=== PATIENT | female | born 1965 | race Caucasian/White ===

== ENCOUNTER 2017-02-13 20:54 | Inpatient (IN) | payer OTHER ==
[~2017-02-13] VITALS: Ht 160 cm; Wt 112.4 kg
[~2017-02-13 20:54] MED LIST: AMBI5TAB PO; ASPI325T PO; CARV12.52 PO; FURO1TAB60 PO; HYDR-3516 PO; ISOS60TA PO; LANTUS2P SQ; LIPI40TA PO; LISI-515 PO; NITR0.4S SL; NOVOLOGP2 SQ; PAXI20TA PO; PLAV75TA29 PO; PROT40TA PO; RANO500 PO; VENTAER INH
[2017-02-13 21:02] VITALS: BP 133/65; PULSE 77; RESP 20; TEMP 98.4; O2SAT 99
[2017-02-13] MEDS ORDERED: PARO40TA2 PO (21:12)
[2017-02-13 21:22] VITALS: O2SAT 96
--- NOTE | 2017-02-13 21:24 | PD ---
HPI Chief Complaint: Chest Pain Time Seen by Provider: 21:14 Travel History International Travel<30 days: No Contact w/Intl Traveler<30days: No Traveled to known affect area: No History of Present Illness HPI 51-year-old female with history of CAD, CABG, multiple stents cardiac catheterization in 2013 that showed small caliber vessel with occlusive disease treated medically, diabetes, and CHF presents to the emergency department by EMS transport for evaluation of severe cramping abdominal pain nausea diaphoresis and then development of retrosternal chest pain with radiation to the right upper extremity. Patient denies any shortness of breath. No report of hematemesis or coffee-ground emesis. No diarrhea. Patient states that she did take aspirin 325 mg times one dose and 3 sublingual nitroglycerin. Patient reports her pain has changed from a 9/10 intensity to a 7/10 in intensity. Patient states that she typically does not respond to nitroglycerin administered sublingually unless she takes it very early. Patient did not receive any medications en route by EMS. Patient states that her severe abdominal cramping has resolved. Patient does not complain of any upper extremity pain or referred pain but does continue complaint of chest discomfort. Patient's had no recent febrile illness or respiratory illness. Patient denies any lower extremity pain or swelling. Patient is unable to identify exacerbating or alleviating factors. Patient denies any syncope or near syncope. Patient is followed by finish mixer Dr. Adnerson. [facility] Past Medical History Narrative Medical CAD, CABG, multiple stents cardiac catheterization in 2013 that showed small caliber vessel with occlusive disease treated medically, diabetes, CHF; appendectomy cholecystectomy CABG; no tobacco use; nursing notes reviewed Hx Anticoagulant Therapy: Yes Arthritis: No Asthma: No Autoimmune Disease: No Blood Disorders: No Anxiety: Yes Depression: Yes Heart Rhythm Problems: Yes Cancer: No Cardiac Catheterization: Yes ( MULTI STENTS 2012) Cardiovascular Problems: Yes High Cholesterol: Yes Chemotherapy: No Chest Pain: Yes Congestive Heart Failure: Yes COPD: Yes Cerebrovascular Accident: No Coronary Artery Disease: Yes Diabetes: Yes (on insulin) Patient Takes Glucophage: No Diminished Hearing: No Endocrine: Yes Gastrointestinal Disorders: Yes GERD: Yes (ACID REFLUX) Genitourinary: Yes Headaches: Yes Hiatal Hernia: No Hypertension: Yes Immune Disorder: No Implanted Vascular Access Dvce: No Kidney Stones: Yes Musculoskeletal: Yes Neurologic: Yes (NEUROPATHY LOWER EXTREMITIES/HANDS) Psychiatric: Yes Reproductive: Yes Respiratory: Yes Immunizations Current: Yes Migraines: Yes Myocardial Infarction: Yes Radiation Therapy: No Renal Failure: No Seizures: No Sickle Cell Disease: No Sleep Apnea: No Thyroid Disease: Yes Ulcer: No Tetanus Vaccination: < 5 Years Influenza Vaccination: Yes PNEUMOCCOCAL Vaccine (Year): 2 ?: Not LMP: 08/2015 Menopausal: Yes : 0 Para: 0 Miscarriage: 0 : 0 Tubal Ligation: Yes Past Surgical History Abdominal Surgery: Yes (HERNIA REPAIRED, APPY, LIDIA) AICD: No Appendectomy: Yes Arteriovenous Shunt: No Body Medical Devices: STERNAL WIRES Cardiac Surgery: Yes (CABG, STENT PLACEMENT) Cholecystectomy: Yes (10 YEARS AGO) Coronary Artery Bypass Graft: Yes ( X 2 2007) Ear Surgery: No Endocrine Surgery: No Eye Surgery: No Genitourinary Surgery: No Gynecologic Surgery: No Insulin Pump: No Joint Replacement: No Neurologic Surgery: No Oral Surgery: No Pacemaker: No Thoracic Surgery: Yes (STERNAL DEBRIDEMENT) Tonsillectomy: Yes Other Surgery: Yes (LEFT LUMPECTOMY ) Family History Family Myocardial Infarction: Yes Social History Alcohol Use: No Tobacco Use: No (QUIT 16 YEARS AGO) Substance Use: No Allergies-Medications (Allergen,Severity, Reaction): Coded Allergies: diatrizoate meglumine (Unverified Allergy, Severe, Nausea/Vomiting, ) ORAL CONTRAST ONLY gadobenic acid (Unverified Allergy, Severe, Nausea/Vomiting, 01/25/17) ORAL CONTRAST ONLY gadodiamide (Unverified Allergy, Severe, Nausea/Vomiting, 01/25/17) ORAL CONTRAST ONLY gadoteridol (Unverified Allergy, Severe, Nausea/Vomiting, 01/25/17) ORAL CONTRAST ONLY iodixanol (Unverified Allergy, Severe, Nausea/Vomiting, 01/25/17) ORAL CONTRAST ONLY iohexol (Unverified Allergy, Severe, Nausea/Vomiting, 01/25/17) ORAL CONTRAST ONLY penicillin G (Unverified Allergy, Severe, 01/25/17) sulfamethoxazole (Unverified Allergy, Severe, 01/25/17) trimethoprim (Unverified Allergy, Severe, 01/25/17) Reported Meds & Prescriptions Reported Meds & Active Scripts Active Ranexa ER 12 HR (Ranolazine) 500 Mg Tab 1,000 Mg PO Q12HR Isosorbide Mononitrate ER (Isosorbide Mononitrate) 60 Mg Tab 120 Mg PO BID Lipitor (Atorvastatin Calcium) 40 Mg Tab 40 Mg PO HS 30 Days Carvedilol 12.5 Mg Tab 12.5 Mg PO BID Lasix (Furosemide) 40 Mg Tab 40 Mg PO DAILY Lantus Inj (Insulin Glargine) 1,000 Unit/10 Ml Vial 30 Units SQ HS 30 Days Hydrocodone-Acetaminophen 5-325 mg Tab 1-2 Tab PO Q4H PRN Reported Paroxetine (Paroxetine HCl) 40 Mg Tab 40 Mg PO DAILY Lisinopril 20 Mg Tab 20 Mg PO BID Nitrostat SL (Nitroglycerin) 0.4 Mg Subl 0.4 Mg SL DIRECTED PRN ONE TABLET UNDER THE TONGUE NEEDED FOR CHEST PAIN, MAY REPEAT EVERY FIVE MINUTES FOR A TOTAL OF 3 DOSES OR CALL 911 IF NO RELIEF Aspirin 325 Mg Tab 325 Mg PO DAILY Novolog Inj (Insulin Aspart) 1,000 Unit/10 Ml Vial 5-25 Units SQ TIDACHS Max dose at bedtime:( )units; sugars less than 70,(0) units; sugars 150-199,(5) units; sugars 200-249,(10) units; sugars 250-299,(15) units; sugars 300-349,(20)units; sugars greater than 349,(25)units Plavix (Clopidogrel Bisulfate) 75 Mg Tab 75 Mg PO DAILY Protonix (Pantoprazole Sodium) 40 Mg Tab 40 Mg PO DAILY Ventolin Hfa 18 GM Inh (Albuterol Sulfate) 90 Mcg/Act Aer 2 Puff INH Q6H PRN Review of Systems Except as stated in HPI: all other systems reviewed are Neg General / Constitutional: No: Fever HENT: No: Congestion Cardiovascular: Positive: Chest Pain or Discomfort, Diaphoresis, No: Syncope Respiratory: No: Shortness of Breath Gastrointestinal: Positive: Nausea, Vomiting, Abdominal Pain Musculoskeletal: No: Limited ROM, Edema, Pain Neurologic: Positive: Weakness, No: Dizziness, Syncope, Focal Abnormalities, Coordination Problem Psychiatric: No: Anxiety Endocrine: No: Heat Intolerance Hematologic/Lymphatic: No: Easy Bruising Physical Exam Narrative GENERAL: Well-developed well-nourished female in no acute distress no respiratory distress SKIN: Warm and dry. HEAD: Normocephalic. EYES: No scleral icterus. No injection or drainage. NECK: Supple, trachea midline. No JVD or lymphadenopathy. CARDIOVASCULAR: Regular rate and rhythm without murmurs, gallops, or rubs. RESPIRATORY: Breath sounds equal bilaterally. No accessory muscle use. GASTROINTESTINAL: Abdomen soft, non-tender, nondistended. MUSCULOSKELETAL: No cyanosis, or edema. BACK: Nontender without obvious deformity. No CVA tenderness. Data Data Last Documented VS Vital Signs Date Time Temp Pulse Resp B/P (MAP) Pulse Ox O2 Delivery O2 Flow Rate FiO2 02/14/17 01:08 82 20 104/51 (68) 95 Room Air 02/13/17 21:02 98.4 Orders Orders Electrocardiogram (02/13/17 21:19) Basic Metabolic Panel (Bmp) (02/13/17 21:19) Ckmb (Isoenzyme) Profile (02/13/17 21:19) Complete Blood Count With Diff (02/13/17 21:19) Magnesium (Mg) (02/13/17 21:19) Prothrombin Time / Inr (Pt) (02/13/17 21:19) Act Partial Throm Time (Ptt) (02/13/17 21:19) Troponin I (02/13/17 21:19) Chest, Single Ap (02/13/17 21:19) Ecg Monitoring (02/13/17 21:19) Bilateral Bp Monitoring (02/13/17 21:19) Iv Access Insert/Monitor (02/13/17 21:19) Oximetry (02/13/17 21:19) Oxygen Administration (02/13/17 21:19) Nitroglycerin 2% Oint (Nitroglycerin 2% (02/13/17 21:30) Sodium Chloride 0.9% Flush (Ns Flush) (02/13/17 21:30) Ondansetron Inj (Zofran Inj) (02/13/17 21:30) Morphine Inj (Morphine Inj) (02/13/17 21:30) Hydromorphone Pf Inj (Dilaudid Pf Inj) (02/13/17 22:30) Ondansetron Inj (Zofran Inj) (02/13/17 22:30) Electrocardiogram (02/13/17 ) Nitroglycerin-D5w 50 Mg/250 Ml (Nitrogly (02/13/17 23:30) Hydromorphone Pf Inj (Dilaudid Pf Inj) (02/13/17 23:30) Ct Abd/Pel W/O Iv Contrast (02/14/17 ) Hepatic Functional Panel (02/13/17 21:35) Lipase (02/13/17 21:35) Urinalysis - C+S If Indicated (02/14/17 01:59) Sodium Chlorid 0.9% 500 Ml Inj (Ns 500 M (02/14/17 02:15) Admit Order (Ed Use Only) (02/14/17 ) ^ Circulation TEODORO.Q1H (02/14/17 04:01) Auto Refinisher / Telemetry TEODORO.Q8H (02/14/17 04:01) Diet Npo (02/15/17 Breakfast) Activity Oob With Assistance (02/14/17 04:01) ^ Saline Lock (02/14/17 04:01) Resp Oxygen Gerry C Titrat 1-4 L (02/14/17 ) Notify Dr: Other (02/14/17 04:01) Ondansetron Inj (Zofran Inj) (02/14/17 04:15) Sodium Chloride 0.9% Flush (Ns Flush) (02/14/17 09:00) Sodium Chloride 0.9% Flush (Ns Flush) (02/14/17 04:15) ^ For Further Orders (02/14/17 04:01) Labs Laboratory Tests Test 02/13/17 21:35 02/13/17 21:38 Blood Urea Nitrogen 49 MG/DL Creatinine 1.90 MG/DL Random Glucose 218 MG/DL Total Protein 9.5 GM/DL Albumin 3.9 GM/DL Calcium Level 9.8 MG/DL Magnesium Level 2.3 MG/DL Alkaline Phosphatase 147 U/L Aspartate Amino Transf (AST/SGOT) 22 U/L Alanine Aminotransferase (ALT/SGPT) 25 U/L Total Bilirubin 0.3 MG/DL Direct Bilirubin 0.1 MG/DL Sodium Level 134 MEQ/L Potassium Level 4.9 MEQ/L Chloride Level 100 MEQ/L Carbon Dioxide Level 26.8 MEQ/L Anion Gap 7 MEQ/L Estimat Glomerular Filtration Rate 28 ML/MIN Indirect Bilirubin 0.2 MG/DL Total Creatine Kinase 55 U/L Troponin I LESS THAN 0.02 NG/ML Lipase 475 U/L White Blood Count 18.9 TH/MM3 Red Blood Count 4.68 MIL/MM3 Hemoglobin 14.6 GM/DL Hematocrit 43.2 % Mean Corpuscular Volume 92.2 FL Mean Corpuscular Hemoglobin 31.1 PG Mean Corpuscular Hemoglobin Concent 33.8 % Red Cell Distribution Width 13.0 % Platelet Count 352 TH/MM3 Mean Platelet Volume 7.9 FL Neutrophils (%) (Auto) 67.9 % Lymphocytes (%) (Auto) 22.8 % Monocytes (%) (Auto) 6.1 % Eosinophils (%) (Auto) 2.4 % Basophils (%) (Auto) 0.8 % Neutrophils # (Auto) 12.9 TH/MM3 Lymphocytes # (Auto) 4.3 TH/MM3 Monocytes # (Auto) 1.2 TH/MM3 Eosinophils # (Auto) 0.4 TH/MM3 Basophils # (Auto) 0.1 TH/MM3 CBC Comment DIFF FINAL Differential Comment Prothrombin Time 10.5 SEC Prothromb Time International Ratio 1.0 RATIO Activated Partial Thromboplast Time 23.2 SEC Exceptions Acute Myocardial Infarction ASA Not Given on Arrival: Already taken by patient (aspirin 325 mg at home) MDM Medical Decision Making Medical Screen Exam Complete: Yes Emergency Medical Condition: Yes Medical Record Reviewed: Yes Interpretation(s) lipase: 475 Last Impressions Abdomen/Pelvis CT 02/14/17 0000 Signed Impressions: Service Date/Time: Tuesday, February 14, 2017 01:30 - CONCLUSION: 1. No obstruction or acute inflammatory changes are demonstrated. No clear etiology demonstrated for the reported right upper quadrant pain. 2. Unchanged bilateral adrenal adenomas. 3. 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 Also an unchanged 2 mm nonobstructing stone of the left lower pole. 4. 5. Left side: 6. Diverticulosis without evidence of diverticulitis. 7. Previous cholecystectomy. 8. Multilevel lumbar spine degenerative changes. Quang Curran MD Chest X-Ray 02/13/172118 Signed Impressions: Service Date/Time: Monday, February 13, 2017 21:32 - CONCLUSION: No acute disease. Cornelio Jernigan MD CBC & BMP Diagram 02/13/17 21:35 Total Protein 9.5 H, Albumin 3.9, Calcium Level 9.8, Magnesium Level 2.3, Alkaline Phosphatase 147 H, Aspartate Amino Transf (AST/SGOT) 22, Alanine Aminotransferase (ALT/SGPT) 25, Total Bilirubin 0.3, Direct Bilirubin 0.1 02/13/17 21:38 Vital Signs Date Time Temp Pulse Resp B/P (MAP) Pulse Ox O2 Delivery O2 Flow Rate FiO2 02/14/17 01:08 82 20 104/51 (68) 95 Room Air 02/13/17 23:58 95 Room Air 02/13/17 23:57 77 106/57 (73) 95 Room Air 02/13/17 23:54 74 20 106/57 (73) 95 Room Air 103/54 (70) 02/13/17 22:41 83 166/79 (108) 95 Room Air 02/13/17 22:41 Room Air 02/13/17 21:22 96 Room Air 02/13/17 21:02 98.4 77 20 133/65 (87) 99 Differential Diagnosis Chest pain, ACS, myocardial infarction, aortic dissection, esophageal spasm, pancreatitis, choledocholithiasis Narrative Course Patient resting comfortably after application of Nitropaste and morphine sulfate @10:30 PM patient complains of severe sudden onset of right breast pain and right upper quadrant abdominal pain; denies any retrosternal or left sided chest pain referred neck jaw back shoulder arm pain; no nausea vomiting; no dyspnea; abdomen is tender to palpation in the right upper quadrant location of complaint of pain as his right breast and chest wall reproduces pain of complaint; patient administered Dilaudid 0.5 mg IV along with Zofran [address] abdomen and pelvis along with lipase and hepatic panel ordered @ [address] resulted and found to have no acute intra-abdominal or pelvic findings no inflammatory findings Patient resting urinalysis remains pending patient admitted for elevation of lipase probable mild pancreatitis with history of CAD and chest pain first set of cardiac enzymes are normal; patient's case discussed with on-call for health physician requests patient be admitted for pancreatitis nothing by mouth IV maintenance fluids and telemetry with assistance up out of bed. Physician Communication Physician Communication iscussed with DR Ortiz--admit to Dr Valdivia Diagnosis Primary Impression: Pancreatitis Qualified Codes: K85.90 - Acute pancreatitis without necrosis or infection, unspecified Additional Impressions: Abdominal pain Qualified Codes: R10.13 - Epigastric pain Chest pain Qualified Codes: R07.2 - Precordial pain Admitting Information Admitting Physician Requests: Admit Virginia Terrazas MD Feb 13, 2017 21:24
[2017-02-13] MEDS ORDERED: NITROGLYCERIN 2% OINT 1 GM PACKET TOP ONE (21:30)
[2017-02-13] MEDS ORDERED: ONDANSETRON HCL 4 MG/2 ML VIAL IV PUSH ONE ×2 (21:30→22:30)
[2017-02-13] MEDS ORDERED: MORPHINE SULFATE 4 MG/ML INJ IV PUSH ONE (21:30)
[2017-02-13] MEDS ORDERED: SODIUM CHLORIDE 0.9% FLUSH 10 ML FLUSH IVF PRN (21:30)
--- NOTE | 2017-02-13 21:42 | RADRPT ---
EXAM DATE/TIME: 02/13/2017 21:32 [facility] COMPARISON: CHEST SINGLE AP, April 23, 2016, 11:37. INDICATIONS : Chest pain MEDICAL HISTORY : Hypertension. Myocardial infarction. Congestive heart failure. COPD, Asthma SURGICAL HISTORY : CABG. ENCOUNTER: Initial ACUITY: 1 day PAIN SCORE: 4/10 LOCATION: Bilateral chest FINDINGS: A single view of the chest demonstrates the lungs to be symmetrically aerated without evidence of mas s, infiltrate or effusion. The cardiomediastinal contours are unremarkable. Osseous structures are intact. CONCLUSION: No acute disease. Cornelio Jernigan MD on February 13, 2017 at 21:40 Board Certified Radiologist. This report was verified electronically.
[2017-02-13 21:47] LABS: AUTOMATED NEUTROPHIL # 12.9 TH/MM3 (1.8-7.7); BASOPHIL # 0.1 TH/MM3 (0-0.2); BASOPHIL % 0.8 % (0.0-2.0); EOSINOPHIL # 0.4 TH/MM3 (0-0.4); EOSINOPHIL % 2.4 % (0.0-4.0); HEMATOCRIT 43.2 % (35.0-46.0); HEMO FLAGS DIFF FINAL; LYMPH % 22.8 % (9.0-44.0); LYMPHOCYTE # 4.3 TH/MM3 (1.0-4.8); MEAN CELL VOLUME 92.2 FL (80.0-100.0); MEAN CORPUSCULAR HEMOGLOBIN 31.1 PG (27.0-34.0); MEAN CORPUSCULAR HGB CONC 33.8 % (32.0-36.0); MONO % 6.1 % (0.0-8.0); NEUT % 67.9 % (16.0-70.0); PLATELET COUNT 352 TH/MM3 (150-450); RED BLOOD COUNT 4.68 MIL/MM3 (4.00-5.30); WHITE BLOOD COUNT 18.9 TH/MM3 (4.0-11.0)
[2017-02-13 21:57] LABS: APTT (PATIENT) 23.2 SEC (24.3-30.1); PROTHROMBIN TIME - PATIENT 10.5 SEC (9.8-11.6)
[2017-02-13 22:09] LABS: ANION GAP 7 MEQ/L (5-15); BICARBONATE 26.8 MEQ/L (21.0-32.0); BLOOD UREA NITROGEN 49 MG/DL (7-18); CHLORIDE 100 MEQ/L (98-107); GLOMERULAR FILTRATION RATE 28 ML/MIN (>89); MAGNESIUM 2.3 MG/DL (1.5-2.5); POTASSIUM 4.9 MEQ/L (3.5-5.1); SODIUM (NA) 134 MEQ/L (136-145)
[2017-02-13 22:12] LABS: CREATINE KINASE 55 U/L (26-192)
[2017-02-13] MEDS ORDERED: HYDROmorphone HCL PF 1 MG/ML VIAL IV PUSH ONE ×2 (22:30→23:30)
[2017-02-13 22:41] VITALS: BP 166/79; PULSE 83; O2SAT 95
[2017-02-13] MEDS ORDERED: NITROGLYCERIN-D5W 50 MG/250 ML 250 ML IV ONE (23:30)
[2017-02-13 23:54] VITALS: BP_SYST 103; BP_SYST 106; BP_DIAS 54; BP_DIAS 57; PULSE 74; RESP 20; O2SAT 95
[2017-02-13 23:57] VITALS: BP 106/57; PULSE 77; O2SAT 95
[2017-02-14] VITALS (8 sets, daily range): BP systolic 101–130; BP diastolic 49–65; PULSE 68–82; RESP 16–20; TEMP 96.3–96.7; O2SAT 92–100
--- NOTE | 2017-02-14 01:56 | RADRPT ---
EXAM DATE/TIME: 02/14/2017 01:30 [facility] COMPARISON: CT ABDOMEN & PELVIS W/O CONTRAST, April 26, 2015, 23:12. INDICATIONS : Right upper quadrant pain. ORAL CONTRAST: No oral contrast ingested. RADIATION DOSE: 22.22 CTDIvol (mGy) MEDICAL HISTORY : Cardiovascular disease. Chronic obstructive pulmonary disease. Congestive heart failure.Hypertension. Renal calculi. Diabetes. SURGICAL HISTORY : CABG Cholecystectomy.Tubal ligation.Appendectomy. ENCOUNTER: Initial ACUITY: 1 day PAIN SCALE: 7/10 LOCATION: Right upper quadrant TECHNIQUE: Volumetric scanning of the abdomen and pelvis was performed. Using automated exposure control and ad justment of the mA and/or kV according to patient size, radiation dose was kept as low as reasonably achievable to obtain optimal diagnostic quality images. DICOM format image data is available electro nically for review and comparison. FINDINGS: No acute abnormality seen of the liver, spleen, pancreas, adrenal glands or kidneys. Mild nodularity/ fullness of both adrenal glands is stable. There are subcentimeter rim calcified pseudoaneurysms of b ilateral renal arteries that are stable. 2 mm nonobstructing stone at the left lower pole unchanged. Previous cholecystectomy. There is moderate diverticulosis of the sigmoid and descending portions of the colon. No acute inflam matory changes are seen. Uterus and bilateral ovaries have a normal CT appearance. No free fluid. No lymphadenopathy. Visualized lung bases are clear. No acute bony abnormality demonst rated. Degenerative disc disease with vacuum phenomena seen at each level, L2/L3-L5/S1. CONCLUSION: 1. No obstruction or acute inflammatory changes are demonstrated. No clear etiology demonstrated for the reported right upper quadrant pain. 2. Unchanged bilateral adrenal adenomas. 3. 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 Also an unchanged 2 mm non obstructing stone of the left lower pole. 4. 5. Left side: 6. Diverticulosis without evidence of diverticulitis. 7. Previous cholecystectomy. 8. Multilevel lumbar spine degenerative changes. Quang Curran MD on February 14, 2017 at 1:48 Board Certified Radiologist. This report was verified electronically.
[2017-02-14] MEDS ORDERED: SODIUM CHLORID 0.9% 500 ML INJ 500 ML IV ONE ×2 (02:15→06:00)
[2017-02-14 02:47] LABS: ALT (GPT) 25 U/L (10-53); AST (GOT) 22 U/L (15-37)
[2017-02-14 02:48] LABS: ALKALINE PHOSPHATASE 147 U/L (45-117); INDIRECT BILIRUBIN 0.2 MG/DL (0.0-0.8); TOTAL BILIRUBIN ADULT 0.3 MG/DL (0.2-1.0)
[2017-02-14] MEDS ORDERED: SODIUM CHLORIDE 0.9% FLUSH 10 ML FLUSH IVF PRN (04:15)
[2017-02-14] MEDS: ONDANSETRON HCL 4 MG/2 ML VIAL IV PRN (04:25)
--- NOTE | 2017-02-14 07:21 | HHI.HP ---
HPI Service [facility] Primary Care Physician Reji Basilio M.D. Admission Diagnosis pancreatitis Travel History International Travel<30 Days: No Contact w/Intl Traveler <30 Da: No Traveled to Known Affected Are: No History of Present Illness Mrs. Dwyer is a 50 y/o WF with history of CAD with previous CABG, DM, HTN, HLD , COPD, CHF who presents the emergency department for severe cramping abdominal pain nausea diaphoresis and then development of retrosternal chest pain with radiation to the right upper extremity. Patient denies any shortness of breath. No report of hematemesis or coffee-ground emesis. No diarrhea. Patient states that she did take aspirin 325 mg times one dose and 3 sublingual nitroglycerin. Patient reports her pain has changed from a 9/10 intensity to a 7/10 in intensity. Patient states that she typically does not respond to nitroglycerin administered sublingually unless she takes it very early. Patient did not receive any medications en route by EMS. Patient states that her severe abdominal cramping has resolved. Patient does not complain of any upper extremity pain or referred pain but does continue complaint of chest discomfort. Patient's had no recent febrile illness or respiratory illness. Patient denies any lower extremity pain or swelling. Patient is unable to identify exacerbating or alleviating factors. Patient denies any syncope or near syncope. Patient is followed by nutrition intern Dr. Anderson. @10:30 PM patient complains of severe sudden onset of right breast pain and right upper quadrant abdominal pain; denies any retrosternal or left sided chest pain referred neck jaw back shoulder arm pain; no nausea vomiting; no dyspnea; abdomen is tender to palpation in the right upper quadrant location of complaint of pain as his right breast and chest wall reproduces pain of complaint; patient administered Dilaudid 0.5 mg IV along with Zofran [address] abdomen and pelvis along with lipase and hepatic panel ordered @ [address] resulted and found to have no acute intra-abdominal or pelvic findings no inflammatory findings Past Family Social History Past Medical History Coronary artery disease status post CABG and cardiac stents Anxiety Depression Hyperlipidemia Congestive heart failure COPD Diabetes on insulin Diabetic neuropathy GERD Chronic headaches Hypertension History of kidney stones Past Surgical History Hernia repair Appendectomy Sternal debridement CABG in 2007 [facility] with Dr. Arsalan Anderson 05/30/14 - Severe 3 vessel [place] coronary artery disease - one of the two coronary artery bypass grafts are patent. There is late stent thrombosis of the PHILLIPS distal stent - Normal left ventricular filling pressures - Plan at time of heart catheterization: Given the small caliber sized vessel , cardiology elected to medically manage the remainder of patient's small vessel coronary disease Reported Medications Ranexa ER 12 HR (Ranolazine) 500 Mg Tab 1,000 Mg PO Q12HR Isosorbide Mononitrate ER (Isosorbide Mononitrate) 60 Mg Tab 120 Mg PO BID Lipitor (Atorvastatin Calcium) 40 Mg Tab 40 Mg PO HS 30 Days Carvedilol 12.5 Mg Tab 12.5 Mg PO BID Lasix (Furosemide) 40 Mg Tab 40 Mg PO DAILY Lantus Inj (Insulin Glargine) 1,000 Unit/10 Ml Vial 30 Units SQ HS 30 Days Hydrocodone-Acetaminophen 5-325 mg Tab 1-2 Tab PO Q4H PRN Paroxetine (Paroxetine HCl) 40 Mg Tab 40 Mg PO DAILY Lisinopril 20 Mg Tab 20 Mg PO BID Nitrostat SL (Nitroglycerin) 0.4 Mg Subl 0.4 Mg SL DIRECTED PRN ONE TABLET UNDER THE TONGUE NEEDED FOR CHEST PAIN, MAY REPEAT EVERY FIVE MINUTES FOR A TOTAL OF 3 DOSES OR CALL 911 IF NO RELIEF Aspirin 325 Mg Tab 325 Mg PO DAILY Novolog Inj (Insulin Aspart) 1,000 Unit/10 Ml Vial 5-25 Units SQ TIDACHS Max dose at bedtime:( )units; sugars less than 70,(0) units; sugars 150-199,(5) units; sugars 200-249,(10) units; sugars 250-299,(15) units; sugars 300-349,(20)units; sugars greater than 349,(25)units Plavix (Clopidogrel Bisulfate) 75 Mg Tab 75 Mg PO DAILY Protonix (Pantoprazole Sodium) 40 Mg Tab 40 Mg PO DAILY Ventolin Hfa 18 GM Inh (Albuterol Sulfate) 90 Mcg/Act Aer 2 Puff INH Q6H PRN Allergies: Coded Allergies: diatrizoate meglumine (Unverified Allergy, Severe, Nausea/Vomiting, ) ORAL CONTRAST ONLY gadobenic acid (Unverified Allergy, Severe, Nausea/Vomiting, 01/25/17) ORAL CONTRAST ONLY gadodiamide (Unverified Allergy, Severe, Nausea/Vomiting, 01/25/17) ORAL CONTRAST ONLY gadoteridol (Unverified Allergy, Severe, Nausea/Vomiting, 01/25/17) ORAL CONTRAST ONLY iodixanol (Unverified Allergy, Severe, Nausea/Vomiting, 01/25/17) ORAL CONTRAST ONLY iohexol (Unverified Allergy, Severe, Nausea/Vomiting, 01/25/17) ORAL CONTRAST ONLY penicillin G (Unverified Allergy, Severe, 01/25/17) sulfamethoxazole (Unverified Allergy, Severe, 01/25/17) trimethoprim (Unverified Allergy, Severe, 01/25/17) Active Ordered Medications Current Medications Medications (Trade) Dose Ordered Sig/Marcial Route Start Time Stop Time Status Last Admin (Zofran Inj) 4 mg Q6H PRN IV 02/14/17 04:15 02/14/17 04:25 (NS Flush) 2 ml BID IV FLUSH 02/14/17 09:00 (NS Flush) 2 ml UNSCH PRN IVF 02/14/17 04:15 Family History Maternal: Heart disease Paternal: at age 50 from an IN Sister also with heart disease Social History Lives with: in [place] Hx of tobacco use, 1ppd 20+ quit 16 yrs ago Occasional alcohol once per month Denies any illicit drug use Physical Exam Vital Signs Vital Signs Date Time Temp Pulse Resp B/P (MAP) Pulse Ox O2 Delivery O2 Flow Rate FiO2 02/14/17 06:20 96.7 70 19 130/65 (86) 100 02/14/17 04:28 74 20 117/56 (76) 95 Room Air 02/14/17 01:08 82 20 104/51 (68) 95 Room Air 02/13/17 23:58 95 Room Air 02/13/17 23:57 77 106/57 (73) 95 Room Air 02/13/17 23:54 74 20 106/57 (73) 95 Room Air 103/54 (70) 02/13/17 22:41 83 166/79 (108) 95 Room Air 02/13/17 22:41 Room Air 02/13/17 21:22 96 Room Air 02/13/17 21:02 98.4 77 20 133/65 (87) 99 Physical Exam GENERAL: This is a well-nourished, well-developed patient, in no apparent distress. HEENT: Atraumatic. Normocephalic. No temporal or scalp tenderness. No scleral icterus. Airway patent. NECK: Trachea midline, supple, nontender. CARDIO: Regular. RESP: Crackles at the right lung base. ABD: EXT: Extremities without clubbing, cyanosis, or edema. NEURO: Awake and alert. Motor and sensory grossly within normal limits. Normal speech. Laboratory Laboratory Tests Test 02/13/17 21:35 02/13/17 21:38 Blood Urea Nitrogen 49 Creatinine 1.90 Random Glucose 218 Total Protein 9.5 Albumin 3.9 Calcium Level 9.8 Magnesium Level 2.3 Alkaline Phosphatase 147 Aspartate Amino Transf (AST/SGOT) 22 Alanine Aminotransferase (ALT/SGPT) 25 Total Bilirubin 0.3 Direct Bilirubin 0.1 Sodium Level 134 Potassium Level 4.9 Chloride Level 100 Carbon Dioxide Level 26.8 Anion Gap 7 Estimat Glomerular Filtration Rate 28 Indirect Bilirubin 0.2 Total Creatine Kinase 55 Troponin I LESS THAN 0.02 Lipase 475 White Blood Count 18.9 Red Blood Count 4.68 Hemoglobin 14.6 Hematocrit 43.2 Mean Corpuscular Volume 92.2 Mean Corpuscular Hemoglobin 31.1 Mean Corpuscular Hemoglobin Concent 33.8 Red Cell Distribution Width 13.0 Platelet Count 352 Mean Platelet Volume 7.9 Neutrophils (%) (Auto) 67.9 Lymphocytes (%) (Auto) 22.8 Monocytes (%) (Auto) 6.1 Eosinophils (%) (Auto) 2.4 Basophils (%) (Auto) 0.8 Neutrophils # (Auto) 12.9 Lymphocytes # (Auto) 4.3 Monocytes # (Auto) 1.2 Eosinophils # (Auto) 0.4 Basophils # (Auto) 0.1 CBC Comment DIFF FINAL Differential Comment Prothrombin Time 10.5 Prothromb Time International Ratio 1.0 Activated Partial Thromboplast Time 23.2 Date/Time Source Procedure Growth Status 02/14/17 04:37 Urine Clean Catch Urine Culture Pending Received Result Diagram: [id number] Imaging Last Impressions Abdomen/Pelvis CT 02/14/17 0000 Signed Impressions: Service Date/Time: Tuesday, February 14, 2017 01:30 - CONCLUSION: 1. No obstruction or acute inflammatory changes are demonstrated. No clear etiology demonstrated for the reported right upper quadrant pain. 2. Unchanged bilateral adrenal adenomas. 3. 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 Also an unchanged 2 mm nonobstructing stone of the left lower pole. 4. 5. Left side: 6. Diverticulosis without evidence of diverticulitis. 7. Previous cholecystectomy. 8. Multilevel lumbar spine degenerative changes. Quang Curran MD Chest X-Ray 02/13/178 Signed Impressions: Service Date/Time: Monday, February 13, 2017 21:32 - CONCLUSION: No acute disease. Cornelio Jernigan MD Caprini VTE Risk Assessment Caprini Risk Assessment Model Point Value = 1 Point Value = 2 Point Value = 3 Point Value = 5 Age 41-60 Minor surgery BMI > 25 kg/m2 Swollen legs Varicose veins or History of unexplained or recurrent spontaneous Oral contraceptives or hormone replacement Sepsis (< 1 month) Serious lung disease, including pneumonia (< 1 month) Abnormal pulmonary function Acute myocardial infarction Congestive heart failure (< 1 month) History of inflammatory bowel disease Medical patient at bed rest Age 61-74 Arthroscopic surgery Major open surgery (> 45 min) Laparoscopic surgery (> 45 min) Malignancy Confined to bed (> 72 hours) Immobilizing plaster cast Central venous access Age >= 75 History of VTE Family history of VTE Factor V Leiden Prothrombin [id number] Lupus anticoagulant Anticardiolipin antibodies Elevated serum homocysteine Heparin-induced thrombocytopenia Other congenital or acquired thrombophilia Stroke (< 1 month) Elective arthroplasty Hip, pelvis, or leg fracture Acute spinal cord injury (< 1 month) Prophylaxis Regimen Total Risk Factor Score Risk Level Prophylaxis Regimen 0-1 Low Early ambulation 2 Moderate Order ONE of the following: *Sequential Compression Device (SCD) *Heparin 5000 units SQ BID 3-4 Higher Order ONE of the following medications: *Heparin 5000 units SQ TID *Enoxaparin/Lovenox 40 mg SQ daily (WT < 150 kg, CrCl > 30 mL/min) *Enoxaparin/Lovenox 30 mg SQ daily (WT < 150 kg, CrCl > 10-29 mL/min) *Enoxaparin/Lovenox 30 mg SQ BID (WT < 150 kg, CrCl > 30 mL/min) AND/OR *Sequential Compression Device (SCD) 5 or more Highest Order ONE of the following medications: *Heparin 5000 units SQ TID (Preferred with Epidurals) *Enoxaparin/Lovenox 40 mg SQ daily (WT < 150 kg, CrCl > 30 mL/min) *Enoxaparin/Lovenox 30 mg SQ daily (WT < 150 kg, CrCl > 10-29 mL/min) *Enoxaparin/Lovenox 30 mg SQ BID (WT < 150 kg, CrCl > 30 mL/min) AND *Sequential Compression Device (SCD) Physician Certification Order for Inpatient Services The services are ordered in accordance with Medicare regulations or non- Medicare payer requirements, as applicable. In the case of services not specified as inpatient-only, they are appropriately provided as inpatient services in accordance with the 2-midnight benchmark. days is the estimated time the patient will need to remain in the hospital, assuming treatment plan goals are met and no additional complications. Cindy Benjamin Feb 14, 2017 07:21
--- NOTE | 2017-02-14 07:24 | HHI.HP ---
HPI Service [facility] Hospitalists Primary Care Physician Reji Basilio M.D. Admission Diagnosis pancreatitis Chief Complaint: Severe Cramping abdominal pain and right-sided chest pain Travel History International Travel<30 Days: No Contact w/Intl Traveler <30 Da: No Traveled to Known Affected Are: No History of Present Illness Mrs. Dwyer is a 50 y/o WF with history of CAD with previous CABG, DM, HTN, HLD , COPD, CHF echocardiogram 04/2016 revealed EF of 30-35% who presented the hospital with complaints of severe cramping abdominal pain which started approximately 8 PM last night while sitting and watching television. Patient describes the abdominal pain as first starting across the lower abdomen and radiating to the mid epigastric area. Patient rates the pain 9 out of 10 associated with bowel movement soft bowel movements 2. Patient denies bright red blood or black tarry stools. Patient also reports nausea and vomiting as well as chills. Patient denies recent sick contacts or changes in diet. Patient reports approximately the same time she began to have stabbing mid retrosternal chest pain which later radiated to the right side of her chest, under her right breast, back neck and right upper arm. This right sided chest pain located under right breast and upper abdomen is reproducible with palpation. Patient reports the symptoms lasted for, "hours." Symptoms minimally relieved by nitroglycerin paste. Patient has had history of CAD with CABG in [address] Oviedo. Patient had cardiac catheterization in 2013 which revealed - Severe 3 vessel [place] coronary artery disease - one of the two coronary artery bypass grafts are patent. 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 Initial EKG reviewed and reveals sinus rhythm heart rate [address] changes Initial troponin 0.[address] abdomen reviewed and reveals no acute intra-abdominal findings Review of Systems Constitutional: COMPLAINS OF: Diaphoretic episodes, Chills, DENIES: Fatigue, Fever Respiratory: DENIES: Cough, Hemoptysis, Sputum production, Shortness of breath Cardiovascular: COMPLAINS OF: Chest pain, DENIES: Palpitations, Dyspnea on Exertion, Lower Extremity Edema Gastrointestinal: COMPLAINS OF: Abdominal pain, Nausea, Vomiting, DENIES: Black stools, Bloody stools, BRB per rectum Neurologic: DENIES: Headache, Localized weakness, Speech Problems Psychiatric: DENIES: Anxiety, Confusion, Depression Past Family Social History Past Medical History Coronary artery disease status post CABG and cardiac stents Anxiety Depression Hyperlipidemia Congestive heart failure COPD Diabetes on insulin Diabetic neuropathy GERD Chronic headaches Hypertension History of kidney stones Past Surgical History Hernia repair Appendectomy Sternal debridement CABG in [address] [facility] with [address] Arsalan Oviedo 05/30/14 - Severe 3 vessel [place] coronary artery disease - one of the two coronary artery bypass grafts are patent. There is late stent thrombosis of the PHILLIPS distal stent - Normal left ventricular filling pressures - Plan at time of heart catheterization: Given the small caliber sized vessel , cardiology elected to medically manage the remainder of patient's small vessel coronary disease Reported Medications Ranexa ER 12 HR (Ranolazine) 500 Mg Tab 1,000 Mg PO Q12HR Isosorbide Mononitrate ER (Isosorbide Mononitrate) 60 Mg Tab 120 Mg PO BID Lipitor (Atorvastatin Calcium) 40 Mg Tab 40 Mg PO HS 30 Days Carvedilol 12.5 Mg Tab 12.5 Mg PO BID Lasix (Furosemide) 40 Mg Tab 40 Mg PO DAILY Lantus Inj (Insulin Glargine) 1,000 Unit/10 Ml Vial 30 Units SQ HS 30 Days Hydrocodone-Acetaminophen 5-325 mg Tab 1-2 Tab PO Q4H PRN Paroxetine (Paroxetine HCl) 40 Mg Tab 40 Mg PO DAILY Lisinopril 20 Mg Tab 20 Mg PO BID Nitrostat SL (Nitroglycerin) 0.4 Mg Subl 0.4 Mg SL DIRECTED PRN ONE TABLET UNDER THE TONGUE NEEDED FOR CHEST PAIN, MAY REPEAT EVERY FIVE MINUTES FOR A TOTAL OF 3 DOSES OR CALL 911 IF NO RELIEF Aspirin 325 Mg Tab 325 Mg PO DAILY Novolog Inj (Insulin Aspart) 1,000 Unit/10 Ml Vial 5-25 Units SQ TIDACHS Max dose at bedtime:( )units; sugars less than 70,(0) units; sugars 150-199,(5) units; sugars 200-249,(10) units; sugars 250-299,(15) units; sugars 300-349,(20)units; sugars greater than 349,(25)units Plavix (Clopidogrel Bisulfate) 75 Mg Tab 75 Mg PO DAILY Protonix (Pantoprazole Sodium) 40 Mg Tab 40 Mg PO DAILY Ventolin Hfa 18 GM Inh (Albuterol Sulfate) 90 Mcg/Act Aer 2 Puff INH Q6H PRN Allergies: Coded Allergies: diatrizoate meglumine (Unverified Allergy, Severe, Nausea/Vomiting, ) ORAL CONTRAST ONLY gadobenic acid (Unverified Allergy, Severe, Nausea/Vomiting, 01/25/17) ORAL CONTRAST ONLY gadodiamide (Unverified Allergy, Severe, Nausea/Vomiting, 01/25/17) ORAL CONTRAST ONLY gadoteridol (Unverified Allergy, Severe, Nausea/Vomiting, 01/25/17) ORAL CONTRAST ONLY iodixanol (Unverified Allergy, Severe, Nausea/Vomiting, 01/25/17) ORAL CONTRAST ONLY iohexol (Unverified Allergy, Severe, Nausea/Vomiting, 01/25/17) ORAL CONTRAST ONLY penicillin G (Unverified Allergy, Severe, 01/25/17) sulfamethoxazole (Unverified Allergy, Severe, 01/25/17) trimethoprim (Unverified Allergy, Severe, 01/25/17) Active Ordered Medications Current Medications Medications (Trade) Dose Ordered Sig/Marcial Route Start Time Stop Time Status Last Admin (Zofran Inj) 4 mg Q6H PRN IV 02/14/17 04:15 02/14/17 04:25 (NS Flush) 2 ml BID IV FLUSH 02/14/17 09:00 (NS Flush) 2 ml UNSCH PRN IVF 02/14/17 04:15 (Nitroglycerin 2% Oint) 0.5 inch Q6HR TOPICAL 02/14/17 08:00 (D50w (Vial) Inj) 50 ml UNSCH PRN IV 02/14/17 07:30 (Glucagon Inj) 1 mg UNSCH PRN OTHER 02/14/17 07:30 (NovoLOG SUPPLEMENTAL SCALE) 1 ACHS SLIDING SCALE SQ 02/14/17 11:00 Family History Maternal: Heart disease Paternal: at age 50 from an AL Sister also with heart disease Social History Lives with: in [place] Hx of tobacco use, 1ppd 20+ quit 16 yrs ago Occasional alcohol once per month Denies any illicit drug use Physical Exam Vital Signs Vital Signs Date Time Temp Pulse Resp B/P (MAP) Pulse Ox O2 Delivery O2 Flow Rate FiO2 02/14/17 06:20 96.7 70 19 130/65 (86) 100 02/14/17 04:28 74 20 117/56 (76) 95 Room Air 02/14/17 01:08 82 20 104/51 (68) 95 Room Air 02/13/17 23:58 95 Room Air 02/13/17 23:57 77 106/57 (73) 95 Room Air 02/13/17 23:54 74 20 106/57 (73) 95 Room Air 103/54 (70) 02/13/17 22:41 83 166/79 (108) 95 Room Air 02/13/17 22:41 Room Air 02/13/17 21:22 96 Room Air 02/13/17 21:02 98.4 77 20 133/65 (87) 99 Physical Exam GENERAL: This is an obese, well-developed patient, in no apparent distress. HEENT: Atraumatic. Normocephalic. No temporal or scalp tenderness. No scleral icterus. Airway patent. NECK: Trachea midline, supple, nontender. CARDIO: Regular. RESP: difficult to auscultate due to body habitus, clear through out ABD: Soft, nondistended, hypoactive bowel sounds 4 quadrants, tender right upper quadrant EXT: Extremities without clubbing, cyanosis, or edema. NEURO: Awake and alert. Motor and sensory grossly within normal limits. Normal speech. Laboratory Laboratory Tests Test 02/13/17 21:35 02/13/17 21:38 Blood Urea Nitrogen 49 Creatinine 1.90 Random Glucose 218 Total Protein 9.5 Albumin 3.9 Calcium Level 9.8 Magnesium Level 2.3 Alkaline Phosphatase 147 Aspartate Amino Transf (AST/SGOT) 22 Alanine Aminotransferase (ALT/SGPT) 25 Total Bilirubin 0.3 Direct Bilirubin 0.1 Sodium Level 134 Potassium Level 4.9 Chloride Level 100 Carbon Dioxide Level 26.8 Anion Gap 7 Estimat Glomerular Filtration Rate 28 Indirect Bilirubin 0.2 Total Creatine Kinase 55 Troponin I LESS THAN 0.02 Lipase 475 White Blood Count 18.9 Red Blood Count 4.68 Hemoglobin 14.6 Hematocrit 43.2 Mean Corpuscular Volume 92.2 Mean Corpuscular Hemoglobin 31.1 Mean Corpuscular Hemoglobin Concent 33.8 Red Cell Distribution Width 13.0 Platelet Count 352 Mean Platelet Volume 7.9 Neutrophils (%) (Auto) 67.9 Lymphocytes (%) (Auto) 22.8 Monocytes (%) (Auto) 6.1 Eosinophils (%) (Auto) 2.4 Basophils (%) (Auto) 0.8 Neutrophils # (Auto) 12.9 Lymphocytes # (Auto) 4.3 Monocytes # (Auto) 1.2 Eosinophils # (Auto) 0.4 Basophils # (Auto) 0.1 CBC Comment DIFF FINAL Differential Comment Prothrombin Time 10.5 Prothromb Time International Ratio 1.0 Activated Partial Thromboplast Time 23.2 Date/Time Source Procedure Growth Status 02/14/17 04:37 Urine Clean Catch Urine Culture Pending Received Result Diagram: 02/[id number] Imaging Last Impressions Abdomen/Pelvis CT 02/14/17 0000 Signed Impressions: Service Date/Time: Tuesday, February 14, 2017 01:30 - CONCLUSION: 1. No obstruction or acute inflammatory changes are demonstrated. No clear etiology demonstrated for the reported right upper quadrant pain. 2. Unchanged bilateral adrenal adenomas. 3. 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 Also an unchanged 2 mm nonobstructing stone of the left lower pole. 4. 5. Left side: 6. Diverticulosis without evidence of diverticulitis. 7. Previous cholecystectomy. 8. Multilevel lumbar spine degenerative changes. Quang Curran MD Chest X-Ray 02/13/[id number] Signed Impressions: Service Date/Time: Monday, February 13, 2017 21:32 - CONCLUSION: No acute disease. MD Vitor Kilpatrick VTE Risk Assessment Caprini VTE Risk Assessment: Mod/High Risk (score >= 2) Caprini Risk Assessment Model Point Value = 1 Point Value = 2 Point Value = 3 Point Value = 5 Age 41-60 Minor surgery BMI > 25 kg/m2 Swollen legs Varicose veins or History of unexplained or recurrent spontaneous Oral contraceptives or hormone replacement Sepsis (< 1 month) Serious lung disease, including pneumonia (< 1 month) Abnormal pulmonary function Acute myocardial infarction Congestive heart failure (< 1 month) History of inflammatory bowel disease Medical patient at bed rest Age 61-74 Arthroscopic surgery Major open surgery (> 45 min) Laparoscopic surgery (> 45 min) Malignancy Confined to bed (> 72 hours) Immobilizing plaster cast Central venous access Age >= 75 History of VTE Family history of VTE Factor V Leiden Prothrombin [id number] Lupus anticoagulant Anticardiolipin antibodies Elevated serum homocysteine Heparin-induced thrombocytopenia Other congenital or acquired thrombophilia Stroke (< 1 month) Elective arthroplasty Hip, pelvis, or leg fracture Acute spinal cord injury (< 1 month) Prophylaxis Regimen Total Risk Factor Score Risk Level Prophylaxis Regimen 0-1 Low Early ambulation 2 Moderate Order ONE of the following: *Sequential Compression Device (SCD) *Heparin 5000 units SQ BID 3-4 Higher Order ONE of the following medications: *Heparin 5000 units SQ TID *Enoxaparin/Lovenox 40 mg SQ daily (WT < 150 kg, CrCl > 30 mL/min) *Enoxaparin/Lovenox 30 mg SQ daily (WT < 150 kg, CrCl > 10-29 mL/min) *Enoxaparin/Lovenox 30 mg SQ BID (WT < 150 kg, CrCl > 30 mL/min) AND/OR *Sequential Compression Device (SCD) 5 or more Highest Order ONE of the following medications: *Heparin 5000 units SQ TID (Preferred with Epidurals) *Enoxaparin/Lovenox 40 mg SQ daily (WT < 150 kg, CrCl > 30 mL/min) *Enoxaparin/Lovenox 30 mg SQ daily (WT < 150 kg, CrCl > 10-29 mL/min) *Enoxaparin/Lovenox 30 mg SQ BID (WT < 150 kg, CrCl > 30 mL/min) AND *Sequential Compression Device (SCD) Assessment and Plan Problem List: (1) Abdominal pain ICD Codes: R10.9 - Abdominal pain Status: Acute (2) Chest pain ICD Codes: R07.9 - Chest pain Status: Acute (3) Acute renal insufficiency ICD Codes: N28.9 - Acute renal insufficiency Status: Acute (4) Diabetes ICD Codes: E11.9 - Type 2 diabetes mellitus without complications Status: Chronic (5) COPD (chronic obstructive pulmonary disease) ICD Codes: J44.9 - Chronic obstructive pulmonary disease, unspecified Status: Chronic (6) Dyslipidemia ICD Codes: E78.5 - Dyslipidemia Status: Chronic (7) HTN (hypertension) ICD Codes: I10 - Essential (primary) hypertension Status: Chronic (8) CAD (coronary artery disease) ICD Codes: I25.10 - Atherosclerosis of coronary artery Status: Chronic (9) CHF (congestive heart failure) ICD Codes: I50.9 - Heart failure, unspecified Status: Chronic Assessment and Plan I agree with the above.Abdominal pain, possible mild pancreatitis - CT the abdomen reviewed and reveals no obstruction or acute inflammatory change. No clear etiology demonstrated for the reported right upper quadrant pain. Unchanged bilateral adrenal adenomas. Unchanged rim and calcified subcentimeter aneurysms of both renal arteries, also unchanged 2 mm nonobstructing stone of the left lower pole. Diverticulosis without evidence of diverticulitis. Previous cholecystectomy. Multilevel lumbar spine degenerative changes - Lipase mildly elevated for 475 - Nothing by mouth - Gentle IV hydration - Morphine IV as needed for pain Chest pain with history of CAD rule out acute coronary syndrome - Initial troponin less than 0.02 - Initial EKG sinus rhythm [address] changes identified - Continue serial troponin and serial EKG - Nitropaste - Lipid panel - Aspirin daily - Patient had cardiac catheterization in 2013 which revealed - Severe 3 vessel [place] coronary artery disease - one of the two coronary artery bypass grafts are patent. 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 oviedo - Cautious IV hydration monitor closely for signs of fluid overload DARSHANA- BUN 49 creatinine 1.90 estimated GFR 28 - likely related to dehydration - hold Lasix - gentle IV hydration with NS at 50ml/h - recheck BMP in AM Diabetes mellitus- insulin-dependent - Hold long-acting insulin as patient is currently nothing by mouth - Accu-Cheks before meals at bedtime with low-dose sliding scale insulin coverage Hypertension blood pressure currently stable - Continue monitor trend - Hold and hypertensive medications if possible as patient is nothing by mouth COPD - patient does not appear to be in acute exacerbation continue home medications DVT prophylaxis with Lovenox subcutaneous Patient examined. Assessment and plan formulated with Graciela Benjamin PA-C. epigastric pain/ruq with radiation to right chest. mild lipase elevation. some reproducibility to pain on palpation over lower chest/epigastric area could be a mild pancreatitis. Not obviously ACS. Feels better but pain not resolved. Labs reveal darshana and dehydration. will hold diuretic. gentle ivf. recheck cbc/bmp in AM look for recent stress test result...pt reports "nml:" at [facility] about 3months ago. Problem Qualifiers (1) Abdominal pain: Qualified Codes: R10.11 - Right upper quadrant pain (2) CHF (congestive heart failure): Cindy Benjamin Feb 14, 2017 07:24 Héctor Kendrick MD Feb 14, 2017 10:25
[2017-02-14] MEDS ORDERED: GLUCAGON 1 MG/ML VIAL OTHER PRN (07:30)
[2017-02-14] MEDS ORDERED: DEXTROSE 50% IN WATER 50 ML VIAL(D50) IV PRN (07:30)
[2017-02-14] MEDS ORDERED: SODIUM CHLOR 0.9% 1000 ML INJ 1,000 ML IV SCH (09:00)
[2017-02-14] MEDS: SODIUM CHLORIDE 0.9% FLUSH 10 ML FLUSH IV FLUSH SCH ×2 (09:11→21:25)
[2017-02-14] MEDS: NITROGLYCERIN 2% OINT 1 GM PACKET TOPICAL SCH ×3 (09:11→17:07)
[2017-02-14] MEDS: MORPHINE SULFATE 4 MG/ML INJ IV PUSH PRN ×3 (09:12→21:32)
[2017-02-14] MEDS ORDERED: ENOXAPARIN SODIUM 40 MG/0.4 ML SYRINGE SQ SCH (10:00)
[2017-02-14] MEDS ORDERED: ALBUTEROL SULFATE 90 MCG/ACT HFA 8 GM INHALER INH PRN (10:00)
[2017-02-14] MEDS: PANTOPRAZOLE SOD 40 MG DELAYED RELEASE TAB PO SCH (10:25)
[2017-02-14] MEDS: ISOSORBIDE MONONITRATE 60 MG TAB PO SCH ×2 (10:25→21:25)
[2017-02-14] MEDS: CARVEDILOL 12.5 MG TAB PO SCH ×2 (10:25→21:25)
[2017-02-14] MEDS: CLOPIDOGREL 75 MG TAB PO SCH (10:25)
[2017-02-14] MEDS: ASPIRIN 325 MG TAB PO SCH (10:25)
[2017-02-14] MEDS: PARoxetine HCL 20 MG TAB PO SCH (10:25)
[2017-02-14] MEDS: RANOLAZINE 500 MG EXTENDED RELEASE TAB PO SCH ×2 (10:26→21:25)
[2017-02-14 11:42] LABS: BICARBONATE 26.1 MEQ/L (21.0-32.0); POTASSIUM 5.4 MEQ/L (3.5-5.1)
[2017-02-14] MEDS: INSULIN ASPART SUPPLEMENTAL SCALE SQ SCH ×3 (12:32→21:29)
[2017-02-14] MEDS: SODIUM CHLOR 0.9% 1000 ML INJ 1,000 ML IV SCH (12:50)
[2017-02-14 17:03] LABS: BACTERIA, URINE RARE /hpf; BLOOD, URINE MOD (NEG); COMMENT (UR) CULTURE INDICATED; CULTURE IF INDICATED CULTURE INDICATED; GLUCOSE,URINE 150 mg/dL (NEG); KETONE, URINE NEG (NEG); MUCUS URINE FEW /lpf (OCC); NITRITE,URINE NEG (NEG); SQUAMOUS EPITHELIAL CELL URINE 2 /hpf (0-5)
[2017-02-14 17:09] LABS: HYALINE CAST, URINE 23 /lpf (RARE); URINE COLOR LIGHT-RED (YELLW/STRAW)
--- NOTE | 2017-02-14 20:05 | EKG ---
Date Performed: 02/13/2017 Time Performed: 23:23:19 PTAGE: 51 years EKG: Sinus rhythm MARKED LEFT AXIS DEVIATION POSSIBLE ANTERIOR MYOCARDIAL INFARCTION MODERATE T-WAVE ABNORMALITY, CONS IDER LATERAL ISCHEMIA ABNORMAL ECG PREVIOUS TRACING : 02/13/2017 21.06 DOCTOR: Krystina Rodrigues Interpretating Date/Time 02/14/2017 20:03:29
--- NOTE | 2017-02-14 20:07 | EKG ---
Date Performed: 02/13/2017 Time Performed: 21:06:15 PTAGE: 51 years EKG: Sinus rhythm MARKED LEFT AXIS DEVIATION POSSIBLE ANTERIOR MYOCARDIAL INFARCTION MODERATE T-WAVE ABNORMALITY, CONS IDER LATERAL ISCHEMIA ABNORMAL ECG PREVIOUS TRACING : 05/08/2016 11.12 DOCTOR: Krystina Rodrigues Interpretating Date/Time 02/14/2017 20:04:46
[2017-02-14] MEDS: ATORVASTATIN 40 MG TAB PO SCH (21:25)
[2017-02-15] VITALS (7 sets, daily range): BP systolic 100–155; BP diastolic 54–80; PULSE 66–76; RESP 16–21; TEMP 96.6–97.9; O2SAT 93–100
[2017-02-15] MEDS: NITROGLYCERIN 2% OINT 1 GM PACKET TOPICAL SCH ×2 (00:01→06:18)
[2017-02-15] MEDS: MORPHINE SULFATE 4 MG/ML INJ IV PUSH PRN ×4 (02:09→18:51)
[2017-02-15] MEDS: SODIUM CHLOR 0.9% 1000 ML INJ 1,000 ML IV SCH ×2 (03:38→13:59)
[2017-02-15] MEDS: INSULIN ASPART SUPPLEMENTAL SCALE SQ SCH ×4 (06:24→21:40)
[2017-02-15] MEDS: PANTOPRAZOLE SOD 40 MG DELAYED RELEASE TAB PO SCH (08:20)
[2017-02-15] MEDS: ASPIRIN 325 MG TAB PO SCH (08:20)
[2017-02-15] MEDS: PARoxetine HCL 20 MG TAB PO SCH (08:20)
[2017-02-15] MEDS: RANOLAZINE 500 MG EXTENDED RELEASE TAB PO SCH ×2 (08:20→21:35)
[2017-02-15] MEDS: SODIUM CHLORIDE 0.9% FLUSH 10 ML FLUSH IV FLUSH SCH ×2 (08:21→21:36)
[2017-02-15] MEDS: ISOSORBIDE MONONITRATE 60 MG TAB PO SCH ×2 (08:21→21:35)
[2017-02-15] MEDS: CLOPIDOGREL 75 MG TAB PO SCH (08:21)
[2017-02-15] MEDS: CARVEDILOL 12.5 MG TAB PO SCH ×2 (08:22→21:35)
[2017-02-15 09:46] LABS: AUTOMATED NEUTROPHIL # 7.5 TH/MM3 (1.8-7.7); BASOPHIL # 0.1 TH/MM3 (0-0.2); BASOPHIL % 0.7 % (0.0-2.0); EOSINOPHIL # 0.5 TH/MM3 (0-0.4); EOSINOPHIL % 4.3 % (0.0-4.0); HEMATOCRIT 35.6 % (35.0-46.0); HEMO FLAGS DIFF FINAL; LYMPH % 27.7 % (9.0-44.0); LYMPHOCYTE # 3.4 TH/MM3 (1.0-4.8); MEAN CORPUSCULAR HEMOGLOBIN 31.5 PG (27.0-34.0); MEAN CORPUSCULAR HGB CONC 33.9 % (32.0-36.0); NEUT % 60.3 % (16.0-70.0); PLATELET COUNT 251 TH/MM3 (150-450); RED BLOOD COUNT 3.83 MIL/MM3 (4.00-5.30); RED CELL DISTRIBUTION WIDTH 13.2 % (11.6-17.2); WHITE BLOOD COUNT 12.4 TH/MM3 (4.0-11.0)
[2017-02-15 10:12] LABS: BICARBONATE 21.6 MEQ/L (21.0-32.0); INDIRECT BILIRUBIN 0.4 MG/DL (0.0-0.8); POTASSIUM 4.8 MEQ/L (3.5-5.1); TOTAL BILIRUBIN ADULT 0.5 MG/DL (0.2-1.0)
--- NOTE | 2017-02-15 11:10 | HHI.PR ---
Subjective Remarks Patient reports feeling better today, no longer having abd pain, nausea or vomiting does continue to have stabbing/cramping pain under right breast with radiation to right side and back request diet to be increased Patient reports urine had odor yesterday and was, "real dark." associated Right flank pain with urination. Patient denies burning with urination or increased frequency. Objective Vitals Vital Signs Date Time Temp Pulse Resp B/P (MAP) Pulse Ox O2 Delivery O2 Flow Rate FiO2 02/15/17 08:40 98 21 02/15/17 08:00 96.6 73 20 100/60 (73) 97 02/15/17 04:30 96.8 72 16 102/54 (70) 96 02/15/17 02:14 16 02/15/17 01:00 Room Air 02/15/17 00:25 97.4 76 16 107/57 (74) 93 02/14/17 21:50 21 02/14/17 20:00 69 02/14/17 19:55 96.4 78 16 101/49 (66) 97 02/14/17 16:00 96.3 68 17 111/59 (76) 92 02/14/17 12:00 96.7 71 18 120/56 (77) 93 Result Diagram: 02/15/17 0853 02/15/17 0853 Other Results Laboratory Tests Test 02/13/17 21:35 02/13/17 21:38 02/14/17 10:30 02/14/17 14:05 Blood Urea Nitrogen 49 MG/DL 58 MG/DL Creatinine 1.90 MG/DL 2.52 MG/DL Random Glucose 218 MG/DL 315 MG/DL Total Protein 9.5 GM/DL Albumin 3.9 GM/DL Calcium Level 9.8 MG/DL 8.7 MG/DL Magnesium Level 2.3 MG/DL Alkaline Phosphatase 147 U/L Aspartate Amino Transf (AST/SGOT) 22 U/L Alanine Aminotransferase (ALT/SGPT) 25 U/L Total Bilirubin 0.3 MG/DL Direct Bilirubin 0.1 MG/DL Sodium Level 134 MEQ/L 135 MEQ/L Potassium Level 4.9 MEQ/L 5.4 MEQ/L Chloride Level 100 MEQ/L 102 MEQ/L Carbon Dioxide Level 26.8 MEQ/L 26.1 MEQ/L Anion Gap 7 MEQ/L 7 MEQ/L Estimat Glomerular Filtration Rate 28 ML/MIN 20 ML/MIN Indirect Bilirubin 0.2 MG/DL Total Creatine Kinase 55 U/L Troponin I LESS THAN 0.02 NG/ML 0.02 NG/ML 0.06 NG/ML Lipase 475 U/L 410 U/L White Blood Count 18.9 TH/MM3 Red Blood Count 4.68 MIL/MM3 Hemoglobin 14.6 GM/DL Hematocrit 43.2 % Mean Corpuscular Volume 92.2 FL Mean Corpuscular Hemoglobin 31.1 PG Mean Corpuscular Hemoglobin Concent 33.8 % Red Cell Distribution Width 13.0 % Platelet Count 352 TH/MM3 Mean Platelet Volume 7.9 FL Neutrophils (%) (Auto) 67.9 % Lymphocytes (%) (Auto) 22.8 % Monocytes (%) (Auto) 6.1 % Eosinophils (%) (Auto) 2.4 % Basophils (%) (Auto) 0.8 % Neutrophils # (Auto) 12.9 TH/MM3 Lymphocytes # (Auto) 4.3 TH/MM3 Monocytes # (Auto) 1.2 TH/MM3 Eosinophils # (Auto) 0.4 TH/MM3 Basophils # (Auto) 0.1 TH/MM3 CBC Comment DIFF FINAL Differential Comment Prothrombin Time 10.5 SEC Prothromb Time International Ratio 1.0 RATIO Activated Partial Thromboplast Time 23.2 SEC Test 02/14/17 15:32 02/15/17 08:53 Urine Color LIGHT-RED Urine Turbidity HAZY Urine pH 5.0 Urine Specific [place] 1.022 Urine Protein TRACE mg/dL Urine Glucose (UA) 150 mg/dL Urine Ketones NEG mg/dL Urine Occult Blood MOD Urine Nitrite NEG Urine Bilirubin NEG Urine Urobilinogen 2.0 MG/DL Urine Leukocyte Esterase TRACE Urine RBC /hpf Urine WBC 8 /hpf Urine WBC Clumps RARE Urine Squamous Epithelial Cells 2 /hpf Urine Bacteria RARE /hpf Urine Hyaline Casts 23 /lpf Urine Mucus FEW /lpf Microscopic Urinalysis Comment CULTURE INDICATED Urine Eosinophils NONE SEEN /HPF Urine Random Sodium 38 MEQ/L White Blood Count 12.4 TH/MM3 Red Blood Count 3.83 MIL/MM3 Hemoglobin 12.1 GM/DL Hematocrit 35.6 % Mean Corpuscular Volume 93.0 FL Mean Corpuscular Hemoglobin 31.5 PG Mean Corpuscular Hemoglobin Concent 33.9 % Red Cell Distribution Width 13.2 % Platelet Count 251 TH/MM3 Mean Platelet Volume 7.2 FL Neutrophils (%) (Auto) 60.3 % Lymphocytes (%) (Auto) 27.7 % Monocytes (%) (Auto) 7.0 % Eosinophils (%) (Auto) 4.3 % Basophils (%) (Auto) 0.7 % Neutrophils # (Auto) 7.5 TH/MM3 Lymphocytes # (Auto) 3.4 TH/MM3 Monocytes # (Auto) 0.9 TH/MM3 Eosinophils # (Auto) 0.5 TH/MM3 Basophils # (Auto) 0.1 TH/MM3 CBC Comment DIFF FINAL Differential Comment Blood Urea Nitrogen 55 MG/DL Creatinine 2.16 MG/DL Random Glucose 211 MG/DL Total Protein 7.5 GM/DL Albumin 3.1 GM/DL Calcium Level 8.5 MG/DL Alkaline Phosphatase 198 U/L Aspartate Amino Transf (AST/SGOT) 361 U/L Alanine Aminotransferase (ALT/SGPT) 557 U/L Total Bilirubin 0.5 MG/DL Direct Bilirubin 0.1 MG/DL Sodium Level 133 MEQ/L Potassium Level 4.8 MEQ/L Chloride Level 102 MEQ/L Carbon Dioxide Level 21.6 MEQ/L Anion Gap 9 MEQ/L Estimat Glomerular Filtration Rate 24 ML/MIN Indirect Bilirubin 0.4 MG/DL Imaging Last Impressions Abdomen/Pelvis CT 02/14/17 0000 Signed Impressions: Service Date/Time: Tuesday, February 14, 2017 01:30 - CONCLUSION: 1. No obstruction or acute inflammatory changes are demonstrated. No clear etiology demonstrated for the reported right upper quadrant pain. 2. Unchanged bilateral adrenal adenomas. 3. 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 Also an unchanged 2 mm nonobstructing stone of the left lower pole. 4. 5. Left side: 6. Diverticulosis without evidence of diverticulitis. 7. Previous cholecystectomy. 8. Multilevel lumbar spine degenerative changes. Quang Curran MD Chest X-Ray 02/13/172118 Signed Impressions: Service Date/Time: Monday, February 13, 2017 21:32 - CONCLUSION: No acute disease. Cornelio Jernigan MD Objective Remarks GENERAL: This is an obese, well-developed patient, in no apparent distress. HEENT: Atraumatic. Normocephalic. No temporal or scalp tenderness. No scleral icterus. Airway patent. NECK: Trachea midline, supple, nontender. CARDIO: Regular. RESP: difficult to auscultate due to body habitus, clear through out ABD: Soft, tender RUQ, nondistended, normoactive bowel sounds 4 quadrants NEURO: Awake and alert. Motor and sensory grossly within normal limits. Normal speech. A/P Problem List: (1) Abdominal pain ICD Codes: R10.9 - Abdominal pain Status: Acute (2) Chest pain ICD Codes: R07.9 - Chest pain Status: Acute (3) Acute renal insufficiency ICD Codes: N28.9 - Acute renal insufficiency Status: Acute (4) Diabetes ICD Codes: E11.9 - Type 2 diabetes mellitus without complications Status: Chronic (5) COPD (chronic obstructive pulmonary disease) ICD Codes: J44.9 - Chronic obstructive pulmonary disease, unspecified Status: Chronic (6) Dyslipidemia ICD Codes: E78.5 - Dyslipidemia Status: Chronic (7) HTN (hypertension) ICD Codes: I10 - Essential (primary) hypertension Status: Chronic (8) CAD (coronary artery disease) ICD Codes: I25.10 - Atherosclerosis of coronary artery Status: Chronic (9) CHF (congestive heart failure) ICD Codes: I50.9 - Heart failure, unspecified Status: Chronic Assessment and Plan Abdominal pain possible mild pancreatitis Elevated AST/ALT - CT the abdomen reviewed and reveals no obstruction or acute inflammatory change. No clear etiology demonstrated for the reported right upper quadrant pain. Unchanged bilateral adrenal adenomas. Unchanged rim and calcified subcentimeter aneurysms of both renal arteries, also unchanged 2 mm nonobstructing stone of the left lower pole. Diverticulosis without evidence of diverticulitis. Previous cholecystectomy. Multilevel lumbar spine degenerative changes - Lipase mildly elevated for 475 --> 410 - Nothing by mouth - Gentle IV hydration - Morphine IV as needed for pain - elevated AST/ALT with history of cholecystectomy - MRCP ordered Hematuria - UA reviewed and reveals: Moderate occult blood, trace leukocyeserase, innumerable RBCs present - repeat UA today with culture Chest pain with history of CAD rule out acute coronary syndrome - Initial troponin less than 0.02 -> 0.02 -> 0.06- likely related to renal function - serial EKG no acute ST changes identified - Nitropaste DC'd - Lipid panel - continue home medications Plavix, aspirin, Ranexa, Imdur, Coreg, - Patient had cardiac catheterization in 2013 which revealed - Severe 3 vessel [place] coronary artery disease - one of the two coronary artery bypass grafts are patent. 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 oviedo - Cautious IV hydration monitor closely for signs of fluid overload DARSHANA- BUN 49 creatinine 1.90 estimated GFR 28 creatinine 1.90 --> 2.52 --> 2.16 - likely related to dehydration - hold Lasix - continue IV hydration with NS - recheck BMP in AM Diabetes mellitus- insulin-dependent - takes Lantus 30 units SQ HS at home - start Levemir 15 Units SQ QHS - Accu-Cheks before meals at bedtime with low-dose sliding scale insulin coverage Hypertension blood pressure currently stable - Continue monitor trend - Hold and hypertensive medications if possible as patient is nothing by mouth COPD - patient does not appear to be in acute exacerbation continue home medications DVT prophylaxis with Lovenox subcutaneous Patient examined. Assessment and plan formulated with Nuha Mojica PA-C. I agree with the above. r/o choledocholithiasis. mrcp. recheck lft recheck urinalysis. cont ivf. recheck bmp in AM. Problem Qualifiers (1) Abdominal pain: Qualified Codes: R10.11 - Right upper quadrant pain (2) CHF (congestive heart failure): Cindy Benjamin Feb 15, 2017 11:10 Héctor Kendrick MD Feb 15, 2017 11:57
[2017-02-15] MEDS: ENOXAPARIN SODIUM 30 MG/0.3 ML SYRINGE SQ SCH (13:59)
[2017-02-15 14:37] LABS: BLOOD, URINE NEG (NEG); COMMENT (UR) CULT NOT INDICATED; CULTURE IF INDICATED CULT NOT INDICATED; GLUCOSE,URINE 300 mg/dL (NEG); HYALINE CAST, URINE 3 /lpf (RARE); KETONE, URINE NEG (NEG); NITRITE,URINE NEG (NEG); SQUAMOUS EPITHELIAL CELL URINE 2 /hpf (0-5); URINE COLOR YELLOW (YELLW/STRAW)
[2017-02-15] MEDS: ATORVASTATIN 40 MG TAB PO SCH (21:35)
[2017-02-15] MEDS: INSULIN DETEMIR 100 UNITS/ML VIAL SQ SCH (21:41)
[2017-02-16] VITALS (8 sets, daily range): BP systolic 103–162; BP diastolic 44–87; PULSE 68–89; RESP 16–18; TEMP 96.6–97.6; O2SAT 93–98
[2017-02-16] MEDS: SODIUM CHLOR 0.9% 1000 ML INJ 1,000 ML IV SCH ×2 (00:45→13:37)
[2017-02-16] MEDS: INSULIN ASPART SUPPLEMENTAL SCALE SQ SCH ×4 (06:14→21:30)
[2017-02-16 07:48] LABS: AUTOMATED NEUTROPHIL # 5.8 TH/MM3 (1.8-7.7); BASOPHIL # 0.1 TH/MM3 (0-0.2); BASOPHIL % 0.7 % (0.0-2.0); EOSINOPHIL # 0.5 TH/MM3 (0-0.4); EOSINOPHIL % 5.1 % (0.0-4.0); HEMATOCRIT 31.1 % (35.0-46.0); HEMO FLAGS DIFF FINAL; LYMPH % 30.5 % (9.0-44.0); LYMPHOCYTE # 3.1 TH/MM3 (1.0-4.8); MEAN CELL VOLUME 91.6 FL (80.0-100.0); MEAN CORPUSCULAR HEMOGLOBIN 31.1 PG (27.0-34.0); MEAN CORPUSCULAR HGB CONC 33.9 % (32.0-36.0); MONO % 7.3 % (0.0-8.0); NEUT % 56.4 % (16.0-70.0); PLATELET COUNT 235 TH/MM3 (150-450); RED CELL DISTRIBUTION WIDTH 13.1 % (11.6-17.2); WHITE BLOOD COUNT 10.3 TH/MM3 (4.0-11.0)
[2017-02-16 08:14] LABS: BICARBONATE 24.2 MEQ/L (21.0-32.0); INDIRECT BILIRUBIN 0.2 MG/DL (0.0-0.8); POTASSIUM 4.8 MEQ/L (3.5-5.1); TOTAL BILIRUBIN ADULT 0.3 MG/DL (0.2-1.0)
[2017-02-16] MEDS: ACETAMINOPHEN/HYDROcodone 325 MG/5 MG TAB PO PRN (08:27)
[2017-02-16] MEDS: CARVEDILOL 12.5 MG TAB PO SCH ×2 (09:00→21:21)
--- NOTE | 2017-02-16 10:02 | HHI.PR ---
Objective Vitals Vital Signs Date Time Temp Pulse Resp B/P (MAP) Pulse Ox O2 Delivery O2 Flow Rate FiO2 02/16/17 05:15 96.9 89 16 103/44 (63) 95 02/16/17 01:30 Room Air 02/16/17 00:25 96.6 72 16 151/73 (99) 98 02/15/17 20:45 96.9 66 16 155/80 (105) 97 02/15/17 19:24 18 02/15/17 16:00 97.9 71 21 149/74 (99) 100 02/15/17 12:00 97.7 76 20 134/72 (92) 99 Result Diagram: 02/16/17 0700 02/16/17 0701 Imaging Last Impressions Abdomen/Pelvis CT 02/14/17 0000 Signed Impressions: Service Date/Time: Tuesday, February 14, 2017 01:30 - CONCLUSION: 1. No obstruction or acute inflammatory changes are demonstrated. No clear etiology demonstrated for the reported right upper quadrant pain. 2. Unchanged bilateral adrenal adenomas. 3. 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 Also an unchanged 2 mm nonobstructing stone of the left lower pole. 4. 5. Left side: 6. Diverticulosis without evidence of diverticulitis. 7. Previous cholecystectomy. 8. Multilevel lumbar spine degenerative changes. Quang Curran MD Chest X-Ray 02/13/172118 Signed Impressions: Service Date/Time: Monday, February 13, 2017 21:32 - CONCLUSION: No acute disease. Cornelio Jernigan MD Objective Remarks GENERAL: This is an obese, well-developed patient, in no apparent distress. HEENT: Atraumatic. Normocephalic. No temporal or scalp tenderness. No scleral icterus. Airway patent. NECK: Trachea midline, supple, nontender. CARDIO: Regular. RESP: difficult to auscultate due to body habitus, clear through out ABD: Soft, tender RUQ, nondistended, normoactive bowel sounds 4 quadrants NEURO: Awake and alert. Motor and sensory grossly within normal limits. Normal speech. A/P Problem List: (1) Abdominal pain ICD Codes: R10.9 - Abdominal pain Status: Acute (2) Chest pain ICD Codes: R07.9 - Chest pain Status: Acute (3) Acute renal insufficiency ICD Codes: N28.9 - Acute renal insufficiency Status: Acute (4) Diabetes ICD Codes: E11.9 - Type 2 diabetes mellitus without complications Status: Chronic (5) COPD (chronic obstructive pulmonary disease) ICD Codes: J44.9 - Chronic obstructive pulmonary disease, unspecified Status: Chronic (6) Dyslipidemia ICD Codes: E78.5 - Dyslipidemia Status: Chronic (7) HTN (hypertension) ICD Codes: I10 - Essential (primary) hypertension Status: Chronic (8) CAD (coronary artery disease) ICD Codes: I25.10 - Atherosclerosis of coronary artery Status: Chronic (9) CHF (congestive heart failure) ICD Codes: I50.9 - Heart failure, unspecified Status: Chronic Assessment and Plan Abdominal pain possible mild pancreatitis Elevated AST/ALT - CT the abdomen reviewed and reveals no obstruction or acute inflammatory change. No clear etiology demonstrated for the reported right upper quadrant pain. Unchanged bilateral adrenal adenomas. Unchanged rim and calcified subcentimeter aneurysms of both renal arteries, also unchanged 2 mm nonobstructing stone of the left lower pole. Diverticulosis without evidence of diverticulitis. Previous cholecystectomy. Multilevel lumbar spine degenerative changes - Lipase mildly elevated for 475 --> 410 Possible passes sludge/gs. lft trending down mrcp pending ivf. advance diet if mrcp negative Hematuria - UA reviewed and reveals: Moderate occult blood, trace leukocyeserase, innumerable RBCs present - repeat UA today with culture -repeat u/a was essentially nml. Chest pain with history of CAD rule out acute coronary syndrome - Initial troponin less than 0.02 -> 0.02 -> 0.06- likely related to renal function - serial EKG no acute ST changes identified - Nitropaste DC'd - Lipid panel - continue home medications Plavix, aspirin, Ranexa, Imdur, Coreg, - Patient had cardiac catheterization in 2013 which revealed - Severe 3 vessel [place] coronary artery disease - one of the two coronary artery bypass grafts are patent. 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 minor - Cautious IV hydration monitor closely for signs of fluid overload DARSHANA- BUN 49 creatinine 1.90 estimated GFR 28 creatinine 1.90 --> 2.52 --> 2.16 - likely related to dehydration - hold Lasix - continue IV hydration with NS - recheck BMP in AM Diabetes mellitus- insulin-dependent - takes Lantus 30 units SQ HS at home - start Levemir 15 Units SQ QHS - Accu-Cheks before meals at bedtime with low-dose sliding scale insulin coverage Hypertension blood pressure currently stable - Continue monitor trend - Hold and hypertensive medications if possible as patient is nothing by mouth COPD - patient does not appear to be in acute exacerbation continue home medications DVT prophylaxis with Lovenox subcutaneous Problem Qualifiers (1) Abdominal pain: Qualified Codes: R10.11 - Right upper quadrant pain (2) CHF (congestive heart failure): Héctor Kendrick MD Feb 16, 2017 10:02
[2017-02-16] MEDS: PARoxetine HCL 20 MG TAB PO SCH (10:20)
[2017-02-16] MEDS: ISOSORBIDE MONONITRATE 60 MG TAB PO SCH ×2 (10:20→21:21)
[2017-02-16] MEDS: RANOLAZINE 500 MG EXTENDED RELEASE TAB PO SCH ×2 (10:20→21:21)
[2017-02-16] MEDS: CLOPIDOGREL 75 MG TAB PO SCH (10:21)
[2017-02-16] MEDS: PANTOPRAZOLE SOD 40 MG DELAYED RELEASE TAB PO SCH (10:21)
[2017-02-16] MEDS: ASPIRIN 325 MG TAB PO SCH (10:21)
[2017-02-16] MEDS: SODIUM CHLORIDE 0.9% FLUSH 10 ML FLUSH IV FLUSH SCH ×2 (10:22→21:00)
[2017-02-16] MEDS: MORPHINE SULFATE 4 MG/ML INJ IV PUSH PRN ×3 (10:30→21:20)
--- NOTE | 2017-02-16 10:46 | RADRPT ---
EXAM DATE/TIME: 02/16/2017 08:38 [facility] COMPARISON: CT ABDOMEN & PELVIS W/O CONTRAST, February 14, 2017, 1:30. INDICATIONS : Abdominal pain. MEDICAL HISTORY : Diabetes mellitus type 2. Hypertension. Chronic obstructive pulmonary disease. SURGICAL HISTORY : Tonsillectomy. Cholecystectomy. Appendectomy. ENCOUNTER: Initial ACUITY: 2 day PAIN SCORE: 4/10 LOCATION: abdomen TECHNIQUE: Multiplanar, multisequence magnetic resonance imaging of the abdomen was performed. High-resolution 3D dataset was utilized to reconstruct maximum-intensity projection (MIP) images. FINDINGS: INTRAHEPATIC BILE DUCTS: Within normal limits. No significant anatomical variant is present. EXTRAHEPATIC BILE DUCTS: The common bile duct measures 4 mm No stone or filling defect is identified. GALLBLADDER: Cholecystectomy LIVER: Normal size and signal intensity. No concerning liver lesion is identified on this non-contrast exam. PANCREAS: The main pancreatic duct is normal in size. There is no significant anatomical variant. Signal inte nsity is within normal limits. No mass is visualized on this non-contrast exam. OTHER: Bilateral adrenal adenomas demonstrate homogeneous suppression of signal on opposed phase imaging. N o evidence hydronephrosis in either kidney. The abdominal aorta is normal dimension. CONCLUSION: No dilation of the intra-articular hepatic biliary system. Davide Chung MD on February 16, 2017 at 10:20 Board Certified Radiologist. This report was verified electronically.
[2017-02-16] MEDS: ENOXAPARIN SODIUM 30 MG/0.3 ML SYRINGE SQ SCH (13:30)
[2017-02-16] MEDS: ATORVASTATIN 40 MG TAB PO SCH (21:21)
[2017-02-16] MEDS: INSULIN DETEMIR 100 UNITS/ML VIAL SQ SCH (21:28)
[2017-02-17 00:40] VITALS: BP 144/64; PULSE 76; RESP 16; TEMP 97.2; O2SAT 97
[2017-02-17] MEDS: MORPHINE SULFATE 4 MG/ML INJ IV PUSH PRN ×6 (01:19→21:13)
[2017-02-17 04:06] VITALS: BP 131/59; PULSE 76; RESP 18; TEMP 96.8; O2SAT 96
[2017-02-17] MEDS: SODIUM CHLOR 0.9% 1000 ML INJ 1,000 ML IV SCH ×2 (04:21→12:22)
[2017-02-17] MEDS: INSULIN ASPART SUPPLEMENTAL SCALE SQ SCH ×4 (06:20→21:23)
[2017-02-17 07:48] LABS: BICARBONATE 24.5 MEQ/L (21.0-32.0); POTASSIUM 4.7 MEQ/L (3.5-5.1)
[2017-02-17] MEDS: RANOLAZINE 500 MG EXTENDED RELEASE TAB PO SCH ×2 (07:54→21:13)
[2017-02-17] MEDS: PANTOPRAZOLE SOD 40 MG DELAYED RELEASE TAB PO SCH (07:54)
[2017-02-17] MEDS: ASPIRIN 325 MG TAB PO SCH (07:54)
[2017-02-17] MEDS: PARoxetine HCL 20 MG TAB PO SCH (07:55)
[2017-02-17] MEDS: ISOSORBIDE MONONITRATE 60 MG TAB PO SCH ×2 (07:55→21:00)
[2017-02-17] MEDS: CLOPIDOGREL 75 MG TAB PO SCH (07:55)
[2017-02-17] MEDS: CARVEDILOL 12.5 MG TAB PO SCH ×2 (07:56→21:01)
[2017-02-17 08:00] VITALS: BP 121/58; PULSE 66; RESP 18; TEMP 96; O2SAT 97
[2017-02-17] MEDS: SODIUM CHLORIDE 0.9% FLUSH 10 ML FLUSH IV FLUSH SCH ×2 (08:05→21:00)
[2017-02-17 08:11] LABS: INDIRECT BILIRUBIN 0.2 MG/DL (0.0-0.8); TOTAL BILIRUBIN ADULT 0.3 MG/DL (0.2-1.0)
--- NOTE | 2017-02-17 11:06 | HHI.PR ---
Subjective Remarks still with some ruq/flank pain. slow improvent. Objective Vitals heart reg lung cta abd ruq/flank tenderness ext no edema Vital Signs Date Time Temp Pulse Resp B/P (MAP) Pulse Ox O2 Delivery O2 Flow Rate FiO2 02/17/17 08:05 16 02/17/17 08:00 96.0 66 18 121/58 (79) 97 02/17/17 04:06 96.8 76 18 131/59 (83) 96 02/17/17 00:50 Room Air 02/17/17 00:40 97.2 76 16 144/64 (90) 97 02/16/17 20:10 97.3 71 18 162/87 (112) 98 02/16/17 20:00 79 02/16/17 16:00 97.6 69 18 155/68 (97) 97 02/16/17 12:00 97.1 68 18 105/53 (70) 93 02/16/17 11:27 70 Result Diagram: 02/16/17 0700 02/17/17 0639 Imaging Last Impressions Abdomen/Pelvis CT 02/14/17 0000 Signed Impressions: Service Date/Time: Tuesday, February 14, 2017 01:30 - CONCLUSION: 1. No obstruction or acute inflammatory changes are demonstrated. No clear etiology demonstrated for the reported right upper quadrant pain. 2. Unchanged bilateral adrenal adenomas. 3. 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 Also an unchanged 2 mm nonobstructing stone of the left lower pole. 4. 5. Left side: 6. Diverticulosis without evidence of diverticulitis. 7. Previous cholecystectomy. 8. Multilevel lumbar spine degenerative changes. Quang Curran MD Chest X-Ray 02/13/172118 Signed Impressions: Service Date/Time: Monday, February 13, 2017 21:32 - CONCLUSION: No acute disease. Cornelio Jernigan MD A/P Problem List: (1) Abdominal pain ICD Codes: R10.9 - Abdominal pain Status: Acute (2) Chest pain ICD Codes: R07.9 - Chest pain Status: Acute (3) Acute renal insufficiency ICD Codes: N28.9 - Acute renal insufficiency Status: Acute (4) Diabetes ICD Codes: E11.9 - Type 2 diabetes mellitus without complications Status: Chronic (5) COPD (chronic obstructive pulmonary disease) ICD Codes: J44.9 - Chronic obstructive pulmonary disease, unspecified Status: Chronic (6) Dyslipidemia ICD Codes: E78.5 - Dyslipidemia Status: Chronic (7) HTN (hypertension) ICD Codes: I10 - Essential (primary) hypertension Status: Chronic (8) CAD (coronary artery disease) ICD Codes: I25.10 - Atherosclerosis of coronary artery Status: Chronic (9) CHF (congestive heart failure) ICD Codes: I50.9 - Heart failure, unspecified Status: Chronic Assessment and Plan Abdominal pain possible mild pancreatitis elevated LFT possible passed stone/sludge - CT the abdomen reviewed and reveals no obstruction or acute inflammatory change. No clear etiology demonstrated for the reported right upper quadrant pain. Unchanged bilateral adrenal adenomas. Unchanged rim and calcified subcentimeter aneurysms of both renal arteries, also unchanged 2 mm nonobstructing stone of the left lower pole. Diverticulosis without evidence of diverticulitis. Previous cholecystectomy. Multilevel lumbar spine degenerative changes - Lipase mildly elevated for 475 --> 410 -mrcp..no biliary obstruction noted. cont ivf diet advanced lft in AM Hematuria - UA reviewed and reveals: Moderate occult blood, trace leukocyeserase, innumerable RBCs present - repeat UA today with culture -repeat u/a was essentially nml. Chest pain with history of CAD rule out acute coronary syndrome - Initial troponin less than 0.02 -> 0.02 -> 0.06- likely related to renal function - serial EKG no acute ST changes identified - Nitropaste DC'd - Lipid panel - continue home medications Plavix, aspirin, Ranexa, Imdur, Coreg, - Patient had cardiac catheterization in 2013 which revealed - Severe 3 vessel [place] coronary artery disease - one of the two coronary artery bypass grafts are patent. 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 oviedo - Cautious IV hydration monitor closely for signs of fluid overload DARSHANA- - likely related to dehydration - hold Lasix and geno - continue IV hydration with NS - recheck BMP in AM Diabetes mellitus- insulin-dependent - takes Lantus 30 units SQ HS at home - titrate up on the lantus toward her baseline. - Accu-Cheks before meals at bedtime with low-dose sliding scale insulin coverage Hypertension blood pressure currently stable - Continue monitor trend - Hold and hypertensive medications if possible as patient is nothing by mouth COPD - patient does not appear to be in acute exacerbation continue home medications DVT prophylaxis with Lovenox subcutaneous Problem Qualifiers (1) Abdominal pain: Qualified Codes: R10.11 - Right upper quadrant pain (2) CHF (congestive heart failure): Héctor Kendrick MD Feb 17, 2017 11:06
[2017-02-17 12:00] VITALS: BP 115/65; PULSE 65; RESP 18; TEMP 97.9; O2SAT 98
[2017-02-17] MEDS: ENOXAPARIN SODIUM 30 MG/0.3 ML SYRINGE SQ SCH (12:15)
[2017-02-17] MEDS ORDERED: LACTULOSE SYRUP 20 GM/30 ML CUP PO ONE (14:00)
[2017-02-17 15:31] VITALS: BP 100/51; PULSE 63; RESP 16; TEMP 96.6; O2SAT 98
[2017-02-17 20:45] VITALS: BP 178/93; PULSE 71; RESP 17; TEMP 96.8; O2SAT 98
[2017-02-17] MEDS: ONDANSETRON HCL 4 MG/2 ML VIAL IV PRN (21:00)
[2017-02-17] MEDS: ATORVASTATIN 40 MG TAB PO SCH (21:01)
[2017-02-17] MEDS: INSULIN DETEMIR 100 UNITS/ML VIAL SQ SCH (21:24)
[2017-02-18] VITALS: BP 145/64; PULSE 78; RESP 18; TEMP 98.3; O2SAT 96
[2017-02-18] MEDS: MORPHINE SULFATE 4 MG/ML INJ IV PUSH PRN ×4 (00:58→20:11)
[2017-02-18] MEDS: SODIUM CHLOR 0.9% 1000 ML INJ 1,000 ML IV SCH ×2 (00:59→11:19)
[2017-02-18 04:16] VITALS: BP 106/56; PULSE 71; RESP 18; TEMP 98; O2SAT 96
[2017-02-18] MEDS: INSULIN ASPART SUPPLEMENTAL SCALE SQ SCH ×4 (06:27→20:24)
[2017-02-18 07:24] VITALS: BP 119/56; PULSE 77; RESP 16; TEMP 98; O2SAT 95
[2017-02-18] MEDS: CLOPIDOGREL 75 MG TAB PO SCH (08:40)
[2017-02-18] MEDS: ISOSORBIDE MONONITRATE 60 MG TAB PO SCH ×2 (08:40→20:10)
[2017-02-18] MEDS: PARoxetine HCL 20 MG TAB PO SCH (08:40)
[2017-02-18] MEDS: RANOLAZINE 500 MG EXTENDED RELEASE TAB PO SCH ×2 (08:40→20:10)
[2017-02-18] MEDS: PANTOPRAZOLE SOD 40 MG DELAYED RELEASE TAB PO SCH (08:40)
[2017-02-18] MEDS: CARVEDILOL 12.5 MG TAB PO SCH ×2 (08:40→20:10)
[2017-02-18] MEDS: SODIUM CHLORIDE 0.9% FLUSH 10 ML FLUSH IV FLUSH SCH ×2 (08:41→20:11)
[2017-02-18] MEDS: ASPIRIN 325 MG TAB PO SCH (08:41)
--- NOTE | 2017-02-18 09:31 | HHI.PR ---
Subjective Remarks Pt reports that she had increased abdominal pain last night after eating a hamburger Some nausea this morning but no vomiting. Afebrile No BM in 5 days, +Flatus Objective Vitals Vital Signs Date Time Temp Pulse Resp B/P (MAP) Pulse Ox O2 Delivery O2 Flow Rate FiO2 02/18/17 08:47 16 02/18/17 04:16 98.0 71 18 106/56 (73) 96 02/18/17 00:00 98.3 78 18 145/64 (91) 96 02/17/17 20:45 96.8 71 17 178/93 (121) 98 02/17/17 15:31 96.6 63 16 100/51 (67) 98 02/17/17 12:00 97.9 65 18 115/65 (82) 98 Result Diagram: 02/16/17 0700 02/17/17 0639 Other Results Laboratory Tests Test 02/17/17 06:39 Blood Urea Nitrogen 23 MG/DL Creatinine 1.42 MG/DL Random Glucose 213 MG/DL Total Protein 6.8 GM/DL Albumin 2.9 GM/DL Calcium Level 8.4 MG/DL Alkaline Phosphatase 158 U/L Aspartate Amino Transf (AST/SGOT) 57 U/L Alanine Aminotransferase (ALT/SGPT) 228 U/L Total Bilirubin 0.3 MG/DL Direct Bilirubin 0.1 MG/DL Sodium Level 137 MEQ/L Potassium Level 4.7 MEQ/L Chloride Level 106 MEQ/L Carbon Dioxide Level 24.5 MEQ/L Anion Gap 7 MEQ/L Estimat Glomerular Filtration Rate 39 ML/MIN Indirect Bilirubin 0.2 MG/DL Imaging Last Impressions Abdomen/Pelvis CT 02/14/17 0000 Signed Impressions: Service Date/Time: Tuesday, February 14, 2017 01:30 - CONCLUSION: 1. No obstruction or acute inflammatory changes are demonstrated. No clear etiology demonstrated for the reported right upper quadrant pain. 2. Unchanged bilateral adrenal adenomas. 3. 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 Also an unchanged 2 mm nonobstructing stone of the left lower pole. 4. 5. Left side: 6. Diverticulosis without evidence of diverticulitis. 7. Previous cholecystectomy. 8. Multilevel lumbar spine degenerative changes. Quang Curran MD Chest X-Ray 02/13/172118 Signed Impressions: Service Date/Time: Monday, February 13, 2017 21:32 - CONCLUSION: No acute disease. Cornelio Jernigan MD Objective Remarks General: NAD, AAOx3 Chest: CTA Cardiac: Regular Abd: +BS, soft, obese, mild epigastric tenderness Ext: No edema A/P Problem List: (1) Abdominal pain ICD Codes: R10.9 - Abdominal pain Status: Acute (2) Chest pain ICD Codes: R07.9 - Chest pain Status: Acute (3) Acute renal insufficiency ICD Codes: N28.9 - Acute renal insufficiency Status: Acute (4) Diabetes ICD Codes: E11.9 - Type 2 diabetes mellitus without complications Status: Chronic (5) COPD (chronic obstructive pulmonary disease) ICD Codes: J44.9 - Chronic obstructive pulmonary disease, unspecified Status: Chronic (6) Dyslipidemia ICD Codes: E78.5 - Dyslipidemia Status: Chronic (7) HTN (hypertension) ICD Codes: I10 - Essential (primary) hypertension Status: Chronic (8) CAD (coronary artery disease) ICD Codes: I25.10 - Atherosclerosis of coronary artery Status: Chronic (9) CHF (congestive heart failure) ICD Codes: I50.9 - Heart failure, unspecified Status: Chronic Assessment and Plan Abdominal pain possible mild pancreatitis elevated LFT possible passed stone/sludge - CT the abdomen reviewed and reveals no obstruction or acute inflammatory change. No clear etiology demonstrated for the reported right upper quadrant pain. Unchanged bilateral adrenal adenomas. Unchanged rim and calcified subcentimeter aneurysms of both renal arteries, also unchanged 2 mm nonobstructing stone of the left lower pole. Diverticulosis without evidence of diverticulitis. Previous cholecystectomy. Multilevel lumbar spine degenerative changes - Lipase mildly elevated for 475 --> 410 - MRCP with no biliary obstruction noted. - LFTs are trending down - Pt still on IVF - Pt tolerating advanced diet but having increased abd pain today. - Await repeat labs for today - Pt has not moved her bowels in 5 days, will step up the constipation medications. Hematuria - UA reviewed and reveals: Moderate occult blood, trace leukocyeserase, innumerable RBCs present - repeat UA today with culture - repeat UA was essentially nml. Chest pain with history of CAD rule out acute coronary syndrome - Initial troponin less than 0.02 -> 0.02 -> 0.06- likely related to renal function - serial EKG no acute ST changes identified - Nitropaste DC'd - Lipid panel - continue home medications Plavix, aspirin, Ranexa, Imdur, Coreg, - Patient had cardiac catheterization in 2013 which revealed - Severe 3 vessel [place] coronary artery disease - one of the two coronary artery bypass grafts are patent. 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 oviedo - Cautious IV hydration monitor closely for signs of fluid overload DARSHANA - likely related to dehydration - hold Lasix and geno - continue IV hydration with NS - recheck BMP in AM Diabetes mellitus- insulin-dependent - takes Lantus 30 units SQ HS at home - Pt is on Levemir 25 units HS - Accu-Cheks before meals at bedtime with low-dose sliding scale insulin coverage Hypertension blood pressure currently stable - Continue monitor trend - Hold and hypertensive medications if possible as patient is nothing by mouth COPD - patient does not appear to be in acute exacerbation continue home medications DVT prophylaxis with Lovenox subcutaneous Patient examined. Assessment and plan formulated with Nuha Mojica PA-C. I agree with the above. liver and renal function slowly improving more lower abdomen pain today laxatives/simethicone. cont ivf Problem Qualifiers (1) Abdominal pain: Qualified Codes: R10.11 - Right upper quadrant pain (2) CHF (congestive heart failure): Nuha Mojica Feb 18, 2017 09:31 Héctor Kendrick MD Feb 18, 2017 12:08
[2017-02-18] MEDS ORDERED: MAGNESIUM CITRATE SOLN 300 ML BTL PO ONE (10:00)
[2017-02-18 10:52] LABS: BICARBONATE 21.8 MEQ/L (21.0-32.0); POTASSIUM 4.8 MEQ/L (3.5-5.1)
[2017-02-18 10:56] LABS: INDIRECT BILIRUBIN 0.3 MG/DL (0.0-0.8); TOTAL BILIRUBIN ADULT 0.4 MG/DL (0.2-1.0)
[2017-02-18] MEDS: SIMETHICONE 125 MG CHEWABLE TAB PO SCH ×3 (11:18→21:59)
[2017-02-18] MEDS: ENOXAPARIN SODIUM 30 MG/0.3 ML SYRINGE SQ SCH (11:19)
[2017-02-18 11:24] VITALS: BP 108/56; PULSE 69; RESP 16; TEMP 98.7; O2SAT 96
[2017-02-18 16:00] VITALS: BP 121/58; PULSE 69; RESP 16; TEMP 97.6; O2SAT 99
[2017-02-18 20:00] VITALS: BP 125/80; PULSE 76; RESP 16; TEMP 98; O2SAT 100
[2017-02-18] MEDS: ATORVASTATIN 40 MG TAB PO SCH (20:10)
[2017-02-18] MEDS: INSULIN DETEMIR 100 UNITS/ML VIAL SQ SCH (20:12)
[2017-02-19] VITALS (7 sets, daily range): BP systolic 102–165; BP diastolic 45–85; PULSE 62–81; RESP 16–18; TEMP 96.5–97.9; O2SAT 96–98
[2017-02-19] MEDS: MORPHINE SULFATE 4 MG/ML INJ IV PUSH PRN ×4 (00:53→15:47)
[2017-02-19] MEDS: SIMETHICONE 125 MG CHEWABLE TAB PO SCH ×3 (06:09→20:20)
[2017-02-19] MEDS: INSULIN ASPART SUPPLEMENTAL SCALE SQ SCH ×4 (07:57→20:20)
--- NOTE | 2017-02-19 08:51 | HHI.PR ---
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 She is planning to eat eggs and a bagel this morning. Objective Vitals Vital Signs Date Time Temp Pulse Resp B/P (MAP) Pulse Ox O2 Delivery O2 Flow Rate FiO2 02/19/17 04:00 97.7 70 16 102/55 (71) 98 02/19/17 00:00 97.9 72 16 126/68 (87) 97 02/18/17 20:00 98.0 76 16 125/80 (95) 100 02/18/17 16:00 97.6 69 16 121/58 (79) 99 02/18/17 11:24 98.7 69 16 108/56 (73) 96 02/18/17 10:50 16 Result Diagram: 02/16/17 0700 02/18/17 0935 Other Results Last Impressions Cholangiopancreatography MRI 02/16/17 0000 Signed Impressions: Service Date/Time: Thursday, February 16, 2017 08:38 - CONCLUSION: No dilation of the intra-articular hepatic biliary system. Davide Chung MD Abdomen/Pelvis CT 02/14/17 0000 Signed Impressions: Service Date/Time: Tuesday, February 14, 2017 01:30 - CONCLUSION: 1. No obstruction or acute inflammatory changes are demonstrated. No clear etiology demonstrated for the reported right upper quadrant pain. 2. Unchanged bilateral adrenal adenomas. 3. 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 Also an unchanged 2 mm nonobstructing stone of the left lower pole. 4. 5. Left side: 6. Diverticulosis without evidence of diverticulitis. 7. Previous cholecystectomy. 8. Multilevel lumbar spine degenerative changes. Quang Curran MD Chest X-Ray 02/13/172118 Signed Impressions: Service Date/Time: Monday, February 13, 2017 21:32 - CONCLUSION: No acute disease. Cornelio Jernigan MD Imaging Last Impressions Abdomen/Pelvis CT 02/14/17 0000 Signed Impressions: Service Date/Time: Tuesday, February 14, 2017 01:30 - CONCLUSION: 1. No obstruction or acute inflammatory changes are demonstrated. No clear etiology demonstrated for the reported right upper quadrant pain. 2. Unchanged bilateral adrenal adenomas. 3. 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 Also an unchanged 2 mm nonobstructing stone of the left lower pole. 4. 5. Left side: 6. Diverticulosis without evidence of diverticulitis. 7. Previous cholecystectomy. 8. Multilevel lumbar spine degenerative changes. Quang Curran MD Chest X-Ray 02/13/17 4609 Signed Impressions: Service Date/Time: Monday, February 13, 2017 21:32 - CONCLUSION: No acute disease. Cornelio Jernigan MD Objective Remarks General: NAD, AAOx3 Chest: CTA Cardiac: Regular Abd: +BS, soft, obese, mild epigastric and RUQ tenderness Ext: No edema A/P Problem List: (1) Abdominal pain ICD Codes: R10.9 - Abdominal pain Status: Acute (2) Chest pain ICD Codes: R07.9 - Chest pain Status: Acute (3) Acute renal insufficiency ICD Codes: N28.9 - Acute renal insufficiency Status: Acute (4) Diabetes ICD Codes: E11.9 - Type 2 diabetes mellitus without complications Status: Chronic (5) COPD (chronic obstructive pulmonary disease) ICD Codes: J44.9 - Chronic obstructive pulmonary disease, unspecified Status: Chronic (6) Dyslipidemia ICD Codes: E78.5 - Dyslipidemia Status: Chronic (7) HTN (hypertension) ICD Codes: I10 - Essential (primary) hypertension Status: Chronic (8) CAD (coronary artery disease) ICD Codes: I25.10 - Atherosclerosis of coronary artery Status: Chronic (9) CHF (congestive heart failure) ICD Codes: I50.9 - Heart failure, unspecified Status: Chronic Assessment and Plan Abdominal pain ?possible mild pancreatitis vs. possible passed stone/sludge Elevated LFTs - CT the abdomen reviewed and reveals no obstruction or acute inflammatory change. No clear etiology demonstrated for the reported right upper quadrant pain. Unchanged bilateral adrenal adenomas. Unchanged rim and calcified subcentimeter aneurysms of both renal arteries, also unchanged 2 mm nonobstructing stone of the left lower pole. Diverticulosis without evidence of diverticulitis. Previous cholecystectomy. Multilevel lumbar spine degenerative changes - Lipase mildly elevated for 475 --> 410 - MRCP with no biliary obstruction noted. - LFTs are trending down, but etiology for the elevation is unclear. - Check Hepatitis panel. - Pt tolerating advanced diet but had increased abd pain on 02/18 - Pain improved after moving her bowels twice. - Await repeat labs for today - Pt is a diabetic with continued abd pain. We will check gastric emptying study today to assess for possible gastroparesis. Hematuria - UA reviewed and reveals: Moderate occult blood, trace leukocyeserase, innumerable RBCs present - repeat UA today with culture - repeat UA was essentially nml. Chest pain with history of CAD rule out acute coronary syndrome - Initial troponin less than 0.02 -> 0.02 -> 0.06- likely related to renal function - serial EKG no acute ST changes identified - Nitropaste DC'd - Lipid panel - continue home medications Plavix, aspirin, Ranexa, Imdur, Coreg, - Patient had cardiac catheterization in 2013 which revealed - Severe 3 vessel [place] coronary artery disease - one of the two coronary artery bypass grafts are patent. 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 oviedo - IVF stopped on 02/18 DARSHANA - likely related to dehydration - hold Lasix and geno - continue IV hydration with NS - recheck BMP in AM Diabetes mellitus- insulin-dependent - takes Lantus 30 units SQ HS at home - Pt is on Levemir 25 units HS - Accu-Cheks before meals at bedtime with low-dose sliding scale insulin coverage Hypertension blood pressure currently stable - Continue monitor trend - Hold and hypertensive medications if possible as patient is nothing by mouth COPD - patient does not appear to be in acute exacerbation continue home medications DVT prophylaxis with Lovenox subcutaneous Patient examined. Assessment and plan formulated with Nuha Mojica PA-C. I agree with the above. liver and renal function improved. overall says abdomen pain is improved but required morphine laxatives are working. Problem Qualifiers (1) Abdominal pain: Qualified Codes: R10.11 - Right upper quadrant pain (2) CHF (congestive heart failure): Nuha Mojica Feb 19, 2017 08:51 Héctor Kendrick MD Feb 19, 2017 12:06
[2017-02-19] MEDS: RANOLAZINE 500 MG EXTENDED RELEASE TAB PO SCH ×2 (09:21→19:59)
[2017-02-19] MEDS: PARoxetine HCL 20 MG TAB PO SCH (09:22)
[2017-02-19] MEDS: ASPIRIN 325 MG TAB PO SCH (09:22)
[2017-02-19] MEDS: CLOPIDOGREL 75 MG TAB PO SCH (09:22)
[2017-02-19] MEDS: ISOSORBIDE MONONITRATE 60 MG TAB PO SCH ×2 (09:22→19:59)
[2017-02-19] MEDS: CARVEDILOL 12.5 MG TAB PO SCH ×2 (09:22→19:59)
[2017-02-19] MEDS: PANTOPRAZOLE SOD 40 MG DELAYED RELEASE TAB PO SCH (09:22)
[2017-02-19] MEDS: SODIUM CHLORIDE 0.9% FLUSH 10 ML FLUSH IV FLUSH SCH ×2 (09:23→20:08)
[2017-02-19 10:39] LABS: BICARBONATE 24.3 MEQ/L (21.0-32.0); MAGNESIUM 1.9 MG/DL (1.5-2.5); POTASSIUM 4.3 MEQ/L (3.5-5.1)
[2017-02-19 10:42] LABS: INDIRECT BILIRUBIN 0.2 MG/DL (0.0-0.8); TOTAL BILIRUBIN ADULT 0.3 MG/DL (0.2-1.0)
[2017-02-19] MEDS ORDERED: METOCLOPRAMIDE HCL 10 MG/2 ML VIAL ONE (13:51)
--- NOTE | 2017-02-19 15:39 | RADRPT ---
EXAM DATE/TIME: 02/19/2017 13:09 [facility] COMPARISON: No previous studies available for comparison. INDICATIONS : Abdominal pain, nausea and vomiting. DOSE: 1.1 mCi Tc99m Sulfur Colloid Labeled Whole egg PO MEDICATONS: 1.) 5 mg Reglan IV at 90 minutes IMAGIN hrs MEDICAL HISTORY : Gastroesophageal reflux disease. Myocardial infarction. Congestive heart failure. hypertension. COPD. SURGICAL HISTORY : Tubal ligation. Tonsillectomy. Cholecystectomy. Appendectomy. ENCOUNTER: Initial ACUITY: 1 day PAIN SCALE: 4/10 LOCATION: Right upper quadrant TECHNIQUE: Following the oral ingestion of radiotracer-labeled meal, dynamic sequential images in the ANGOLAN projec tion were acquired with simultaneous computer acquisition. The data set was decay-corrected. FINDINGS: There is minimal gastric emptying observed at 120 minutes. Gastric emptying is markedly delayed. No s ignificant change following Reglan administration. CONCLUSION: Markedly delayed gastric emptying. Kilo Gamble MD on February 19, 2017 at 15:30 Board Certified Radiologist. This report was verified electronically.
[2017-02-19] MEDS: ENOXAPARIN SODIUM 30 MG/0.3 ML SYRINGE SQ SCH (15:51)
[2017-02-19] MEDS: METOCLOPRAMIDE HCL 10 MG/2 ML VIAL IV PUSH SCH (19:05)
[2017-02-19] MEDS: ATORVASTATIN 40 MG TAB PO SCH (19:59)
[2017-02-19] MEDS: INSULIN DETEMIR 100 UNITS/ML VIAL SQ SCH (20:06)
[2017-02-19] MEDS: ACETAMINOPHEN/HYDROcodone 325 MG/5 MG TAB PO PRN (20:07)
[2017-02-20 00:10] VITALS: BP 122/66; PULSE 73; RESP 17; TEMP 97.4; O2SAT 98
[2017-02-20] MEDS: METOCLOPRAMIDE HCL 10 MG/2 ML VIAL IV PUSH SCH ×2 (01:34→09:37)
[2017-02-20 04:00] VITALS: BP 107/55; PULSE 64; RESP 17; TEMP 97; O2SAT 99
[2017-02-20] MEDS: SIMETHICONE 125 MG CHEWABLE TAB PO SCH (06:06)
[2017-02-20] MEDS: INSULIN ASPART SUPPLEMENTAL SCALE SQ SCH (06:12)
[2017-02-20 08:00] VITALS: BP 130/68; PULSE 65; RESP 17; TEMP 98.3; O2SAT 97
[2017-02-20] MEDS ORDERED: REGL5TAB PO (08:17)
--- NOTE | 2017-02-20 08:19 | HHI.DCPOC ---
Discharge Care Plan Diagnosis: (1) LFT elevation (2) DARSHANA (acute kidney injury) (3) Abdominal pain (4) CHF (congestive heart failure) (5) Diabetes (6) CAD (coronary artery disease) (7) Hypertension Goals to Promote Your Health * To prevent worsening of your condition and complications * To maintain your health at the optimal level Directions to Meet Your Goals Take your medications as prescribed Follow your dietary instruction Follow activity as directed Keep your appointments as scheduled Take your immunizations and boosters as scheduled If your symptoms worsen call your PCP, if no PCP go to Urgent Care Center or Emergency Room Smoking is Dangerous to Your Health. Avoid second hand smoke Call the 24-hour hour crisis hotline for domestic abuse at Héctor Kendrick MD Feb 20, 2017 08:19
--- NOTE | 2017-02-20 08:27 | HHI.DS ---
Discharge Summary Admission Date Feb 14, 2017 at 04:04 Discharge Date: Feb 20, 2017 Admitting Diagnosis pancreatitis (1) Abdominal pain Diagnosis: Principal ICD Codes: R10.9 - Abdominal pain Status: Acute (2) DARSHANA (acute kidney injury) Diagnosis: Principal ICD Codes: N17.9 - Acute kidney failure, unspecified (3) LFT elevation Diagnosis: Principal ICD Codes: R79.89 - Other specified abnormal findings of blood chemistry (4) Diabetes Diagnosis: Secondary ICD Codes: E11.9 - Type 2 diabetes mellitus without complications Status: Chronic (5) COPD (chronic obstructive pulmonary disease) Diagnosis: Secondary ICD Codes: J44.9 - Chronic obstructive pulmonary disease, unspecified Status: Chronic (6) Dyslipidemia Diagnosis: Secondary ICD Codes: E78.5 - Dyslipidemia Status: Chronic (7) HTN (hypertension) Diagnosis: Secondary ICD Codes: I10 - Essential (primary) hypertension Status: Chronic (8) CAD (coronary artery disease) Diagnosis: Secondary ICD Codes: I25.10 - Atherosclerosis of coronary artery Status: Chronic (9) CHF (congestive heart failure) ICD Codes: I50.9 - Heart failure, unspecified Status: Chronic Brief History Mrs. Dwyer is a 50 y/o WF with history of CAD with previous CABG, DM, HTN, HLD , COPD, CHF echocardiogram 04/2016 revealed EF of 30-35% who presented the hospital with complaints of severe cramping abdominal pain which started approximately 8 PM last night while sitting and watching television. Patient describes the abdominal pain as first starting across the lower abdomen and radiating to the mid epigastric area. Patient rates the pain 9 out of 10 associated with bowel movement soft bowel movements 2. Patient denies bright red blood or black tarry stools. Patient also reports nausea and vomiting as well as chills. Patient denies recent sick contacts or changes in diet. Patient reports approximately the same time she began to have stabbing mid retrosternal chest pain which later radiated to the right side of her chest, under her right breast, back neck and right upper arm. This right sided chest pain located under right breast and upper abdomen is reproducible with palpation. Patient reports the symptoms lasted for, "hours." Symptoms minimally relieved by nitroglycerin paste. Patient has had history of CAD with CABG in [address] Anderson. Patient had cardiac catheterization in 2013 which revealed - Severe 3 vessel [place] coronary artery disease - one of the two coronary artery bypass grafts are patent. 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 Initial EKG reviewed and reveals sinus rhythm heart rate [address] changes Initial troponin 0.[address] abdomen reviewed and reveals no acute intra-abdominal findings CBC/BMP: 02/16/17 0700 02/19/17 0921 Significant Findings Laboratory Tests Test 02/18/17 09:35 02/19/17 09:21 Creatinine 1.12 MG/DL (0.50-1.00) 1.28 MG/DL (0.50-1.00) Random Glucose 225 MG/DL (74-106) 163 MG/DL (74-106) Albumin 2.8 GM/DL (3.4-5.0) 2.8 GM/DL (3.4-5.0) Calcium Level 8.4 MG/DL (8.5-10.1) Alkaline Phosphatase 153 U/L (45-117) 145 U/L (45-117) Aspartate Amino Transf (AST/SGOT) 62 U/L (15-37) Alanine Aminotransferase (ALT/SGPT) 169 U/L (10-53) 141 U/L (10-53) Estimat Glomerular Filtration Rate 51 ML/MIN (>89) 44 ML/MIN (>89) Sodium Level 134 MEQ/L (136-145) Hospital Course Pt presented with epigastric and ruq abdomen pain. Concern for passed stone/ sludge given the rise in LFT. She had poor po intake and vomiting initially and noted to have DARSHANA. - CT the abdomen reviewed and reveals no obstruction or acute inflammatory change. No clear etiology demonstrated for the reported right upper quadrant pain. Unchanged bilateral adrenal adenomas. Unchanged rim and calcified subcentimeter aneurysms of both renal arteries, also unchanged 2 mm nonobstructing stone of the left lower pole. Diverticulosis without evidence of diverticulitis. Previous cholecystectomy. Multilevel lumbar spine degenerative changes - Lipase mildly elevated for 475 --> 410 - MRCP with no biliary obstruction noted. - LFTs are trending down and renal function normalizing with ivf at time of d/ c. -hepatitis panel pending at d/c - GES shows severe gastroparesis but clinically pt improved with reglan. She had used morphine so an outpt ges should be done off narcotic meds to confirm On day of d/c she was feeling well, no pain and tolerating food. She was offered another day of observation but kindly refused and was good with going home and f/u with pcp for repeat lft,bmp,ges. Pt Condition on Discharge: Stable Discharge Disposition: Discharge Home Discharge Instructions DIET: Follow Instructions for: Diabetic Diet Activities you can perform: Regular-No Restrictions Follow up Referrals: PCP Follow-up - [address] Basilio New Medications: Metoclopramide (Reglan) 5 Mg Tab 5 MG PO TIDAC for Pain, #90 TAB 0 Refills Continued Medications: Albuterol 18 GM Inh (Ventolin Hfa 18 GM Inh) 90 Mcg/Act Aer 2 PUFF INH Q6H PRN for SHORTNESS OF BREATH, #1 INHALER 0 Refills Aspirin (Aspirin) 325 Mg Tab 325 MG PO DAILY, TAB 0 Refills Atorvastatin (Lipitor) 40 Mg Tab 40 MG PO HS for Cholesterol Management for 30 Days, TAB Carvedilol (Carvedilol) 12.5 Mg Tab 12.5 MG PO BID, #60 TAB 0 Refills Clopidogrel (Plavix) 75 Mg Tab 75 MG PO DAILY for Blood Clot Prevention, #30 TAB 0 Refills Furosemide (Lasix) 40 Mg Tab 40 MG PO DAILY for edema, #30 TAB 0 Refills Hydrocodone-Acetaminophen (Hydrocodone-Acetaminophen) 5-325 mg Tab 1-2 TAB PO Q4H PRN for PAIN, #50 TAB Insulin Aspart Inj (Novolog Inj) 1,000 Unit/10 Ml Vial 5-25 UNITS SQ TIDACHS for Blood Sugar Management, #10 ML 0 Refills Max dose at bedtime:( )units; sugars less than 70,(0) units; sugars 150-199,(5) units; sugars 200-249,(10) units; sugars 250-299,(15) units; sugars 300-349,(20)units; sugars greater than 349,(25)units Insulin Glargine Inj (Lantus Inj) 1,000 Unit/10 Ml Vial 30 UNITS SQ HS for Blood Sugar Management for 30 Days, VIAL 0 Refills Isosorbide Mononitrate ER (Isosorbide Mononitrate ER) 60 Mg Tab 120 MG PO BID for Prevent Chest Pain, #60 TAB 0 Refills Lisinopril (Lisinopril) 20 Mg Tab 20 MG PO BID, #30 TAB 0 Refills Nitroglycerin SL (Nitrostat SL) 0.4 Mg Subl 0.4 MG SL DIRECTED PRN for CHEST PAIN, #100 TAB.SL 0 Refills ONE TABLET UNDER THE TONGUE NEEDED FOR CHEST PAIN, MAY REPEAT EVERY FIVE MINUTES FOR A TOTAL OF 3 DOSES OR CALL 911 IF NO RELIEF Pantoprazole (Protonix) 40 Mg Tab 40 MG PO DAILY for Reflux, #30 TAB 0 Refills Paroxetine (Paroxetine) 40 Mg Tab 40 MG PO DAILY, #30 TAB 0 Refills Ranolazine ER 12 HR (Ranexa ER 12 HR) 500 Mg Tab 1000 MG PO Q12HR for CAD, #60 TAB Héctor Kendrick MD Feb 20, 2017 08:27
[2017-02-20] MEDS: PARoxetine HCL 20 MG TAB PO SCH (09:36)
[2017-02-20] MEDS: CLOPIDOGREL 75 MG TAB PO SCH (09:36)
[2017-02-20] MEDS: ASPIRIN 325 MG TAB PO SCH (09:36)
[2017-02-20] MEDS: CARVEDILOL 12.5 MG TAB PO SCH (09:36)
[2017-02-20] MEDS: RANOLAZINE 500 MG EXTENDED RELEASE TAB PO SCH (09:36)
[2017-02-20] MEDS: ISOSORBIDE MONONITRATE 60 MG TAB PO SCH (09:36)
[2017-02-20] MEDS: PANTOPRAZOLE SOD 40 MG DELAYED RELEASE TAB PO SCH (09:37)
[2017-02-20] MEDS: ACETAMINOPHEN/HYDROcodone 325 MG/5 MG TAB PO PRN (09:38)
[2017-02-20] MEDS: SODIUM CHLORIDE 0.9% FLUSH 10 ML FLUSH IV FLUSH SCH (09:39)
== END 2017-02-20 11:10 | disposition home or self-care (01) | DRG 439 ==
LOC: NEPC 20:54 → NEDA 02-14 04:04 → N06B 02-14 06:15
PROVIDERS: ADMIT Hospitalist; ATTEND Hospitalist
DX: K85.90 Acute pancreatitis without necrosis or infection, unspecified (principal); N17.9 Acute kidney failure, unspecified; I11.0 Hypertensive heart disease with heart failure; I50.22 Chronic systolic (congestive) heart failure; I72.2 Aneurysm of renal artery; K31.84 Gastroparesis; E11.43 Type 2 diabetes mellitus with diabetic autonomic (poly)neuropathy; I25.10 Atherosclerotic heart disease of native coronary artery without angina pectoris; E86.0 Dehydration; J44.9 Chronic obstructive pulmonary disease, unspecified; D35.01 Benign neoplasm of right adrenal gland; D35.02 Benign neoplasm of left adrenal gland; E78.5 Hyperlipidemia, unspecified; K57.30 Diverticulosis of large intestine without perforation or abscess without bleeding; R07.9 Chest pain, unspecified; N20.0 Calculus of kidney; R79.89 Other specified abnormal findings of blood chemistry; K21.9 Gastro-esophageal reflux disease without esophagitis; R31.0 Gross hematuria; Z79.4 Long term (current) use of insulin; Z87.891 Personal history of nicotine dependence; Z95.1 Presence of aortocoronary bypass graft; Z95.5 Presence of coronary angioplasty implant and graft; Z88.0 Allergy status to penicillin; Z88.2 Allergy status to sulfonamides; Z88.8 Allergy status to other drugs, medicaments and biological substances; Z91.041 Radiographic dye allergy status
CPT/HCPCS: 71010; 74176; 74181; 76377; 76937; 78264; 80048; 80074; 80076; 81001; 82550; 82948; 83690; 83735; 84300; 84484; 85025; 85610; 85730; 87086; 87205; 93005; 96361; 96372; 96374; 96375; 96376; A9541; G0378; J1170; J1650; J1815; J2270; J2405; J2765; J7030; J7040

== ENCOUNTER 2017-03-03 18:41 | Emergency (ER) | payer OTHER ==
[~2017-03-03] VITALS: Ht 160 cm; Wt 105.0 kg
[~2017-03-03 18:41] MED LIST changes: -AMBI5TAB PO; +PARO40TA2 PO; -PAXI20TA PO; +REGL5TAB PO
[2017-03-03 18:46] VITALS: BP 180/85; PULSE 76; RESP 16; TEMP 98.2; O2SAT 96
[2017-03-03] MEDS ORDERED: MORPHINE SULFATE 4 MG/ML INJ IV PUSH ONE (19:00)
[2017-03-03] MEDS ORDERED: ONDANSETRON HCL 4 MG/2 ML VIAL IV PUSH ONE (19:00)
[2017-03-03 19:17] VITALS: BP 183/86; PULSE 74; RESP 18; O2SAT 97
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
[2017-03-03 20:10] VITALS: BP 191/88; PULSE 74; RESP 18; O2SAT 97
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
--- NOTE | 2017-03-03 20:18 | RADRPT ---
EXAM DATE/TIME: 03/03/2017 19:45 [facility] COMPARISON: CT ABDOMEN & PELVIS W/O CONTRAST, February 14, 2017, 1:30. INDICATIONS : Trauma, fell through rotted floor. ORAL CONTRAST: No oral contrast ingested. RADIATION DOSE: 23.72 CTDIvol (mGy) ; Combined studies - Thorax/Abdomen/Pelvis MEDICAL HISTORY : Myocardial infarction. Hypertension. Chronic obstructive pulmonary disease.Diabetes. Renal calculi. SURGICAL HISTORY : CABG Cholecystectomy.Tubal ligation.Appendectomy. ENCOUNTER: Initial ACUITY: 1 day PAIN SCALE: 4/10 LOCATION: Bilateral abdomen TECHNIQUE: Volumetric scanning of the abdomen and pelvis was performed. Using automated exposure control and ad justment of the mA and/or kV according to patient size, radiation dose was kept as low as reasonably achievable to obtain optimal diagnostic quality images. DICOM format image data is available electro nically for review and comparison. FINDINGS: LOWER LUNGS: The visualized lower lungs are clear. LIVER: Homogeneous density without lesion. There is no dilation of the biliary tree. Previous cholecystect nhi. SPLEEN: Normal size without lesion. PANCREAS: Within normal limits. KIDNEYS: Normal in size and shape. There is no mass, stone, or hydronephrosis. Subcentimeter rim calcified an eurysms of the bilateral renal arteries are stable. ADRENAL GLANDS: Prominent adrenal glands again seen VASCULAR: There is no aortic aneurysm. BOWEL/MESENTERY: The stomach, small bowel, and colon demonstrate no acute abnormality. There is no free intraperitone al air or fluid. ABDOMINAL WALL: Within normal limits. RETROPERITONEUM: There is no lymphadenopathy. BLADDER: No wall thickening or mass. REPRODUCTIVE: Within normal limits. INGUINAL: There is no lymphadenopathy or hernia. MUSCULOSKELETAL: Within normal limits for patient age. CONCLUSION: 1. No evidence of acute injury of the abdomen or pelvis. 2. 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 Quang Curran MD on March 03, 2017 at 20:15 Board Certified Radiologist. This report was verified electronically.
--- NOTE | 2017-03-03 20:21 | RADRPT ---
EXAM DATE/TIME: 03/03/2017 19:45 [facility] COMPARISON: No previous studies available for comparison. INDICATIONS : Trauma, fell through rotted floor. RADIATION DOSE: CTDIvol (mGy) ; Reconstructed from previous dataset, no dose MEDICAL HISTORY : Chronic obstructive pulmonary disease. Hypertension. Myocardial infarction.Diabetes. Renal calculi. SURGICAL HISTORY : CABG Cholecystectomy.Tubal ligation.Appendectomy. ENCOUNTER: Initial ACUITY: 1 day PAIN SCALE: 5/10 LOCATION: lumbar TECHNIQUE: Volumetric scanning of the lumbar spine was performed. Multiplanar reconstructions in the sagittal, coronal and oblique axial planes were performed. Using automated exposure control and adjustment of the mA and/or kV according to patient size, radiation dose was kept as low as reasonably achievable t o obtain optimal diagnostic quality images. DICOM format image data is available electronically for review and comparison. FINDINGS: No cortical break or trabecular disruption of the lumbar spine. Vertebral bodies have normal height. No subluxations. Mild to moderate disc space narrowing with vacuum phenomena and small, broad/diffuse disc protrusions seen at L2/L3-L4/L5. A small moderate, broad but mostly left paracentral/foraminal disc protrusion i s seen at L5/S1 and there is left greater than right foraminal stenosis at this level. There is right greater than left foraminal stenosis at L4/L5. CONCLUSION: 1. No fracture or subluxation of the lumbar spine. 2. Multilevel degenerative changes as above. Right-sided predominant foraminal stenosis at L4/L5 and left greater than right foraminal stenosis at L5/S1. Quang Curran MD on March 03, 2017 at 20:18 Board Certified Radiologist. This report was verified electronically.
--- NOTE | 2017-03-03 20:32 | RADRPT ---
EXAM DATE/TIME: 03/03/2017 19:56 [facility] COMPARISON: No previous studies available for comparison. INDICATIONS : Right hip pain, fell MEDICAL HISTORY : None. SURGICAL HISTORY : None. ENCOUNTER: Initial ACUITY: 1 day PAIN SCORE: 7/10 LOCATION: Right Hip FINDINGS: Examination of the right hip was performed with AP Pelvis. The primary and secondary trabecular rufino coco of the femoral neck is intact. The hip joint is of normal width without significant sclerosis or bony hypertrophy. The acetabulum is grossly intact. CONCLUSION: Intact right hip. Quang Curran MD on March 03, 2017 at 20:30 Board Certified Radiologist. This report was verified electronically.
--- NOTE | 2017-03-03 20:33 | RADRPT ---
EXAM DATE/TIME: 03/03/2017 19:58 [facility] COMPARISON: No previous studies available for comparison. INDICATIONS : Right knee pain, fell MEDICAL HISTORY : None. SURGICAL HISTORY : None. ENCOUNTER: Initial ACUITY: 1 day PAIN SCORE: 7/10 LOCATION: Right Knee FINDINGS: No fracture, subluxation or joint effusion seen of the right knee. There is moderate medial and gutierrez lofemoral compartment osteoarthritis. CONCLUSION: Moderate osteoarthritis. No fracture or subluxation of the right knee. Quang Curran MD on March 03, 2017 at 20:31 Board Certified Radiologist. This report was verified electronically.
[2017-03-03 20:55] LABS: AUTOMATED NEUTROPHIL # 9.4 TH/MM3 (1.8-7.7); BASOPHIL # 0.1 TH/MM3 (0-0.2); BASOPHIL % 0.6 % (0.0-2.0); EOSINOPHIL # 0.3 TH/MM3 (0-0.4); EOSINOPHIL % 1.9 % (0.0-4.0); HEMO FLAGS DIFF FINAL; LYMPH % 22.1 % (9.0-44.0); LYMPHOCYTE # 3.1 TH/MM3 (1.0-4.8); MEAN CELL VOLUME 91.8 FL (80.0-100.0); MEAN CORPUSCULAR HEMOGLOBIN 30.5 PG (27.0-34.0); MEAN CORPUSCULAR HGB CONC 33.2 % (32.0-36.0); MONO % 7.3 % (0.0-8.0); NEUT % 68.1 % (16.0-70.0); PLATELET COUNT 318 TH/MM3 (150-450); RED BLOOD COUNT 4.14 MIL/MM3 (4.00-5.30); RED CELL DISTRIBUTION WIDTH 13.5 % (11.6-17.2); WHITE BLOOD COUNT 13.9 TH/MM3 (4.0-11.0)
[2017-03-03 21:06] LABS: APTT (PATIENT) 23.8 SEC (24.3-30.1); INTERNATIONAL NORMALIZED RATIO 0.9 RATIO; PROTHROMBIN TIME - PATIENT 10.3 SEC (9.8-11.6)
--- NOTE | 2017-03-03 21:14 | RADRPT ---
EXAM DATE/TIME: 03/03/2017 19:56 [facility] COMPARISON: No previous studies available for comparison. INDICATIONS : Evaluate chest for trauma, fell MEDICAL HISTORY : Chronic obstructive pulmonary disease. Hypertension SURGICAL HISTORY : CABG. ENCOUNTER: Initial ACUITY: 1 day PAIN SCORE: 0/10 LOCATION: chest FINDINGS: No infiltrate, effusion or pneumothorax. Heart size upper limits of normal. Patient is previous CABG. CONCLUSION: No evidence of acute cardiopulmonary disease. Quang Curran MD on March 03, 2017 at 21:12 Board Certified Radiologist. This report was verified electronically.
[2017-03-03] MEDS ORDERED: HYDROmorphone HCL PF 1 MG/ML VIAL IV PUSH ONE (21:15)
[2017-03-03] MEDS ORDERED: KETOROLAC TROMETHAMINE 30 MG/ML (IVP) VIAL IV PUSH ONE (21:15)
[2017-03-03 21:29] VITALS: BP 171/78; PULSE 76; RESP 18; O2SAT 97
[2017-03-03 21:35] LABS: BICARBONATE 27.9 MEQ/L (21.0-32.0)
[2017-03-03 21:36] LABS: POTASSIUM 4.6 MEQ/L (3.5-5.1)
[2017-03-03] MEDS ORDERED: PERC5TAB12 PO (21:41)
--- NOTE | 2017-03-04 16:37 | EKG ---
Date Performed: 03/03/2017 Time Performed: 19:25:02 PTAGE: 51 years EKG: Sinus rhythm LEFT ANTERIOR FASCICULAR BLOCK POSSIBLE ANTERIOR MYOCARDIAL INFARCTION MODERATE T-WAVE ABNORMALITY, CONSIDER LATERAL ISCHEMIA ABNORMAL ECG Since PREVIOUS TRACING , no significant change noted PREVIOUS TRACIN02/13/2017 23.23 DOCTOR: Luciana Medina Interpretating Date/Time 03/04/2017 16:36:50
== END 2017-03-03 22:01 | disposition home or self-care (01) ==
LOC: NEPE 18:41
DX: S09.90XA Unspecified injury of head, initial encounter (principal); M25.561 Pain in right knee; I50.9 Heart failure, unspecified; J44.9 Chronic obstructive pulmonary disease, unspecified; E11.9 Type 2 diabetes mellitus without complications; T14.8 Other injury of unspecified body region; I10 Essential (primary) hypertension; R94.31 Abnormal electrocardiogram [ECG] [EKG]; W17.89XA Other fall from one level to another, initial encounter; Y93.01 Activity, walking, marching and hiking; Y92.028 Other place in mobile home as the place of occurrence of the external cause; Z79.01 Long term (current) use of anticoagulants
CPT/HCPCS: 70450; 71010; 71250; 72125; 72131; 73502; 73564; 74176; 80048; 83735; 85025; 85610; 85730; 93005; 96374; 96375; 99285; J1170; J1885; J2270; J2405

== ENCOUNTER 2017-03-21 05:35 | Inpatient (IN) | payer OTHER ==
[~2017-03-21] VITALS: Ht 160 cm; Wt 118.3 kg
[~2017-03-21 05:35] MED LIST changes: +PERC5TAB12 PO
[2017-03-21 05:37] VITALS: BP 135/65; PULSE 80; RESP 16; TEMP 98.5; O2SAT 96
[2017-03-21] MEDS ORDERED: BUPR150XL PO (06:18)
[2017-03-21] MEDS ORDERED: TRAD5TAB PO (06:18)
[2017-03-21] MEDS ORDERED: ALBI1INJ2 SQ (06:18)
[2017-03-21] MEDS ORDERED: SPIR25TA PO (06:18)
[2017-03-21] MEDS ORDERED: SODIUM CHLOR 0.9% 1000 ML INJ 1,000 ML IV ONE (06:30)
--- NOTE | 2017-03-21 06:44 | PD ---
HPI Chief Complaint: Abdominal Pain Time Seen by Provider: 06:02 Travel History International Travel<30 days: No Contact w/Intl Traveler<30days: No Traveled to known affect area: No History of Present Illness HPI The patient is a 51 year old female who presents to the [facility] emergency department with a history of back pain that began around lunch time on Tuesday. She then developed abdominal pain on Tuesday evening. The back pain is straight across the low back, and the abdominal pain began in the right lower quadrant and then radiated to the middle of the abdomen and down to the suprapubic area. The pain is constant in both areas. The patient reports having nausea associated with this. She denies having any vomiting. She denies having any diarrhea. Her last bowel movement was a few hours prior to arrival. She denies having any blood in her stool or black or tarry stools per The patient reports that the abdominal pain is similar to what she experienced in February. The patient reports that she was diagnosed with gastroparesis as the cause. She reports that the back pain is a new type of back pain although she does have a history of degenerative disc disease of her back. She denies any new trauma or injury to the area. She denies having any dysuria, hematuria , urinary urgency, or frequency. She reports that she does have a history of diabetes. Her last blood sugar was in the 200s prior to bed. On review of systems otherwise, the patient denies any recent known fevers, worsening cough or congestion, neck pain, chest pain, worsening shortness of breath (history of COPD), or neurologic symptoms. LMP a year ago [facility] Past Medical History Narrative Medical The patient's past medical history is significant for degenerative disc disease of the back, gastroparesis, anxiety and depression, diabetes- last bs was checked in the evening-246, hypertension, coronary artery disease status post coronary artery bypass grafting and cardiac stent placement, history of hyperlipidemia, congestive heart failure, obesity, diabetic neuropathy, acid reflux, chronic headaches, history of kidney stones. Hx Anticoagulant Therapy: Yes Arthritis: No Asthma: No Autoimmune Disease: No Blood Disorders: No Anxiety: Yes Depression: Yes Heart Rhythm Problems: Yes Cancer: No Cardiac Catheterization: Yes ( MULTI STENTS 2012) Cardiovascular Problems: Yes High Cholesterol: Yes Chemotherapy: No Chest Pain: Yes Congestive Heart Failure: Yes COPD: Yes Cerebrovascular Accident: No Coronary Artery Disease: Yes Diabetes: Yes Patient Takes Glucophage: Yes Diminished Hearing: No Endocrine: Yes Gastrointestinal Disorders: Yes GERD: Yes (ACID REFLUX) Genitourinary: Yes Headaches: Yes Hiatal Hernia: No Hypertension: Yes Immune Disorder: No Implanted Vascular Access Dvce: No Kidney Stones: Yes Musculoskeletal: Yes Neurologic: Yes (NEUROPATHY LOWER EXTREMITIES/HANDS) Psychiatric: Yes Reproductive: Yes Respiratory: Yes Immunizations Current: Yes Migraines: Yes Myocardial Infarction: Yes Radiation Therapy: No Renal Failure: No Seizures: No Sickle Cell Disease: No Sleep Apnea: No Thyroid Disease: Yes Ulcer: No Tetanus Vaccination: < 5 Years Influenza Vaccination: Yes PNEUMOCCOCAL Vaccine (Year): 2 ?: Not Menopausal: Yes : 0 Para: 0 Miscarriage: 0 : 0 Tubal Ligation: Yes Past Surgical History Narrative Surgical The patient's past surgical history is significant for CABG 2007- vs bypass, cholecystectomy, appendectomy, hernia repair, tonsillectomy, open heart for infection due to wires breaking-4 years ago. Abdominal Surgery: Yes (HERNIA REPAIRED, APPY, LIDIA) AICD: No Appendectomy: Yes Arteriovenous Shunt: No Body Medical Devices: STERNAL WIRES Cardiac Surgery: Yes (CABG, STENT PLACEMENT) Cholecystectomy: Yes (10 YEARS AGO) Coronary Artery Bypass Graft: Yes ( X 2 2007) Ear Surgery: No Endocrine Surgery: No Eye Surgery: No Genitourinary Surgery: No Gynecologic Surgery: No Insulin Pump: No Joint Replacement: No Neurologic Surgery: No Oral Surgery: No Pacemaker: No Thoracic Surgery: Yes (STERNAL DEBRIDEMENT) Tonsillectomy: Yes Other Surgery: Yes (LEFT LUMPECTOMY ) Family History Family Myocardial Infarction: Yes Social History Alcohol Use: No Tobacco Use: No Substance Use: No Allergies-Medications (Allergen,Severity, Reaction): Coded Allergies: diatrizoate meglumine (Unverified Allergy, Severe, Nausea/Vomiting, ) ORAL CONTRAST ONLY gadobenic acid (Unverified Allergy, Severe, Nausea/Vomiting, 03/21/17) ORAL CONTRAST ONLY gadodiamide (Unverified Allergy, Severe, Nausea/Vomiting, 03/21/17) ORAL CONTRAST ONLY gadoteridol (Unverified Allergy, Severe, Nausea/Vomiting, 03/21/17) ORAL CONTRAST ONLY iodixanol (Unverified Allergy, Severe, Nausea/Vomiting, 03/21/17) ORAL CONTRAST ONLY iohexol (Unverified Allergy, Severe, Nausea/Vomiting, 03/21/17) ORAL CONTRAST ONLY penicillin G (Unverified Allergy, Severe, 03/21/17) sulfamethoxazole (Unverified Allergy, Severe, 03/21/17) trimethoprim (Unverified Allergy, Severe, 03/21/17) Reported Meds & Prescriptions Reported Meds & Active Scripts Active Reglan (Metoclopramide HCl) 5 Mg Tab 5 Mg PO TIDAC Ranexa ER 12 HR (Ranolazine) 500 Mg Tab 1,000 Mg PO Q12HR Isosorbide Mononitrate ER (Isosorbide Mononitrate) 60 Mg Tab 120 Mg PO BID Lipitor (Atorvastatin Calcium) 40 Mg Tab 40 Mg PO HS 30 Days Carvedilol 12.5 Mg Tab 12.5 Mg PO BID Lasix (Furosemide) 40 Mg Tab 40 Mg PO DAILY Lantus Inj (Insulin Glargine) 1,000 Unit/10 Ml Vial 30 Units SQ HS 30 Days Reported Wellbutrin Xl 24 HR (Bupropion HCl) 150 Mg Tab 150 Mg PO DAILY Spironolactone 25 Mg Tab 25 Mg PO BIDPC Tradjenta (Linagliptin) 5 Mg Tab 5 Mg PO DAILY Tanzeum 4-Pack Inj (Albiglutide) 50 Mg Pfpen 50 Mg SQ Q7D Paroxetine (Paroxetine HCl) 40 Mg Tab 40 Mg PO DAILY Lisinopril 20 Mg Tab 20 Mg PO BID Nitrostat SL (Nitroglycerin) 0.4 Mg Subl 0.4 Mg SL DIRECTED PRN ONE TABLET UNDER THE TONGUE NEEDED FOR CHEST PAIN, MAY REPEAT EVERY FIVE MINUTES FOR A TOTAL OF 3 DOSES OR CALL 911 IF NO RELIEF Aspirin 325 Mg Tab 325 Mg PO DAILY Novolog Inj (Insulin Aspart) 1,000 Unit/10 Ml Vial 5-25 Units SQ TIDACHS Max dose at bedtime:( )units; sugars less than 70,(0) units; sugars 150-199,(5) units; sugars 200-249,(10) units; sugars 250-299,(15) units; sugars 300-349,(20)units; sugars greater than 349,(25)units Plavix (Clopidogrel Bisulfate) 75 Mg Tab 75 Mg PO DAILY Protonix (Pantoprazole Sodium) 40 Mg Tab 40 Mg PO DAILY Ventolin Hfa 18 GM Inh (Albuterol Sulfate) 90 Mcg/Act Aer 2 Puff INH Q6H PRN Review of Systems Except as stated in HPI: all other systems reviewed are Neg General / Constitutional: No: Fever Eyes: No: Visual changes HENT: Positive: Rhinitis, Congestion, No: Headaches Cardiovascular: No: Chest Pain or Discomfort Respiratory: Positive: Cough (chronic related to postnasal drip and allergies) , Shortness of Breath (chronic in nature and no worse than usual) Gastrointestinal: Positive: Nausea, Abdominal Pain, No: Vomiting, Diarrhea, Changes in Bowel Habits, Indigestion, Loss of Appetite Genitourinary: No: Dysuria Musculoskeletal: Positive: Myalgias, Pain Skin: No Rash Neurologic: No: Weakness, Focal Abnormalities, Change in Mentation, Slurred Speech, Sensory Disturbance Psychiatric: No: Depression Endocrine: No: Polydipsia Hematologic/Lymphatic: No: Easy Bruising Physical Exam Narrative General: The patient is a well-developed well-nourished female in no acute distress. Head and Neck exam: Head is normocephalic atraumatic. Eyes: EOMI, pupils are equal round and reactive to light. Nose: Midline septum with pink mucous membranes Mouth: Dentition unremarkable. Moist mucus membranes. Posterior oropharynx is not erythematous. No tonsillar hypertrophy. Uvula midline. Airway patent. Neck: No palpable lymphadenopathy. No nuchal rigidity. No thyromegaly. Cardiovascular: Regular rate and rhythm without murmurs, gallops, or rubs. Lungs: Clear to auscultation bilaterally. No wheezes, rhonchi, or rales. Abdomen: Soft, with tenderness on palpation along the center of the abdomen just above the umbilicus. No masses are palpable. No other point tenderness on palpation. Negative Ritter's sign. No tenderness on palpation of McBurney's point. Normal bowel sounds are audible. No palpable hernia. No guarding, rebound, or rigidity. Extremities: No clubbing, cyanosis, or edema. 2+ pulses in all 4 extremities. No calf tenderness on palpation. Back: No spinous process tenderness to palpation. The patient reports having bilateral CVA tenderness on palpation worse on the right compared to the left. Neurologic Exam: Grossly nonfocal. Skin Exam: No rash noted. Intact skin that is warm and dry. Data Data Last Documented VS Vital Signs Date Time Temp Pulse Resp B/P (MAP) Pulse Ox O2 Delivery O2 Flow Rate FiO2 03/21/17 05:37 98.5 80 16 135/65 (88) 96 Room Air Orders Orders Sodium Chlor 0.9% 1000 Ml Inj (Ns 1000 M (03/21/17 06:30) Complete Blood Count With Diff (03/21/17 06:44) Comprehensive Metabolic Panel (03/21/17 06:44) Troponin I (03/21/17 06:44) C-Reactive Protein (Crp) (03/21/17 06:44) Lipase (03/21/17 06:44) Urinalysis - C+S If Indicated (03/21/17 06:44) Chest, Single Ap (03/21/17 06:44) Abdomen, Flat & Upright (03/21/17 06:44) Iv Access Insert/Monitor (03/21/17 06:44) Ecg Monitoring (03/21/17 06:44) Oximetry (03/21/17 06:44) Ed Urine Pregnancytest Poc (03/21/17 06:44) Ondansetron Inj (Zofran Inj) (03/21/17 06:45) Sodium Chlor 0.9% 250 Ml Inj (Ns 250 Ml (03/21/17 06:45) Morphine Inj (Morphine Inj) (03/21/17 06:45) Labs Laboratory Tests Test 03/21/17 06:15 White Blood Count 18.4 TH/MM3 Red Blood Count 3.89 MIL/MM3 Hemoglobin 12.1 GM/DL Hematocrit 35.8 % Mean Corpuscular Volume 92.0 FL Mean Corpuscular Hemoglobin 31.1 PG Mean Corpuscular Hemoglobin Concent 33.8 % Red Cell Distribution Width 13.7 % Platelet Count 332 TH/MM3 Mean Platelet Volume 7.6 FL Neutrophils (%) (Auto) 69.5 % Lymphocytes (%) (Auto) 20.6 % Monocytes (%) (Auto) 7.5 % Eosinophils (%) (Auto) 2.0 % Basophils (%) (Auto) 0.4 % Neutrophils # (Auto) 12.8 TH/MM3 Lymphocytes # (Auto) 3.8 TH/MM3 Monocytes # (Auto) 1.4 TH/MM3 Eosinophils # (Auto) 0.4 TH/MM3 Basophils # (Auto) 0.1 TH/MM3 CBC Comment DIFF FINAL Differential Comment MDM Medical Decision Making Medical Screen Exam Complete: Yes Emergency Medical Condition: Yes Medical Record Reviewed: Yes Differential Diagnosis Exacerbation of gastroparesis, versus electrolyte derangements, versus pyelonephritis, versus kidney stone Narrative Course During the course of the patients emergency department visit, the patients history, examination, and differential diagnosis were reviewed with the patient. The patient had IV access obtained and blood work sent for analysis. The patient's electronic medical record was reviewed. The patient was recently admitted with similar abdominal pain and underwent a CT scan of the abdomen and pelvis that showed no evidence of obstruction or acute inflammatory changes. As the patient's symptoms are similar attempt will be made to avoid imaging with CT as the patient's abdominal examination is benign and she recently has undergone CT. An abdominal flat and upright will instead be ordered to evaluate for possible signs of obstruction. The patient was initially provided normal saline a 250 mL bolus 1. The patient was gently hydrated due to her history of CHF. The patient was given morphine 4 mg IV, Zofran 4 mg IV. The patients laboratory studies were reviewed and remarkable for [white count of 18.4, hemoglobin 12.1, platelets 332 with a normal differential, laboratory studies and imaging are pending at the conclusion of my shift. The patient's case will be checked out to the oncoming emergency physician to disposition the patient based on the conclusion of the workup. Diagnosis Primary Impression: Abdominal pain Qualified Codes: R10.13 - Epigastric pain Additional Impression: Low back pain Qualified Codes: M54.5 - Low back pain Marj Alas MD Mar 21, 2017 06:44
[2017-03-21] MEDS ORDERED: SODIUM CHLOR 0.9% 250 ML INJ 250 ML IV ONE (06:45)
[2017-03-21] MEDS ORDERED: MORPHINE SULFATE 4 MG/ML INJ IV PUSH ONE (06:45)
[2017-03-21] MEDS ORDERED: ONDANSETRON HCL 4 MG/2 ML VIAL IV ONE (06:45)
[2017-03-21 07:05] LABS: AUTOMATED NEUTROPHIL # 12.8 TH/MM3 (1.8-7.7); BASOPHIL # 0.1 TH/MM3 (0-0.2); BASOPHIL % 0.4 % (0.0-2.0); EOSINOPHIL # 0.4 TH/MM3 (0-0.4); HEMATOCRIT 35.8 % (35.0-46.0); HEMO FLAGS DIFF FINAL; LYMPH % 20.6 % (9.0-44.0); LYMPHOCYTE # 3.8 TH/MM3 (1.0-4.8); MEAN CORPUSCULAR HEMOGLOBIN 31.1 PG (27.0-34.0); MEAN CORPUSCULAR HGB CONC 33.8 % (32.0-36.0); MONO % 7.5 % (0.0-8.0); NEUT % 69.5 % (16.0-70.0); PLATELET COUNT 332 TH/MM3 (150-450); RED BLOOD COUNT 3.89 MIL/MM3 (4.00-5.30); RED CELL DISTRIBUTION WIDTH 13.7 % (11.6-17.2); WHITE BLOOD COUNT 18.4 TH/MM3 (4.0-11.0)
[2017-03-21 07:28] LABS: ALKALINE PHOSPHATASE 137 U/L (45-117); TOTAL BILIRUBIN ADULT 0.4 MG/DL (0.2-1.0)
[2017-03-21 07:33] LABS: ALT (GPT) 20 U/L (10-53); ANION GAP 9 MEQ/L (5-15); AST (GOT) 22 U/L (15-37); BICARBONATE 22.3 MEQ/L (21.0-32.0); BLOOD UREA NITROGEN 40 MG/DL (7-18); CHLORIDE 101 MEQ/L (98-107); GLOMERULAR FILTRATION RATE 21 ML/MIN (>89); SODIUM (NA) 132 MEQ/L (136-145)
--- NOTE | 2017-03-21 07:42 | PD ---
Physical Exam Date Seen by Provider: Mar 21, 2017 Data Data Last Documented VS Vital Signs Date Time Temp Pulse Resp B/P (MAP) Pulse Ox O2 Delivery O2 Flow Rate FiO2 03/21/17 05:37 98.5 80 16 135/65 (88) 96 Room Air Orders Orders Sodium Chlor 0.9% 1000 Ml Inj (Ns 1000 M (03/21/17 06:30) Complete Blood Count With Diff (03/21/17 06:44) Comprehensive Metabolic Panel (03/21/17 06:44) Troponin I (03/21/17 06:44) C-Reactive Protein (Crp) (03/21/17 06:44) Lipase (03/21/17 06:44) Urinalysis - C+S If Indicated (03/21/17 06:44) Chest, Single Ap (03/21/17 06:44) Abdomen, Flat & Upright (03/21/17 06:44) Iv Access Insert/Monitor (03/21/17 06:44) Ecg Monitoring (03/21/17 06:44) Oximetry (03/21/17 06:44) Ed Urine Pregnancytest Poc (03/21/17 06:44) Ondansetron Inj (Zofran Inj) (03/21/17 06:45) Sodium Chlor 0.9% 250 Ml Inj (Ns 250 Ml (03/21/17 06:45) Morphine Inj (Morphine Inj) (03/21/17 06:45) Ct Abd/Pel W/O Iv Contrast (03/21/17 07:48) Electrocardiogram (03/21/17 ) Morphine Inj (Morphine Inj) (03/21/17 09:00) Hydromorphone Pf Inj (Dilaudid Pf Inj) (03/21/17 10:15) Labs Laboratory Tests Test 03/21/17 06:15 03/21/17 08:45 White Blood Count 18.4 TH/MM3 Red Blood Count 3.89 MIL/MM3 Hemoglobin 12.1 GM/DL Hematocrit 35.8 % Mean Corpuscular Volume 92.0 FL Mean Corpuscular Hemoglobin 31.1 PG Mean Corpuscular Hemoglobin Concent 33.8 % Red Cell Distribution Width 13.7 % Platelet Count 332 TH/MM3 Mean Platelet Volume 7.6 FL Neutrophils (%) (Auto) 69.5 % Lymphocytes (%) (Auto) 20.6 % Monocytes (%) (Auto) 7.5 % Eosinophils (%) (Auto) 2.0 % Basophils (%) (Auto) 0.4 % Neutrophils # (Auto) 12.8 TH/MM3 Lymphocytes # (Auto) 3.8 TH/MM3 Monocytes # (Auto) 1.4 TH/MM3 Eosinophils # (Auto) 0.4 TH/MM3 Basophils # (Auto) 0.1 TH/MM3 CBC Comment DIFF FINAL Differential Comment Blood Urea Nitrogen 40 MG/DL Creatinine 2.42 MG/DL Random Glucose 89 MG/DL Total Protein 7.6 GM/DL Albumin 3.1 GM/DL Calcium Level 9.1 MG/DL Alkaline Phosphatase 137 U/L Aspartate Amino Transf (AST/SGOT) 22 U/L Alanine Aminotransferase (ALT/SGPT) 20 U/L Total Bilirubin 0.4 MG/DL Sodium Level 132 MEQ/L Potassium Level 5.0 MEQ/L Chloride Level 101 MEQ/L Carbon Dioxide Level 22.3 MEQ/L Anion Gap 9 MEQ/L Estimat Glomerular Filtration Rate 21 ML/MIN Troponin I LESS THAN 0.02 NG/ML C-Reactive Protein 6.47 MG/DL Lipase 435 U/L Urine Color YELLOW Urine Turbidity CLEAR Urine pH 5.0 Urine Specific [place] 1.007 Urine Protein NEG mg/dL Urine Glucose (UA) NEG mg/dL Urine Ketones NEG mg/dL Urine Occult Blood NEG Urine Nitrite NEG Urine Bilirubin NEG Urine Urobilinogen LESS THAN 2.0 MG/DL Urine Leukocyte Esterase NEG Urine RBC 1 /hpf Urine WBC 1 /hpf Urine Squamous Epithelial Cells 1 /hpf Urine Hyaline Casts 3 /lpf Microscopic Urinalysis Comment CULT NOT INDICATED MDM Medical Record Reviewed: Yes Supervised Visit with KARI: No Interpretation(s) EKG at 0936: Normal sinus rhythm at 71 bpm, QT/QTc 420/442, no acute ST-T wave changes Vital Signs Date Time Temp Pulse Resp B/P (MAP) Pulse Ox O2 Delivery O2 Flow Rate FiO2 03/21/17 05:37 98.5 80 16 135/65 (88) 96 Room Air Laboratory Tests Test 03/21/17 06:15 White Blood Count 18.4 TH/MM3 (4.0-11.0) Red Blood Count 3.89 MIL/MM3 (4.00-5.30) Hemoglobin 12.1 GM/DL (11.6-15.3) Hematocrit 35.8 % (35.0-46.0) Mean Corpuscular Volume 92.0 FL (80.0-100.0) Mean Corpuscular Hemoglobin 31.1 PG (27.0-34.0) Mean Corpuscular Hemoglobin Concent 33.8 % (32.0-36.0) Red Cell Distribution Width 13.7 % (11.6-17.2) Platelet Count 332 TH/MM3 (150-450) Mean Platelet Volume 7.6 FL (7.0-11.0) Neutrophils (%) (Auto) 69.5 % (16.0-70.0) Lymphocytes (%) (Auto) 20.6 % (9.0-44.0) Monocytes (%) (Auto) 7.5 % (0.0-8.0) Eosinophils (%) (Auto) 2.0 % (0.0-4.0) Basophils (%) (Auto) 0.4 % (0.0-2.0) Neutrophils # (Auto) 12.8 TH/MM3 (1.8-7.7) Lymphocytes # (Auto) 3.8 TH/MM3 (1.0-4.8) Monocytes # (Auto) 1.4 TH/MM3 (0-0.9) Eosinophils # (Auto) 0.4 TH/MM3 (0-0.4) Basophils # (Auto) 0.1 TH/MM3 (0-0.2) CBC Comment DIFF FINAL Differential Comment Blood Urea Nitrogen 40 MG/DL (7-18) Creatinine 2.42 MG/DL (0.50-1.00) Random Glucose 89 MG/DL (74-106) Total Protein 7.6 GM/DL (6.4-8.2) Albumin 3.1 GM/DL (3.4-5.0) Calcium Level 9.1 MG/DL (8.5-10.1) Alkaline Phosphatase 137 U/L (45-117) Aspartate Amino Transf (AST/SGOT) 22 U/L (15-37) Alanine Aminotransferase (ALT/SGPT) 20 U/L (10-53) Total Bilirubin 0.4 MG/DL (0.2-1.0) Sodium Level 132 MEQ/L (136-145) Potassium Level 5.0 MEQ/L (3.5-5.1) Chloride Level 101 MEQ/L (98-107) Carbon Dioxide Level 22.3 MEQ/L (21.0-32.0) Anion Gap 9 MEQ/L (5-15) Estimat Glomerular Filtration Rate 21 ML/MIN (>89) Troponin I LESS THAN 0.02 NG/ML C-Reactive Protein 6.47 MG/DL (0.00-0.30) Lipase 435 U/L (73-393) Narrative Course Patient was signed out to me by Dr. Alas at change of shift. Patient presents to the ER with complaints of abdominal pain and back pain. Reports history of gastroparesis and degenerative disc disease, reports that symptoms began around lunchtime on Tuesday with associated nausea and no vomiting. Reports history of gastroparesis in the past. Reports no relief of symptoms with morphine, request another dose of medication for pain at this time. She has not followed up with GI as outpatient. Patient currently pending CT of abdomen and pelvis. CBC & BMP Diagram 03/21/17 06:15 Total Protein 7.6, Albumin 3.1 L, Calcium Level 9.1, Alkaline Phosphatase 137 H , Aspartate Amino Transf (AST/SGOT) 22, Alanine Aminotransferase (ALT/SGPT) 20, Total Bilirubin 0.4 BUN/creatinine is elevated today at 40/2.42; prior BUN/CR; 21/1.39 (03/03/17) Last Impressions Abdomen/Pelvis CT 03/21/17 0784 Signed Impressions: Service Date/Time: Tuesday, March 21, 2017 08:21 - CONCLUSION: 1. 2 punctate nonobstructing left-sided renal calculi. 2. Diverticulosis without diverticulitis. 3. Cholecystectomy. Seamus Montez MD Chest X-Ray 03/21/1744 Signed Impressions: Service Date/Time: Tuesday, March 21, 2017 07:37 - CONCLUSION: No acute disease. Seamus Montez MD Abdomen X-Ray 03/21/1789 Signed Impressions: Service Date/Time: Tuesday, March 21, 2017 07:39 - CONCLUSION: 1. Benign appearing KUB. Milan Zhu MD All labs and all studies reviewed patient in detail, patient reports that she continues to have severe pain to her abdomen, requesting Dilaudid. She was already given morphine 4 mg as well as a repeat dose of morphine 6 mg with no relief of symptoms. Plan to admit to the hospital for intractable abdominal pain and for acute renal insufficiency. Diagnosis Primary Impression: Abdominal pain Qualified Codes: R10.13 - Epigastric pain Additional Impressions: Low back pain Qualified Codes: M54.5 - Low back pain Acute renal insufficiency Intractable abdominal pain Admitting Information Admitting Physician Requests: Admit Nuha Dawkins DO Mar 21, 2017 07:42
--- NOTE | 2017-03-21 08:19 | RADRPT ---
EXAM DATE/TIME: 03/21/2017 07:37 [facility] COMPARISON: CHEST SINGLE AP, March 03, 2017, 19:56. INDICATIONS : Shortness of breath. MEDICAL HISTORY : Renal calculi. Myocardial infarction. Hypertension. Chronic obstructive pulmonary disease.Diabe richa. SURGICAL HISTORY : Cholecystectomy. CABG. Appendectomy. ENCOUNTER: Initial ACUITY: 1 day PAIN SCORE: 7/10 LOCATION: Right upper quadrant FINDINGS: A single view of the chest demonstrates the lungs to be symmetrically aerated without evidence of mas s, infiltrate or effusion. Status post CABG. The cardiomediastinal contours are unremarkable. Osseou s structures are intact. CONCLUSION: No acute disease. Seamus Montez MD on March 21, 2017 at 8:17 Board Certified Radiologist. This report was verified electronically.
--- NOTE | 2017-03-21 08:20 | RADRPT ---
EXAM DATE/TIME: 03/21/2017 07:39 [facility] COMPARISON: CHEST SINGLE AP, March 21, 2017, 7:37. INDICATIONS : Abdominal pain. MEDICAL HISTORY : Renal calculi. Myocardial infarction. Hypertension. Chronic obstructive pulmonary disease.Diabe richa. SURGICAL HISTORY : CABG Cholecystectomy.Tubal ligation.Appendectomy ENCOUNTER: Initial ACUITY: 1 day PAIN SCORE: 7/10 LOCATION: Right upper quadrant FINDINGS: Supine and upright views of the abdomen were performed. The abdominal bowel gas pattern is normal. No air fluid levels are seen. No abnormal masses, calcifications, or organomegaly is seen. There are surgical clips in the region of the gallbladder fossa. The visualized lower lungs are clear. No ev idence of free intraperitoneal gas. The osseous structures are unremarkable. CONCLUSION: 1. Benign appearing KUB. Milan Zhu MD on March 21, 2017 at 8:17 Board Certified Radiologist. This report was verified electronically.
--- NOTE | 2017-03-21 08:52 | RADRPT ---
EXAM DATE/TIME: 03/21/2017 08:21 [facility] COMPARISON: CT ABDOMEN & PELVIS W/O CONTRAST, March 03, 2017, 19:45. INDICATIONS : Nausea and abdomen pain since last night ORAL CONTRAST: No oral contrast ingested. RADIATION DOSE: 22.69 CTDIvol (mGy) ; Patient body habitus MEDICAL HISTORY : Hypertension. Cardiovascular disease SURGICAL HISTORY : CABG Appendectomy.Cholecystectomy. ENCOUNTER: Initial ACUITY: 1 day PAIN SCALE: 5/10 LOCATION: diffuse abdomen TECHNIQUE: Volumetric scanning of the abdomen and pelvis was performed. Using automated exposure control and ad justment of the mA and/or kV according to patient size, radiation dose was kept as low as reasonably achievable to obtain optimal diagnostic quality images. DICOM format image data is available electro nically for review and comparison. FINDINGS: LOWER LUNGS: The visualized lower lungs are clear. LIVER: Homogeneous density without lesion. There is no dilation of the biliary tree. Cholecystectomy clips. SPLEEN: Normal size without lesion. PANCREAS: Within normal limits. KIDNEYS: Normal in size and shape. There is no mass, stone, or hydronephrosis on the right. 2 punctate 1-2 mm calculi lower pole left kidney. Calcifications of the renal arteries to be very small aneurysms but unchanged. ADRENAL GLANDS: Within normal limits. VASCULAR: There is no aortic aneurysm. BOWEL/MESENTERY: Diverticulosis without diverticulitis.. There is no free intraperitoneal air or fluid. ABDOMINAL WALL: Small fat containing umbilical hernia. RETROPERITONEUM: There is no lymphadenopathy. BLADDER: No wall thickening or mass. REPRODUCTIVE: Within normal limits. INGUINAL: There is no lymphadenopathy or hernia. MUSCULOSKELETAL: Within normal limits for patient age. CONCLUSION: 1. 2 punctate nonobstructing left-sided renal calculi. 2. Diverticulosis without diverticulitis. 3. Cholecystectomy. Seamus Montez MD on March 21, 2017 at 8:46 Board Certified Radiologist. This report was verified electronically.
[2017-03-21] MEDS ORDERED: MORPHINE SULFATE 8 MG/ML INJ IV PUSH ONE (09:00)
[2017-03-21 09:19] LABS: BLOOD, URINE NEG (NEG); COMMENT (UR) CULT NOT INDICATED; CULTURE IF INDICATED CULT NOT INDICATED; GLUCOSE,URINE NEG (NEG); HYALINE CAST, URINE 3 /lpf (RARE); KETONE, URINE NEG (NEG); NITRITE,URINE NEG (NEG); SQUAMOUS EPITHELIAL CELL URINE 1 /hpf (0-5); URINE COLOR YELLOW (YELLW/STRAW)
[2017-03-21] MEDS ORDERED: HYDROmorphone HCL PF 1 MG/ML VIAL IV PUSH ONE (10:15)
[2017-03-21] MEDS ORDERED: ACETAMINOPHEN 325 MG TAB PO PRN (10:30)
[2017-03-21] MEDS ORDERED: TEMAZEPAM 15 MG CAP PO PRN (10:30)
[2017-03-21] MEDS ORDERED: ONDANSETRON HCL 4 MG/2 ML VIAL IVP PRN (10:30)
[2017-03-21] MEDS ORDERED: SODIUM CHLORIDE 0.9% FLUSH 10 ML FLUSH IV FLUSH PRN (10:30)
[2017-03-21] MEDS ORDERED: RESP: ALBUTEROL 2.5 MG/IPRATROPIUM 0.5 MG NEB (PRN) NEB (10:30)
[2017-03-21] MEDS ORDERED: NALOXONE HCL 0.4 MG/ML AMP IV PUSH PRN (10:30)
[2017-03-21] MEDS ORDERED: MAGNESIUM HYDROXIDE SUSP 30 ML CUP PO PRN (10:30)
[2017-03-21] MEDS ORDERED: NITROGLYCERIN 0.4 MG SL 25 TABS/BTL SL PRN (10:30)
--- NOTE | 2017-03-21 11:15 | HHI.HP ---
HPI Service [facility] Primary Care Physician Reji Basilio M.D. Admission Diagnosis abdominal pain, acute renal insufficiency, back pain Chief Complaint: abdominal pain, back pain Travel History International Travel<30 Days: No Contact w/Intl Traveler <30 Da: No Traveled to Known Affected Are: No History of Present Illness Mrs. Dwyer is a 51 y/o WF with history of CAD with previous CABG, DM, HTN, HLD , COPD, CHF echocardiogram 04/2016 revealed EF of 30-35% who presented the ED at [facility] on 03/21/17 with complaints of back pain that began around lunch time on Tuesday, 03/20, and she then developed abdominal pain later that evening. The back pain is straight across the low back, and the abdominal pain began in the right lower quadrant and then radiated to the middle of the abdomen and down to the suprapubic area. The pain is constant in both areas and she did report having nausea and dry heaving associated with the pain. She denies any vomiting , diarrhea, melena or BRBPR. Her last bowel movement was a few hours prior to arrival to the ED. The patient reports that the abdominal pain is similar to what she experienced in February. She has had some intermittent abdominal pain since her last admission but had not been as bad as the episode that began last night. During her previous admission she did have some elevation in her LFTs and mild elevation in her Lipase. She was evaluated with an CT scan and an MRCP which were negative for obstruction. Her LFTs improved. Pt had a GES which noted significant delay in her gastric emptying but pt was on narcotics which can alter the results of this test. It was recommended that she have a repeat outpt GES. She reports that the back pain is a new type of back pain although she does have a history of degenerative disc disease of her back. She denies any new trauma or injury to the area. She denies any dysuria, hematuria, urinary urgency, or frequency. She reports that she does have a history of diabetes. Her last blood sugar was in the 200s prior to bed. Review of Systems Constitutional: DENIES: Fever, Chills Eyes: DENIES: Vision loss Ears, nose, mouth, throat: DENIES: Hearing loss Respiratory: DENIES: Shortness of breath Cardiovascular: DENIES: Chest pain, Palpitations, Lower Extremity Edema Gastrointestinal: COMPLAINS OF: Abdominal pain, Nausea, DENIES: Vomiting Musculoskeletal: COMPLAINS OF: Back pain Integumentary: DENIES: Rash Neurologic: DENIES: Headache Past Family Social History Past Medical History Coronary artery disease status post CABG and cardiac stents Anxiety Depression Hyperlipidemia Congestive heart failure COPD Diabetes mellitus, type 2, Hgb A1C 9.2% (07/2016) Diabetic neuropathy GERD Chronic headaches Hypertension History of kidney stones Past Surgical History Hernia repair Appendectomy Cholecystectomy Sternal debridement CABG in [facility] with Dr. Arsalan Anderson 05/30/14 - Severe 3 vessel [place] coronary artery disease - one of the two coronary artery bypass grafts are patent. There is late stent thrombosis of the PHILLIPS distal stent - Normal left ventricular filling pressures - Plan at time of heart catheterization: Given the small caliber sized vessel , cardiology elected to medically manage the remainder of patient's small vessel coronary disease Reported Medications -Lantus 30 Units SQ HS -Nitrostat SL (Nitroglycerin) 0.4 Mg Subl 0.4 Mg SL DIRECTED PRN -Aspirin 325 Mg PO DAILY -Novolog Inj (Insulin Aspart) 1,000 Unit/10 Ml Vial 5-25 Units SQ TIDACHS -Plavix 75 Mg PO DAILY -Reglan 5 Mg PO TIDAC -Ranexa ER 1,000 Mg PO Q12HR -Wellbutrin Xl 150 Mg PO DAILY -Spironolactone 25 Mg PO BIDPC -Tradjenta 5 Mg PO DAILY -Tanzeum 4-Pack 50 Mg SQ Q7D -Protonix 40 Mg PO DAILY -Ventolin Hfa 18 GM Inh (Albuterol Sulfate) 90 Mcg/Act Aer 2 Puff INH Q6H PRN --Paroxetine 40 Mg PO DAILY --Lisinopril 20 Mg PO BID --Isosorbide Mononitrate 120 Mg PO BID --Carvedilol 12.5 Mg PO BID --Lasix 40 Mg PO BID --Atorvastatin 4Mg PO HS Allergies: Coded Allergies: diatrizoate meglumine (Unverified Allergy, Severe, Nausea/Vomiting, ) ORAL CONTRAST ONLY gadobenic acid (Unverified Allergy, Severe, Nausea/Vomiting, 03/21/17) ORAL CONTRAST ONLY gadodiamide (Unverified Allergy, Severe, Nausea/Vomiting, 03/21/17) ORAL CONTRAST ONLY gadoteridol (Unverified Allergy, Severe, Nausea/Vomiting, 03/21/17) ORAL CONTRAST ONLY iodixanol (Unverified Allergy, Severe, Nausea/Vomiting, 03/21/17) ORAL CONTRAST ONLY iohexol (Unverified Allergy, Severe, Nausea/Vomiting, 03/21/17) ORAL CONTRAST ONLY penicillin G (Unverified Allergy, Severe, 03/21/17) sulfamethoxazole (Unverified Allergy, Severe, 03/21/17) trimethoprim (Unverified Allergy, Severe, 03/21/17) Family History Maternal: Heart disease Paternal: at age 50 from an [place] Sister also with heart disease Social History Lives with: in [place] Hx of tobacco use, 1ppd 20+ quit 17 yrs ago Occasional alcohol once per month Denies any illicit drug use Pt is not working currently and working to get disability Physical Exam Vital Signs Vital Signs Date Time Temp Pulse Resp B/P (MAP) Pulse Ox O2 Delivery O2 Flow Rate FiO2 03/21/17 05:37 98.5 80 16 135/65 (88) 96 Room Air Physical Exam GENERAL: This is a well-nourished, well-developed patient, in no apparent distress. HEENT: Atraumatic. Normocephalic. No temporal or scalp tenderness. No scleral icterus. Airway patent. NECK: Trachea midline, supple, nontender. CARDIO: Regular. RESP: CTA bilaterally. No wheezes, rales, or rhonchi. ABD: Decreased bowel sounds, soft, obese, non-tender, nondistended. EXT: Extremities without clubbing, cyanosis, or edema. NEURO: Awake and alert. Motor and sensory grossly within normal limits. Normal speech. Laboratory Laboratory Tests Test 03/21/17 06:15 03/21/17 08:45 White Blood Count 18.4 Red Blood Count 3.89 Hemoglobin 12.1 Hematocrit 35.8 Mean Corpuscular Volume 92.0 Mean Corpuscular Hemoglobin 31.1 Mean Corpuscular Hemoglobin Concent 33.8 Red Cell Distribution Width 13.7 Platelet Count 332 Mean Platelet Volume 7.6 Neutrophils (%) (Auto) 69.5 Lymphocytes (%) (Auto) 20.6 Monocytes (%) (Auto) 7.5 Eosinophils (%) (Auto) 2.0 Basophils (%) (Auto) 0.4 Neutrophils # (Auto) 12.8 Lymphocytes # (Auto) 3.8 Monocytes # (Auto) 1.4 Eosinophils # (Auto) 0.4 Basophils # (Auto) 0.1 CBC Comment DIFF FINAL Differential Comment Blood Urea Nitrogen 40 Creatinine 2.42 Random Glucose 89 Total Protein 7.6 Albumin 3.1 Calcium Level 9.1 Alkaline Phosphatase 137 Aspartate Amino Transf (AST/SGOT) 22 Alanine Aminotransferase (ALT/SGPT) 20 Total Bilirubin 0.4 Sodium Level 132 Potassium Level 5.0 Chloride Level 101 Carbon Dioxide Level 22.3 Anion Gap 9 Estimat Glomerular Filtration Rate 21 Troponin I LESS THAN 0.02 C-Reactive Protein 6.47 Lipase 435 Urine Color YELLOW Urine Turbidity CLEAR Urine pH 5.0 Urine Specific [place] 1.007 Urine Protein NEG Urine Glucose (UA) NEG Urine Ketones NEG Urine Occult Blood NEG Urine Nitrite NEG Urine Bilirubin NEG Urine Urobilinogen LESS THAN 2.0 Urine Leukocyte Esterase NEG Urine RBC 1 Urine WBC 1 Urine Squamous Epithelial Cells 1 Urine Hyaline Casts 3 Microscopic Urinalysis Comment CULT NOT INDICATED Result Diagram: 03/21/1761403/21/17614 Imaging Last Impressions Abdomen/Pelvis CT 03/21/17747 Signed Impressions: Service Date/Time: Tuesday, March 21, 2017 08:21 - CONCLUSION: 1. 2 punctate nonobstructing left-sided renal calculi. 2. Diverticulosis without diverticulitis. 3. Cholecystectomy. Seamus Montez MD Chest X-Ray 03/21/17643 Signed Impressions: Service Date/Time: Tuesday, March 21, 2017 07:37 - CONCLUSION: No acute disease. Seamus Montez MD Abdomen X-Ray 03/21/17643 Signed Impressions: Service Date/Time: Tuesday, March 21, 2017 07:39 - CONCLUSION: 1. Benign appearing KUB. Milan Zhu MD Septic Shock Reassessment Heart: Regular rate and rhythm Lungs: Clear Skin: Warm Caprini VTE Risk Assessment Caprini VTE Risk Assessment: Mod/High Risk (score >= 2) Caprini Risk Assessment Model Point Value = 1 Point Value = 2 Point Value = 3 Point Value = 5 Age 41-60 Minor surgery BMI > 25 kg/m2 Swollen legs Varicose veins or History of unexplained or recurrent spontaneous Oral contraceptives or hormone replacement Sepsis (< 1 month) Serious lung disease, including pneumonia (< 1 month) Abnormal pulmonary function Acute myocardial infarction Congestive heart failure (< 1 month) History of inflammatory bowel disease Medical patient at bed rest Age 61-74 Arthroscopic surgery Major open surgery (> 45 min) Laparoscopic surgery (> 45 min) Malignancy Confined to bed (> 72 hours) Immobilizing plaster cast Central venous access Age >= 75 History of VTE Family history of VTE Factor V Leiden Prothrombin [id number] Lupus anticoagulant Anticardiolipin antibodies Elevated serum homocysteine Heparin-induced thrombocytopenia Other congenital or acquired thrombophilia Stroke (< 1 month) Elective arthroplasty Hip, pelvis, or leg fracture Acute spinal cord injury (< 1 month) Prophylaxis Regimen Total Risk Factor Score Risk Level Prophylaxis Regimen 0-1 Low Early ambulation 2 Moderate Order ONE of the following: *Sequential Compression Device (SCD) *Heparin 5000 units SQ BID 3-4 Higher Order ONE of the following medications: *Heparin 5000 units SQ TID *Enoxaparin/Lovenox 40 mg SQ daily (WT < 150 kg, CrCl > 30 mL/min) *Enoxaparin/Lovenox 30 mg SQ daily (WT < 150 kg, CrCl > 10-29 mL/min) *Enoxaparin/Lovenox 30 mg SQ BID (WT < 150 kg, CrCl > 30 mL/min) AND/OR *Sequential Compression Device (SCD) 5 or more Highest Order ONE of the following medications: *Heparin 5000 units SQ TID (Preferred with Epidurals) *Enoxaparin/Lovenox 40 mg SQ daily (WT < 150 kg, CrCl > 30 mL/min) *Enoxaparin/Lovenox 30 mg SQ daily (WT < 150 kg, CrCl > 10-29 mL/min) *Enoxaparin/Lovenox 30 mg SQ BID (WT < 150 kg, CrCl > 30 mL/min) AND *Sequential Compression Device (SCD) Assessment and Plan Problem List: (1) Abdominal pain ICD Codes: R10.9 - Abdominal pain Status: Acute Plan: - Pt is a 51 y/o WF with history of CAD with previous CABG, DM, HTN, HLD, COPD, and CHF echocardiogram 04/2016 revealed EF of 30-35% who presented the ED at [facility] on 03/21/17 with complaints of back pain that began around lunch time on Tuesday, , and she then developed abdominal pain later that evening. - The patient reports that the abdominal pain is similar to what she experienced in February. She has had some intermittent abdominal pain since her last admission but had not been as bad as the episode that began last night. During her previous admission she did have some elevation in her LFTs and mild elevation in her Lipase. She was evaluated with an CT scan and an MRCP which were negative for obstruction. Her LFTs improved. Pt had a GES which noted significant delay in her gastric emptying but pt was on narcotics which can alter the results of this test and it was recommended that she have a repeat outpt GES off narcotics which she has not done. - CT Abd/pelvis in the ED noted 2 punctate nonobstructing left-sided renal calculi, diverticulosis without diverticulitis, and s/p cholecystectomy. - LFTs are improved compared to previous admission. - Lipase is still mildly elevated - Pt noted to have some acute renal insufficiency as well and states that she had not eaten much over the last day or so. - Give IVF - She has been compliant with her po Reglan as an outpt, we will start IV Reglan 5mg TIDAC for now - Minimize narcotics - Tylenol PRN for pain - Zofran PRN - Consult gastroenterology for recommendations regarding further evaluation of her abdominal pain. - Repeat labs in AM - Supportive care - DVT prophylaxis with SCDs (2) Back pain ICD Codes: M54.9 - Back pain Status: Chronic Plan: - Pt with some acute on chronic back pain - Try to minimize narcotics - Tylenol PRN - Heating pad (3) DARSHANA (acute kidney injury) ICD Codes: N17.9 - Acute kidney failure, unspecified Status: Acute Plan: - Pt received IVF in the ED - Continue with one more bag of IVF but monitor for signs of volume overload. - Recheck labs in AM (4) HTN (hypertension) ICD Codes: I10 - Essential (primary) hypertension Status: Chronic Plan: - Cont. home meds - Monitor (5) Diabetes ICD Codes: E11.9 - Type 2 diabetes mellitus without complications Status: Chronic Plan: - NovoLog SSI - Levemir 15 units BID - Accu checks (6) COPD (chronic obstructive pulmonary disease) ICD Codes: J44.9 - Chronic obstructive pulmonary disease, unspecified Status: Chronic Plan: - Duonebs PRN Assessment and Plan Patient examined. Assessment and plan formulated with Nuha Mojica PA-C. I agree with the above. Physician Certification 2 Midnight Certification Type: Admission for Inpatient Services Order for Inpatient Services The services are ordered in accordance with Medicare regulations or non- Medicare payer requirements, as applicable. In the case of services not specified as inpatient-only, they are appropriately provided as inpatient services in accordance with the 2-midnight benchmark. Estimated LOS (days): 3 3 days is the estimated time the patient will need to remain in the hospital, assuming treatment plan goals are met and no additional complications. Post-Hospital Plan: Not yet determined Problem Qualifiers (1) Abdominal pain: Qualified Codes: R10.13 - Epigastric pain (2) Diabetes: Nuha Mojica Mar 21, 2017 11:15 Juan Valdivia DO Mar 26, 2017 21:40
[2017-03-21] MEDS: INSULIN ASPART SUPPLEMENTAL SCALE SQ SCH ×3 (12:00→22:28)
[2017-03-21] MEDS ORDERED: METOCLOPRAMIDE HCL 10 MG TAB PO SCH (12:00)
[2017-03-21] MEDS ORDERED: TRADJENTA 5 MG PO SCH (12:00)
--- NOTE | 2017-03-21 12:49 | EKG ---
Date Performed: 03/21/2017 Time Performed: 09:36:03 PTAGE: 51 years EKG: Sinus rhythm MARKED LEFT AXIS DEVIATION POSSIBLE ANTERIOR MYOCARDIAL INFARCTION MODERATE T-WAVE ABNORMALITY, CONS IDER LATERAL ISCHEMIA ABNORMAL ECG Compared to prior tracing no significant change PREVIOUS TRACING : 03/03/2017 19.25 DOCTOR: Fitz Pride Interpretating Date/Time 03/21/2017 12:47:24
[2017-03-21 16:00] VITALS: BP 119/66; PULSE 81; RESP 16; TEMP 97.7; O2SAT 92
[2017-03-21] MEDS: SPIRONOLACTONE 25 MG TAB PO SCH (16:59)
[2017-03-21] MEDS: METOCLOPRAMIDE HCL 10 MG/2 ML VIAL IV PUSH SCH (17:06)
--- NOTE | 2017-03-21 17:33 | PD.CONS ---
HPI History of Present Illness This is a 51 year old female with hx COPD, CHF, CABG, CAD on plavix and ASA who presented with lower back pain, epigastric pain, and nausea. her back pain is chronic but she says it was worse yesterday. Pain is in the epigastrium as well and radiates downward. No vomiting, diarrhea, blood in stool, tarry stool , weight loss, fevers. She does have reflux which is well controlled on protonix and zantac. She had a GES previously that showed some delay, she was on narcotics at the time. She was seen in February for similar symptoms, CT and MRCP negative. Eating small amounts of food helps. She had EGD at [facility] 07/[address] Barragan and findings included clean based ulcer and suggestion of gastroparesis, was recommended to have follow up EGD in 2months but she did not. Never had colonoscopy. (Rain Izquierdo) PFSH Past Medical History "heart condition" CHF DM HTN depression back pain Past Surgical History appendectomy cholecystectomy CABG repair abd hernia (Rain Izquierdo) Coded Allergies: diatrizoate meglumine (Unverified Allergy, Severe, Nausea/Vomiting, ) ORAL CONTRAST ONLY gadobenic acid (Unverified Allergy, Severe, Nausea/Vomiting, 03/21/17) ORAL CONTRAST ONLY gadodiamide (Unverified Allergy, Severe, Nausea/Vomiting, 03/21/17) ORAL CONTRAST ONLY gadoteridol (Unverified Allergy, Severe, Nausea/Vomiting, 03/21/17) ORAL CONTRAST ONLY iodixanol (Unverified Allergy, Severe, Nausea/Vomiting, 03/21/17) ORAL CONTRAST ONLY iohexol (Unverified Allergy, Severe, Nausea/Vomiting, 03/21/17) ORAL CONTRAST ONLY penicillin G (Unverified Allergy, Severe, 03/21/17) sulfamethoxazole (Unverified Allergy, Severe, 03/21/17) trimethoprim (Unverified Allergy, Severe, 03/21/17) Family History breast cancer ovarian cancer Social History no ETOH quit smoking 18 y ago no illicit drug use (Rain Izquierdo) Review of Systems Constitutional: DENIES: Fever, Weight loss Ears, nose, mouth, throat: DENIES: Hearing loss Respiratory: DENIES: Wheezing, Hemoptysis Cardiovascular: DENIES: Chest pain Gastrointestinal: COMPLAINS OF: Abdominal pain, Nausea, DENIES: Black stools, Bloody stools, Constipation, Diarrhea, Vomiting Genitourinary: DENIES: Hematuria Musculoskeletal: DENIES: Joint Swelling Integumentary: DENIES: Jaundice Neurologic: DENIES: Headache Psychiatric: DENIES: Confusion (Rain Izquierdo) GI Exam Vitals I&O Vital Signs Date Time Temp Pulse Resp B/P (MAP) Pulse Ox O2 Delivery O2 Flow Rate FiO2 03/21/17 16:00 97.7 81 16 119/66 (83) 92 03/21/17 05:37 98.5 80 16 135/65 (88) 96 Room Air I/O 03/20/17 03/20/17 03/20/17 03/21/17 03/21/17 03/21/17 06:59 14:59 22:59 06:59 14:59 22:59 Intake Total 250 ml Balance 250 ml Intake IV Total 250 ml Imaging Last Impressions Abdomen/Pelvis CT 03/21/17 0748 Signed Impressions: Service Date/Time: Tuesday, March 21, 2017 08:21 - CONCLUSION: 1. 2 punctate nonobstructing left-sided renal calculi. 2. Diverticulosis without diverticulitis. 3. Cholecystectomy. Seamus Montez MD Chest X-Ray 03/21/17643 Signed Impressions: Service Date/Time: Tuesday, March 21, 2017 07:37 - CONCLUSION: No acute disease. Seamus Montez MD Abdomen X-Ray 03/21/17643 Signed Impressions: Service Date/Time: Tuesday, March 21, 2017 07:39 - CONCLUSION: 1. Benign appearing KUB. Milan Zhu MD Laboratory Test 03/21/17 06:15 03/21/17 08:45 White Blood Count 18.4 TH/MM3 Red Blood Count 3.89 MIL/MM3 Hemoglobin 12.1 GM/DL Hematocrit 35.8 % Mean Corpuscular Volume 92.0 FL Mean Corpuscular Hemoglobin 31.1 PG Mean Corpuscular Hemoglobin Concent 33.8 % Red Cell Distribution Width 13.7 % Platelet Count 332 TH/MM3 Mean Platelet Volume 7.6 FL Neutrophils (%) (Auto) 69.5 % Lymphocytes (%) (Auto) 20.6 % Monocytes (%) (Auto) 7.5 % Eosinophils (%) (Auto) 2.0 % Basophils (%) (Auto) 0.4 % Neutrophils # (Auto) 12.8 TH/MM3 Lymphocytes # (Auto) 3.8 TH/MM3 Monocytes # (Auto) 1.4 TH/MM3 Eosinophils # (Auto) 0.4 TH/MM3 Basophils # (Auto) 0.1 TH/MM3 CBC Comment DIFF FINAL Differential Comment Blood Urea Nitrogen 40 MG/DL Creatinine 2.42 MG/DL Random Glucose 89 MG/DL Total Protein 7.6 GM/DL Albumin 3.1 GM/DL Calcium Level 9.1 MG/DL Alkaline Phosphatase 137 U/L Aspartate Amino Transf (AST/SGOT) 22 U/L Alanine Aminotransferase (ALT/SGPT) 20 U/L Total Bilirubin 0.4 MG/DL Sodium Level 132 MEQ/L Potassium Level 5.0 MEQ/L Chloride Level 101 MEQ/L Carbon Dioxide Level 22.3 MEQ/L Anion Gap 9 MEQ/L Estimat Glomerular Filtration Rate 21 ML/MIN Troponin I LESS THAN 0.02 NG/ML C-Reactive Protein 6.47 MG/DL Lipase 435 U/L Urine Color YELLOW Urine Turbidity CLEAR Urine pH 5.0 Urine Specific [place] 1.007 Urine Protein NEG mg/dL Urine Glucose (UA) NEG mg/dL Urine Ketones NEG mg/dL Urine Occult Blood NEG Urine Nitrite NEG Urine Bilirubin NEG Urine Urobilinogen LESS THAN 2.0 MG/DL Urine Leukocyte Esterase NEG Urine RBC 1 /hpf Urine WBC 1 /hpf Urine Squamous Epithelial Cells 1 /hpf Urine Hyaline Casts 3 /lpf Microscopic Urinalysis Comment CULT NOT INDICATED Physical Examination HEENT: PERRL; normocephalic; atraumatic; no jaundice. CHEST: diminished CARDIAC: RRR ABDOMEN: Soft, obese, TTP epigastrium & RUQ; no hepatosplenomegaly; bowel sounds are present in all four quadrants. EXTREMITIES: No clubbing, cyanosis, or edema. SKIN: Normal; no rash; no jaundice. 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 (Rain Izquierdo) Assessment and Plan Plan ASSESSMENT - nausea, epigastric pain - gastroparesis vs PUD vs gastritis. hx gastroparesis amenable to reglan. EGD 6m ago with finding ulcers. CT showing nonobstructing left renal calculi, diverticulosis. KUB benign. PLAN - cont reglan - EGD tomorrow - hold plavix - obtain consent - NPO after midnight - low res diet when eating - supportive care - further recs to follow Pt seen by myself and Dr Rojas and this note is written on his behalf (Rain Izquierdo) Physician Comments Seen and examined with [facility], recent h/o ulcers. Recent MRCP, CT and GES reviewed. EGD planned for tomorrow. Monitor labs. Will follow, thank you (Narda Rojas MD) Rain Izquierdo Mar 21, 2017 17:33 Narda Rojas MD Mar 21, 2017 17:52
[2017-03-21 20:00] VITALS: BP 105/55; PULSE 77; RESP 18; TEMP 96.4; O2SAT 93
[2017-03-21] MEDS: CARVEDILOL 12.5 MG TAB PO SCH (20:46)
[2017-03-21] MEDS: SODIUM CHLORIDE 0.9% FLUSH 10 ML FLUSH IV FLUSH SCH (20:46)
[2017-03-21] MEDS: ATORVASTATIN 40 MG TAB PO SCH (20:47)
[2017-03-21] MEDS: ISOSORBIDE MONONITRATE 60 MG TAB PO SCH (20:47)
[2017-03-21] MEDS: LISINOPRIL 20 MG TAB PO SCH (20:47)
[2017-03-21] MEDS: RANOLAZINE 500 MG EXTENDED RELEASE TAB PO SCH (22:28)
[2017-03-21] MEDS: INSULIN DETEMIR 100 UNITS/ML VIAL SQ SCH (22:28)
[2017-03-22] VITALS: BP 94/55; PULSE 67; RESP 18; TEMP 96.7; O2SAT 96
[2017-03-22] MEDS: INSULIN ASPART SUPPLEMENTAL SCALE SQ SCH ×4 (07:54→20:57)
[2017-03-22] MEDS: PANTOPRAZOLE SOD 40 MG DELAYED RELEASE TAB PO SCH (07:56)
[2017-03-22] MEDS: CARVEDILOL 12.5 MG TAB PO SCH ×2 (07:56→20:55)
[2017-03-22] MEDS: PARoxetine HCL 20 MG TAB PO SCH (07:56)
[2017-03-22] MEDS: RANOLAZINE 500 MG EXTENDED RELEASE TAB PO SCH ×2 (07:56→20:56)
[2017-03-22] MEDS: SPIRONOLACTONE 25 MG TAB PO SCH ×2 (07:57→16:18)
[2017-03-22] MEDS: LISINOPRIL 20 MG TAB PO SCH ×2 (07:57→20:56)
[2017-03-22] MEDS: buPROPion HCL 150 MG SUSTAINED RELEASE TAB PO SCH (07:58)
[2017-03-22] MEDS: INSULIN DETEMIR 100 UNITS/ML VIAL SQ SCH ×2 (07:58→20:57)
[2017-03-22] MEDS: SODIUM CHLORIDE 0.9% FLUSH 10 ML FLUSH IV FLUSH SCH ×2 (07:59→20:56)
[2017-03-22] MEDS: ASPIRIN 325 MG TAB PO SCH (07:59)
[2017-03-22 08:00] VITALS: BP 97/67; PULSE 74; RESP 18; TEMP 96.8; O2SAT 95
[2017-03-22] MEDS: METOCLOPRAMIDE HCL 10 MG/2 ML VIAL IV PUSH SCH ×3 (08:00→15:22)
[2017-03-22 08:01] LABS: ANION GAP 9 MEQ/L (5-15); AST (GOT) 14 U/L (15-37); BICARBONATE 23.5 MEQ/L (21.0-32.0); BLOOD UREA NITROGEN 41 MG/DL (7-18); CHLORIDE 105 MEQ/L (98-107); GLOMERULAR FILTRATION RATE 27 ML/MIN (>89); SODIUM (NA) 137 MEQ/L (136-145)
[2017-03-22 08:06] LABS: ALKALINE PHOSPHATASE 125 U/L (45-117); ALT (GPT) 16 U/L (10-53); TOTAL BILIRUBIN ADULT 0.4 MG/DL (0.2-1.0)
[2017-03-22] MEDS ORDERED: CLOPIDOGREL 75 MG TAB PO SCH (09:00)
[2017-03-22] MEDS: ISOSORBIDE MONONITRATE 60 MG TAB PO SCH ×2 (09:00→20:56)
[2017-03-22] MEDS ORDERED: INFLUENZA VIRUS VACCINE (QUADRIVALENT) 0.5 ML SYR IM ONE (10:00)
[2017-03-22] MEDS ORDERED: PNEUMOCOCCAL POLYVALENT INJ 25 MCG/0.5 ML SYR IM ONE (10:00)
[2017-03-22] MEDS ORDERED: PROPOFOL 200 MG/20 ML AMP IV ONE (12:00)
[2017-03-22] MEDS ORDERED: LIDOCAINE HCL 1% PF 5 ML AMPULE OTHER ONE (12:00)
[2017-03-22] MEDS ORDERED: PHENYLEPH/NS 1000 MCG/10 ML SYR IV ONE (12:00)
[2017-03-22] MEDS ORDERED: ePHEDrine/NS 25 MG/5 ML SYR IV ONE (12:00)
--- NOTE | 2017-03-22 14:13 | GIPROC ---
[facility] [address] [facility]. [facility], [address] EGD PROCEDURE REPORT EXAM DATE: 03/22/2017 PATIENT NAME: Franklin Dwyer MR #: [id number] BIRTHDATE: 1965 ATTENDING: Narda Rojas MD ORDER #: [id number] MANAGER WOUND: June Gtz and Rodney Oreilly STATUS: inpatient INDICATIONS: The patient is a 51 yr old female here for an EGD due to epigastric abdominal pain PROCEDURE PERFORMED: EGD, diagnostic MEDICATIONS: None and Per Anesthesia. TOPICAL ANESTHETIC: CONSENT: The patient understands the risks and benefits of the procedure and understands that these risks include, but are not limited to: sedation, allergic reaction, infection, perforation and/or bleeding. Alternative means of evaluation and treatment include, among others: physical exam, x-rays, and/or surgical intervention. The patient elects to proceed with this endoscopic procedure. medical equipment was checked for proper function. Hand hygiene and appropriate measures for infection prevention was taken. After the risks, benefits and alternatives of the procedure were thoroughly explained, Informed consent was verified, confirmed and timeout was successfully executed by the treatment team. The patient was anesthetized with topical anesthesia and the [employer] [id number] endoscope was introduced through the mouth and advanced to the stomach antrum. Retroflexed views revealed no abnormalities The gastroscope was then slowly withdrawn and removed. ESOPHAGUS: The mucosa of the esophagus appeared normal. STOMACH: There was a large amount of residual food seen in the gastric antrum and gastric body. Due to the residual food, complete mucosal examination could not be performed. Based on this, I suspect the patient has some level of gastroparesis. ADVERSE EVENTS: There were no complications. IMPRESSIONS: 1. The esophagus appeared normal 2. Food residue in the gastric antrum and gastric body 3. Retroflexed views revealed no abnormalities RECOMMENDATIONS: 1. Anti-reflux regimen 2. Continue PPI 3. Reglan 10 mg tid ac PATIENT CONDITION: stable DISPOSITION: Inpatient REPEAT EXAM: Return 2 days EGD Narda Rojas MD eSigned: Narda Rojas MD 03/22/2017 2:12 PM cc:
[2017-03-22] MEDS ORDERED: DO NOT ADM ANY ANTICOAGULANT DRUGS PRN (14:28)
--- NOTE | 2017-03-22 15:12 | HHI.PR ---
Subjective Remarks No new complaints. Objective Vitals Vital Signs Date Time Temp Pulse Resp B/P (MAP) Pulse Ox O2 Delivery O2 Flow Rate FiO2 03/22/17 14:25 97.8 68 14 109/57 (74) 93 Nasal Cannula 3 03/22/17 08:00 96.8 74 18 97/67 (77) 95 03/22/17 00:00 96.7 67 18 94/55 (68) 96 03/21/17 20:00 96.4 77 18 105/55 (72) 93 03/21/17 16:00 97.7 81 16 119/66 (83) 92 03/22/17 03/22/17 03/23/17 15:00 23:00 07:00 Intake Total 50 ml Balance 50 ml Other 50 ml Result Diagram: 03/21/1761403/22/17704 Imaging Last Impressions Abdomen/Pelvis CT 03/21/1748 Signed Impressions: Service Date/Time: Tuesday, March 21, 2017 08:21 - CONCLUSION: 1. 2 punctate nonobstructing left-sided renal calculi. 2. Diverticulosis without diverticulitis. 3. Cholecystectomy. Seamus Montez MD Chest X-Ray 03/21/17643 Signed Impressions: Service Date/Time: Tuesday, March 21, 2017 07:37 - CONCLUSION: No acute disease. Seamus Montez MD Abdomen X-Ray 03/21/17643 Signed Impressions: Service Date/Time: Tuesday, March 21, 2017 07:39 - CONCLUSION: 1. Benign appearing KUB. Milan Zhu MD Objective Remarks GENERAL: This is a well-nourished, well-developed patient, in no apparent distress. CARDIOVASCULAR: Regular rate and rhythm without murmurs, gallops, or rubs. RESPIRATORY: Clear to auscultation. Breath sounds equal bilaterally. No wheezes , rales, or rhonchi. GASTROINTESTINAL: Abdomen soft, non-tender, nondistended. Normal active bowel sounds MUSCULOSKELETAL: Extremities without clubbing, cyanosis, or edema. NEURO: Alert & Oriented x4 to person, place, time, situation. Moves all ext x4 A/P Problem List: (1) Abdominal pain ICD Codes: R10.9 - Abdominal pain Status: Acute Plan: - Pt is a 51 y/o WF with history of CAD with previous CABG, DM, HTN, HLD, COPD, and CHF echocardiogram 04/2016 revealed EF of 30-35% who presented the ED at [facility] on 03/21/17 with complaints of back pain that began around lunch time on Tuesday, , and she then developed abdominal pain later that evening. - The patient reports that the abdominal pain is similar to what she experienced in February. She has had some intermittent abdominal pain since her last admission but had not been as bad as the episode that began last night. During her previous admission she did have some elevation in her LFTs and mild elevation in her Lipase. She was evaluated with an CT scan and an MRCP which were negative for obstruction. Her LFTs improved. Pt had a GES which noted significant delay in her gastric emptying but pt was on narcotics which can alter the results of this test and it was recommended that she have a repeat outpt GES off narcotics which she has not done. - CT Abd/pelvis in the ED noted 2 punctate nonobstructing left-sided renal calculi, diverticulosis without diverticulitis, and s/p cholecystectomy. - LFTs are improved compared to previous admission. - Lipase is still mildly elevated - AFR, improving - Cr 2.42 (03/21), 1.93 (03/22) - continue IVFs - continue IV Reglan - continue PPI - Minimize narcotics - Tylenol PRN for pain - Zofran PRN - Supportive care - DVT prophylaxis with SCDs (2) Back pain ICD Codes: M54.9 - Back pain Status: Chronic Plan: - Pt with some acute on chronic back pain - Try to minimize narcotics - Tylenol PRN - Heating pad (3) DARSHANA (acute kidney injury) ICD Codes: N17.9 - Acute kidney failure, unspecified Status: Acute Plan: - Pt received IVF in the ED - Continue with one more bag of IVF but monitor for signs of volume overload. - Recheck labs in AM (4) HTN (hypertension) ICD Codes: I10 - Essential (primary) hypertension Status: Chronic Plan: - Cont. home meds - Monitor (5) Diabetes ICD Codes: E11.9 - Type 2 diabetes mellitus without complications Status: Chronic Plan: - NovoLog SSI - Levemir 15 units BID - Accu checks (6) COPD (chronic obstructive pulmonary disease) ICD Codes: J44.9 - Chronic obstructive pulmonary disease, unspecified Status: Chronic Plan: - Luis Eduardo PRN Problem Qualifiers (1) Abdominal pain: Qualified Codes: R10.13 - Epigastric pain (2) Diabetes: Juan Valdivia DO Mar 22, 2017 15:12
[2017-03-22] MEDS ORDERED: SODIUM CHLOR 0.9% 250 ML INJ 250 ML IV ONE (15:15)
[2017-03-22 16:00] VITALS: BP 194/91; PULSE 89; RESP 18; TEMP 97.2; O2SAT 97
[2017-03-22 20:00] VITALS: BP_SYST 167; BP_DIAS 71; BP_DIAS 74; PULSE 75; RESP 20; TEMP 97.6; O2SAT 94
[2017-03-22] MEDS: ATORVASTATIN 40 MG TAB PO SCH (20:55)
[2017-03-23] VITALS: BP 132/59; PULSE 78; RESP 18; TEMP 98.3; O2SAT 82
[2017-03-23 08:00] VITALS: BP 135/67; PULSE 77; RESP 20; TEMP 97.1; O2SAT 97
[2017-03-23] MEDS: LISINOPRIL 20 MG TAB PO SCH (09:07)
[2017-03-23] MEDS: SPIRONOLACTONE 25 MG TAB PO SCH (09:07)
[2017-03-23] MEDS: buPROPion HCL 150 MG SUSTAINED RELEASE TAB PO SCH (09:07)
[2017-03-23] MEDS: ASPIRIN 325 MG TAB PO SCH (09:07)
[2017-03-23] MEDS: ISOSORBIDE MONONITRATE 60 MG TAB PO SCH (09:07)
[2017-03-23] MEDS: PARoxetine HCL 20 MG TAB PO SCH (09:07)
[2017-03-23] MEDS: PANTOPRAZOLE SOD 40 MG DELAYED RELEASE TAB PO SCH (09:07)
[2017-03-23] MEDS: METOCLOPRAMIDE HCL 10 MG/2 ML VIAL IV PUSH SCH ×2 (09:08→12:06)
[2017-03-23] MEDS: CARVEDILOL 12.5 MG TAB PO SCH (09:08)
[2017-03-23] MEDS: INSULIN ASPART SUPPLEMENTAL SCALE SQ SCH ×2 (09:08→12:19)
[2017-03-23] MEDS: RANOLAZINE 500 MG EXTENDED RELEASE TAB PO SCH (09:08)
[2017-03-23] MEDS: INSULIN DETEMIR 100 UNITS/ML VIAL SQ SCH (09:09)
[2017-03-23] MEDS: SODIUM CHLORIDE 0.9% FLUSH 10 ML FLUSH IV FLUSH SCH (09:10)
[2017-03-23] MEDS ORDERED: FURO1TAB60 PO (09:31)
[2017-03-23 09:42] VITALS: O2SAT 97
[2017-03-23 12:00] VITALS: BP 136/88; PULSE 69; RESP 19; TEMP 97.2; O2SAT 95
[2017-03-23 12:18] LABS: AUTOMATED NEUTROPHIL # 6.4 TH/MM3 (1.8-7.7); BASOPHIL # 0.1 TH/MM3 (0-0.2); BASOPHIL % 0.6 % (0.0-2.0); EOSINOPHIL # 0.3 TH/MM3 (0-0.4); EOSINOPHIL % 3.3 % (0.0-4.0); HEMATOCRIT 32.8 % (35.0-46.0); HEMO FLAGS DIFF FINAL; LYMPH % 17.3 % (9.0-44.0); LYMPHOCYTE # 1.6 TH/MM3 (1.0-4.8); MEAN CELL VOLUME 92.7 FL (80.0-100.0); MEAN CORPUSCULAR HEMOGLOBIN 30.9 PG (27.0-34.0); MEAN CORPUSCULAR HGB CONC 33.3 % (32.0-36.0); NEUT % 70.8 % (16.0-70.0); PLATELET COUNT 302 TH/MM3 (150-450); RED BLOOD COUNT 3.54 MIL/MM3 (4.00-5.30); RED CELL DISTRIBUTION WIDTH 13.6 % (11.6-17.2)
[2017-03-23 12:42] LABS: BICARBONATE 23.4 MEQ/L (21.0-32.0); MAGNESIUM 2.3 MG/DL (1.5-2.5); POTASSIUM 4.9 MEQ/L (3.5-5.1)
--- NOTE | 2017-03-23 14:47 | HHI.GIFU ---
Subjective Remarks Up in chair. Tolerating diet. No n/v. No abdominal pain. Asking when she will be discharged. (Mell Gonzalez) Objective Vitals I&O Vital Signs Date Time Temp Pulse Resp B/P (MAP) Pulse Ox O2 Delivery O2 Flow Rate FiO2 03/23/17 12:00 97.2 69 19 136/88 (104) 95 03/23/17 09:42 97 03/23/17 08:00 97.1 77 20 135/67 (89) 97 03/23/17 01:18 21 03/23/17 00:00 98.3 78 18 132/59 (83) 82 03/22/17 20:00 97.6 75 20 167/74 (105) 94 03/22/17 20:00 97.6 75 20 167/71 (103) 94 03/22/17 16:00 97.2 89 18 194/91 (125) 97 03/22/17 15:00 97.6 67 16 127/60 (82) 95 Room Air 03/22/17 14:45 68 16 120/61 (80) 99 Nasal Cannula 3 I/O 03/22/17 03/22/17 03/22/17 03/23/17 03/23/17 03/23/17 07:00 15:00 23:00 07:00 15:00 23:00 Intake Total 242 ml 50 ml 120 ml Output Total 0 ml Balance 242 ml 50 ml 0 ml 120 ml Intake Oral 242 ml 120 ml Other 50 ml Output Stool Total 0 ml # Voids 2 0 3 2 # Bowel Movements 0 0 Laboratory Laboratory Tests Test 03/23/17 11:00 White Blood Count 9.0 Red Blood Count 3.54 Hemoglobin 10.9 Hematocrit 32.8 Mean Corpuscular Volume 92.7 Mean Corpuscular Hemoglobin 30.9 Mean Corpuscular Hemoglobin Concent 33.3 Red Cell Distribution Width 13.6 Platelet Count 302 Mean Platelet Volume 7.1 Neutrophils (%) (Auto) 70.8 Lymphocytes (%) (Auto) 17.3 Monocytes (%) (Auto) 8.0 Eosinophils (%) (Auto) 3.3 Basophils (%) (Auto) 0.6 Neutrophils # (Auto) 6.4 Lymphocytes # (Auto) 1.6 Monocytes # (Auto) 0.7 Eosinophils # (Auto) 0.3 Basophils # (Auto) 0.1 CBC Comment DIFF FINAL Differential Comment Blood Urea Nitrogen 34 Creatinine 1.46 Random Glucose 191 Calcium Level 8.8 Magnesium Level 2.3 Sodium Level 137 Potassium Level 4.9 Chloride Level 108 Carbon Dioxide Level 23.4 Anion Gap 6 Estimat Glomerular Filtration Rate 38 Imaging Last Impressions Abdomen/Pelvis CT 03/21/17 0748 Signed Impressions: Service Date/Time: Tuesday, March 21, 2017 08:21 - CONCLUSION: 1. 2 punctate nonobstructing left-sided renal calculi. 2. Diverticulosis without diverticulitis. 3. Cholecystectomy. Seamus Montez MD Chest X-Ray 03/21/1744 Signed Impressions: Service Date/Time: Tuesday, March 21, 2017 07:37 - CONCLUSION: No acute disease. Seamus Montez MD Abdomen X-Ray 03/21/17643 Signed Impressions: Service Date/Time: Tuesday, March 21, 2017 07:39 - CONCLUSION: 1. Benign appearing KUB. Milan Zhu MD Physical Exam HEENT: Normocephalic; atraumatic; no jaundice. CHEST: CTA CARDIAC: RRR. ABDOMEN: Soft, obese, nondistended, nontender; no hepatosplenomegaly; bowel sounds are present in all four quadrants. EXTREMITIES: No clubbing, cyanosis, or edema. SKIN: Normal; no rash; no jaundice. SIZING SPRAYER: No focal deficits; alert and oriented times three. (Mell GonzalezP) Assessment and Plan Plan ASSESSMENT - Nausea, epigastric pain. Pt with hx of gastroparesis. S/P recent MRCP ( negative for obstruction), GES (significant delay in her gastric emptying but pt was on narcotics). S/P EGD (03/22/17)---> 1. The esophagus appeared normal 2. Food residue in the gastric antrum and gastric body 3. Retroflexed views revealed no abnormalities. Reglan. PPI. - Anemia. ./32.8. - GERD. PPI. - DM, CAD, Anxiety/Depression, Hyperlipidemia, CHF, COPD, HTN per attending. PLAN - CLARENCE - Cont. PPI - Cont. Reglan - Okay to resume plavix - Repeat EGD as outpatient- clinically doing well and wanting to go home today. - FU LEXIE 2 weeks - Pt seen and examined by Dr. Rojas and myself and this note is written on his behalf (Mell Gonzalez) Physician Comments Seen and examined with leobardo CHOW. EGD yesterday incomplete due to retained food in the stomach. Repeat egd as outpt. DC home with gi fu. Thank you (Narda Rojas MD) Mell Gonzalez Mar 23, 2017 14:47 Narda Rojas MD Mar 23, 2017 16:25
--- NOTE | 2017-03-23 15:14 | HHI.PR ---
Subjective Remarks No new complaints. Objective Vitals Vital Signs Date Time Temp Pulse Resp B/P (MAP) Pulse Ox O2 Delivery O2 Flow Rate FiO2 03/23/17 12:00 97.2 69 19 136/88 (104) 95 03/23/17 09:42 97 03/23/17 08:00 97.1 77 20 135/67 (89) 97 03/23/17 01:18 21 03/23/17 00:00 98.3 78 18 132/59 (83) 82 03/22/17 20:00 97.6 75 20 167/74 (105) 94 03/22/17 20:00 97.6 75 20 167/71 (103) 94 03/22/17 16:00 97.2 89 18 194/91 (125) 97 03/23/17 03/23/17 03/24/17 15:00 23:00 07:00 Intake Total 120 ml Balance 120 ml Intake Oral 120 ml Result Diagram: 03/23/17 1100 03/23/17 1100 Imaging Last Impressions Abdomen/Pelvis CT 03/21/17 0748 Signed Impressions: Service Date/Time: Tuesday, March 21, 2017 08:21 - CONCLUSION: 1. 2 punctate nonobstructing left-sided renal calculi. 2. Diverticulosis without diverticulitis. 3. Cholecystectomy. Seamus Montez MD Chest X-Ray 03/21/17643 Signed Impressions: Service Date/Time: Tuesday, March 21, 2017 07:37 - CONCLUSION: No acute disease. Seamus Montez MD Abdomen X-Ray 03/21/17643 Signed Impressions: Service Date/Time: Tuesday, March 21, 2017 07:39 - CONCLUSION: 1. Benign appearing KUB. Milan Zhu MD Objective Remarks GENERAL: This is a well-nourished, well-developed patient, in no apparent distress. CARDIOVASCULAR: Regular rate and rhythm without murmurs, gallops, or rubs. RESPIRATORY: Clear to auscultation. Breath sounds equal bilaterally. No wheezes , rales, or rhonchi. GASTROINTESTINAL: Abdomen soft, non-tender, nondistended. Normal active bowel sounds MUSCULOSKELETAL: Extremities without clubbing, cyanosis, or edema. NEURO: Alert & Oriented x4 to person, place, time, situation. Moves all ext x4 A/P Problem List: (1) Abdominal pain ICD Codes: R10.9 - Abdominal pain Status: Acute Plan: - Pt is a 51 y/o WF with history of CAD with previous CABG, DM, HTN, HLD, COPD, and CHF echocardiogram 04/2016 revealed EF of 30-35% who presented the ED at [facility] on 03/21/17 with complaints of back pain that began around lunch time on Tuesday, , and she then developed abdominal pain later that evening. - The patient reports that the abdominal pain is similar to what she experienced in February. She has had some intermittent abdominal pain since her last admission but had not been as bad as the episode that began last night. During her previous admission she did have some elevation in her LFTs and mild elevation in her Lipase. She was evaluated with an CT scan and an MRCP which were negative for obstruction. Her LFTs improved. Pt had a GES which noted significant delay in her gastric emptying but pt was on narcotics which can alter the results of this test and it was recommended that she have a repeat outpt GES off narcotics which she has not done. - CT Abd/pelvis in the ED noted 2 punctate nonobstructing left-sided renal calculi, diverticulosis without diverticulitis, and s/p cholecystectomy. - LFTs are improved compared to previous admission. - Lipase is still mildly elevated - AFR, improved - Cr 2.42 (03/21), 1.93 (03/22), 1.46 (03/23) EGD (03/22/17) - retained gastric content - continue PO Reglan - continue PPI - discharge to home - f/u with GI, Dr. Rojas, in 2 weeks - Pt given prescription for f/u labs outpt on 03/28/17. BMP, mag send results to pt's PCP, Dr. Reji Basilio. (2) Back pain ICD Codes: M54.9 - Back pain Status: Chronic Plan: - Pt with some acute on chronic back pain - Try to minimize narcotics - Tylenol PRN - Heating pad (3) DARSHANA (acute kidney injury) ICD Codes: N17.9 - Acute kidney failure, unspecified Status: Acute Plan: - Pt received IVF in the ED - Continue with one more bag of IVF but monitor for signs of volume overload. - Recheck labs in AM (4) HTN (hypertension) ICD Codes: I10 - Essential (primary) hypertension Status: Chronic Plan: - Cont. home meds - Monitor (5) Diabetes ICD Codes: E11.9 - Type 2 diabetes mellitus without complications Status: Chronic Plan: - NovoLog SSI - Levemir 15 units BID - Accu checks (6) COPD (chronic obstructive pulmonary disease) ICD Codes: J44.9 - Chronic obstructive pulmonary disease, unspecified Status: Chronic Plan: - Duonebs PRN Problem Qualifiers (1) Abdominal pain: Qualified Codes: R10.13 - Epigastric pain (2) Diabetes: Juan Valdivia DO Mar 23, 2017 15:14
[2017-03-23] MEDS ORDERED: COLA100C PO (15:31)
== END 2017-03-23 16:25 | disposition home or self-care (01) | DRG 392 ==
LOC: NEPC 05:35 → NEDA 10:57 → N07B 15:56
PROVIDERS: ADMIT Hospitalist; ATTEND Hospitalist
DX: R10.13 Epigastric pain (principal); N17.9 Acute kidney failure, unspecified; K31.84 Gastroparesis; I11.0 Hypertensive heart disease with heart failure; E11.43 Type 2 diabetes mellitus with diabetic autonomic (poly)neuropathy; I50.9 Heart failure, unspecified; I25.10 Atherosclerotic heart disease of native coronary artery without angina pectoris; E78.5 Hyperlipidemia, unspecified; D64.9 Anemia, unspecified; G89.29 Other chronic pain; M54.9 Dorsalgia, unspecified; J44.9 Chronic obstructive pulmonary disease, unspecified; K21.9 Gastro-esophageal reflux disease without esophagitis; K57.90 Diverticulosis of intestine, part unspecified, without perforation or abscess without bleeding; N20.0 Calculus of kidney; F41.8 Other specified anxiety disorders; Z79.02 Long term (current) use of antithrombotics/antiplatelets; Z79.4 Long term (current) use of insulin; Z87.891 Personal history of nicotine dependence; Z95.1 Presence of aortocoronary bypass graft; Z95.5 Presence of coronary angioplasty implant and graft
CPT/HCPCS: 71010; 74020; 74176; 80048; 80053; 81001; 82948; 83690; 83735; 84484; 84703; 85025; 86140; 90686; 93005; 96361; 96372; 96374; 96375; 96376; G0378; J1170; J1815; J2270; J2370; J2405; J2765; J7050; Q2038

== ENCOUNTER 2017-03-30 03:42 | Inpatient (IN) | payer OTHER ==
[2017-03-30] VITALS (10 sets, daily range): BP systolic 120–224; BP diastolic 67–113; PULSE 74–104; RESP 13–24; TEMP 97.6–98.5; O2SAT 89–100
[~2017-03-30] VITALS: Ht 160 cm; Wt 116.6 kg
[~2017-03-30 03:42] MED LIST changes: +ALBI1INJ2 SQ; +BUPR150XL PO; +COLA100C PO; -HYDR-3516 PO; -PERC5TAB12 PO; +SPIR25TA PO; +TRAD5TAB PO
[2017-03-30] MEDS ORDERED: SODIUM CHLORID 0.9% 500 ML INJ 500 ML IV ONE (04:00)
[2017-03-30] MEDS ORDERED: NITROGLYCERIN 0.4 MG SL 25 TABS/BTL SL ONE (04:00)
[2017-03-30] MEDS ORDERED: ASPIRIN 81 MG CHEW TAB PO ONE (04:00)
[2017-03-30] MEDS ORDERED: NITROGLYCERIN 2% OINT 1 GM PACKET TOP ONE (04:00)
[2017-03-30] MEDS ORDERED: SODIUM CHLORIDE 0.9% FLUSH 10 ML FLUSH IVF PRN (04:00)
[2017-03-30 04:11] LABS: AUTOMATED NEUTROPHIL # 9.9 TH/MM3 (1.8-7.7); BASOPHIL # 0.2 TH/MM3 (0-0.2); EOSINOPHIL # 0.6 TH/MM3 (0-0.4); EOSINOPHIL % 3.8 % (0.0-4.0); HEMATOCRIT 36.8 % (35.0-46.0); HEMO FLAGS DIFF FINAL; LYMPH % 27.4 % (9.0-44.0); LYMPHOCYTE # 4.5 TH/MM3 (1.0-4.8); MEAN CELL VOLUME 92.1 FL (80.0-100.0); MEAN CORPUSCULAR HGB CONC 33.6 % (32.0-36.0); MONO % 7.5 % (0.0-8.0); NEUT % 60.3 % (16.0-70.0); PLATELET COUNT 330 TH/MM3 (150-450); RED CELL DISTRIBUTION WIDTH 13.9 % (11.6-17.2); WHITE BLOOD COUNT 16.4 TH/MM3 (4.0-11.0)
--- NOTE | 2017-03-30 04:23 | RADRPT ---
EXAM DATE/TIME: 03/30/2017 04:10 [facility] COMPARISON: CHEST SINGLE AP, March 21, 2017, 7:37. INDICATIONS : Chest pain. MEDICAL HISTORY : Hypertension. Cardiovascular disease SURGICAL HISTORY : CABG Appendectomy.Cholecystectomy ENCOUNTER: Initial ACUITY: 1 day PAIN SCORE: 7/10 LOCATION: Bilateral chest FINDINGS: The cardiac silhouette is enlarged in transverse diameter. The lungs are free of acute parenchymal op acity. No effusions are identified. Osseous structures are intact. CONCLUSION: Cardiomegaly. No acute cardiopulmonary disease. Fitz Julio MD on March 30, 2017 at 4:20 Board Certified Radiologist. This report was verified electronically.
[2017-03-30 04:27] LABS: APTT (PATIENT) 25.4 SEC (24.3-30.1); INTERNATIONAL NORMALIZED RATIO 0.9 RATIO; PROTHROMBIN TIME - PATIENT 9.9 SEC (9.8-11.6)
[2017-03-30 04:30] LABS: ANION GAP 6 MEQ/L (5-15); AST (GOT) 12 U/L (15-37); BLOOD UREA NITROGEN 34 MG/DL (7-18); CHLORIDE 104 MEQ/L (98-107); GLOMERULAR FILTRATION RATE 29 ML/MIN (>89); MAGNESIUM 2.5 MG/DL (1.5-2.5); POTASSIUM 5.1 MEQ/L (3.5-5.1); SODIUM (NA) 135 MEQ/L (136-145)
[2017-03-30 04:31] LABS: ALT (GPT) 20 U/L (10-53)
[2017-03-30 04:35] LABS: ALKALINE PHOSPHATASE 127 U/L (45-117); TOTAL BILIRUBIN ADULT 0.2 MG/DL (0.2-1.0)
[2017-03-30 04:39] LABS: CREATINE KINASE 59 U/L (26-192)
--- NOTE | 2017-03-30 04:40 | PD ---
HPI Chief Complaint: Chest Pain Time Seen by Provider: 03:50 Travel History International Travel<30 days: No Contact w/Intl Traveler<30days: No Traveled to known affect area: No History of Present Illness HPI The patient is a 51 year old female who presents to the [facility] emergency department with a history of left lung pain that began yesterday. It is constant. It is worse with taking a deep breath or coughing. It is a heavy, sharp, pressure type of pain. The pain goes straight through to her back. It is not radiating into her arms or jaw. She reports that the pain is different from her cardiac pain previously. She reports that she does have a history of coronary artery disease with coronary artery bypass grafting, stent placement, and prior MO. She has a FH of PE in her mother. She reports having SOB. On review of systems, she denies any recent fevers, cough, congestion, neck pain, abdominal pain, vomiting, diarrhea, urinary symptoms, or neurologic symptoms. Her last BM was this AM. She denies any blood in her stool. [facility] Past Medical History Narrative Medical The patient's past medical history is significant for CAD- CABG 2007 and stents placed, CHF, Anxiety and depression, hyperlipidemia, congestive heart failure, COPD, diabetes mellitus, diabetic neuropathy, acid reflux, chronic headaches, hypertension, history of kidney stones. Her last stress test was three months ago. Hx Anticoagulant Therapy: Yes Arthritis: No Asthma: No Autoimmune Disease: No Blood Disorders: No Anxiety: No Depression: Yes Heart Rhythm Problems: Yes Cancer: No Cardiac Catheterization: Yes ( MULTI STENTS 2012) Cardiovascular Problems: Yes High Cholesterol: Yes Chemotherapy: No Chest Pain: Yes Congestive Heart Failure: Yes COPD: Yes Cerebrovascular Accident: No Coronary Artery Disease: Yes Diabetes: Yes Patient Takes Glucophage: No Diminished Hearing: No Endocrine: Yes Gastrointestinal Disorders: Yes GERD: Yes (ACID REFLUX) Genitourinary: Yes Headaches: Yes Hiatal Hernia: No Hypertension: Yes Immune Disorder: No Implanted Vascular Access Dvce: No Kidney Stones: Yes Musculoskeletal: Yes Neurologic: Yes (NEUROPATHY LOWER EXTREMITIES/HANDS) Psychiatric: Yes Reproductive: No Respiratory: Yes Immunizations Current: Yes Migraines: Yes Myocardial Infarction: Yes Radiation Therapy: No Renal Failure: No Seizures: No Sickle Cell Disease: No Sleep Apnea: No Thyroid Disease: Yes Ulcer: No Tetanus Vaccination: < 5 Years Influenza Vaccination: Yes PNEUMOCCOCAL Vaccine (Year): 2 ?: Not Menopausal: Yes : 0 Para: 0 Miscarriage: 0 : 0 Tubal Ligation: Yes Past Surgical History Narrative Surgical The patient's past surgical history is significant for CABG in 2007, last heart cath- 2 years ago, hernia repair, appendectomy, cholecystectomy, sternal debridement. Abdominal Surgery: Yes (HERNIA REPAIR) AICD: No Appendectomy: Yes Arteriovenous Shunt: No Body Medical Devices: STERNAL WIRES Cardiac Surgery: Yes (CABG) Cholecystectomy: Yes (10 YEARS AGO) Coronary Artery Bypass Graft: Yes (QUADRUPLE BYPASS) Ear Surgery: No Endocrine Surgery: Yes (Tonsillectomy 1976) Eye Surgery: No Genitourinary Surgery: Yes (Hernia Repair) Gynecologic Surgery: No Insulin Pump: No Joint Replacement: No Neurologic Surgery: No Oral Surgery: No Pacemaker: No Thoracic Surgery: No Tonsillectomy: Yes Other Surgery: Yes (LEFT LUMPECTOMY ) Family History Family Myocardial Infarction: Yes Social History Alcohol Use: No Tobacco Use: No Substance Use: No Allergies-Medications (Allergen,Severity, Reaction): Coded Allergies: diatrizoate meglumine (Unverified Allergy, Severe, Nausea/Vomiting, ) ORAL CONTRAST ONLY gadobenic acid (Unverified Allergy, Severe, Nausea/Vomiting, 03/30/17) ORAL CONTRAST ONLY gadodiamide (Unverified Allergy, Severe, Nausea/Vomiting, 03/30/17) ORAL CONTRAST ONLY gadoteridol (Unverified Allergy, Severe, Nausea/Vomiting, 03/30/17) ORAL CONTRAST ONLY iodixanol (Unverified Allergy, Severe, Nausea/Vomiting, 03/30/17) ORAL CONTRAST ONLY iohexol (Unverified Allergy, Severe, Nausea/Vomiting, 03/30/17) ORAL CONTRAST ONLY penicillin G (Unverified Allergy, Severe, 03/30/17) sulfamethoxazole (Unverified Allergy, Severe, 03/30/17) trimethoprim (Unverified Allergy, Severe, 03/30/17) Reported Meds & Prescriptions Reported Meds & Active Scripts Active Colace (Docusate Sodium) 100 Mg Capsule 100 Mg PO DAILY 30 Days Lasix (Furosemide) 40 Mg Tab 40 Mg PO BID Reglan (Metoclopramide HCl) 5 Mg Tab 5 Mg PO TIDAC Ranexa ER 12 HR (Ranolazine) 500 Mg Tab 1,000 Mg PO Q12HR Isosorbide Mononitrate ER (Isosorbide Mononitrate) 60 Mg Tab 120 Mg PO BID Lipitor (Atorvastatin Calcium) 40 Mg Tab 40 Mg PO HS 30 Days Carvedilol 12.5 Mg Tab 12.5 Mg PO BID Lantus Inj (Insulin Glargine) 1,000 Unit/10 Ml Vial 30 Units SQ HS 30 Days Reported Wellbutrin Xl 24 HR (Bupropion HCl) 150 Mg Tab 150 Mg PO DAILY Spironolactone 25 Mg Tab 25 Mg PO BIDPC Tradjenta (Linagliptin) 5 Mg Tab 5 Mg PO DAILY Tanzeum 4-Pack Inj (Albiglutide) 50 Mg Pfpen 50 Mg SQ Q7D Paroxetine (Paroxetine HCl) 40 Mg Tab 40 Mg PO DAILY Lisinopril 20 Mg Tab 20 Mg PO BID Nitrostat SL (Nitroglycerin) 0.4 Mg Subl 0.4 Mg SL DIRECTED PRN ONE TABLET UNDER THE TONGUE NEEDED FOR CHEST PAIN, MAY REPEAT EVERY FIVE MINUTES FOR A TOTAL OF 3 DOSES OR CALL 911 IF NO RELIEF Aspirin 325 Mg Tab 325 Mg PO DAILY Novolog Inj (Insulin Aspart) 1,000 Unit/10 Ml Vial 5-25 Units SQ TIDACHS Max dose at bedtime:( )units; sugars less than 70,(0) units; sugars 150-199,(5) units; sugars 200-249,(10) units; sugars 250-299,(15) units; sugars 300-349,(20)units; sugars greater than 349,(25)units Plavix (Clopidogrel Bisulfate) 75 Mg Tab 75 Mg PO DAILY Protonix (Pantoprazole Sodium) 40 Mg Tab 40 Mg PO DAILY Ventolin Hfa 18 GM Inh (Albuterol Sulfate) 90 Mcg/Act Aer 2 Puff INH Q6H PRN Review of Systems Except as stated in HPI: all other systems reviewed are Neg General / Constitutional: No: Fever Eyes: No: Visual changes HENT: No: Headaches Cardiovascular: Positive: Chest Pain or Discomfort Respiratory: Positive: Shortness of Breath Gastrointestinal: No: Abdominal Pain Genitourinary: No: Dysuria Musculoskeletal: No: Pain Skin: No Rash Neurologic: No: Weakness Psychiatric: No: Depression Endocrine: No: Polydipsia Hematologic/Lymphatic: No: Easy Bruising Physical Exam Narrative General: The patient is a well-developed well-nourished female in no acute distress Head and Neck exam: Head is normocephalic atraumatic. Eyes: EOMI, pupils are equal round and reactive to light. Nose: Midline septum with pink mucous membranes Mouth: Dentition unremarkable. Moist mucus membranes. Posterior oropharynx is not erythematous. No tonsillar hypertrophy. Uvula midline. Airway patent. Neck: No palpable lymphadenopathy. No nuchal rigidity. No thyromegaly. Cardiovascular: Regular rate and rhythm without murmurs, gallops, or rubs. No pulse deficit to the extremities and simultaneous auscultation and palpation of her radial artery. The patient has chest wall tenderness on palpation of the left sternal border. The patient has chest wall tenderness on palpation overlying the left side of her upper back near her scapula. There is no step-off or crepitus. No erythema or ecchymosis. No flail segment. Lungs: Clear to auscultation bilaterally. No wheezes, rhonchi, or rales. Abdomen: Soft, without tenderness to palpation in all 4 quadrants of the abdomen. No guarding, rebound, or rigidity. Normal bowel sounds are audible. No tenderness on palpation of McBurney's point. Extremities: No clubbing, cyanosis, or edema. 2+ pulses in all 4 extremities. No calf tenderness on palpation. Back: No spinous process tenderness to palpation. No costovertebral angle tenderness to palpation. Neurologic Exam: Grossly nonfocal. Skin Exam: No rash noted. Intact skin that is warm and dry. Data Data Last Documented VS Vital Signs Date Time Temp Pulse Resp B/P (MAP) Pulse Ox O2 Delivery O2 Flow Rate FiO2 03/30/17 03:59 99 Nasal Cannula 2.00 03/30/17 03:50 98.5 86 20 159/87 (111) Orders Orders Electrocardiogram (03/30/17 03:53) B-Type Natriuretic Peptide (03/30/17 03:53) Ckmb (Isoenzyme) Profile (03/30/17 03:53) Complete Blood Count With Diff (03/30/17 03:53) Comprehensive Metabolic Panel (03/30/17 03:53) Magnesium (Mg) (03/30/17 03:53) Prothrombin Time / Inr (Pt) (03/30/17 03:53) Act Partial Throm Time (Ptt) (03/30/17 03:53) Troponin I (03/30/17 03:53) Lipase (03/30/17 03:53) Chest, Single Ap (03/30/17 03:53) Ecg Monitoring (03/30/17 03:53) Bilateral Bp Monitoring (03/30/17 03:53) Iv Access Insert/Monitor (03/30/17 03:53) Oximetry (03/30/17 03:53) Oxygen Administration (03/30/17 03:53) Aspirin Chew (Aspirin Chew) (03/30/17 04:00) Nitroglycerin 2% Oint (Nitroglycerin 2% (03/30/17 04:00) Sodium Chloride 0.9% Flush (Ns Flush) (03/30/17 04:00) Nitroglycerin Sl (Nitrostat Sl) (03/30/17 04:00) Sodium Chlorid 0.9% 500 Ml Inj (Ns 500 M (03/30/17 04:00) Ventilation & Perfusion Scan (03/30/17 05:01) Morphine Inj (Morphine Inj) (03/30/17 05:15) Ondansetron Inj (Zofran Inj) (03/30/17 05:15) Admit Order (Ed Use Only) (03/30/17 05:20) Heparin Infusion TEODORO.Q1H (03/30/17 05:20) Heparin Inj (Heparin Inj) (03/30/17 05:30) Heparin-D5w 25,000 U/250 Ml (Heparin-D5w (03/30/17 05:30) Cbc No Diff, Includes Plts (04/02/17 06:00) Act Partial Throm Time (Ptt) (03/30/17 12:20) Occult Blood (Hemoccult) Stool (03/30/17 05:20) Labs Laboratory Tests Test 03/30/17 03:55 White Blood Count 16.4 TH/MM3 Red Blood Count 4.00 MIL/MM3 Hemoglobin 12.4 GM/DL Hematocrit 36.8 % Mean Corpuscular Volume 92.1 FL Mean Corpuscular Hemoglobin 31.0 PG Mean Corpuscular Hemoglobin Concent 33.6 % Red Cell Distribution Width 13.9 % Platelet Count 330 TH/MM3 Mean Platelet Volume 7.1 FL Neutrophils (%) (Auto) 60.3 % Lymphocytes (%) (Auto) 27.4 % Monocytes (%) (Auto) 7.5 % Eosinophils (%) (Auto) 3.8 % Basophils (%) (Auto) 1.0 % Neutrophils # (Auto) 9.9 TH/MM3 Lymphocytes # (Auto) 4.5 TH/MM3 Monocytes # (Auto) 1.2 TH/MM3 Eosinophils # (Auto) 0.6 TH/MM3 Basophils # (Auto) 0.2 TH/MM3 CBC Comment DIFF FINAL Differential Comment Prothrombin Time 9.9 SEC Prothromb Time International Ratio 0.9 RATIO Activated Partial Thromboplast Time 25.4 SEC Blood Urea Nitrogen 34 MG/DL Creatinine 1.82 MG/DL Random Glucose 325 MG/DL Total Protein 8.2 GM/DL Albumin 3.4 GM/DL Calcium Level 9.0 MG/DL Magnesium Level 2.5 MG/DL Alkaline Phosphatase 127 U/L Aspartate Amino Transf (AST/SGOT) 12 U/L Alanine Aminotransferase (ALT/SGPT) 20 U/L Total Bilirubin 0.2 MG/DL Sodium Level 135 MEQ/L Potassium Level 5.1 MEQ/L Chloride Level 104 MEQ/L Carbon Dioxide Level 25.0 MEQ/L Anion Gap 6 MEQ/L Estimat Glomerular Filtration Rate 29 ML/MIN Total Creatine Kinase 59 U/L Troponin I 0.18 NG/ML B-Type Natriuretic Peptide 80 PG/ML Lipase 430 U/L MDM Medical Decision Making Medical Screen Exam Complete: Yes Emergency Medical Condition: Yes Medical Record Reviewed: Yes Interpretation(s) Last Impressions Chest X-Ray 03/30/17 0353 Signed Impressions: Service Date/Time: Thursday, March 30, 2017 04:10 - CONCLUSION: Cardiomegaly. No acute cardiopulmonary disease. Fitz Julio MD Differential Diagnosis Acute coronary syndrome, versus pulmonary embolism, versus pneumonia, versus pleurisy, versus costochondritis. Narrative Course During the course of the patients emergency department visit, the patients history, examination, and differential diagnosis were reviewed with the patient. The patient had [-] IV access obtained and blood work sent for analysis. The patient was placed on a security monitor with oximetry and frequent blood pressure monitoring. An ECG was done on arrival. The patient's ECG reveals a sinus rhythm heart rate of 87, left anterior fascicular block, no acute ST segment elevation, however the patient has T-wave inversion in lead 1, aVL. QRS duration is 112 ms, QTC 420 ms. The patient was initially provided normal saline a 500 mL bolus 1, sublingual nitroglycerin 1, nitroglycerin 1 inch the chest wall, aspirin 162 mg by mouth 1. The patient en route to this facility by ambulance services was given 162 mg of aspirin by mouth and the patient was given 1 sublingual nitroglycerin prior to arrival. The patient was additionally given morphine for pain, Zofran for nausea The patients laboratory studies were reviewed and remarkable for a white count of 16.4, hemoglobin 12.4, platelets 330 with a normal differential, CMP is remarkable for a BUN of 34, creatinine 1.82 which is similar to prior renal insufficiency levels, glucose 325, AST 12, alkaline phosphatase 127, troponin I is elevated at 0.18 which is increased compared to previously on evaluation earlier in the month, CPK 59, BNP 80, lipase 430, PT PTT within normal limits. Radiology studies were reviewed and remarkable for a chest x-ray that shows cardiomegaly, no acute cardiopulmonary disease. The patient had a VQ scan ordered to further evaluate for possible underlying pulmonary embolism. The patient will also be admitted to the hospital for serial cardiac enzymes. The patient was started on heparin as a bolus and then followed by a drip. The patient is resting comfortably and feels better, is alert and in no distress. The patients results and examination findings were discussed with the patient. The repeat examination is unremarkable and benign. The history, exam, diagnostic testing, and current condition do not suggest any significant pathology to warrant further testing, continued ED treatment, admission, or surgical evaluation at this point. The vital signs have been stable. The patient does not have uncontrollable pain, intractable vomiting, or other significant symptoms. The patient's condition is stable and appropriate for discharge. The patient will pursue further outpatient evaluation with a primary care physician or other designated or consulting physician as indicated in the discharge instructions. The patient expressed understanding and was agreeable with this plan. Physician Communication Physician Communication The patient's case was discussed with who did agree to admit the patient for further evaluation and treatment at this time. Diagnosis Primary Impression: Chest pain, rule out acute myocardial infarction Additional Impression: Elevated troponin Admitting Information Admitting Physician Requests: Admit Marj Alas MD Mar 30, 2017 04:40
[2017-03-30] MEDS ORDERED: MORPHINE SULFATE 8 MG/ML INJ IV PUSH ONE (05:15)
[2017-03-30] MEDS ORDERED: ONDANSETRON HCL 4 MG/2 ML VIAL IV PUSH ONE (05:15)
[2017-03-30] MEDS ORDERED: HEPARIN SODIUM - IV 10,000 UNITS/10 ML VIAL IV ONE (05:30)
[2017-03-30] MEDS ORDERED: HEPARIN-D5W 25,000 U/250 ML 250 ML IV ONE (05:30)
[2017-03-30] MEDS ORDERED: ALBUTEROL SULFATE 90 MCG/ACT HFA 8 GM INHALER INH PRN (07:45)
[2017-03-30] MEDS ORDERED: HYDROmorphone HCL PF 2 MG/ML VIAL IV PUSH ONE (08:15)
[2017-03-30] MEDS ORDERED: CYCLOBENZAPRINE HCL 10 MG TAB PO PRN (08:15)
[2017-03-30] MEDS ORDERED: RESP: ALBUTEROL 2.5 MG/IPRATROPIUM 0.5 MG NEB (PRN) NEB (08:15)
[2017-03-30] MEDS: CARVEDILOL 12.5 MG TAB PO SCH ×2 (08:50→20:31)
[2017-03-30] MEDS: LISINOPRIL 20 MG TAB PO SCH ×2 (08:51→20:31)
[2017-03-30] MEDS: METOCLOPRAMIDE HCL 10 MG TAB PO SCH ×3 (08:51→17:00)
[2017-03-30] MEDS: FUROSEMIDE 40 MG TAB PO SCH ×2 (08:51→20:31)
[2017-03-30] MEDS: CLOPIDOGREL 75 MG TAB PO SCH (08:52)
[2017-03-30] MEDS: INSULIN ASPART SUPPLEMENTAL SCALE SQ SCH ×4 (08:57→21:29)
[2017-03-30] MEDS ORDERED: CYCLOBENZAPRINE HCL 10 MG TAB PO ONE (09:00)
[2017-03-30] MEDS: ISOSORBIDE MONONITRATE 60 MG TAB PO SCH ×2 (09:00→20:30)
[2017-03-30] MEDS: DOCUSATE SODIUM 100 MG CAP PO SCH (09:00)
[2017-03-30] MEDS: RANOLAZINE 500 MG EXTENDED RELEASE TAB PO SCH ×2 (09:00→20:31)
[2017-03-30] MEDS: SPIRONOLACTONE 25 MG TAB PO SCH ×2 (09:00→18:00)
--- NOTE | 2017-03-30 09:04 | HHI.HP ---
HPI Service [facility] Hospitalists Primary Care Physician Reji Basilio M.D. Admission Diagnosis Chest pain, elevated troponin r/o PE Chief Complaint: Back pain and chest pain Travel History International Travel<30 Days: No Contact w/Intl Traveler <30 Da: No Traveled to Known Affected Are: No History of Present Illness Mrs. Dwyer is a 51 y/o WF with history of CAD with previous CABG, DM, HTN, HLD , COPD, gastroparesis, and CHF echocardiogram 04/2016 revealed EF of 30-35% who presented the ED at [facility] on 03/30/17 with complaints of back pain and chest pain that began around mid morning yesterday. She states that the pain began while she was sitting on the couch watching TV. There was no specific event that triggered the pain. Its described as a constant "gripping" pain on the left upper back that seemed to radiate through to her chest. The pain seems to wax and wane in severity but has been constant since onset. She states that the pain is worse with movement or with deep breathing. She has a difficult time sitting back or leaning back as it seems to worse the pain. She tried taking Ibuprofen at home yesterday and using a heating pad as well as ice without relief of the pain. She states that she feels SOB from the pain. Denies any diaphoresis, headache, dizziness. She had one episode of vomiting in the ED this morning. Pts labs in the ED noted WBC count 16.4, Cr 1.82, BUN 34, GFR 29, Troponin 0.18, Lipase 430. She had a CXR in the ED which noted cardiomegaly. Pt received Morphine in the ED without much relief. She is on a Heparin gtt as well. Pti s planned for a VQ scan this morning. Review of Systems Constitutional: DENIES: Fever, Chills, Dizziness Eyes: DENIES: Vision loss Ears, nose, mouth, throat: DENIES: Hearing loss Respiratory: DENIES: Cough, Wheezing Cardiovascular: COMPLAINS OF: Chest pain, DENIES: Palpitations, Lower Extremity Edema Gastrointestinal: COMPLAINS OF: Nausea, Vomiting, DENIES: Abdominal pain, Constipation, Diarrhea Musculoskeletal: COMPLAINS OF: Back pain Integumentary: DENIES: Abnormal pigmentation, Rash Neurologic: DENIES: Headache, Localized weakness, Seizures, Tremor Psychiatric: DENIES: Confusion, Depression Past Family Social History Past Medical History Coronary artery disease status post CABG and cardiac stents Anxiety Depression Hyperlipidemia Congestive heart failure COPD Diabetes mellitus, type 2, Hgb A1C 9.2% (07/2016) Diabetic neuropathy GERD Chronic headaches Hypertension History of kidney stones Gastroparesis Past Surgical History Hernia repair Appendectomy Cholecystectomy Sternal debridement CABG in 2007 [facility] with Dr. Arsalan Anderson 05/30/14 - Severe 3 vessel [place] coronary artery disease - one of the two coronary artery bypass grafts are patent. There is late stent thrombosis of the PHILLIPS distal stent - Normal left ventricular filling pressures - Plan at time of heart catheterization: Given the small caliber sized vessel , cardiology elected to medically manage the remainder of patient's small vessel coronary disease Reported Medications -Lantus 30 Units SQ HS -Nitrostat SL (Nitroglycerin) 0.4 Mg Subl 0.4 Mg SL DIRECTED PRN -Aspirin 325 Mg PO DAILY -Novolog Inj (Insulin Aspart) 1,000 Unit/10 Ml Vial 5-25 Units SQ TIDACHS -Plavix 75 Mg PO DAILY -Reglan 5 Mg PO TIDAC -Ranexa ER 1,000 Mg PO Q12HR -Wellbutrin Xl 150 Mg PO DAILY -Spironolactone 25 Mg PO BIDPC -Tradjenta 5 Mg PO DAILY -Tanzeum 4-Pack 50 Mg SQ Q7D -Protonix 40 Mg PO DAILY -Ventolin Hfa 18 GM Inh (Albuterol Sulfate) 90 Mcg/Act Aer 2 Puff INH Q6H PRN -Paroxetine 40 Mg PO DAILY -Lisinopril 20 Mg PO BID -Isosorbide Mononitrate 120 Mg PO BID -Carvedilol 12.5 Mg PO BID -Lasix 40 Mg PO BID -Atorvastatin 4Mg PO HS Allergies: Coded Allergies: diatrizoate meglumine (Unverified Allergy, Severe, Nausea/Vomiting, ) ORAL CONTRAST ONLY gadobenic acid (Unverified Allergy, Severe, Nausea/Vomiting, 03/30/17) ORAL CONTRAST ONLY gadodiamide (Unverified Allergy, Severe, Nausea/Vomiting, 03/30/17) ORAL CONTRAST ONLY gadoteridol (Unverified Allergy, Severe, Nausea/Vomiting, 03/30/17) ORAL CONTRAST ONLY iodixanol (Unverified Allergy, Severe, Nausea/Vomiting, 03/30/17) ORAL CONTRAST ONLY iohexol (Unverified Allergy, Severe, Nausea/Vomiting, 03/30/17) ORAL CONTRAST ONLY penicillin G (Unverified Allergy, Severe, 03/30/17) sulfamethoxazole (Unverified Allergy, Severe, 03/30/17) trimethoprim (Unverified Allergy, Severe, 03/30/17) Family History Maternal: Heart disease, Hx of CVA, Hx of PE/DVT Paternal: at age 50 from an [place] Sister also with heart disease Social History Lives with: in [place] Hx of tobacco use, 1ppd 20+ quit 17 yrs ago Occasional alcohol once per month Denies any illicit drug use Pt is not working currently and working to get disability Physical Exam Vital Signs Vital Signs Date Time Temp Pulse Resp B/P (MAP) Pulse Ox O2 Delivery O2 Flow Rate FiO2 03/30/17 07:22 75 13 208/94 (132) 97 Nasal Cannula 2.00 03/30/17 05:55 88 20 137/67 (90) 96 Room Air 03/30/17 03:59 99 Nasal Cannula 2.00 03/30/17 03:50 98.5 86 20 159/87 (111) 89 Physical Exam GENERAL: This is a well-nourished, well-developed patient, in no apparent distress. HEENT: Atraumatic. Normocephalic. No temporal or scalp tenderness. No scleral icterus. Airway patent. NECK: Trachea midline, supple, nontender. CARDIO: Regular. Reproducible pain with palpation of the left/mid chest RESP: CTA bilaterally. No wheezes, rales, or rhonchi. ABD: Decreased bowel sounds, soft, obese, non-tender, nondistended. EXT/BACK: Extremities without clubbing, cyanosis, or edema. Reproducible pain on the mid upper back, does not cross the midline. No appreciable rash noted. NEURO: Awake and alert. Motor and sensory grossly within normal limits. Normal speech. Laboratory Laboratory Tests Test 03/30/17 03:55 White Blood Count 16.4 Red Blood Count 4.00 Hemoglobin 12.4 Hematocrit 36.8 Mean Corpuscular Volume 92.1 Mean Corpuscular Hemoglobin 31.0 Mean Corpuscular Hemoglobin Concent 33.6 Red Cell Distribution Width 13.9 Platelet Count 330 Mean Platelet Volume 7.1 Neutrophils (%) (Auto) 60.3 Lymphocytes (%) (Auto) 27.4 Monocytes (%) (Auto) 7.5 Eosinophils (%) (Auto) 3.8 Basophils (%) (Auto) 1.0 Neutrophils # (Auto) 9.9 Lymphocytes # (Auto) 4.5 Monocytes # (Auto) 1.2 Eosinophils # (Auto) 0.6 Basophils # (Auto) 0.2 CBC Comment DIFF FINAL Differential Comment Prothrombin Time 9.9 Prothromb Time International Ratio 0.9 Activated Partial Thromboplast Time 25.4 Blood Urea Nitrogen 34 Creatinine 1.82 Random Glucose 325 Total Protein 8.2 Albumin 3.4 Calcium Level 9.0 Magnesium Level 2.5 Alkaline Phosphatase 127 Aspartate Amino Transf (AST/SGOT) 12 Alanine Aminotransferase (ALT/SGPT) 20 Total Bilirubin 0.2 Sodium Level 135 Potassium Level 5.1 Chloride Level 104 Carbon Dioxide Level 25.0 Anion Gap 6 Estimat Glomerular Filtration Rate 29 Total Creatine Kinase 59 Troponin I 0.18 B-Type Natriuretic Peptide 80 Lipase 430 Result Diagram: 03/30/1735403/30/17354 Imaging Last Impressions Chest X-Ray 03/30/17352 Signed Impressions: Service Date/Time: Thursday, March 30, 2017 04:10 - CONCLUSION: Cardiomegaly. No acute cardiopulmonary disease. Fitz Julio MD Septic Shock Reassessment Heart: Regular rate and rhythm Lungs: Clear Skin: Warm Caprini VTE Risk Assessment Caprini VTE Risk Assessment: Mod/High Risk (score >= 2) Caprini Risk Assessment Model Point Value = 1 Point Value = 2 Point Value = 3 Point Value = 5 Age 41-60 Minor surgery BMI > 25 kg/m2 Swollen legs Varicose veins or History of unexplained or recurrent spontaneous Oral contraceptives or hormone replacement Sepsis (< 1 month) Serious lung disease, including pneumonia (< 1 month) Abnormal pulmonary function Acute myocardial infarction Congestive heart failure (< 1 month) History of inflammatory bowel disease Medical patient at bed rest Age 61-74 Arthroscopic surgery Major open surgery (> 45 min) Laparoscopic surgery (> 45 min) Malignancy Confined to bed (> 72 hours) Immobilizing plaster cast Central venous access Age >= 75 History of VTE Family history of VTE Factor V Leiden Prothrombin [id number] Lupus anticoagulant Anticardiolipin antibodies Elevated serum homocysteine Heparin-induced thrombocytopenia Other congenital or acquired thrombophilia Stroke (< 1 month) Elective arthroplasty Hip, pelvis, or leg fracture Acute spinal cord injury (< 1 month) Prophylaxis Regimen Total Risk Factor Score Risk Level Prophylaxis Regimen 0-1 Low Early ambulation 2 Moderate Order ONE of the following: *Sequential Compression Device (SCD) *Heparin 5000 units SQ BID 3-4 Higher Order ONE of the following medications: *Heparin 5000 units SQ TID *Enoxaparin/Lovenox 40 mg SQ daily (WT < 150 kg, CrCl > 30 mL/min) *Enoxaparin/Lovenox 30 mg SQ daily (WT < 150 kg, CrCl > 10-29 mL/min) *Enoxaparin/Lovenox 30 mg SQ BID (WT < 150 kg, CrCl > 30 mL/min) AND/OR *Sequential Compression Device (SCD) 5 or more Highest Order ONE of the following medications: *Heparin 5000 units SQ TID (Preferred with Epidurals) *Enoxaparin/Lovenox 40 mg SQ daily (WT < 150 kg, CrCl > 30 mL/min) *Enoxaparin/Lovenox 30 mg SQ daily (WT < 150 kg, CrCl > 10-29 mL/min) *Enoxaparin/Lovenox 30 mg SQ BID (WT < 150 kg, CrCl > 30 mL/min) AND *Sequential Compression Device (SCD) Assessment and Plan Problem List: (1) Chest pain, rule out acute myocardial infarction ICD Codes: R07.9 - Chest pain, unspecified Status: Acute Plan: - Pt is a 51 y/o WF with history of CAD with previous CABG, DM, HTN, HLD, COPD, gastroparesis, and CHF echocardiogram 04/2016 revealed EF of 30-35% - Pt presented the ED on 03/30/17 with complaints of back pain and chest pain that began around mid morning the day prior to admission. The pain began while she was sitting on the couch watching TV. There was no specific event that triggered the pain. Its described as a constant "gripping" pain on the left upper back that seemed to radiate through to her chest. Pain seems to wax and wane in severity but has been constant since onset. It is worse with movement or with deep breathing. She feels SOB from the pain. She had one episode of vomiting in the ED. - Pts labs in the ED noted WBC count 16.4, Cr 1.82, BUN 34, GFR 29, Troponin 0.18, Lipase 430. - CXR in the ED which noted cardiomegaly. - Pt received Morphine in the ED without much relief. Pain is reproducible on examination ?MS pain/spasm - Due to pts cardiac hx and elevated troponin she is on a Heparin gtt and we will trend CE. - Pt has family hx of DVT/PE. She is planned for a VQ scan this morning. She is on RA currently - Consult Cardiology - Pain meds PRN - Antiemetics PRN - Flexeril PRN - Home meds continued, including Reglan and PPI - Duonebs PRN - Diet as tolerated - Supportive care - DVT prophylaxis (2) Elevated troponin ICD Codes: R77.8 - Elevated troponin level Status: Acute Plan: - See above (3) Back pain ICD Codes: M54.9 - Back pain Status: Chronic Plan: - See above - Etiology unclear - ?MS pain/spasm vs. ACS vs. PE vs. other - There is no rash to indicate possible shingles at this time (4) Gastroparesis ICD Codes: K31.84 - Gastroparesis Status: Chronic Plan: - Home meds continued (5) Diabetes ICD Codes: E11.9 - Type 2 diabetes mellitus without complications Status: Chronic Plan: - NovoLog SSI - Levemir 15 units Q12H - Accu checks (6) HTN (hypertension) ICD Codes: I10 - Essential (primary) hypertension Status: Chronic Plan: - Home meds continued - Monitor (7) COPD (chronic obstructive pulmonary disease) ICD Codes: J44.9 - Chronic obstructive pulmonary disease, unspecified Status: Chronic Plan: - Duonebs PRN (8) CHF (congestive heart failure) ICD Codes: I50.9 - Heart failure, unspecified Status: Chronic Plan: - Appears to currently be compensated - Home meds continued (9) CAD (coronary artery disease) ICD Codes: I25.10 - Atherosclerosis of coronary artery Status: Chronic Plan: - Home meds continued Assessment and Plan Patient examined. Assessment and plan formulated with Nuha Mojica PA-C. I agree with the above. left cp and left paraspinous pain..seems reproducible to palpation. vq scan no PE. first troponin elevated and will trend. started on heparin in ED. elevated bp. will resume home meds and prn. prn pain meds. Physician Certification 2 Midnight Certification Type: Admission for Inpatient Services Order for Inpatient Services The services are ordered in accordance with Medicare regulations or non- Medicare payer requirements, as applicable. In the case of services not specified as inpatient-only, they are appropriately provided as inpatient services in accordance with the 2-midnight benchmark. Estimated LOS (days): 3 3 days is the estimated time the patient will need to remain in the hospital, assuming treatment plan goals are met and no additional complications. Post-Hospital Plan: Not yet determined Problem Qualifiers (1) Diabetes: (2) CHF (congestive heart failure): Qualified Codes: I50.22 - Chronic systolic (congestive) heart failure Nuha Mojica Mar 30, 2017 09:04 Héctor Kendrick MD Mar 30, 2017 14:09
[2017-03-30] MEDS ORDERED: DEXTROSE 50% IN WATER 50 ML VIAL(D50) IV PUSH PRN (09:45)
[2017-03-30] MEDS ORDERED: GLUCAGON 1 MG/ML VIAL OTHER PRN (09:45)
[2017-03-30] MEDS ORDERED: PATIENT OWN MEDICATION: TRADJENTA 5MG TABLET PO SCH (10:00)
--- NOTE | 2017-03-30 10:49 | RADRPT ---
EXAM DATE/TIME: 03/30/2017 10:06 [facility] COMPARISON: CHEST SINGLE AP, March 30, 2017, 4:10. CHEST SINGLE AP, March 21, 2017, 7:37. LUNG VENTILATION & PERFUSION SCAN, May 04, 2016, 0:26. INDICATIONS : Short of breath and left lung pain. DOSE: 8.7 mCi Tc99m MAA IV 0.9 mCi Tc99m DTPA aerosol MEDICAL HISTORY : Myocardial infarction. Chronic obstructive pulmonary disease. Congestive heart failure. SURGICAL HISTORY : Coronary artery stent. CABG ENCOUNTER: Initial ACUITY: 1 day PAIN SCALE: 2/10 LOCATION: Left chest TECHNIQUE: Following five minutes of tidal breathing of DTPA aerosol, planar images of the lungs were performed in eight projections. The patient was then injected with MAA, and eight-view perfusion scan was perf ormed. FINDINGS: Linear area of diminished activity in the right midlung on multiple projections was faintly present p reviously and may represent the fissure. Otherwise, mild central trapping. No additional focal venti latory defects are seen. The perfusion lung scan demonstrates a homogenous pattern of uptake in both lungs. No segmental or s ubsegmental defects are seen. CONCLUSION: 1. Mild central trapping suggesting some degree of COPD 2. Linear area of diminished activity in the right midlung on multiple projections probably represent s a prominent fissure as this was faintly present previously and is unchanged. 3. Otherwise, low probability for pulmonary embolus. Herbie Kingsley MD on March 30, 2017 at 10:39 Board Certified Radiologist. This report was verified electronically.
[2017-03-30] MEDS: PARoxetine HCL 20 MG TAB PO SCH (12:40)
[2017-03-30] MEDS: buPROPion HCL 150 MG SUSTAINED RELEASE TAB PO SCH (12:40)
[2017-03-30] MEDS: PANTOPRAZOLE SOD 40 MG DELAYED RELEASE TAB PO SCH (12:40)
[2017-03-30] MEDS: INSULIN DETEMIR 100 UNITS/ML VIAL SQ SCH ×2 (12:42→21:30)
[2017-03-30] MEDS ORDERED: ENALAPRILAT 1.25 MG/ML VIAL IV PUSH PRN (13:15)
[2017-03-30] MEDS ORDERED: cloNIDine HCL 0.1 MG TAB PO PRN (13:15)
[2017-03-30] MEDS ORDERED: ACETAMINOPHEN/HYDROcodone 325 MG/10 MG TAB PO PRN (13:45)
--- NOTE | 2017-03-30 13:51 | EKG ---
Date Performed: 03/30/2017 Time Performed: 03:53:21 PTAGE: 51 years EKG: Sinus rhythm LEFT ANTERIOR FASCICULAR BLOCK POSSIBLE ANTERIOR MYOCARDIAL INFARCTION MODERATE T-WAVE ABNORMALITY, CONSIDER LATERAL ISCHEMIA ABNORMAL ECG PREVIOUS TRACING : 03/21/2017 09.36 DOCTOR: Arsalan Anderson Interpretating Date/Time 03/30/2017 13:44:32
[2017-03-30] MEDS ORDERED: methylPREDNISolone SOD SUCC 125 MG/2 ML VIAL IV PUSH ONE (15:00)
--- NOTE | 2017-03-30 15:44 | PD.CONS ---
[facility] Service cardiology Consult Requested By Reason for Consult chest pain and elevated troponin Primary Care Physician Reji Basilio M.D. History of Present Illness This is a 51 yo F with history of CABG, CAD, DM, HTN, COPD and cardiomyopathy ( last EF 40-45% in 07/2016) admitted for chest and back pain x 1 day. She describes left submammary and axillary pain radiated to left back that came on suddenly yesterday at rest. Symptoms worsen with deep breaths and torso movements. Troponins elevated. last lexiscan 07/2016 showed large anterlateral and apical infarct. VQ scan unremarkable for P.E. (Марина Denton) Review of Systems Consitutional: DENIES: Fatigue, Fever, Chills, Weight gain, Weight loss Respiratory: DENIES: Cough, Snoring, Shortness of breath, Wheezing, Sputum production Cardiovascular: DENIES: Palpitations, Syncope, Tachycardia Gastrointestinal: DENIES: Nausea, Change in bowel habits, Reflux, Bloody stools , Melena (Марина Denton) Past Family Social History Allergies: Coded Allergies: diatrizoate meglumine (Unverified Allergy, Severe, Nausea/Vomiting, ) ORAL CONTRAST ONLY gadobenic acid (Unverified Allergy, Severe, Nausea/Vomiting, 03/30/17) ORAL CONTRAST ONLY gadodiamide (Unverified Allergy, Severe, Nausea/Vomiting, 03/30/17) ORAL CONTRAST ONLY gadoteridol (Unverified Allergy, Severe, Nausea/Vomiting, 03/30/17) ORAL CONTRAST ONLY iodixanol (Unverified Allergy, Severe, Nausea/Vomiting, 03/30/17) ORAL CONTRAST ONLY iohexol (Unverified Allergy, Severe, Nausea/Vomiting, 03/30/17) ORAL CONTRAST ONLY penicillin G (Unverified Allergy, Severe, 03/30/17) sulfamethoxazole (Unverified Allergy, Severe, 03/30/17) trimethoprim (Unverified Allergy, Severe, 03/30/17) Past Medical History Coronary artery disease status post CABG and cardiac stents Anxiety Depression Hyperlipidemia Congestive heart failure COPD Diabetes mellitus, type 2, Hgb A1C 9.2% (07/2016) Diabetic neuropathy GERD Chronic headaches Hypertension History of kidney stones Gastroparesis Past Surgical History Hernia repair Appendectomy Cholecystectomy Sternal debridement CABG in 2007 LHC with 05/30/14 - Severe 3 vessel [place] coronary artery disease - one of the two coronary artery bypass grafts are patent. There is late stent thrombosis of the PHILLIPS distal stent - Normal left ventricular filling pressures - Plan at time of heart catheterization: Given the small caliber sized vessel , cardiology elected to medically manage the remainder of patient's small vessel coronary disease Reported Medications Reported Meds & Active Scripts Active Colace (Docusate Sodium) 100 Mg Capsule 100 Mg PO DAILY 30 Days Lasix (Furosemide) 40 Mg Tab 40 Mg PO BID Reglan (Metoclopramide HCl) 5 Mg Tab 5 Mg PO TIDAC Ranexa ER 12 HR (Ranolazine) 500 Mg Tab 1,000 Mg PO Q12HR Isosorbide Mononitrate ER (Isosorbide Mononitrate) 60 Mg Tab 120 Mg PO BID Lipitor (Atorvastatin Calcium) 40 Mg Tab 40 Mg PO HS 30 Days Carvedilol 12.5 Mg Tab 12.5 Mg PO BID Lantus Inj (Insulin Glargine) 1,000 Unit/10 Ml Vial 30 Units SQ HS 30 Days Reported Wellbutrin Xl 24 HR (Bupropion HCl) 150 Mg Tab 150 Mg PO DAILY Spironolactone 25 Mg Tab 25 Mg PO BIDPC Tradjenta (Linagliptin) 5 Mg Tab 5 Mg PO DAILY Tanzeum 4-Pack Inj (Albiglutide) 50 Mg Pfpen 50 Mg SQ Q7D Paroxetine (Paroxetine HCl) 40 Mg Tab 40 Mg PO DAILY Lisinopril 20 Mg Tab 20 Mg PO BID Nitrostat SL (Nitroglycerin) 0.4 Mg Subl 0.4 Mg SL DIRECTED PRN ONE TABLET UNDER THE TONGUE NEEDED FOR CHEST PAIN, MAY REPEAT EVERY FIVE MINUTES FOR A TOTAL OF 3 DOSES OR CALL 911 IF NO RELIEF Aspirin 325 Mg Tab 325 Mg PO DAILY Novolog Inj (Insulin Aspart) 1,000 Unit/10 Ml Vial 5-25 Units SQ TIDACHS Max dose at bedtime:( )units; sugars less than 70,(0) units; sugars 150-199,(5) units; sugars 200-249,(10) units; sugars 250-299,(15) units; sugars 300-349,(20)units; sugars greater than 349,(25)units Plavix (Clopidogrel Bisulfate) 75 Mg Tab 75 Mg PO DAILY Protonix (Pantoprazole Sodium) 40 Mg Tab 40 Mg PO DAILY Ventolin Hfa 18 GM Inh (Albuterol Sulfate) 90 Mcg/Act Aer 2 Puff INH Q6H PRN Active Ordered Medications Current Medications Medications (Trade) Dose Ordered Sig/Marcial Route Start Time Stop Time Status Last Admin (NS Flush) 2 ml UNSCH PRN IVF 03/30/17 04:00 03/30/17 04:16 Heparin Sodium/ Dextrose 250 ml @ 10 mls/hr TITRATE ONCE IV 03/30/17 05:30 03/31/17 06:29 03/30/17 06:48 (Dilaudid Pf Inj) 1 mg Q3H PRN IV PUSH 03/30/17 08:15 (Proair Hfa Inh) 2 puff Q6H PRN INH 03/30/17 07:45 (Aspirin) 325 mg DAILY PO 03/31/17 09:00 (Lipitor) 40 mg HS PO 03/30/17 21:00 (Wellbutrin Sr) 150 mg DAILY PO 03/30/17 09:00 03/30/17 12:40 (Coreg) 12.5 mg BID PO 03/30/17 09:00 03/30/17 08:50 (Plavix) 75 mg DAILY PO 03/30/17 09:00 03/30/17 08:52 (Colace) 100 mg DAILY PO 03/30/17 09:00 (Lasix) 40 mg BID PO 03/30/17 09:00 03/30/17 08:51 (Imdur) 120 mg BID PO 03/30/17 09:00 (Prinivil) 20 mg BID PO 03/30/17 09:00 03/30/17 08:51 (Protonix) 40 mg DAILY PO 03/30/17 09:00 03/30/17 12:40 (Paxil) 40 mg DAILY PO 03/30/17 09:00 03/30/17 12:40 (Ranexa) 1,000 mg Q12HR PO 03/30/17 09:00 (Aldactone) 25 mg BIDPC PO 03/30/17 09:00 Patient Own Medication PT OWN MED: TRADJE... DAILY PO 03/30/17 10:00 Future Hold (Reglan) 5 mg TIDAC PO 03/30/17 09:00 03/30/17 12:40 (NovoLOG SUPPLEMENTAL SCALE) 1 ACHS SLIDING SCALE SQ 03/30/17 08:00 03/30/17 12:42 (Levemir Inj) 15 units Q12HR SQ 03/30/17 09:00 03/30/17 12:42 (Duoneb Neb) 1 ampule Q4HR NEB PRN NEB 03/30/17 08:15 (Flexeril) 10 mg Q8H PRN PO 03/30/17 08:15 (D50w (Vial) Inj) 50 ml UNSCH PRN IV PUSH 03/30/17 09:45 (Glucagon Inj) 1 mg UNSCH PRN OTHER 03/30/17 09:45 (Catapres) 0.1 mg Q6H PRN PO 03/30/17 13:15 (Vasotec Inj) 1.25 mg Q6H PRN IV PUSH 03/30/17 13:15 (SoluMEDROL INJ) 40 mg Q6H IV PUSH 03/30/17 21:00 03/31/17 03:01 (Brant 10-325 Mg) 1 tab Q4H PRN PO 03/30/17 13:45 Family History Maternal: Heart disease, Hx of CVA, Hx of PE/DVT Paternal: at age 50 from an OR Sister also with heart disease Social History Lives with: in [place] Hx of tobacco use, 1ppd 20+ quit 17 yrs ago Occasional alcohol once per month Denies any illicit drug use Pt is not working currently and working to get disability (Марина Denton) Physical Exam Vital Signs Vital Signs Date Time Temp Pulse Resp B/P (MAP) Pulse Ox O2 Delivery O2 Flow Rate FiO2 03/30/17 10:15 03/30/17 09:00 100 20 224/105 (144) 96 Nasal Cannula 2.00 03/30/17 08:55 100 20 207/100 (135) 96 Nasal Cannula 2.00 03/30/17 08:40 102 24 218/113 (148) 100 Nasal Cannula 2.00 03/30/17 07:22 75 13 208/94 (132) 97 Nasal Cannula 2.00 03/30/17 05:55 88 20 137/67 (90) 96 Room Air 03/30/17 03:59 99 Nasal Cannula 2.00 03/30/17 03:50 98.5 86 20 159/87 (111) 89 Physical Exam HEAD: Atraumatic. Normocephalic. EYES: Pupils equal and round. No scleral icterus. No injection or drainage. ENT: No nasal bleeding or discharge. Mucous membranes pink and moist. NECK: Trachea midline. No JVD. CARDIOVASCULAR: Regular rate and rhythm. No murmurs RESPIRATORY: No accessory muscle use. Clear to auscultation. Breath sounds equal bilaterally. GASTROINTESTINAL: Abdomen soft, non-tender, nondistended. MUSCULOSKELETAL: Extremities without clubbing, cyanosis, or edema. No obvious deformities. NEUROLOGICAL: Awake and alert. No obvious cranial nerve deficits. Normal speech. PSYCHIATRIC: Appropriate mood and affect; insight and judgment normal. Laboratory Laboratory Tests Test 03/30/17 03:55 03/30/17 13:10 White Blood Count 16.4 Red Blood Count 4.00 Hemoglobin 12.4 Hematocrit 36.8 Mean Corpuscular Volume 92.1 Mean Corpuscular Hemoglobin 31.0 Mean Corpuscular Hemoglobin Concent 33.6 Red Cell Distribution Width 13.9 Platelet Count 330 Mean Platelet Volume 7.1 Neutrophils (%) (Auto) 60.3 Lymphocytes (%) (Auto) 27.4 Monocytes (%) (Auto) 7.5 Eosinophils (%) (Auto) 3.8 Basophils (%) (Auto) 1.0 Neutrophils # (Auto) 9.9 Lymphocytes # (Auto) 4.5 Monocytes # (Auto) 1.2 Eosinophils # (Auto) 0.6 Basophils # (Auto) 0.2 CBC Comment DIFF FINAL Differential Comment Prothrombin Time 9.9 Prothromb Time International Ratio 0.9 Activated Partial Thromboplast Time 25.4 30.0 Blood Urea Nitrogen 34 Creatinine 1.82 Random Glucose 325 Total Protein 8.2 Albumin 3.4 Calcium Level 9.0 Magnesium Level 2.5 Alkaline Phosphatase 127 Aspartate Amino Transf (AST/SGOT) 12 Alanine Aminotransferase (ALT/SGPT) 20 Total Bilirubin 0.2 Sodium Level 135 Potassium Level 5.1 Chloride Level 104 Carbon Dioxide Level 25.0 Anion Gap 6 Estimat Glomerular Filtration Rate 29 Total Creatine Kinase 59 Troponin I 0.18 1.28 B-Type Natriuretic Peptide 80 Lipase 430 (Марина Denton) Result Diagram: 03/30/17 0357 03/30/17 4338 Imaging Last 24 hours Impressions Lung Scan-V Nuclear Medicine 03/30/17 7494 Signed Impressions: Service Date/Time: Thursday, March 30, 2017 10:06 - CONCLUSION: 1. Mild central trapping suggesting some degree of COPD 2. Linear area of diminished activity in the right midlung on multiple projections probably represents a prominent fissure as this was faintly present previously and is unchanged. 3. Otherwise, low probability for pulmonary embolus. Herbie Kingsley MD Chest X-Ray 03/30/17 0353 Signed Impressions: Service Date/Time: Thursday, March 30, 2017 04:10 - CONCLUSION: Cardiomegaly. No acute cardiopulmonary disease. Fitz Julio MD (Марина Denton) Assessment and Plan Problem List: (1) CAD (coronary artery disease) ICD Codes: I25.10 - Atherosclerotic heart disease of [place] coronary artery without angina pectoris Status: Acute (2) Elevated troponin ICD Codes: R77.8 - Elevated troponin level Status: Acute (3) Chest pain, rule out acute myocardial infarction ICD Codes: R07.9 - Chest pain, unspecified Status: Acute Assessment and Plan 51 yo F with CAD, CABG, COPD, DM, HTN, cardiomyopathy (EF 40-45% Jul 2016) admitted for atypical chest pain and elevated troponin. atypical chest pain- pain is reproducible on exam with palpation to L paraspinals and L mid-axillary region. Troponins increasing 0.18, now 1.28 she is taking Ranexa, coreg, lisinopril, clonidine. SBP elevated 200. echo pending. (Марина Denton) Assessment and Plan Trop elevated. atypical symptoms. pleuritic in nature personally reviewed prior [facility] films from 2013. She has small vessel disease likely not amendable to intervention. lets trend troponin. If stays at or below current level, may likely treat conservatively with long acting nitrates, ranexa, asa, plavix and bb. especially given Cr (which will get worse with [facility]). (Arsalan Anderson MD) Марина Denton Mar 30, 2017 15:44 Arsalan Anderson MD Mar 30, 2017 16:23
[2017-03-30] MEDS: HYDROmorphone HCL PF 2 MG/ML VIAL IV PUSH PRN ×3 (16:02→23:31)
[2017-03-30] MEDS: methylPREDNISolone SOD SUCC 40 MG/1 ML VIAL IV PUSH SCH (20:30)
[2017-03-30] MEDS: ATORVASTATIN 40 MG TAB PO SCH (20:31)
[2017-03-30] MEDS: NITROGLYCERIN 0.4 MG SL 25 TABS/BTL SL PRN ×3 (21:11→21:22)
[2017-03-30] MEDS: NITROGLYCERIN 2% OINT 1 GM PACKET TOPICAL SCH (23:31)
[2017-03-31] VITALS (11 sets, daily range): BP systolic 121–152; BP diastolic 61–94; PULSE 76–96; RESP 16–19; TEMP 97.3–98.5; O2SAT 92–98
[2017-03-31 00:31] LABS: APTT (PATIENT) 33.8 SEC (24.3-30.1)
[2017-03-31] MEDS: HYDROmorphone HCL PF 2 MG/ML VIAL IV PUSH PRN ×4 (03:26→23:56)
[2017-03-31] MEDS: methylPREDNISolone SOD SUCC 40 MG/1 ML VIAL IV PUSH SCH (03:26)
[2017-03-31] MEDS ORDERED: HEPARIN-D5W 25,000 U/250 ML 250 ML IV PRN (04:15)
[2017-03-31 04:48] LABS: AUTOMATED NEUTROPHIL # 14.5 TH/MM3 (1.8-7.7); BASOPHIL # 0.1 TH/MM3 (0-0.2); BASOPHIL % 0.5 % (0.0-2.0); HEMATOCRIT 35.5 % (35.0-46.0); HEMO FLAGS DIFF FINAL; LYMPH % 9.3 % (9.0-44.0); LYMPHOCYTE # 1.5 TH/MM3 (1.0-4.8); MEAN CELL VOLUME 92.8 FL (80.0-100.0); MEAN CORPUSCULAR HEMOGLOBIN 30.9 PG (27.0-34.0); MEAN CORPUSCULAR HGB CONC 33.3 % (32.0-36.0); MONO % 1.3 % (0.0-8.0); NEUT % 88.9 % (16.0-70.0); PLATELET COUNT 295 TH/MM3 (150-450); RED BLOOD COUNT 3.82 MIL/MM3 (4.00-5.30); RED CELL DISTRIBUTION WIDTH 13.7 % (11.6-17.2); WHITE BLOOD COUNT 16.3 TH/MM3 (4.0-11.0)
[2017-03-31] MEDS: NITROGLYCERIN 2% OINT 1 GM PACKET TOPICAL SCH ×4 (04:51→23:56)
[2017-03-31 04:55] LABS: APTT (PATIENT) 39.3 SEC (24.3-30.1); INTERNATIONAL NORMALIZED RATIO 0.9 RATIO; PROTHROMBIN TIME - PATIENT 10.1 SEC (9.8-11.6)
[2017-03-31 05:16] LABS: ALKALINE PHOSPHATASE 115 U/L (45-117); ALT (GPT) 24 U/L (10-53); ANION GAP 7 MEQ/L (5-15); AST (GOT) 31 U/L (15-37); BICARBONATE 21.4 MEQ/L (21.0-32.0); BLOOD UREA NITROGEN 38 MG/DL (7-18); CHLORIDE 103 MEQ/L (98-107); GLOMERULAR FILTRATION RATE 29 ML/MIN (>89); POTASSIUM 5.8 MEQ/L (3.5-5.1); SODIUM (NA) 131 MEQ/L (136-145); TOTAL BILIRUBIN ADULT 0.2 MG/DL (0.2-1.0)
[2017-03-31] MEDS ORDERED: SODIUM CHLOR 0.9% 1000 ML INJ 1,000 ML IV SCH ×2 (07:00→11:42)
[2017-03-31] MEDS ORDERED: SODIUM POLYSTYRENE SULFONATE SUSP 15 GM/60 ML CUP PO ONE (07:00)
--- NOTE | 2017-03-31 08:38 | HHI.PR ---
Subjective Remarks alot of cp and back pain last night ntg helped. Objective Vitals heart reg lung cta abd s/nt ext no edema pain with palpation over left ant cw and left paraspinous area in cervical/thoracic spine. Vital Signs Date Time Temp Pulse Resp B/P (MAP) Pulse Ox O2 Delivery O2 Flow Rate FiO2 03/31/17 04:00 97.3 78 16 146/70 (95) 93 03/31/17 02:19 Room Air 03/31/17 00:00 97.4 87 17 138/61 (86) 92 03/30/17 20:03 97.9 104 20 170/91 (117) 97 03/30/17 16:40 20 03/30/17 16:34 74 03/30/17 16:03 97.9 78 20 122/68 (86) 100 03/30/17 13:00 Room Air 03/30/17 11:14 97.6 75 19 120/71 (87) 100 03/30/17 10:15 03/30/17 09:00 100 20 224/105 (144) 96 Nasal Cannula 2.00 03/30/17 08:55 100 20 207/100 (135) 96 Nasal Cannula 2.00 03/30/17 08:40 102 24 218/113 (148) 100 Nasal Cannula 2.00 Result Diagram: 03/31/1743203/31/17 043 Imaging Last Impressions Chest X-Ray 03/30/17 0353 Signed Impressions: Service Date/Time: Thursday, March 30, 2017 04:10 - CONCLUSION: Cardiomegaly. No acute cardiopulmonary disease. Fitz Julio MD A/P Problem List: (1) Chest pain, rule out acute myocardial infarction ICD Codes: R07.9 - Chest pain, unspecified Status: Acute Plan: - Pt is a 51 y/o WF with history of CAD with previous CABG, DM, HTN, HLD, COPD, gastroparesis, and CHF echocardiogram 04/2016 revealed EF of 30-35% - Pt presented the ED on 03/30/17 with complaints of back pain and chest pain that began around mid morning the day prior to admission. The pain began while she was sitting on the couch watching TV. There was no specific event that triggered the pain. Its described as a constant "gripping" pain on the left upper back that seemed to radiate through to her chest. Pain seems to wax and wane in severity but has been constant since onset. It is worse with movement or with deep breathing. She feels SOB from the pain. She had one episode of vomiting in the ED. - VQ scan low prob for PE - troponin trending up concerning for nstemi - also seems to be a msk component to her pain. last night called by RN for increasing cp. given ntg sl and nitro paste with some relief. imdur held and will reeval. cardiology following. LHC not planned due to her coronary anatomy and ckd pain meds noted to be slightly dehydrated with hyperkalemia. gentle ivf. hold geno and aldactone. dose kayexalate and recheck. (2) Elevated troponin ICD Codes: R77.8 - Elevated troponin level Status: Acute Plan: - See above (3) Back pain ICD Codes: M54.9 - Back pain Status: Chronic Plan: - See above - Etiology unclear - ?MS pain/spasm vs. ACS vs. PE vs. other - There is no rash to indicate possible shingles at this time (4) Gastroparesis ICD Codes: K31.84 - Gastroparesis Status: Chronic Plan: - Home meds continued (5) Diabetes ICD Codes: E11.9 - Type 2 diabetes mellitus without complications Status: Chronic Plan: - NovoLog SSI - Levemir 15 units Q12H - Accu checks (6) HTN (hypertension) ICD Codes: I10 - Essential (primary) hypertension Status: Chronic Plan: - Home meds continued - Monitor (7) COPD (chronic obstructive pulmonary disease) ICD Codes: J44.9 - Chronic obstructive pulmonary disease, unspecified Status: Chronic Plan: - Duonebs PRN (8) CHF (congestive heart failure) ICD Codes: I50.9 - Heart failure, unspecified Status: Chronic Plan: - Appears to currently be compensated - Home meds continued (9) CAD (coronary artery disease) ICD Codes: I25.10 - Atherosclerosis of coronary artery Status: Chronic Plan: - Home meds continued Problem Qualifiers (1) Diabetes: (2) CHF (congestive heart failure): Qualified Codes: I50.22 - Chronic systolic (congestive) heart failure Héctor Kendrick MD Mar 31, 2017 08:38
[2017-03-31] MEDS: PARoxetine HCL 20 MG TAB PO SCH (08:44)
[2017-03-31] MEDS: METOCLOPRAMIDE HCL 10 MG TAB PO SCH ×3 (08:44→17:01)
[2017-03-31] MEDS: RANOLAZINE 500 MG EXTENDED RELEASE TAB PO SCH ×2 (08:44→20:32)
[2017-03-31] MEDS: CLOPIDOGREL 75 MG TAB PO SCH (08:45)
[2017-03-31] MEDS: ASPIRIN 325 MG TAB PO SCH (08:45)
[2017-03-31] MEDS: PANTOPRAZOLE SOD 40 MG DELAYED RELEASE TAB PO SCH (08:45)
[2017-03-31] MEDS: CARVEDILOL 12.5 MG TAB PO SCH ×2 (08:45→20:32)
[2017-03-31] MEDS: buPROPion HCL 150 MG SUSTAINED RELEASE TAB PO SCH (08:45)
[2017-03-31] MEDS: INSULIN ASPART SUPPLEMENTAL SCALE SQ SCH ×4 (08:46→20:38)
[2017-03-31] MEDS: DOCUSATE SODIUM 100 MG CAP PO SCH (08:46)
[2017-03-31] MEDS: INSULIN DETEMIR 100 UNITS/ML VIAL SQ SCH ×2 (08:46→20:38)
--- NOTE | 2017-03-31 09:32 | PD.CARD.PN ---
Subjective Subjective Remarks patient reports worsening back and chest pain overnight while laying in bed. Nitro offered relief. She continues to feel dull L chest and L back pain. No SOB or palpitations. (Марина Denton) Objective Medications Current Medications Medications (Trade) Dose Ordered Sig/Marcial Route Start Time Stop Time Status Last Admin (NS Flush) 2 ml UNSCH PRN IVF 03/30/17 04:00 03/30/17 04:16 (Dilaudid Pf Inj) 1 mg Q3H PRN IV PUSH 03/30/17 08:15 03/31/17 08:45 (Proair Hfa Inh) 2 puff Q6H PRN INH 03/30/17 07:45 (Aspirin) 325 mg DAILY PO 03/31/17 09:00 03/31/17 08:45 (Lipitor) 40 mg HS PO 03/30/17 21:00 03/30/17 20:31 (Wellbutrin Sr) 150 mg DAILY PO 03/30/17 09:00 03/31/17 08:45 (Coreg) 12.5 mg BID PO 03/30/17 09:00 03/31/17 08:45 (Plavix) 75 mg DAILY PO 03/30/17 09:00 03/31/17 08:45 (Colace) 100 mg DAILY PO 03/30/17 09:00 (Protonix) 40 mg DAILY PO 03/30/17 09:00 03/31/17 08:45 (Paxil) 40 mg DAILY PO 03/30/17 09:00 03/31/17 08:44 (Ranexa) 1,000 mg Q12HR PO 03/30/17 09:00 03/31/17 08:44 Patient Own Medication PT OWN MED: TRADJE... DAILY PO 03/30/17 10:00 Future Hold (Reglan) 5 mg TIDAC PO 03/30/17 09:00 03/31/17 08:44 (NovoLOG SUPPLEMENTAL SCALE) 1 ACHS SLIDING SCALE SQ 03/30/17 08:00 03/31/17 08:46 (Levemir Inj) 15 units Q12HR SQ 03/30/17 09:00 03/31/17 08:46 (Duoneb Neb) 1 ampule Q4HR NEB PRN NEB 03/30/17 08:15 (Flexeril) 10 mg Q8H PRN PO 03/30/17 08:15 (D50w (Vial) Inj) 50 ml UNSCH PRN IV PUSH 03/30/17 09:45 (Glucagon Inj) 1 mg UNSCH PRN OTHER 03/30/17 09:45 (Catapres) 0.1 mg Q6H PRN PO 03/30/17 13:15 (Vasotec Inj) 1.25 mg Q6H PRN IV PUSH 03/30/17 13:15 (Jarales 10-325 Mg) 1 tab Q4H PRN PO 03/30/17 13:45 (Nitrostat Sl) 0.4 mg Q5M PRN SL 03/30/17 20:45 03/30/17 21:22 (Nitroglycerin 2% Oint) 1 inch Q6HR TOPICAL 03/31/17 00:00 03/31/17 04:51 (Heparin Inj) 5,000 units UNSCH PRN IV PUSH 03/31/17 10:15 (Heparin Inj) 2,500 units UNSCH PRN IV PUSH 03/31/17 10:15 Heparin Sodium/ Dextrose 250 ml @ 10 mls/hr TITRATE PRN IV 03/31/17 04:15 03/31/17 04:47 (Lasix) 40 mg BID@0900,1800 PO 04/01/17 09:00 Sodium Chloride 1,000 ml @ 84 mls/hr [id number] IV 03/31/17 07:00 Vital Signs / I&O Vital Signs Date Time Temp Pulse Resp B/P (MAP) Pulse Ox O2 Delivery O2 Flow Rate FiO2 03/31/17 04:00 97.3 78 16 146/70 (95) 93 03/31/17 02:19 Room Air 03/31/17 00:00 97.4 87 17 138/61 (86) 92 03/30/17 20:03 97.9 104 20 170/91 (117) 97 03/30/17 16:40 20 03/30/17 16:34 74 03/30/17 16:03 97.9 78 20 122/68 (86) 100 03/30/17 13:00 Room Air 03/30/17 11:14 97.6 75 19 120/71 (87) 100 03/30/17 10:15 I/O 1003/30/17 03/30/17 03/31/17 03/31/17 03/31/17 07:00 15:00 23:00 07:00 15:00 23:00 Intake Total 500 ml 280 ml 480 ml Balance 500 ml 280 ml 480 ml Intake Oral 280 ml 480 ml IV Total 500 ml # Voids 3 4 # Bowel Movements 0 Physical Exam . HEAD: Atraumatic. Normocephalic. EYES: Pupils equal and round. No scleral icterus. No injection or drainage. ENT: No nasal bleeding or discharge. Mucous membranes pink and moist. NECK: Trachea midline. No JVD. CARDIOVASCULAR: Regular rate and rhythm. No murmurs RESPIRATORY: No accessory muscle use. Clear to auscultation. Breath sounds equal bilaterally. GASTROINTESTINAL: Abdomen soft, non-tender, nondistended. MUSCULOSKELETAL: Extremities without clubbing, cyanosis, or edema. No obvious deformities. NEUROLOGICAL: Awake and alert. No obvious cranial nerve deficits. Motor grossly within normal limits. Five out of 5 muscle strength in the arms and legs. Normal speech. PSYCHIATRIC: Appropriate mood and affect; insight and judgment normal. Laboratory Laboratory Tests Test 03/30/17 13:10 03/30/17 19:15 03/30/17 23:31 03/31/17 04:33 Activated Partial Thromboplast Time 30.0 SEC 33.8 SEC 39.3 SEC Troponin I 1.28 NG/ML 2.09 NG/ML White Blood Count 16.3 TH/MM3 Red Blood Count 3.82 MIL/MM3 Hemoglobin 11.8 GM/DL Hematocrit 35.5 % Mean Corpuscular Volume 92.8 FL Mean Corpuscular Hemoglobin 30.9 PG Mean Corpuscular Hemoglobin Concent 33.3 % Red Cell Distribution Width 13.7 % Platelet Count 295 TH/MM3 Mean Platelet Volume 7.2 FL Neutrophils (%) (Auto) 88.9 % Lymphocytes (%) (Auto) 9.3 % Monocytes (%) (Auto) 1.3 % Eosinophils (%) (Auto) 0.0 % Basophils (%) (Auto) 0.5 % Neutrophils # (Auto) 14.5 TH/MM3 Lymphocytes # (Auto) 1.5 TH/MM3 Monocytes # (Auto) 0.2 TH/MM3 Eosinophils # (Auto) 0.0 TH/MM3 Basophils # (Auto) 0.1 TH/MM3 CBC Comment DIFF FINAL Differential Comment Prothrombin Time 10.1 SEC Prothromb Time International Ratio 0.9 RATIO Blood Urea Nitrogen 38 MG/DL Creatinine 1.86 MG/DL Random Glucose 394 MG/DL Total Protein 7.7 GM/DL Albumin 3.0 GM/DL Calcium Level 9.0 MG/DL Alkaline Phosphatase 115 U/L Aspartate Amino Transf (AST/SGOT) 31 U/L Alanine Aminotransferase (ALT/SGPT) 24 U/L Total Bilirubin 0.2 MG/DL Sodium Level 131 MEQ/L Potassium Level 5.8 MEQ/L Chloride Level 103 MEQ/L Carbon Dioxide Level 21.4 MEQ/L Anion Gap 7 MEQ/L Estimat Glomerular Filtration Rate 29 ML/MIN B-Type Natriuretic Peptide 672 PG/ML (Марина Denton) Assessment and Plan Problem List: (1) CAD (coronary artery disease) ICD Codes: I25.10 - Atherosclerotic heart disease of [place] coronary artery without angina pectoris Status: Acute (2) Elevated troponin ICD Codes: R77.8 - Elevated troponin level Status: Acute (3) Chest pain, rule out acute myocardial infarction ICD Codes: R07.9 - Chest pain, unspecified Status: Acute Assessment and Plan 51 yo F with CAD, CABG, COPD, DM, HTN, cardiomyopathy (EF 40-45% Jul 2016) admitted for atypical chest pain and elevated troponin. atypical chest pain- pleuritic and musculoskeletal in nature. Troponins are trending upwards. developed worsening pain overnight alleviated with nitro. 2013 cath reveals small vessel disease not amenable to intervention. creatinine elevated consider medical management vs. intervention (Марина Denton) Assessment and Plan continued symptoms troponin trending upward she will need [facility] will schedule today and minimize contrast as much as possible (Arsalan Anderson MD) Марина Denton Mar 31, 2017 09:32 Arsalan Anderson MD Mar 31, 2017 10:09
[2017-03-31] MEDS ORDERED: HEPARIN-NS/PF INJ 1,000 ML ONE (10:09)
[2017-03-31] MEDS ORDERED: SODIUM CHLORID 0.9% 500 ML INJ 500 ML ONE (10:10)
[2017-03-31] MEDS ORDERED: MIDAZOLAM HCL 2 MG/2 ML VIAL ONE (10:11)
[2017-03-31] MEDS ORDERED: HEPARIN SODIUM - IV 10,000 UNITS/10 ML VIAL IV PUSH PRN ×2 (10:15)
[2017-03-31] MEDS ORDERED: HYDROCORTISONE SOD SUCCINATE 100 MG VIAL ONE (10:19)
[2017-03-31] MEDS ORDERED: FAMOTIDINE 20 MG/2 ML VIAL ONE (10:19)
[2017-03-31] MEDS ORDERED: NITROGLYCERIN 400 MCG/SPRAY 4.9 GM BOTTLE SL ONE (10:19)
[2017-03-31] MEDS ORDERED: diphenhydrAMINE HCL 50 MG/ML VIAL ONE (10:19)
[2017-03-31] MEDS ORDERED: ONDANSETRON HCL 4 MG/2 ML VIAL ONE (10:24)
[2017-03-31] MEDS ORDERED: HEPARIN SODIUM - IV 10,000 UNITS/10 ML VIAL ONE (11:07)
[2017-03-31] MEDS ORDERED: CLOPIDOGREL 300 MG TAB ONE (11:37)
[2017-03-31] MEDS ORDERED: PROTAMINE SULFATE 50 MG/5 ML VIAL ONE ×2 (11:37)
[2017-03-31] MEDS ORDERED: BACITRACIN OINT 0.9 GM PKT TOP ONE (11:45)
[2017-03-31] MEDS ORDERED: LORazepam 2 MG/ML VIAL IV PUSH PRN (11:45)
[2017-03-31] MEDS ORDERED: LIDOCAINE HCL 1% 50 ML VIAL INFIL PRN (11:45)
[2017-03-31] MEDS ORDERED: MORPHINE SULFATE 4 MG/ML INJ IV PUSH PRN (11:45)
[2017-03-31] MEDS ORDERED: ONDANSETRON HCL 4 MG/2 ML VIAL IV PUSH PRN (11:45)
[2017-03-31] MEDS ORDERED: ATROPINE SULFATE 1 MG/ML VIAL IV PUSH PRN (11:45)
[2017-03-31] MEDS ORDERED: MISC INFORMATION XX ONE (11:45)
[2017-03-31] MEDS ORDERED: SODIUM CHLOR 0.9% 250 ML INJ 250 ML IV PRN (11:45)
--- NOTE | 2017-03-31 12:01 | CATHPROC ---
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 and Clinical Staff Initial Arsalan Mendoza Boiler Washer Bee Reid RN Boiler WasherMeron Freire,ROBINSON Other cathlab, cathlab Recorder eJnny Doran,HANDLE SEWER TECH2 Scrub Leena Colvin,RT(R) Procedures Performed Procedure Location (Site) Vessel Name Coronary Angiograms LCA Left Coronary Coronary Angiograms RCA Right Coronary Coronary Angiograms SVG-OM CIRC Drug Eluting Inflatio PDA Prox Right Coronary Drug Eluting Inflatio RCA Mid Right Coronary L Heart Cath PTCA PDA Prox Right Coronary Wire insertion Fem Art (right) Femoral Art Equipment Time Rn Hemodialysis Charge Description Size Mfg Part Number Used/Scraped TRANSDUCER, TRUWAVE [id number] 10:58 ADORNO DUPREE * Used W/STOCKCOCK *[id number] VASCADE, FR6 CLOSURE SYSTEM [id number] 11:37 [employer] MEDICAL FR 6\7 Used TAVR *[id number] TAVR 534-520T *[id number] 534-521T *[id number] *[id number] 10:58 MEDLINE INDUSTRIES PACK, CCL CUSTOM * Used *[id number] 10:58 MEDLINE PACER PEN, SKIN DUAL W/ RULER * Used *[id number] 11:16 MEDTRONIC BALLOON, 2.0 X 15MM EUPHORA 15MM Used *[id number] 11:30 MEDTRONIC STENT, 2.25 34MM JANELL 2.25 34MM [id number] Used 11:33 MEDTRONIC STENT, 3.0 38MM JANELL 3.0 38MM [id number] Used [id number] 11:20 [email or web address] MEDICAL 30 FITZ INDEFLATOR Used *[id number] 11:12 [email or web address] MEDICAL SHEATH, FR6.5 PRELUDE 11CM FR 6.5 038ACT Used *[id number] 10:58 [email or web address] MEDICAL WIRE, 3MMJ .035 180CM 180CM Used *[id number] 10:58 NAMIC MANIFOLD, 4 PORT * Used *[id number] 10:58 NYCOMED OMNIPAQUE, 350 MG, 150ML 150ML [id number] Used [id number] 10:58 CHEEMA MEDICAL BLANKET,WARM AIR CCL * Used *[id number] 10:58 TERUMLendstar MEDICAL SHEATH, FR5 TERUMO (10CM) FR 5 Used *[id number] WIRE, RUNTHROUGH NS FLOPPY [id number] 11:10 TERUMO MEDICAL 300CM Used .014 300CM *[id number] Equipment Model, Serial, Lot Number and Expiration Data Description Model Number Serial Number Lot Number Expiration Date STENT, 2.25 34MM JANELL [id number] 01-03-2019 STENT, 3.0 38MM JANELL [id number] 01-04-2019 History: Current Medications Medication Dosage/Unit Route Frequency Last Date/Time Taken ASA PLAVIX Insulin NTG SL REGLAN CARVEDILOL Albuterol LISINOPRIL LASIX History: Allergies Allergy Reaction iohexol Nausea/Vomiting diatrizoate meglumine Nausea/Vomiting sulfamethoxazole trimethoprim gadoteridol Nausea/Vomiting gadodiamide Nausea/Vomiting penicillin G iodixanol Nausea/Vomiting gadobenic acid Nausea/Vomiting History: Risk Factors Family History of Hypertension Dyslipidemia Previous LA Previous Heart Failure Premature CAD Yes Yes No No No Prior Valve Prior PCI Prior CABG Prior CABGDate Surgery No No Yes 06/13/2007 Cerebrovascular Peripheral Artery Chronic Lung On Dialysis Diabetes Diabetes Therapy Disease Disease Disease No No No Yes Yes Oral History: Other Disease Selection Items CAD COPD HTN Labs Hgb (g/dl) Hct (%) RBC (MIL/MM3) WBC (l/cumm) Platelets (thousands) 11.60-17.00 35.00-51.00 4.00-5.90 4.00-11.00 150.00-450.00 11.8 35.5 3.8 16.3 295 Glucose (mg/dl) BUN (mg/dl) Creatinine (mg/dl) BUN:Creatinine (1:x) 74.00-106.00 7.00-18.00 0.50-1.30 10.00-20.00 394 38 1.8 21.1 Na (meq/l) K (meq/l) Cl (meq/l) CO2 (mmol/L) Ca (mg/dl) 136.00-145.00 3.50-5.10 98.00-107.00 21.00-32.00 8.50-10.10 131 5.8 103 21.4 9 PT (sec) PTT (sec) INR (PTT:PT) 9.80-11.60 24.30-30.10 0.90-1.10 10.1 39.3 0.9 Troponin I (ng/ml) CPK-MB (ng/ML) 0.02-0.05 0.50-3.60 2.1 Not Drawn Medication Medication Total Dose (Bolus/Oral) Medication Total Dosage/Unit 1% XYLOCAINE 20 mL BENADRYL 50 mg FENTANYL 50 mcg HEPARIN 5000 units NITROGLYCERIN S/L 1.2 mg NTG (IC) 200 mcg OXYGEN 3 l/min PEPCID 20 mg PLAVIX 600 mg PROTAMINE 20 mg SOLU-CORTEF 100 mg VERSED 1 mg ZOFRAN 4 mg Medications (Bolus/Oral) Medication Time Given Dosage/Unit Administered By Reason 03/31/2017 10:20:11 NITROGLYCERIN S/L 0.4 mg Bee Reid AM 0.4 mg NITROGLYCERIN S/L given in lab by Bee Reid RN via Sublingual. Ordered by Adri Anderson. 03/31/2017 10:20:43 OXYGEN 3 l/min Bee Reid AM 3 l/min OXYGEN given by Bee Reid RN via Nasal. Ordered by Arsalan Anderson. 03/31/2017 10:24:46 BENADRYL 50 mg Meron Stapleton AM 50 mg BENADRYL given in lab by eMron Stapleton RN in Left shoulder via Peripheral IV. Ordered by Arsalan Boucher. 03/31/2017 10:24:47 SOLU-CORTEF 100 mg Meron Stapleton AM 100 mg SOLU-CORTEF given in lab by Meron Stapleton RN in Left shoulder via Peripheral IV. Ordered by Arsalan Anderson. 03/31/2017 10:24:57 PEPCID 20 mg Meron Stapleton AM 20 mg PEPCID given in lab by Meron Stapleton RN in Left shoulder via Peripheral IV. 03/31/2017 10:26:48 NITROGLYCERIN S/L 0.4 mg Bee Reid AM 0.4 mg NITROGLYCERIN S/L given in lab by Bee Reid RN via Sublingual. Ordered by Adri Anderson 03/31/2017 10:31:01 FENTANYL 25 mcg Bee Reid AM 25 mcg FENTANYL given in lab by Bee Reid RN in Left shoulder via Peripheral IV. Ordered by Stephen. Zoie 03/31/2017 10:31:37 ZOFRAN 4 mg Meron Stapleton AM 4 mg ZOFRAN given in lab by Meron Stapleton RN in Left shoulder via Peripheral IV. Ordered by Stephen. Justin 03/31/2017 10:58:36 1% XYLOCAINE 20 mL Arsalan Anderson AM 20 mL 1% XYLOCAINE given in lab by Arsalan Anderson in Right Groin via Subcutaneous. Ordered by Stephen. Justin 03/31/2017 11:09:10 HEPARIN 5000 units Arsalan Anderson AM 5000 units HEPARIN given in lab by Arsalan Anderson in Left shoulder via Peripheral IV. Ordered by Stephen. Sander 03/31/2017 11:19:34 NITROGLYCERIN S/L 0.4 mg Bee Reid AM 0.4 mg NITROGLYCERIN S/L given in lab by Bee Reid RN via Sublingual. Ordered by Adri Anderson 03/31/2017 11:23:33 VERSED 1 mg Bee Reid AM 1 mg VERSED given in lab by Bee Reid RN in Left shoulder via Peripheral IV. Ordered by Stephen. Justin 03/31/2017 11:28:17 NTG (IC) 200 mcg Arsalan Anderson AM 200 mcg NTG (IC) given in lab by Arsalan Anderson in Right Groin via Intra-coronary. Ordered by Stephen. Justin 03/31/2017 11:29:06 FENTANYL 25 mcg Bee Reid AM 25 mcg FENTANYL given in lab by Bee Reid RN in Left shoulder via Peripheral IV. Ordered by Stephen. Zoie 03/31/2017 11:39:20 PROTAMINE 20 mg Bee Reid AM 20 mg PROTAMINE given in lab by Bee Reid RN in Left shoulder via Peripheral IV. Ordered by Arsalan Lino. 03/31/2017 11:46:22 PLAVIX 600 mg Bee Reid AM 600 mg PLAVIX given in lab by Bee Reid RN via Oral. Ordered by Arsalan Anderson. Initial Case Assessment Cardiovascular HR NIBP Chest Pain 133 213/128 9 Edema Present Skin color Skin None Normal Warm Dry Circulatory - Right Pulses Dorsalis Pedis Femoral 3 3 Scale (0,1,2,3,4,d) Circulatory - Left Pulses Dorsalis Pedis Femoral 3 3 Scale (0,1,2,3,4,d) Neurological State Oriented to time-place- Alert Moves all extremities person Respiration - General Respiration Rate SpO2 (%) O2 (lpm) (B/min) 12 99 3 Final Case Assessment Cardiovascular HR NIBP Chest Pain 103 150/84 0 Edema Present Skin color Skin None Normal Warm Dry Circulatory - Right Pulses Dorsalis Pedis Femoral 3 3 Scale (0,1,2,3,4,d) Circulatory - Left Pulses Dorsalis Pedis Femoral 3 3 Scale (0,1,2,3,4,d) Neurological State Oriented to time-place- Alert Moves all extremities person Respiration - General Respiration Rate SpO2 (%) O2 (lpm) (B/min) 15 99 3 Chronological Log Time Study Chronological Log 10:20:09 Patient arrived via Bed. 10:20:11 0.4 mg NITROGLYCERIN S/L given in lab by Bee Reid RN via Sublingual. Ordered by Arsalan Mitchell. 10:20:43 3 l/min OXYGEN given by Bee Reid RN via Nasal. Ordered by Arsalan Anderson. 10:21:13 HEPARIN DISCONTINUED AT 1015 BY MERON STAPLETON RN Vitals capture started with the following parameters, Patient=Adult, Interval=5 min, Initial Pr wkpkne=973 mmHg, 10:24:20 Deflation Rate=5 mmHg, Cuff placed on Left Arm 10:24:33 Patient Name, D.O.B, / Armband Verified By R.N. 10:24:34 Consent signed by the physician and the patient and verified by the Coal Hauler Operator staff. 10:24:35 Patient has been NPO for More than 6Hrs. 10:24:36 Skin Breakdown- 10:24:37 Patient Warmer Placed on the Table. 10:24:38 Cody Prominences Protected 10:24:40 IV Warmer Connected To Patient. 10:24:41 A # 20 IV was noted in the Hand (right). Grade = 0 10:24:42 A # 20 IV was noted in the Upper Arm (left). Grade = 0 10:24:46 50 mg BENADRYL given in lab by Meron Stapleton, ROBINSON in Left shoulder via Peripheral IV. Order ed by Arsalan Anderson. 10:24:47 100 mg SOLU-CORTEF given in lab by Meron Stapleton RN in Left shoulder via Peripheral IV. O rdered by Arsalan Anderson. 10:24:57 20 mg PEPCID given in lab by Meron Stapleton RN in Left shoulder via Peripheral IV. 10:25:45 BT=532 bpm, ZVVK=826/128 mmhg, SpO2=99.0 %, Resp=12 B/min, Pain=9, Chau=10, Paul=2 10:26:48 0.4 mg NITROGLYCERIN S/L given in lab by Bee Reid, ROBINSON via Sublingual. Ordered by Arsalan Mitchell. 10:29:36 History and physical on the chart or being dictated. Assessment: Initial Case, PH=558 BPM, PRBQ=315/128 mmhg, Chest Pain=9, Edema=None, Color=Normal , Skin = Warm, Dry Right Pulses: Davin Ped=3, Femoral=3 10:29:37 Left Pulses: Davin Ped=3, Femoral=3 Neurological: State=Alert, Ox3, LEONARDO Respiration: Resp=12 B/min, SpO2=99 %, O2=3 lpm 10:30:15 BF=771 bpm, QPWP=218/135 mmhg, SpO2=98.0 %, Resp=15 B/min, Pain=9, Chau=10, Paul=2 10:31:01 25 mcg FENTANYL given in lab by Bee Reid RN in Left shoulder via Peripheral IV. Or dered by Arsalan Anderson. 10:31:37 4 mg ZOFRAN given in lab by Meron Stapleton RN in Left shoulder via Peripheral IV. Ordered by Arsalan Anderson. 10:35:20 DY=487 bpm, ZZEO=261/129 mmhg, SpO2=97.0 %, Resp=14 B/min, Pain=9, Chau=10, Paul=2 10:37:17 Bilateral groins prepped with 2% chlorhexidine, and draped after a 3 minute waiting time. 10:40:11 JW=655 bpm, RTCS=027/116 mmhg, SpO2=97.0 %, Resp=13 B/min, Pain=9, Chau=10, Paul=2 10:42:45 Reference ECG taken 10:42:57 Pressure channel 1 zeroed. 10:44:37 MD paged 10:46:13 YB=941 bpm, IGWR=761/103 mmhg, SpO2=98.0 %, Resp=24 B/min, Pain=9, Chau=10, Paul=2 10:50:19 HR=97 bpm, VSQO=381/57 mmhg, SpO2=99.0 %, Resp=19 B/min, Pain=9, Chau=10, Paul=2 10:55:08 HR=97 bpm, UBJZ=589/92 mmhg, UlY8=424.0 %, Resp=15 B/min, Pain=9, Chau=10, Paul=2 Time Out. Correct patient, correct procedure, correct physician, power injector not loaded with contrast with surgical 10:56:25 team present. Time Out Concurred by MD and individual staff in procedure. 10:56:55 Case Start 10:58:36 20 mL 1% XYLOCAINE given in lab by Arsalan Anderson in Right Groin via Subcutaneous. Ordered by Arsalan Anderson. 11:00:29 Access site was Right Femoral Artery. 11:00:34 A SHEATH, FR5 TERUMO (10CM) FR 5 was advanced into the Fem Art (right) using the Modified S eldinger technique. A JR 4.0 INFINITI CATHETER FR 5 was advanced over a wire. OMNIPAQUE, 350 MG, 150ML 150ML was us ed for 11:01:07 injections. 11:01:47 HR=97 bpm, AKXZ=216/99 mmhg, UfU2=531.0 %, Resp=15 B/min, Pain=9, Chau=10, Paul=2 Recorded Pressure: Ao, HR=97, Condition=Condition 1 11:03:19 (Aorta) Ao 155/87/116 11:04:01 The RCA was injected and visualized at various angles. OMNIPAQUE, 350 MG, 150ML 150ML used . 11:05:47 The SVG-OM was injected and visualized at various angles. OMNIPAQUE, 350 MG, 150ML 150ML us ed. After removing the current catheter a JL 4.0 INFINITI CATHETER FR 5 was advanced over a WIRE, 3 MMJ .035 180CM 11:06:01 180CM. 11:06:40 HR=97 bpm, XLPO=235/100 mmhg, KuN9=659.0 %, Resp=14 B/min, Pain=9, Chau=10, Paul=2 11:07:31 The LCA was injected and visualized at various angles. OMNIPAQUE, 350 MG, 150ML 150ML used . 11:08:29 A WIRE, 3MMJ .035 180CM 180CM was inserted via Fem Art (right). 11:08:36 Catheter was removed A SHEATH, FR6.5 PRELUDE 11CM FR 6.5 was exchanged in the Fem Art (right). This was necessary in order for 11:08:41 catheter support. 11:09:10 5000 units HEPARIN given in lab by Arsalan Anderson in Left shoulder via Peripheral IV. Order ed by Arsalan Anderson. 11:11:54 Vitals capture stopped. Vitals capture started with the following parameters, Patient=Adult, Interval=5 min, Initial Pr irjrtl=214 mmHg, 11:12:00 Deflation Rate=5 mmHg, Cuff placed on Left Arm A XBRCA .070 GUIDE CATHETER FR 6 was advanced over a wire. OMNIPAQUE, 350 MG, 150ML 150ML was u sed for 11:12:30 injections. 11:13:34 A WIRE, RUNTHROUGH NS FLOPPY .014 300CM 300CM was inserted via Fem Art (right). 11:13:40 HR=95 bpm, NIBP=72/59 mmhg, SpO2=98.0 %, Resp=20 B/min, Pain=9, Chau=10, Paul=2 11:15:10 Interventional wire has crossed the lesion A BALLOON, 2.0 X 15MM EUPHORA 15MM was inserted over WIRE, RUNTHROUGH NS FLOPPY .014 300CM 300C M via 11:15:33 the PDA Prox. 11:19:08 Vitals capture stopped. Vitals capture started with the following parameters, Patient=Adult, Interval=5 min, Initial Pr ngmyie=703 mmHg, 11:19:14 Deflation Rate=5 mmHg, Cuff placed on Left Arm 11:19:34 0.4 mg NITROGLYCERIN S/L given in lab by Bee Reid, ROBINSON via Sublingual. Ordered by Arsalan Mitchell. A BALLOON, 2.0 X 15MM EUPHORA 15MM over a WIRE, RUNTHROUGH NS FLOPPY .014 300CM 300CM in the PD A 11:20:03 Prox was inflated using a 30 FITZ INDEFLATOR at 10 fitz for 10 sec. A BALLOON, 2.0 X 15MM EUPHORA 15MM over a WIRE, RUNTHROUGH NS FLOPPY .014 300CM 300CM in the PD A 11:20:23 Prox was inflated using a 30 FITZ INDEFLATOR at 12 fitz for 6 sec. 11:21:54 Vitals capture stopped. Vitals capture started with the following parameters, Patient=Adult, Interval=5 min, Initial Pr griimv=117 mmHg, 11:21:57 Deflation Rate=5 mmHg, Cuff placed on Left Arm 11:23:33 1 mg VERSED given in lab by Bee Reid, ROBINSON in Left shoulder via Peripheral IV. Ordere d by Arsalan Anderson. 11:24:25 SP=431 bpm, LSIB=503/120 mmhg, EbL0=842.0 %, Resp=15 B/min, Pain=9, Chau=10, Paul=2 11:25:06 Activated Clotting Time Drawn 11::19 Balloon Removed. A STENT, 2.25 34MM JANELL 2.25 34MM was advanced through a XBRCA .070 GUIDE CATHETER FR 6 over a WIRE, 11:25:46 RUNTHROUGH NS FLOPPY .014 300CM 300CM. A STENT, 2.25 34MM JANELL 2.25 34MM was deployed using a 30 FITZ INDEFLATOR at 14 atmospheres for 10 seconds 11:25:59 in the PDA Prox. 11:26:18 Re-inflated the stent balloon in the RCA to 12 FITZ for 8 seconds. 11:26:29 Re-inflated the stent balloon in the RCA to 14 FITZ for 8 seconds. 11:27:44 Re-inflated the stent balloon in the PDA Prox to 6 FITZ for 10 seconds. 11:27:48 HC=342 bpm, WEJU=731/117 mmhg, SpO2=99.0 %, Resp=16 B/min, Pain=9, Chua=10, Paul=2 11:28:17 200 mcg NTG (IC) given in lab by Arsalan Anderson in Right Groin via Intra-coronary. Ordered by Arsalan Anderson. 11:29:06 25 mcg FENTANYL given in lab by Bee Reid RN in Left shoulder via Peripheral IV. Or dered by Arsalan Anderson. 11:30:07 Delivery device removed A STENT, 3.0 38MM JANELL 3.0 38MM was advanced through a XBRCA .070 GUIDE CATHETER FR 6 over a WI RE, 11:30:11 RUNTHROUGH NS FLOPPY .014 300CM 300CM. A STENT, 3.0 38MM JANELL 3.0 38MM was deployed using a 30 FITZ INDEFLATOR at 14 atmospheres for 8 seconds in 11:30:37 the RCA Mid. 11:30:59 Re-inflated the stent balloon in the RCA Prox to 6 FITZ for 8 seconds. 11:31:28 Re-inflated the stent balloon in the RCA Prox to 6 FITZ for 10 seconds. 11:31:40 Delivery device removed 11::49 ACT (Normal Range 90-180) = 394 11:32:49 UY=844 bpm, YAGB=080/100 mmhg, SpO2=96.0 %, Resp=23 B/min, Pain=9, Chau=10, Paul=2 11:32:53 Wire removed 11:36:16 A WIRE, 3MMJ .035 180CM 180CM was inserted via Fem Art (right). 11:36:24 Catheter was removed PCI QA completed: Pre-Ap - 3, Post Ap - 3, Type - ~TYPE~, Length - 30 mm, Morphology - ~MOR PHOLOGY~, 11:36:32 Indications - ~INDICATIONS~, Pre-Stenosis - 99% and Post Stenosis - 0%. PCI QA completed: Pre-Ap - ~PRE AP~, Post Ap - ~POST AP~, Type - ~TYPE~, Length - 32 mm , Morphology - 11:36:35 ~MORPHOLOGY~, Indications - Lesion > 50 non-stem, Pre-Stenosis - 80% and Post Stenosis - 0%. 11:36:37 PCI QA obtained from Cardroom Manager 11:36:44 VASCADE, FR6 CLOSURE SYSTEM TAVR FR 6\7 placement in the Fem Art (right) 11:38:00 HR=97 bpm, NIBP=83/55 mmhg, SpO2=96.0 %, Resp=19 B/min, Pain=5, Chau=10, Paul=2 11:39:20 20 mg PROTAMINE given in lab by Bee Reid, RN in Left shoulder via Peripheral IV. Or dered by Arsalan Anderson. 11:39:44 Case End 11:40:14 NIBP STAT measurement started. 11:42:53 Vitals capture stopped. Vitals capture started with the following parameters, Patient=Adult, Interval=5 min, Initial Pr orthdu=020 mmHg, 11:44:52 Deflation Rate=5 mmHg, Cuff placed on Left Arm 11:45:41 MM=473 bpm, DDVB=206/82 mmhg, SpO2=97.0 %, Resp=15 B/min, Pain=9, Chau=10, Paul=2 11:46:22 600 mg PLAVIX given in lab by Bee Reid, ROBINSON via Oral. Ordered by Arsalan Anderson. 11:50:24 CG=423 bpm, UQVL=797/93 mmhg, SpO2=99.0 %, Resp=15 B/min, Pain=9, Chau=10, Paul=2 11:55:29 IR=571 bpm, GPRF=216/84 mmhg, SpO2=98.0 %, Resp=15 B/min, Pain=9, Chau=10, Paul=2 11:56:07 Vitals capture stopped. Assessment: Final Case, AR=734 BPM, BGGX=824/84 mmhg, Chest Pain=0, Edema=None, Color=Normal, S kin = Warm, Dry Right Pulses: Davin Ped=3, Femoral=3 11:56:15 Left Pulses: Davin Ped=3, Femoral=3 Neurological: State=Alert, Ox3, LEONARDO Respiration: Resp=15 B/min, SpO2=99 %, O2=3 lpm 11:57:12 Sterile dressing applied to site 11:57:13 No case complications noted. 11:57:16 Cine recording checked. 11:57:17 Bedside Report will be given. 11:57:19 Implantable Device card placed in patient's chart. 11:57:20 Contrast Scanned 11:57:26 A Left Heart Cath was performed. 11:57:37 Patient moved to stretcher End Study - Contrast Media Used In Study Contrast Total Opened (mL) Total Used (mL) Total Wasted (mL) Omnipaque 85 85 0 End Study - Maximum Contrast Load Max Contrast Load (mL) 303.7 End Study - Radiation Exposure Fluoro Time (minutes) 10.4 End Study - Patient Disposition Complications Transferred To Interventional Outcome No Telemetry Bed successful
--- NOTE | 2017-03-31 12:25 | MA ---
cc: ARSALAN CAMPOVERDE DATE 03/31/2017 INDICATION [id number] TN. PROCEDURE PERFORMED 1. Fluoroscopy with interpretation. 2. Coronary angiography. 3. Coronary bypass graft angiography. 4. Percutaneous intervention with drug-eluting stents to the right coronary artery and posterior descending coronary arteries. METHOD The risks, benefits and alternatives were discussed with the patient. The patient understood and consented to the procedure. The patient was brought to the Cardiac Catheterization Laboratory and placed on the catheterization table. The right groin was prepped and draped in the usual sterile fashion. The right groin was anesthetized with 2% lidocaine. The right common femoral artery was cannulated and a 5-Dominican, 11-cm sheath was placed without difficulty. CORONARY ANGIOGRAPHY 1. Left main coronary has minor luminal irregularities. 2. Left anterior descending coronary artery is 100% occluded in the mid-segment. 3. Left circumflex gives rise to two very small caliber sized obtuse marginal branch with rather diffuse 80% stenosis. 4. Right coronary has a 75% stenosis in the mid to distal segment and an 80% stenosis at the bifurcation of the posterior descending branch which is a large vessel. CORONARY BYPASS GRAFT ANGIOGRAPHY 1. Left internal mammary is patent but at the distal anastomosis the coronary artery is occluded. There is a late stent thrombosis. The LAD itself distally is not visualized. 2. Saphenous vein graft is patent but the distal circumflex is very small caliber sized, diffuse diseased. PERCUTANEOUS INTERVENTION The right coronary was selectively engaged. A 6-Dominican XB-RCA guide catheter and a 0.014, 300 cm Terumo Run-Through wire was navigated down to the posterior descending branch. A 2.0 x 15-mm RX Euphora balloon was advanced down the posterior descending branch and deployed. The patient had reproducible symptoms with balloon inflation. Heparin was administered throughout the entire procedure to maintain appropriate anticoagulation. A 2.25 x 34-mm RX Resolute [place] stent was advanced down to the posterior descending branch and deployed. A 3.0 x 34-mm RX Resolute drug-eluting stent was advanced down to the mid-distal right coronary and deployed. Repeat angiography showed no residual stenosis, MARI-3 flow. The wire was removed, the guide catheter removed, HemoBand applied. CONCLUSIONS 1. Severe [place] three-vessel coronary disease. 2. One of two coronary bypass grafts are patent. 3. Successful percutaneous intervention with drug-eluting stents to the mid-right coronary and posterior descending coronary arteries. PLAN We will monitor the patient closely for any post-procedural complication. Continue aggressive medical therapy. Hopefully this will translate well to symptomatic improvement. Arsalan Campoverde MD SM/SSB /11:44 AM /12:12 PM
--- NOTE | 2017-03-31 12:38 | EKG ---
Date Performed: 03/30/2017 Time Performed: 16:41:19 PTAGE: 51 years EKG: Sinus rhythm LEFT ANTERIOR FASCICULAR BLOCK POSSIBLE ANTERIOR MYOCARDIAL INFARCTION , OF INDETERMINATE AGE MODERA TE T-WAVE ABNORMALITY, CONSIDER LATERAL ISCHEMIA ABNORMAL ECG PREVIOUS TRACING : 03/30/2017 03.53 Compared to prior tracing no significant change DOCTOR: Daron Alas Interpretating Date/Time 03/31/2017 12:36:49
[2017-03-31] MEDS: ATORVASTATIN 40 MG TAB PO SCH (20:32)
[2017-04-01] VITALS (7 sets, daily range): BP systolic 118–139; BP diastolic 62–87; PULSE 72–88; RESP 18–20; TEMP 98.2–98.5; O2SAT 98
[2017-04-01] MEDS: HYDROmorphone HCL PF 2 MG/ML VIAL IV PUSH PRN ×2 (03:30→07:42)
[2017-04-01 05:34] LABS: BICARBONATE 23.5 MEQ/L (21.0-32.0); POTASSIUM 5.1 MEQ/L (3.5-5.1)
[2017-04-01 05:50] LABS: AUTOMATED NEUTROPHIL # 17.4 TH/MM3 (1.8-7.7); BASOPHIL # 0.2 TH/MM3 (0-0.2); BASOPHIL % 0.7 % (0.0-2.0); EOSINOPHIL # 0.1 TH/MM3 (0-0.4); EOSINOPHIL % 0.3 % (0.0-4.0); HEMATOCRIT 35.4 % (35.0-46.0); HEMO FLAGS DIFF FINAL; LYMPH % 17.9 % (9.0-44.0); LYMPHOCYTE # 4.2 TH/MM3 (1.0-4.8); MEAN CELL VOLUME 92.6 FL (80.0-100.0); MEAN CORPUSCULAR HEMOGLOBIN 31.2 PG (27.0-34.0); MEAN CORPUSCULAR HGB CONC 33.7 % (32.0-36.0); MONO % 6.1 % (0.0-8.0); PLATELET COUNT 302 TH/MM3 (150-450); RED BLOOD COUNT 3.82 MIL/MM3 (4.00-5.30); RED CELL DISTRIBUTION WIDTH 13.8 % (11.6-17.2); WHITE BLOOD COUNT 23.2 TH/MM3 (4.0-11.0)
[2017-04-01] MEDS: NITROGLYCERIN 2% OINT 1 GM PACKET TOPICAL SCH (06:00)
[2017-04-01] MEDS: INSULIN ASPART SUPPLEMENTAL SCALE SQ SCH (07:45)
--- NOTE | 2017-04-01 08:13 | HHI.PR ---
Subjective Remarks feels much better was already oob and walking Objective Vitals heart reg lung cta abd s/nt ext no edema Vital Signs Date Time Temp Pulse Resp B/P (MAP) Pulse Ox O2 Delivery O2 Flow Rate FiO2 04/01/17 06:13 Room Air 04/01/17 04:00 98.5 84 18 118/62 (80) 98 04/01/17 00:00 98.4 77 18 126/71 (89) 98 03/31/17 19:30 98.4 76 18 146/84 (104) 98 03/31/17 18:00 78 03/31/17 17:00 81 03/31/17 16:00 88 03/31/17 15:49 98.5 81 18 121/74 (90) 98 03/31/17 15:00 80 03/31/17 14:08 80 18 152/94 (113) 93 03/31/17 12:13 98 Room Air 03/31/17 08:38 Room Air Result Diagram: 04/01/17 0538 04/01/17 0450 Imaging Last Impressions Chest X-Ray 03/30/17 0353 Signed Impressions: Service Date/Time: Thursday, March 30, 2017 04:10 - CONCLUSION: Cardiomegaly. No acute cardiopulmonary disease. Fitz Julio MD A/P Problem List: (1) NSTEMI (non-ST elevated myocardial infarction) ICD Codes: I21.4 - Non-ST elevation (NSTEMI) myocardial infarction Status: Acute Plan: 1. nstemi 2. msk cp/back pain component 3.dm 2 4. a/ckd 3 5. hyperkalemia 6. gastroparesis 7. systolic chf. compensated. EF 30-35% 04/28 echo 8. copd - Pt presented the ED on 03/30/17 with complaints of back pain and chest pain that began around mid morning the day prior to admission. The pain began while she was sitting on the couch watching TV. There was no specific event that triggered the pain. Its described as a constant "gripping" pain on the left upper back that seemed to radiate through to her chest. Pain seems to wax and wane in severity but has been constant since onset. It is worse with movement or with deep breathing. She feels SOB from the pain. She had one episode of vomiting in the ED. - VQ scan low prob for PE - troponin trending up concerning for nstemi - also seems to be a msk component to her pain. - 03/31...LHC 75-80% lesions in rca and pda...s/p 2 ian convert ntg back to imdur. ranexa per cardiology cont asa/plavix renal function stable. d/c ivf. aldactone and her geno were held due to hyperkalemia. levemir dose increased for hyperglycemia ambulate. d/c when ok with cardiology. (2) Chest pain, rule out acute myocardial infarction ICD Codes: R07.9 - Chest pain, unspecified Status: Acute Plan: above (3) Back pain ICD Codes: M54.9 - Back pain Status: Acute (4) Gastroparesis ICD Codes: K31.84 - Gastroparesis Status: Chronic Plan: - Home meds continued (5) Diabetes ICD Codes: E11.9 - Type 2 diabetes mellitus without complications Status: Chronic Plan: above (6) HTN (hypertension) ICD Codes: I10 - Essential (primary) hypertension Status: Chronic Plan: - Home meds continued - Monitor (7) COPD (chronic obstructive pulmonary disease) ICD Codes: J44.9 - Chronic obstructive pulmonary disease, unspecified Status: Chronic Plan: - Duonebs PRN (8) CHF (congestive heart failure) ICD Codes: I50.9 - Heart failure, unspecified Status: Chronic Plan: - Appears to currently be compensated - Home meds continued (9) CAD (coronary artery disease) ICD Codes: I25.10 - Atherosclerosis of coronary artery Status: Chronic Plan: - Home meds continued Problem Qualifiers (1) Diabetes: (2) CHF (congestive heart failure): Qualified Codes: I50.22 - Chronic systolic (congestive) heart failure Héctor Kendrick MD Apr 01, 2017 08:13
[2017-04-01] MEDS: DOCUSATE SODIUM 100 MG CAP PO SCH (09:00)
[2017-04-01] MEDS ORDERED: ISOSORBIDE MONONITRATE 60 MG TAB PO SCH (09:00)
[2017-04-01] MEDS ORDERED: FUROSEMIDE 40 MG TAB PO SCH (09:00)
--- NOTE | 2017-04-01 09:23 | PD.CARD.PN ---
Subjective Subjective Remarks no events Objective Medications Current Medications Medications (Trade) Dose Ordered Sig/Marcial Route Start Time Stop Time Status Last Admin (NS Flush) 2 ml UNSCH PRN IVF 03/30/17 04:00 03/30/17 04:16 (Dilaudid Pf Inj) 1 mg Q3H PRN IV PUSH 03/30/17 08:15 04/01/17 07:42 (Proair Hfa Inh) 2 puff Q6H PRN INH 03/30/17 07:45 (Aspirin) 325 mg DAILY PO 03/31/17 09:00 03/31/17 08:45 (Lipitor) 40 mg HS PO 03/30/17 21:00 03/31/17 20:32 (Wellbutrin Sr) 150 mg DAILY PO 03/30/17 09:00 03/31/17 08:45 (Coreg) 12.5 mg BID PO 03/30/17 09:00 03/31/17 20:32 (Plavix) 75 mg DAILY PO 03/30/17 09:00 03/31/17 08:45 (Colace) 100 mg DAILY PO 03/30/17 09:00 (Protonix) 40 mg DAILY PO 03/30/17 09:00 03/31/17 08:45 (Paxil) 40 mg DAILY PO 03/30/17 09:00 03/31/17 08:44 (Ranexa) 1,000 mg Q12HR PO 03/30/17 09:00 03/31/17 20:32 Patient Own Medication PT OWN MED: TRADJE... DAILY PO 03/30/17 10:00 Future Hold (Reglan) 5 mg TIDAC PO 03/30/17 09:00 03/31/17 17:01 (NovoLOG SUPPLEMENTAL SCALE) 1 ACHS SLIDING SCALE SQ 03/30/17 08:00 03/31/17 17:00 (Duoneb Neb) 1 ampule Q4HR NEB PRN NEB 03/30/17 08:15 (Flexeril) 10 mg Q8H PRN PO 03/30/17 08:15 (D50w (Vial) Inj) 50 ml UNSCH PRN IV PUSH 03/30/17 09:45 (Glucagon Inj) 1 mg UNSCH PRN OTHER 03/30/17 09:45 (Catapres) 0.1 mg Q6H PRN PO 03/30/17 13:15 (Vasotec Inj) 1.25 mg Q6H PRN IV PUSH 03/30/17 13:15 (Hansen 10-325 Mg) 1 tab Q4H PRN PO 03/30/17 13:45 03/31/17 16:43 (Nitrostat Sl) 0.4 mg Q5M PRN SL 03/30/17 20:45 03/30/17 21:22 (Lasix) 40 mg BID@0900,1800 PO 04/01/17 09:00 (Morphine Inj) 2 mg Q30M PRN IV PUSH 03/31/17 11:45 (Ativan Inj) 0.5 mg UNSCH PRN IV PUSH 03/31/17 11:45 04/01/17 11:44 (Atropine Inj) 0.5 mg UNSCH PRN IV PUSH 03/31/17 11:45 Sodium Chloride 250 ml @ 500 mls/hr ONCE PRN IV 03/31/17 11:45 04/01/17 11:44 (Zofran Inj) 4 mg Q4H PRN IV PUSH 03/31/17 11:45 (Xylocaine 1% Inj (50 ml)) 10 ml UNSCH PRN INFIL 03/31/17 11:45 04/01/17 11:44 (Levemir Inj) 25 units Q12HR SQ 03/31/17 21:00 03/31/17 20:38 (Imdur) 120 mg BID PO 04/01/17 09:00 Vital Signs / I&O Vital Signs Date Time Temp Pulse Resp B/P (MAP) Pulse Ox O2 Delivery O2 Flow Rate FiO2 04/01/17 07:00 98.2 75 20 139/87 (104) 98 04/01/17 07:00 Room Air 04/01/17 06:13 Room Air 04/01/17 04:00 98.5 84 18 118/62 (80) 98 04/01/17 00:00 98.4 77 18 126/71 (89) 98 03/31/17 19:30 98.4 76 18 146/84 (104) 98 03/31/17 18:00 78 03/31/17 17:00 81 03/31/17 16:00 88 03/31/17 15:49 98.5 81 18 121/74 (90) 98 03/31/17 15:00 80 03/31/17 14:08 80 18 152/94 (113) 93 03/31/17 12:13 98 Room Air I/O 03/31/17 03/31/17 03/31/17 04/01/17 04/01/17 04/01/17 07:00 15:00 23:00 07:00 15:00 23:00 Intake Total 480 ml 240 ml 720 ml Output Total 1200 ml Balance 480 ml 240 ml -480 ml Intake Oral 480 ml 240 ml 720 ml Output Urine Total 1200 ml # Voids 4 1 Physical Exam GENERAL: SKIN: Warm and dry. HEAD: Normocephalic. EYES: No scleral icterus. No injection or drainage. NECK: Supple, trachea midline. No JVD or lymphadenopathy. CARDIOVASCULAR: Regular rate and rhythm without murmurs, gallops, or rubs. RESPIRATORY: Breath sounds equal bilaterally. No accessory muscle use. GASTROINTESTINAL: Abdomen soft, non-tender, nondistended. MUSCULOSKELETAL: No cyanosis, or edema. BACK: Nontender without obvious deformity. No CVA tenderness. Laboratory Laboratory Tests Test 03/31/17 16:02 04/01/17 04:50 04/01/17 05:38 Potassium Level 4.8 MEQ/L 5.1 MEQ/L Blood Urea Nitrogen 38 MG/DL Creatinine 1.48 MG/DL Random Glucose 111 MG/DL Calcium Level 8.4 MG/DL Sodium Level 138 MEQ/L Chloride Level 107 MEQ/L Carbon Dioxide Level 23.5 MEQ/L Anion Gap 8 MEQ/L Estimat Glomerular Filtration Rate 37 ML/MIN Total Creatine Kinase 109 U/L Triglycerides Level 132 MG/DL Cholesterol Level 209 MG/DL LDL Cholesterol 127 MG/DL HDL Cholesterol 56.0 MG/DL Cholesterol/HDL Ratio 3.73 RATIO White Blood Count 23.2 TH/MM3 Red Blood Count 3.82 MIL/MM3 Hemoglobin 11.9 GM/DL Hematocrit 35.4 % Mean Corpuscular Volume 92.6 FL Mean Corpuscular Hemoglobin 31.2 PG Mean Corpuscular Hemoglobin Concent 33.7 % Red Cell Distribution Width 13.8 % Platelet Count 302 TH/MM3 Mean Platelet Volume 7.6 FL Neutrophils (%) (Auto) 75.0 % Lymphocytes (%) (Auto) 17.9 % Monocytes (%) (Auto) 6.1 % Eosinophils (%) (Auto) 0.3 % Basophils (%) (Auto) 0.7 % Neutrophils # (Auto) 17.4 TH/MM3 Lymphocytes # (Auto) 4.2 TH/MM3 Monocytes # (Auto) 1.4 TH/MM3 Eosinophils # (Auto) 0.1 TH/MM3 Basophils # (Auto) 0.2 TH/MM3 CBC Comment DIFF FINAL Differential Comment Imaging Last Impressions Lung Scan-VQ Nuclear Medicine 03/30/17 0501 Signed Impressions: Service Date/Time: Thursday, March 30, 2017 10:06 - CONCLUSION: 1. Mild central trapping suggesting some degree of COPD 2. Linear area of diminished activity in the right midlung on multiple projections probably represents a prominent fissure as this was faintly present previously and is unchanged. 3. Otherwise, low probability for pulmonary embolus. Herbie Kingsley MD Chest X-Ray 03/30/17 0353 Signed Impressions: Service Date/Time: Thursday, March 30, 2017 04:10 - CONCLUSION: Cardiomegaly. No acute cardiopulmonary disease. Fitz Julio MD Assessment and Plan Problem List: (1) CAD (coronary artery disease) ICD Codes: I25.10 - Atherosclerotic heart disease of [place] coronary artery without angina pectoris Status: Acute (2) Elevated troponin ICD Codes: R77.8 - Elevated troponin level Status: Acute (3) Chest pain, rule out acute myocardial infarction ICD Codes: R07.9 - Chest pain, unspecified Status: Acute Assessment and Plan symptoms resolved ALBERTO RCA and PDA DC planning today cont asa statin bb plavix nitrate ranexa lasix 40 mg daily. monitor weight. PRN QHS if needed. No spironolactone FU apr 05 in office Arsalan Anderson MD Apr 01, 2017 09:23
[2017-04-01] MEDS: CLOPIDOGREL 75 MG TAB PO SCH (09:31)
[2017-04-01] MEDS: PARoxetine HCL 20 MG TAB PO SCH (09:31)
[2017-04-01] MEDS: buPROPion HCL 150 MG SUSTAINED RELEASE TAB PO SCH (09:31)
[2017-04-01] MEDS: RANOLAZINE 500 MG EXTENDED RELEASE TAB PO SCH (09:32)
[2017-04-01] MEDS: METOCLOPRAMIDE HCL 10 MG TAB PO SCH (09:33)
[2017-04-01] MEDS: PANTOPRAZOLE SOD 40 MG DELAYED RELEASE TAB PO SCH (09:33)
[2017-04-01] MEDS: CARVEDILOL 12.5 MG TAB PO SCH (09:33)
[2017-04-01] MEDS: ASPIRIN 325 MG TAB PO SCH (09:33)
[2017-04-01] MEDS: INSULIN DETEMIR 100 UNITS/ML VIAL SQ SCH (09:36)
[2017-04-01] MEDS ORDERED: FURO1TAB60 PO (10:24)
--- NOTE | 2017-04-01 10:25 | HHI.DCPOC ---
Discharge Care Plan Diagnosis: (1) NSTEMI (non-ST elevated myocardial infarction) Goals to Promote Your Health * To prevent worsening of your condition and complications * To maintain your health at the optimal level Directions to Meet Your Goals Take your medications as prescribed Follow your dietary instruction Follow activity as directed Keep your appointments as scheduled Take your immunizations and boosters as scheduled If your symptoms worsen call your PCP, if no PCP go to Urgent Care Center or Emergency Room Smoking is Dangerous to Your Health. Avoid second hand smoke Call the 24-hour hour crisis hotline for domestic abuse at Héctor Kendrick MD Apr 01, 2017 10:24
--- NOTE | 2017-04-01 22:03 | EKG ---
Date Performed: 03/31/2017 Time Performed: 12:22:10 PTAGE: 51 years EKG: Sinus rhythm . Left axis deviation Possible extensive infarct - age undetermined Abnormal ECG PREVIOUS TRACING : 03/30/2017 16.41 Compared to prior tracing no significant change DOCTOR: Sandoval Martin Interpretating Date/Time 04/01/2017 21:42:19
== END 2017-04-01 10:56 | disposition home or self-care (01) | DRG 247 ==
LOC: NEPE 03:42 → NEDA 05:22 → INTOOBSV 05:22 → OBSVTOIN 05:22 → UNDOADMIN 05:22 → UNDOADMOB 05:52 → INTOOBSV 05:52 → NEDA 05:52 → N04A 11:13 → HCIS 03-31 12:43 → HCIN 03-31 14:04
PROVIDERS: ADMIT Hospitalist; ATTEND Hospitalist
PROC: 027135Z Dilation of Coronary Artery, Two Arteries with Two Drug-eluting Intraluminal Devices, Percutaneous Approach (ICD-10-PCS; principal; 2017-03-31)
PROC: 4A023N7 Measurement of Cardiac Sampling and Pressure, Left Heart, Percutaneous Approach (ICD-10-PCS; 2017-03-31)
PROC: B211YZZ Fluoroscopy of Multiple Coronary Arteries using Other Contrast (ICD-10-PCS; 2017-03-31)
PROC: B213YZZ Fluoroscopy of Multiple Coronary Artery Bypass Grafts using Other Contrast (ICD-10-PCS; 2017-03-31)
DX: I21.4 Non-ST elevation (NSTEMI) myocardial infarction (principal); I42.9 Cardiomyopathy, unspecified; I50.22 Chronic systolic (congestive) heart failure; K31.84 Gastroparesis; I13.0 Hypertensive heart and chronic kidney disease with heart failure and stage 1 through stage 4 chronic kidney disease, or unspecified chronic kidney disease; E11.22 Type 2 diabetes mellitus with diabetic chronic kidney disease; E11.51 Type 2 diabetes mellitus with diabetic peripheral angiopathy without gangrene; G62.9 Polyneuropathy, unspecified; E11.43 Type 2 diabetes mellitus with diabetic autonomic (poly)neuropathy; E87.5 Hyperkalemia; M54.9 Dorsalgia, unspecified; J44.9 Chronic obstructive pulmonary disease, unspecified; I25.10 Atherosclerotic heart disease of native coronary artery without angina pectoris; E78.5 Hyperlipidemia, unspecified; K21.9 Gastro-esophageal reflux disease without esophagitis; E11.65 Type 2 diabetes mellitus with hyperglycemia; F32.9 Major depressive disorder, single episode, unspecified; E07.9 Disorder of thyroid, unspecified; N18.3 Chronic kidney disease, stage 3 (moderate); E86.0 Dehydration; Z82.49 Family history of ischemic heart disease and other diseases of the circulatory system; Z79.82 Long term (current) use of aspirin; Z95.1 Presence of aortocoronary bypass graft; Z95.5 Presence of coronary angioplasty implant and graft; Z87.442 Personal history of urinary calculi; Z79.4 Long term (current) use of insulin; Z87.891 Personal history of nicotine dependence
CPT/HCPCS: 71010; 78582; 80048; 80053; 80061; 82550; 82948; 83690; 83735; 83880; 84132; 84484; 85025; 85610; 85730; 93005; A9540; A9567; J1170; J1200; J1644; J1720; J1815; J2250; J2270; J2405; J2720; J2920; J2930; J3010; J7030; J7040

== ENCOUNTER 2017-04-05 05:50 | Observation (INO) | payer OTHER ==
[~2017-04-05] VITALS: Ht 160 cm; Wt 106.0 kg
[2017-04-05] VITALS (13 sets, daily range): BP systolic 84–196; BP diastolic 47–90; PULSE 64–87; RESP 16–21; TEMP 97.8–98.4; O2SAT 92–100
[~2017-04-05 05:50] MED LIST changes: -SPIR25TA PO
[2017-04-05] MEDS ORDERED: LANTUS2P SQ (06:09)
[2017-04-05] MEDS ORDERED: MORPHINE SULFATE 4 MG/ML INJ IV PUSH ONE (06:45)
[2017-04-05] MEDS ORDERED: SODIUM CHLORIDE 0.9% FLUSH 10 ML FLUSH IVF PRN (06:45)
--- NOTE | 2017-04-05 06:45 | RADRPT ---
EXAM DATE/TIME: 04/05/2017 06:27 [facility] COMPARISON: No previous studies available for comparison. INDICATIONS : Chest pain. MEDICAL HISTORY : Hypertension. Cardiovascular disease SURGICAL HISTORY : CABG. Cholecystectomy. Appendectomy. ENCOUNTER: Initial ACUITY: 1 day PAIN SCORE: 0/10 LOCATION: Bilateral chest FINDINGS: A single view of the chest demonstrates the lungs to be symmetrically aerated without evidence of mas s, infiltrate or effusion. Cardiomegaly and previous CABG. The cardiomediastinal contours are unrema rkable. Osseous structures are intact. CONCLUSION: 1. Cardiomegaly and previous CABG. Seamus Montez MD on April 05, 2017 at 6:43 Board Certified Radiologist. This report was verified electronically.
[2017-04-05 06:56] LABS: AUTOMATED NEUTROPHIL # 13.3 TH/MM3 (1.8-7.7); BASOPHIL # 0.1 TH/MM3 (0-0.2); BASOPHIL % 0.5 % (0.0-2.0); EOSINOPHIL # 0.8 TH/MM3 (0-0.4); EOSINOPHIL % 3.8 % (0.0-4.0); HEMATOCRIT 35.3 % (35.0-46.0); LYMPH % 24.9 % (9.0-44.0); LYMPHOCYTE # 5.2 TH/MM3 (1.0-4.8); MEAN CELL VOLUME 91.7 FL (80.0-100.0); MEAN CORPUSCULAR HGB CONC 33.8 % (32.0-36.0); MONO % 6.8 % (0.0-8.0); PLATELET COUNT 319 TH/MM3 (150-450); RED BLOOD COUNT 3.85 MIL/MM3 (4.00-5.30); RED CELL DISTRIBUTION WIDTH 13.9 % (11.6-17.2); WHITE BLOOD COUNT 20.8 TH/MM3 (4.0-11.0)
[2017-04-05 06:59] LABS: HEMO FLAGS AUTO DIFF
[2017-04-05 07:04] LABS: ALT (GPT) 21 U/L (10-53); ANION GAP 9 MEQ/L (5-15); AST (GOT) 12 U/L (15-37); BICARBONATE 25.1 MEQ/L (21.0-32.0); BLOOD UREA NITROGEN 41 MG/DL (7-18); CHLORIDE 100 MEQ/L (98-107); GLOMERULAR FILTRATION RATE 25 ML/MIN (>89); POTASSIUM 3.9 MEQ/L (3.5-5.1); SODIUM (NA) 134 MEQ/L (136-145)
[2017-04-05 07:06] LABS: APTT (PATIENT) 24.8 SEC (24.3-30.1); INTERNATIONAL NORMALIZED RATIO 0.9 RATIO; PROTHROMBIN TIME - PATIENT 10.1 SEC (9.8-11.6)
[2017-04-05 07:08] LABS: ALKALINE PHOSPHATASE 121 U/L (45-117); TOTAL BILIRUBIN ADULT 0.3 MG/DL (0.2-1.0)
[2017-04-05 07:09] LABS: CREATINE KINASE 48 U/L (26-192)
--- NOTE | 2017-04-05 07:27 | PD ---
HPI Chief Complaint: Chest Pain Time Seen by Provider: 06:31 Travel History International Travel<30 days: No Contact w/Intl Traveler<30days: No History of Present Illness HPI 51-year-old female came to the emergency room with history of sudden onset of severe substernal chest pain since 3:45 AM. Patient says she was on the computer when the pain started. Patient had a cardiac catheterization and 2 stents put in one week ago. She has significant coronary artery disease history and has had triple-vessel CABG prior to that. Patient says she's been taking her Plavix like she supposed to without stopping. She took one 325 mg of aspirin today. It took 3 sublingual nitros and currently her blood pressure is in 100s. She looked uncomfortable. Pain is nonradiating. Currently she says the pain is 9 out of 10. Patient says the pain is worse when she moves. PFSH Past Medical History Narrative Medical List of her past medical, surgical, social and family history is reviewed from the nursing note. Hx Anticoagulant Therapy: Yes Arthritis: Yes Asthma: Yes Autoimmune Disease: No Blood Disorders: No Anxiety: No Depression: Yes Heart Rhythm Problems: Yes Cancer: No Cardiac Catheterization: Yes ( MULTI STENTS 2012) Cardiovascular Problems: Yes High Cholesterol: Yes Chemotherapy: No Chest Pain: Yes Congestive Heart Failure: Yes COPD: Yes Cerebrovascular Accident: No Coronary Artery Disease: Yes Diabetes: Yes Patient Takes Glucophage: No Diminished Hearing: No Endocrine: Yes Gastrointestinal Disorders: Yes GERD: Yes (ACID REFLUX) Genitourinary: Yes Headaches: Yes Hiatal Hernia: No Hypertension: Yes Immune Disorder: No Implanted Vascular Access Dvce: No Kidney Stones: Yes Musculoskeletal: Yes Neurologic: Yes (NEUROPATHY LOWER EXTREMITIES/HANDS) Psychiatric: Yes Reproductive: No Respiratory: Yes Immunizations Current: Yes Migraines: Yes Myocardial Infarction: Yes Radiation Therapy: No Renal Failure: No Seizures: No Sickle Cell Disease: No Sleep Apnea: No Thyroid Disease: Yes Ulcer: No PNEUMOCCOCAL Vaccine (Year): 2 ?: Not Menopausal: Yes : 0 Para: 0 Miscarriage: 0 : 0 Tubal Ligation: Yes Past Surgical History Abdominal Surgery: Yes (hernia repair, gallbladder removal) AICD: No Appendectomy: Yes Arteriovenous Shunt: No Body Medical Devices: STERNAL WIRES Cardiac Surgery: Yes (CABG) Cholecystectomy: Yes (10 YEARS AGO) Coronary Artery Bypass Graft: Yes (QUADRUPLE BYPASS) Ear Surgery: No Endocrine Surgery: Yes (Tonsillectomy 1976) Eye Surgery: No Genitourinary Surgery: Yes (Hernia Repair) Gynecologic Surgery: No Insulin Pump: No Joint Replacement: No Neurologic Surgery: No Oral Surgery: No Pacemaker: No Thoracic Surgery: No Tonsillectomy: Yes Other Surgery: Yes (LEFT LUMPECTOMY ) Family History Family Myocardial Infarction: Yes Social History Alcohol Use: No Tobacco Use: No (QUIT 1998) Substance Use: No Allergies-Medications (Allergen,Severity, Reaction): Coded Allergies: diatrizoate meglumine (Unverified Allergy, Severe, Nausea/Vomiting, ) ORAL CONTRAST ONLY gadobenic acid (Unverified Allergy, Severe, Nausea/Vomiting, 03/30/17) ORAL CONTRAST ONLY gadodiamide (Unverified Allergy, Severe, Nausea/Vomiting, 03/30/17) ORAL CONTRAST ONLY gadoteridol (Unverified Allergy, Severe, Nausea/Vomiting, 03/30/17) ORAL CONTRAST ONLY iodixanol (Unverified Allergy, Severe, Nausea/Vomiting, 03/30/17) ORAL CONTRAST ONLY iohexol (Unverified Allergy, Severe, Nausea/Vomiting, 03/30/17) ORAL CONTRAST ONLY penicillin G (Unverified Allergy, Severe, 03/30/17) sulfamethoxazole (Unverified Allergy, Severe, 03/30/17) trimethoprim (Unverified Allergy, Severe, 03/30/17) Comments List of her allergies reviewed from the nursing note. Reported Meds & Prescriptions Reported Meds & Active Scripts Active Colace (Docusate Sodium) 100 Mg Capsule 100 Mg PO DAILY 30 Days Reglan (Metoclopramide HCl) 5 Mg Tab 5 Mg PO TIDAC Ranexa ER 12 HR (Ranolazine) 500 Mg Tab 1,000 Mg PO Q12HR Lipitor (Atorvastatin Calcium) 40 Mg Tab 40 Mg PO HS 30 Days Reported Lantus Inj (Insulin Glargine) 1,000 Unit/10 Ml Vial 40 Units SQ HS Wellbutrin Xl 24 HR (Bupropion HCl) 150 Mg Tab 150 Mg PO DAILY Tradjenta (Linagliptin) 5 Mg Tab 5 Mg PO DAILY Tanzeum 4-Pack Inj (Albiglutide) 50 Mg Pfpen 50 Mg SQ Q7D Paroxetine (Paroxetine HCl) 40 Mg Tab 40 Mg PO DAILY Nitrostat SL (Nitroglycerin) 0.4 Mg Subl 0.4 Mg SL DIRECTED PRN ONE TABLET UNDER THE TONGUE NEEDED FOR CHEST PAIN, MAY REPEAT EVERY FIVE MINUTES FOR A TOTAL OF 3 DOSES OR CALL 911 IF NO RELIEF Aspirin 325 Mg Tab 325 Mg PO DAILY Novolog Inj (Insulin Aspart) 1,000 Unit/10 Ml Vial 5-25 Units SQ TIDACHS Max dose at bedtime:( )units; sugars less than 70,(0) units; sugars 150-199,(5) units; sugars 200-249,(10) units; sugars 250-299,(15) units; sugars 300-349,(20)units; sugars greater than 349,(25)units Plavix (Clopidogrel Bisulfate) 75 Mg Tab 75 Mg PO DAILY Protonix (Pantoprazole Sodium) 40 Mg Tab 40 Mg PO DAILY Ventolin Hfa 18 GM Inh (Albuterol Sulfate) 90 Mcg/Act Aer 2 Puff INH Q6H PRN Narrative Medication List of her home medications reviewed from the nursing note. Review of Systems Except as stated in HPI: all other systems reviewed are Neg Cardiovascular: Positive: Chest Pain or Discomfort Physical Exam Narrative GENERAL: Awake, alert, obese, moderate distress SKIN: Focused skin assessment warm/dry. Pale HEAD: Atraumatic. Normocephalic. EYES: Pupils equal and round. No scleral icterus. No injection or drainage. ENT: No nasal bleeding or discharge. Mucous membranes pink and moist. NECK: Trachea midline. No JVD. CARDIOVASCULAR: Regular rate and rhythm. No murmur appreciated. RESPIRATORY: No accessory muscle use. Clear to auscultation. Breath sounds equal bilaterally. GASTROINTESTINAL: Abdomen soft, non-tender, nondistended. Hepatic and splenic margins not palpable. MUSCULOSKELETAL: No obvious deformities. No clubbing. No cyanosis. No edema. NEUROLOGICAL: Awake and alert. No obvious cranial nerve deficits. Motor grossly within normal limits. Normal speech. PSYCHIATRIC: Appropriate mood and affect; insight and judgment normal. Data Data Last Documented VS Orders Orders Complete Blood Count With Diff (04/05/17 06:09) Ckmb (Isoenzyme) Profile (04/05/17 06:09) Troponin I (04/05/17 06:09) Chest, Single Ap (04/05/17 06:09) Iv Access Insert/Monitor (04/05/17 06:09) Ecg Monitoring (04/05/17 06:09) Oxygen Administration (04/05/17 06:09) Oximetry (04/05/17 06:09) Comprehensive Metabolic Panel (04/05/17 06:09) Electrocardiogram (04/05/17 06:31) Basic Metabolic Panel (Bmp) (04/05/17 06:31) Ckmb (Isoenzyme) Profile (04/05/17 06:31) Magnesium (Mg) (04/05/17 06:31) Prothrombin Time / Inr (Pt) (04/05/17 06:31) Act Partial Throm Time (Ptt) (04/05/17 06:31) Troponin I (04/05/17 06:31) Bilateral Bp Monitoring (04/05/17 06:31) Sodium Chloride 0.9% Flush (Ns Flush) (04/05/17 06:45) Morphine Inj (Morphine Inj) (04/05/17 06:45) Sodium Chlorid 0.9% 500 Ml Inj (Ns 500 M (04/05/17 07:30) Ondansetron Inj (Zofran Inj) (04/05/17 07:30) Consult Cardiology (04/05/17 ) Admit Order (Ed Use Only) (04/05/17 07:51) Labs Laboratory Tests Test 04/05/17 06:10 White Blood Count 20.8 TH/MM3 Red Blood Count 3.85 MIL/MM3 Hemoglobin 11.9 GM/DL Hematocrit 35.3 % Mean Corpuscular Volume 91.7 FL Mean Corpuscular Hemoglobin 31.0 PG Mean Corpuscular Hemoglobin Concent 33.8 % Red Cell Distribution Width 13.9 % Platelet Count 319 TH/MM3 Mean Platelet Volume 7.6 FL Neutrophils (%) (Auto) 64.0 % Lymphocytes (%) (Auto) 24.9 % Monocytes (%) (Auto) 6.8 % Eosinophils (%) (Auto) 3.8 % Basophils (%) (Auto) 0.5 % Neutrophils # (Auto) 13.3 TH/MM3 Lymphocytes # (Auto) 5.2 TH/MM3 Monocytes # (Auto) 1.4 TH/MM3 Eosinophils # (Auto) 0.8 TH/MM3 Basophils # (Auto) 0.1 TH/MM3 CBC Comment AUTO DIFF Differential Total Cells Counted 100 Neutrophils % (Manual) 58 % Band Neutrophils % 5 % Lymphocytes % 21 % Monocytes % 10 % Eosinophils % 5 % Basophils % 1 % Neutrophils # (Manual) 13.1 TH/MM3 Differential Comment FINAL DIFF MANUAL Platelet Estimate NORMAL Platelet Morphology Comment NORMAL Red Cell Morphology Comment NORMAL Prothrombin Time 10.1 SEC Prothromb Time International Ratio 0.9 RATIO Activated Partial Thromboplast Time 24.8 SEC Blood Urea Nitrogen 42 MG/DL Creatinine 2.13 MG/DL Random Glucose 191 MG/DL Calcium Level 9.1 MG/DL Magnesium Level 1.9 MG/DL Sodium Level 135 MEQ/L Potassium Level 3.9 MEQ/L Chloride Level 100 MEQ/L Carbon Dioxide Level 24.7 MEQ/L Total Protein 8.1 GM/DL Albumin 3.3 GM/DL Alkaline Phosphatase 121 U/L Aspartate Amino Transf (AST/SGOT) 12 U/L Alanine Aminotransferase (ALT/SGPT) 21 U/L Total Bilirubin 0.3 MG/DL Anion Gap 10 MEQ/L Estimat Glomerular Filtration Rate 25 ML/MIN Total Creatine Kinase 47 U/L Troponin I 0.37 NG/ML MDM Medical Decision Making Medical Screen Exam Complete: Yes Emergency Medical Condition: Yes Medical Record Reviewed: Yes Interpretation(s) Twelve-lead EKG was reviewed by me. Normal sinus rhythm, left axis deviation, old anterior [place], poor R-wave progression, lateral T wave inversions. Heart rate of 80 bpm. Differential Diagnosis Non-STEMI, reocclusion of the stents, pericarditis Narrative Course 7:27 AM patient has been signed over to the oncoming ER physician. Awaiting for the blood test result. The range mounter has to be discussed with regarding the patient's current condition Procedures EKG Prior to Arrival: No Scripts Alprazolam (Xanax) 0.25 Mg Tab 0.25 MG PO Q6H Y for ANXIETY, #15 TAB 0 Refills Prov: Juan Valdivia DO 04/06/17 Carvedilol (Coreg) 6.25 Mg Tab 6.25 MG PO BID for heart , #60 TAB 0 Refills Prov: Cindy Benjamin 04/06/17 Furosemide (Lasix) 20 Mg Tab 20 MG PO DAILY for fluid retention/ heart, #30 TAB 0 Refills Prov: Cindy Benjamin 04/06/17 Isosorbide Mononitrate ER (Isosorbide Mononitrate ER) 60 Mg Tab 120 MG PO BID for Prevent Chest Pain, #60 TAB 0 Refills Prov: Cindy Benjamin 04/06/17 Amada Jacinto MD Apr 05, 2017 07:27
[2017-04-05] MEDS ORDERED: SODIUM CHLORID 0.9% 500 ML INJ 500 ML IV ONE (07:30)
[2017-04-05] MEDS ORDERED: ONDANSETRON HCL 4 MG/2 ML VIAL IV PUSH ONE (07:30)
--- NOTE | 2017-04-05 07:44 | PD ---
Physical Exam Narrative GENERAL: Well-nourished, well-developed patient. SKIN: Warm and dry. HEAD: Normocephalic and atraumatic. EYES: No injection or drainage. ENT: No nasal drainage noted. NECK: Supple, trachea midline. CARDIOVASCULAR: Regular rate and rhythm RESPIRATORY: no increased effort. No accessory muscle use. NEUROLOGICAL: Awake and alert. Moves all extremities and sensory grossly within normal limits. Normal speech. Data Data Last Documented VS Vital Signs Date Time Temp Pulse Resp B/P (MAP) Pulse Ox O2 Delivery O2 Flow Rate FiO2 04/05/17 07:01 80 16 138/67 (90) 93 Room Air 04/05/17 06:30 2.00 04/05/17 06:01 98.4 Orders Orders Complete Blood Count With Diff (04/05/17 06:09) Ckmb (Isoenzyme) Profile (04/05/17 06:09) Troponin I (04/05/17 06:09) Chest, Single Ap (04/05/17 06:09) Iv Access Insert/Monitor (04/05/17 06:09) Ecg Monitoring (04/05/17 06:09) Oxygen Administration (04/05/17 06:09) Oximetry (04/05/17 06:09) Comprehensive Metabolic Panel (04/05/17 06:09) Electrocardiogram (04/05/17 06:31) Basic Metabolic Panel (Bmp) (04/05/17 06:31) Ckmb (Isoenzyme) Profile (04/05/17 06:31) Magnesium (Mg) (04/05/17 06:31) Prothrombin Time / Inr (Pt) (04/05/17 06:31) Act Partial Throm Time (Ptt) (04/05/17 06:31) Troponin I (04/05/17 06:31) Bilateral Bp Monitoring (04/05/17 06:31) Sodium Chloride 0.9% Flush (Ns Flush) (04/05/17 06:45) Morphine Inj (Morphine Inj) (04/05/17 06:45) Sodium Chlorid 0.9% 500 Ml Inj (Ns 500 M (04/05/17 07:30) Urinalysis - C+S If Indicated (04/05/17 07:25) Ondansetron Inj (Zofran Inj) (04/05/17 07:30) Consult Cardiology (04/05/17 ) Admit Order (Ed Use Only) (04/05/17 07:51) Labs Laboratory Tests Test 04/05/17 06:10 White Blood Count 20.8 TH/MM3 Red Blood Count 3.85 MIL/MM3 Hemoglobin 11.9 GM/DL Hematocrit 35.3 % Mean Corpuscular Volume 91.7 FL Mean Corpuscular Hemoglobin 31.0 PG Mean Corpuscular Hemoglobin Concent 33.8 % Red Cell Distribution Width 13.9 % Platelet Count 319 TH/MM3 Mean Platelet Volume 7.6 FL Neutrophils (%) (Auto) 64.0 % Lymphocytes (%) (Auto) 24.9 % Monocytes (%) (Auto) 6.8 % Eosinophils (%) (Auto) 3.8 % Basophils (%) (Auto) 0.5 % Neutrophils # (Auto) 13.3 TH/MM3 Lymphocytes # (Auto) 5.2 TH/MM3 Monocytes # (Auto) 1.4 TH/MM3 Eosinophils # (Auto) 0.8 TH/MM3 Basophils # (Auto) 0.1 TH/MM3 CBC Comment AUTO DIFF Differential Total Cells Counted 100 Neutrophils % (Manual) 58 % Band Neutrophils % 5 % Lymphocytes % 21 % Monocytes % 10 % Eosinophils % 5 % Basophils % 1 % Neutrophils # (Manual) 13.1 TH/MM3 Differential Comment FINAL DIFF MANUAL Platelet Estimate NORMAL Platelet Morphology Comment NORMAL Red Cell Morphology Comment NORMAL Prothrombin Time 10.1 SEC Prothromb Time International Ratio 0.9 RATIO Activated Partial Thromboplast Time 24.8 SEC Blood Urea Nitrogen 41 MG/DL Creatinine 2.12 MG/DL Random Glucose 181 MG/DL Total Protein 8.1 GM/DL Albumin 3.3 GM/DL Calcium Level 8.8 MG/DL Alkaline Phosphatase 121 U/L Aspartate Amino Transf (AST/SGOT) 12 U/L Alanine Aminotransferase (ALT/SGPT) 21 U/L Total Bilirubin 0.3 MG/DL Sodium Level 134 MEQ/L Potassium Level 3.9 MEQ/L Chloride Level 100 MEQ/L Carbon Dioxide Level 25.1 MEQ/L Anion Gap 9 MEQ/L Estimat Glomerular Filtration Rate 25 ML/MIN Total Creatine Kinase 48 U/L Troponin I 0.36 NG/ML MDM Supervised Visit with KARI: No Interpretation(s) CBC & BMP Diagram 04/05/17 06:10 Total Protein 8.1, Albumin 3.3 L, Calcium Level 8.8, Alkaline Phosphatase 121 H , Aspartate Amino Transf (AST/SGOT) 12 L, Alanine Aminotransferase (ALT/SGPT) 21 , Total Bilirubin 0.3 Last 24 hours Impressions Chest X-Ray 04/05/17 0609 Signed Impressions: Service Date/Time: Wednesday, April 05, 2017 06:27 - CONCLUSION: 1. Cardiomegaly and previous CABG. Seamus Montez MD Troponin 0.36 Narrative Course Signed over to me to follow lab work and discuss with Dr. oviedo, on reassessment patient is feeling a little better after morphine. We'll discuss with cardiology Patient agrees to observation Physician Communication Physician Communication Dr. Pride states likely not ischemic, thinks appropriate to admit medically for trending of troponin and creatinine. No need for nitroglycerin or heparin at this time dr rossi agrees to admit Diagnosis Primary Impression: Chest pain Qualified Codes: R07.9 - Chest pain, unspecified Additional Impressions: Acute renal insufficiency CAD (coronary artery disease) Qualified Codes: I25.10 - Atherosclerotic heart disease of [place] coronary artery without angina pectoris Leukocytosis Qualified Codes: D72.829 - Elevated white blood cell count, unspecified Lynn Cerna MD Apr 05, 2017 07:44
[2017-04-05 07:47] LABS: BANDS 5 % (0-6); BASOPHILS 1 % (0-2); EOSINOPHILS 5 % (0-4); NEUTROPHIL # MANUAL DIFF 13.1 TH/MM3 (1.8-7.7); PLATELET ESTIMATE SMEAR NORMAL (NORMAL); PLATELET MORPHOLOGY NORMAL (NORMAL); POLYS (SEG NEUTROPHILS) 58 % (16-70); SCAN/DIFF FINAL DIFF MANUAL; WBC DIFF SAMPLE 100
[2017-04-05 08:04] LABS: BICARBONATE 24.7 MEQ/L (21.0-32.0); MAGNESIUM 1.9 MG/DL (1.5-2.5); POTASSIUM 3.9 MEQ/L (3.5-5.1)
[2017-04-05] MEDS ORDERED: SODIUM CHLORIDE 0.9% FLUSH 10 ML FLUSH IV FLUSH PRN (08:15)
[2017-04-05] MEDS ORDERED: DEXTROSE 50% IN WATER 50 ML VIAL(D50) IV PUSH PRN (08:45)
[2017-04-05] MEDS ORDERED: GLUCAGON 1 MG/ML VIAL OTHER PRN (08:45)
[2017-04-05] MEDS ORDERED: buPROPion HCL 150 MG EXTENDED RELEASE TAB PO SCH (09:00)
[2017-04-05] MEDS ORDERED: PILL SPLITTER OTHER PRN (09:00)
[2017-04-05] MEDS ORDERED: LISINOPRIL 20 MG TAB PO SCH (09:00)
[2017-04-05] MEDS ORDERED: TRADJENTA 5 MG PO SCH (09:00)
[2017-04-05] MEDS ORDERED: FUROSEMIDE 40 MG TAB PO SCH (09:00)
[2017-04-05] MEDS ORDERED: ALBUTEROL SULFATE 90 MCG/ACT HFA 8 GM INHALER INH PRN (09:00)
[2017-04-05] MEDS: ASPIRIN 325 MG TAB PO SCH (09:44)
[2017-04-05] MEDS: DOCUSATE SODIUM 100 MG CAP PO SCH (09:44)
[2017-04-05] MEDS: CARVEDILOL 12.5 MG TAB PO SCH ×2 (09:45→20:57)
[2017-04-05] MEDS: PARoxetine HCL 20 MG TAB PO SCH (09:45)
[2017-04-05] MEDS ORDERED: HYDROmorphone HCL PF 2 MG/ML VIAL IV ONE (09:45)
[2017-04-05] MEDS: CLOPIDOGREL 75 MG TAB PO SCH (09:46)
[2017-04-05] MEDS: INSULIN DETEMIR 100 UNITS/ML VIAL SQ SCH ×2 (09:47→20:58)
[2017-04-05] MEDS: ISOSORBIDE MONONITRATE 60 MG TAB PO SCH ×2 (09:49→20:57)
[2017-04-05] MEDS: PANTOPRAZOLE SOD 40 MG DELAYED RELEASE TAB PO SCH (09:49)
[2017-04-05] MEDS: SODIUM CHLOR 0.9% 1000 ML INJ 1,000 ML IV SCH ×2 (09:50→23:45)
--- NOTE | 2017-04-05 10:18 | HHI.HP ---
HPI Service [facility] Primary Care Physician Reji Basilio M.D. Admission Diagnosis chest pain, renal insufficiency, leukocytosis Chief Complaint: Chest pain Travel History International Travel<30 Days: No Contact w/Intl Traveler <30 Da: No History of Present Illness Mrs. Dwyer is a 51 y/o WF with history of CAD with previous CABG, DM, HTN, HLD , COPD, gastroparesis, and CHF echocardiogram 07/2016 revealed EF of 40-45% who was recently hospitalized from 03/30-04/01/2017 with complaints of chest pain. She had a VQ scan which noted low probability for PE at that time. She was found to have elevated troponin/NSTEMI and underwent LHC on 03/[address] Anderson which revealed with 75-80% lesions in RCA and PDA s/p 2 ALBERTO. She states that she has continued to have some low grade mild chest discomfort since her procedure but thought that this was just related to the stenting. She reports that she has been under a lot of emotional stress the last few days with the passing of her dog 2 days ago. At around 3:45AM this morning she was awake and playing on her computer when she developed mid sternal chest pressure which she felt radiated through to her back. She had some increased nausea and SOB with the pain and this prompted her presentation to the ED at [facility] on 04/05/17. She denies any vomiting, abdominal pain or diarrhea. Pts labs in the ED noted WBC count 20.8, Cr 2.12, BUN 41, GFR 25, Troponin 0.36. She had a CXR in the ED which noted cardiomegaly and previous CABG. Pt received Morphine in the ED without much relief. Pt denies any LE edema, abd distension or abd pain. She has gastroparesis and baseline nausea but the nausea was worse with the chest pain this morning. Review of Systems Constitutional: DENIES: Fever, Weight loss, Chills, Dizziness Eyes: DENIES: Vision loss Ears, nose, mouth, throat: DENIES: Hearing loss Cardiovascular: COMPLAINS OF: Chest pain, DENIES: Palpitations, Lower Extremity Edema Gastrointestinal: COMPLAINS OF: Nausea, DENIES: Abdominal pain, Constipation, Diarrhea, Vomiting Genitourinary: DENIES: Urinary frequency, Urinary incontinence Musculoskeletal: COMPLAINS OF: Back pain Integumentary: DENIES: Rash Neurologic: DENIES: Headache, Localized weakness, Paresthesias Psychiatric: DENIES: Confusion Past Family Social History Past Medical History Coronary artery disease status post CABG and cardiac stents, last stents placed on 03/31 Anxiety Depression Hyperlipidemia Congestive heart failure COPD Diabetes mellitus, type 2, Hgb A1C 9.2% (07/2016) Diabetic neuropathy GERD Chronic headaches Hypertension History of kidney stones Gastroparesis 2D echo (07/17/2016) - Estimated EF 40-45% - LA mildly dilated - Mild mitral regurg - Trace tricuspid regurg Past Surgical History [facility] (03/31/2017) with 75-80% lesions in RCA and PDA s/p 2 ALBERTO Hernia repair Appendectomy Cholecystectomy Sternal debridement CABG in [address] [facility] with [address]. Arsalan Anderson 05/30/14 - Severe 3 vessel [place] coronary artery disease - one of the two coronary artery bypass grafts are patent. There is late stent thrombosis of the PHILLIPS distal stent - Normal left ventricular filling pressures - Plan at time of heart catheterization: Given the small caliber sized vessel , cardiology elected to medically manage the remainder of patient's small vessel coronary disease Reported Medications -Lasix 40 Mg PO DAILY -Colace 100 Mg PO DAILY 30 Days -Reglan 5 Mg PO TIDAC -Ranexa ER 12 HR 1,000 Mg PO Q12HR -Lipitor 40 Mg PO HS -Carvedilol 12.5 Mg PO BID -Lantus Inj 40 Units SQ HS -Wellbutrin Xl 24 HR 150 Mg PO DAILY -Tradjenta 5 Mg PO DAILY -Tanzeum 4-Pack Inj 50 Mg SQ Q7D -Paroxetine 40 Mg PO DAILY -Lisinopril 20 Mg PO BID -Nitrostat SL (Nitroglycerin) 0.4 Mg Subl 0.4 Mg SL DIRECTED PRN -Aspirin 325 Mg PO DAILY -Novolog Inj (Insulin Aspart) 1,000 Unit/10 Ml Vial 5-25 Units SQ TIDACHS Max dose at bedtime:( )units; sugars less than 70,(0) units; sugars 150-199,(5) units; sugars 200-249,(10) units; sugars 250-299,(15) units; sugars 300-349,(20)units; sugars greater than 349,(25)units -Plavix 75 Mg PO DAILY -Protonix 40 Mg PO DAILY -Ventolin Hfa 18 GM Inh 90 Mcg/Act Aer 2 Puff INH Q6H PRN --Isosorbide Mononitrate ER 120 Mg PO BID (Pt has been taking 60mg PO BID for the last month) Allergies: Coded Allergies: diatrizoate meglumine (Unverified Allergy, Severe, Nausea/Vomiting, ) ORAL CONTRAST ONLY gadobenic acid (Unverified Allergy, Severe, Nausea/Vomiting, 03/30/17) ORAL CONTRAST ONLY gadodiamide (Unverified Allergy, Severe, Nausea/Vomiting, 03/30/17) ORAL CONTRAST ONLY gadoteridol (Unverified Allergy, Severe, Nausea/Vomiting, 03/30/17) ORAL CONTRAST ONLY iodixanol (Unverified Allergy, Severe, Nausea/Vomiting, 03/30/17) ORAL CONTRAST ONLY iohexol (Unverified Allergy, Severe, Nausea/Vomiting, 03/30/17) ORAL CONTRAST ONLY penicillin G (Unverified Allergy, Severe, 03/30/17) sulfamethoxazole (Unverified Allergy, Severe, 03/30/17) trimethoprim (Unverified Allergy, Severe, 03/30/17) Family History Maternal: Heart disease, Hx of CVA, Hx of PE/DVT Paternal: at age 50 from an PR Sister also with heart disease Social History Lives with: in [place] Hx of tobacco use, 1ppd 20+ quit 17 yrs ago Occasional alcohol once per month Denies any illicit drug use Pt is not working currently and working to get disability Physical Exam Vital Signs Vital Signs Date Time Temp Pulse Resp B/P (MAP) Pulse Ox O2 Delivery O2 Flow Rate FiO2 04/05/17 09:07 70 16 123/61 (81) 100 Room Air 04/05/17 07:01 80 16 138/67 (90) 93 Room Air 04/05/17 06:30 Nasal Cannula 2.00 04/05/17 06:06 80 139/64 (89) 04/05/17 06:01 98.4 87 16 196/90 (125) 96 Physical Exam GENERAL: This is a well-nourished, well-developed patient, in no apparent distress. HEENT: Atraumatic. Normocephalic. No temporal or scalp tenderness.No scleral icterus. Airway patent. NECK: Trachea midline, supple, nontender. CARDIO: Regular. RESP: CTA bilaterally. No wheezes, rales, or rhonchi. ABD: +BS, soft, non-tender, nondistended. EXT: Extremities without clubbing, cyanosis, or edema. NEURO: Awake and alert. Motor and sensory grossly within normal limits. Normal speech. Laboratory Laboratory Tests Test 04/05/17 06:10 White Blood Count 20.8 Red Blood Count 3.85 Hemoglobin 11.9 Hematocrit 35.3 Mean Corpuscular Volume 91.7 Mean Corpuscular Hemoglobin 31.0 Mean Corpuscular Hemoglobin Concent 33.8 Red Cell Distribution Width 13.9 Platelet Count 319 Mean Platelet Volume 7.6 Neutrophils (%) (Auto) 64.0 Lymphocytes (%) (Auto) 24.9 Monocytes (%) (Auto) 6.8 Eosinophils (%) (Auto) 3.8 Basophils (%) (Auto) 0.5 Neutrophils # (Auto) 13.3 Lymphocytes # (Auto) 5.2 Monocytes # (Auto) 1.4 Eosinophils # (Auto) 0.8 Basophils # (Auto) 0.1 CBC Comment AUTO DIFF Differential Total Cells Counted 100 Neutrophils % (Manual) 58 Band Neutrophils % 5 Lymphocytes % 21 Monocytes % 10 Eosinophils % 5 Basophils % 1 Neutrophils # (Manual) 13.1 Differential Comment FINAL DIFF MANUAL Platelet Estimate NORMAL Platelet Morphology Comment NORMAL Red Cell Morphology Comment NORMAL Prothrombin Time 10.1 Prothromb Time International Ratio 0.9 Activated Partial Thromboplast Time 24.8 Blood Urea Nitrogen 42 Creatinine 2.13 Random Glucose 191 Calcium Level 9.1 Magnesium Level 1.9 Sodium Level 135 Potassium Level 3.9 Chloride Level 100 Carbon Dioxide Level 24.7 Total Protein 8.1 Albumin 3.3 Alkaline Phosphatase 121 Aspartate Amino Transf (AST/SGOT) 12 Alanine Aminotransferase (ALT/SGPT) 21 Total Bilirubin 0.3 Anion Gap 10 Estimat Glomerular Filtration Rate 25 Total Creatine Kinase 47 Troponin I 0.37 Result Diagram: 04/05/1710 04/05/17609 Imaging Last Impressions Chest X-Ray 04/05/17608 Signed Impressions: Service Date/Time: Wednesday, April 05, 2017 06:27 - CONCLUSION: 1. Cardiomegaly and previous CABG. Seamus Montez MD Septic Shock Reassessment Heart: Regular rate and rhythm Lungs: Clear Skin: Warm Caprini VTE Risk Assessment Caprini VTE Risk Assessment: Mod/High Risk (score >= 2) Caprini Risk Assessment Model Point Value = 1 Point Value = 2 Point Value = 3 Point Value = 5 Age 41-60 Minor surgery BMI > 25 kg/m2 Swollen legs Varicose veins or History of unexplained or recurrent spontaneous Oral contraceptives or hormone replacement Sepsis (< 1 month) Serious lung disease, including pneumonia (< 1 month) Abnormal pulmonary function Acute myocardial infarction Congestive heart failure (< 1 month) History of inflammatory bowel disease Medical patient at bed rest Age 61-74 Arthroscopic surgery Major open surgery (> 45 min) Laparoscopic surgery (> 45 min) Malignancy Confined to bed (> 72 hours) Immobilizing plaster cast Central venous access Age >= 75 History of VTE Family history of VTE Factor V Leiden Prothrombin [id number] Lupus anticoagulant Anticardiolipin antibodies Elevated serum homocysteine Heparin-induced thrombocytopenia Other congenital or acquired thrombophilia Stroke (< 1 month) Elective arthroplasty Hip, pelvis, or leg fracture Acute spinal cord injury (< 1 month) Prophylaxis Regimen Total Risk Factor Score Risk Level Prophylaxis Regimen 0-1 Low Early ambulation 2 Moderate Order ONE of the following: *Sequential Compression Device (SCD) *Heparin 5000 units SQ BID 3-4 Higher Order ONE of the following medications: *Heparin 5000 units SQ TID *Enoxaparin/Lovenox 40 mg SQ daily (WT < 150 kg, CrCl > 30 mL/min) *Enoxaparin/Lovenox 30 mg SQ daily (WT < 150 kg, CrCl > 10-29 mL/min) *Enoxaparin/Lovenox 30 mg SQ BID (WT < 150 kg, CrCl > 30 mL/min) AND/OR *Sequential Compression Device (SCD) 5 or more Highest Order ONE of the following medications: *Heparin 5000 units SQ TID (Preferred with Epidurals) *Enoxaparin/Lovenox 40 mg SQ daily (WT < 150 kg, CrCl > 30 mL/min) *Enoxaparin/Lovenox 30 mg SQ daily (WT < 150 kg, CrCl > 10-29 mL/min) *Enoxaparin/Lovenox 30 mg SQ BID (WT < 150 kg, CrCl > 30 mL/min) AND *Sequential Compression Device (SCD) Assessment and Plan Problem List: (1) Chest pain ICD Codes: R07.9 - Chest pain, unspecified Status: Chronic Plan: - The pt is a 51 y/o WF with history of CAD with previous CABG and recent stenting, DM, HTN, HLD, COPD, gastroparesis, and CHF echocardiogram 07/2016 revealed EF of 40-45%. - Pt was recently hospitalized from 03/30-04/01/2017 with complaints of chest pain. She had a VQ scan which noted low probability for PE at that time. She was found to have elevated troponin/ NSTEMI and underwent LHC on 03/[address] Anderson which revealed 75-80% lesions in RCA and PDA s/p 2 ALBERTO. - Pt presented back to the ED on 04/05/17 with chest pain, nausea and SOB. Since her discharge on 04/01 she has continued to have some low grade mild chest discomfort but around 3:45AM this morning she was awake and playing on her computer when she developed mid sternal chest pressure which she felt radiated through to her back. She had some increased nausea and SOB with the pain - Pts labs in the ED noted WBC count 20.8, Cr 2.12, BUN 41, GFR 25, Troponin 0.36. - CXR in the ED which noted cardiomegaly and previous CABG. - Pt received Morphine in the ED without much relief. - Of note, pt has been taking a lower dose of Imdur at home for the last month, 60mg po BID. The Imdur was previously increased in 04/2016 to 120mg po BID but she reports that her last prescription refill she noted the dose to be lower at 60mg po BID. - Serial CE and EKGs, her Troponin is lower than when she left the hospital after her NSTEMI so its likely trending down - Cardiology is consulted - Resume home meds but resume her previous higher dose Imdur 120mg po BID - IVF - Antiemetics PRN - Check Lipase level as this has been increased recently but she had a gi workup including MRCP which was negative - Pain control PRN - Supportive care (2) Leukocytosis ICD Codes: D72.829 - Elevated white blood cell count, unspecified Status: Acute Plan: - Etiology unclear, she has been afebrile no specific infectious symptoms noted - Pt did receive Solu-Medrol during recent admission which may be contributing - Check a UA (3) Acute renal insufficiency ICD Codes: N28.9 - Acute renal insufficiency Status: Acute Plan: - Pt reports that she has not been eating well the last few days but has been drinking plenty of fluids. She also notes that she does not feel she has been urinating as much as she should for how much fluids she is taking in - Hold Lasix and Lisinopril - Give IVF - Monitor renal function - Consider Renal US (4) CAD (coronary artery disease) ICD Codes: I25.10 - Atherosclerotic heart disease of [place] coronary artery without angina pectoris Status: Chronic Plan: - See above (5) Hypertension ICD Codes: I10 - Hypertension Status: Resolved Plan: - Home meds resumed - Monitor (6) Gastroparesis ICD Codes: K31.84 - Gastroparesis Status: Chronic Plan: - Cont. Reglan 5mg po TIDAC (7) CHF (congestive heart failure) ICD Codes: I50.9 - Heart failure, unspecified Status: Chronic Plan: - Home meds continued - Pt has been considered for AICD in the recent past (8) Diabetes ICD Codes: E11.9 - Type 2 diabetes mellitus without complications Status: Chronic Plan: - High dose NovoLog SSI - Levemir 15units BID, titrate up as necessary (9) S/P CABG (coronary artery bypass graft) ICD Codes: Z95.1 - Status post coronary artery bypass graft Status: Chronic Assessment and Plan Patient examined. Assessment and plan formulated with Nuha Mojica PA-C. I agree with the above. Problem Qualifiers (1) Chest pain: Qualified Codes: R07.9 - Chest pain, unspecified (2) Leukocytosis: Qualified Codes: D72.829 - Elevated white blood cell count, unspecified (3) CAD (coronary artery disease): Qualified Codes: I25.10 - Atherosclerotic heart disease of [place] coronary artery without angina pectoris (4) CHF (congestive heart failure): (5) Diabetes: Nuha Mojica Apr 05, 2017 10:18 Juan Valdivia DO Apr 10, 2017 23:06
[2017-04-05] MEDS: ALPRAZolam 0.25 MG TAB PO PRN (11:29)
[2017-04-05] MEDS: RANOLAZINE 500 MG EXTENDED RELEASE TAB PO SCH ×2 (11:30→20:57)
[2017-04-05] MEDS: SODIUM CHLORIDE 0.9% FLUSH 10 ML FLUSH IV FLUSH SCH ×2 (11:30→21:00)
[2017-04-05] MEDS: METOCLOPRAMIDE HCL 10 MG TAB PO SCH ×2 (11:32→17:04)
--- NOTE | 2017-04-05 12:54 | MB ---
cc: ANSELMO CAMPOVERDE DATE OF CONSULTATION: 04/05/2017 REASON FOR CONSULTATION Chest pain. HISTORY OF PRESENT ILLNESS This is a very nice 51-year-old female. She has a history of coronary artery disease, prior bypass surgery, diabetes, hyperlipidemia, hypertension and recent percutaneous intervention. She presented just a week or so ago with chest pain and had quite an elevation in troponin. We took her to the catheterization lab and ended up performing intervention in the right coronary extending down to the posterolateral branch. Angiographically things looked good. She has rather diffuse small vessel disease with prior bypass surgery and occluded grafts. She has already been optimized in terms of beta blockade, Ranexa and long-acting nitrates. She now presents with some chest pain, sounds a little more atypical. She states that she has been under a great deal of emotional stress and anxiety given her dog about two days ago. When she arrived here her white count was elevated, troponin is chronically elevated, troponin is relatively flat and trending downward. She is currently chest pain free. PAST MEDICAL HISTORY 1. Coronary artery bypass surgery. 2. Coronary artery disease with percutaneous stents. 3. Depression. 4. Hyperlipidemia. 5. Congestive heart failure. 6. COPD. 7. Diabetes. 8. Nephropathy. 9. GERD. 10.Hypertension. 11.Gastroparesis. 12.Nephrolithiasis. MEDICATIONS 1. Lasix. 2. Colace. 3. Reglan. 4. Ranexa. 5. Lipitor. 6. Carvedilol. 7. Lantus. 8. Wellbutrin. 9. Tradjenta. 10.Paroxetine. 11.Lisinopril. 12.Nitrostat. 13.Aspirin. 14.Insulin. 15.Plavix. 16.Protonix. 17.Ventolin. ALLERGIES 1. CONTRAST. 2. PENICILLIN. 3. SULFA. 4. TRIMETHOPRIM. FAMILY HISTORY Denies any family history of early coronary artery disease or sudden cardiac . SOCIAL HISTORY Quit smoking about 17 years ago. Smoked about one pack a day for 20 years. Denies any drug use. Occasional alcohol use. REVIEW OF SYSTEMS A 12-point review of systems was performed and negative unless otherwise noted in the history of present illness. PHYSICAL EXAMINATION VITAL SIGNS: Temperature 98, pulse 71, blood pressure 115/56 mmHg. GENERAL: Alert and oriented x3, in no acute distress. HEENT: Pupils reactive to light and accommodation. Extraocular movements are intact. NECK: No jugular venous distention. No thyromegaly. No lymphadenopathy. No carotid bruits. LUNGS: Clear to auscultation bilaterally. CARDIOVASCULAR: Regular rate and rhythm. Distant heart sounds. No murmurs, rubs or gallops. ABDOMEN: Nontender, nondistended. Good bowel sounds. No hepatosplenomegaly. EXTREMITIES: No clubbing, cyanosis or edema. Good peripheral pulses. NEUROLOGIC: Cranial nerves intact. Motor and sensory grossly intact. LABORATORY WBC 20.8, hemoglobin 11.9, platelet count 319. INR 0.9. Sodium 135, potassium 3.9, BUN 42, creatinine 2.13. Troponin 0.36, 0.37, 0.37. ASSESSMENT 1. Chest pain. 2. Chronic renal insufficiency. 3. Chronically elevated troponin. 4. Diabetes. 5. Hypertension. 6. Hyperlipidemia. 7. Coronary artery disease, prior percutaneous intervention. PLAN Symptoms are somewhat more atypical. Her troponin is flat and down from prior elevation. This may just be chronically elevated due to her cardiomyopathy and renal insufficiency. She is already maximized on a medical regimen for antianginals. She is on beta susan, Ranexa 1000 mg twice a day, in addition to long-acting nitrate. If she has no further elevation in troponin and remains asymptomatic, we can discharge her with outpatient follow-up. Given her diffuse disease there is no point during a stress test. We just did the recent heart catheterization. There is no evidence for stent thrombosis. She has been compliant with Plavix. If she continues to have more suggestive anginal symptoms given her age, an alternative may be TMR versus transplantation. MD DEBBY Shah/HAILY /12:15 PM /12:34 PM
[2017-04-05] MEDS: INSULIN ASPART SUPPLEMENTAL SCALE SQ SCH ×3 (13:08→21:00)
[2017-04-05] MEDS: buPROPion HCL 150 MG SUSTAINED RELEASE TAB PO SCH (17:03)
[2017-04-05] MEDS ORDERED: ATORVASTATIN 40 MG TAB PO SCH (21:00)
[2017-04-05 21:27] LABS: BLOOD, URINE NEG (NEG); COMMENT (UR) CULT NOT INDICATED; CULTURE IF INDICATED CULT NOT INDICATED; GLUCOSE,URINE TRACE mg/dL (NEG); KETONE, URINE NEG (NEG); NITRITE,URINE NEG (NEG); SQUAMOUS EPITHELIAL CELL URINE 1 /hpf (0-5); URINE COLOR LIGHT-YELLOW (YELLW/STRAW)
--- NOTE | 2017-04-05 21:58 | EKG ---
Date Performed: 04/05/2017 Time Performed: 14:49:40 PTAGE: 51 years EKG: Sinus rhythm LEFT ANTERIOR FASCICULAR BLOCK POSSIBLE ANTERIOR MYOCARDIAL INFARCTION MODERATE T-WAVE ABNORMALITY A BNORMAL ECG PREVIOUS TRACING : 04/05/2017 09.35 Compared to prior tracing no significant change DOCTOR: Brianna Sanon Interpretating Date/Time 04/05/2017 21:57:27
[2017-04-06] VITALS (7 sets, daily range): BP systolic 96–146; BP diastolic 55–76; PULSE 64–72; RESP 16–20; TEMP 97.7–98.3; O2SAT 89–96
--- NOTE | 2017-04-06 07:35 | EKG ---
Date Performed: 04/05/2017 Time Performed: 05:59:51 PTAGE: 51 years EKG: Sinus rhythm LEFT ANTERIOR FASCICULAR BLOCK POSSIBLE ANTERIOR MYOCARDIAL INFARCTION, AGE UNDETERMINED MODERATE T- WAVE ABNORMALITY, CONSIDER LATERAL ISCHEMIA ABNORMAL ECG PREVIOUS TRACING DOCTOR: Hermes Gupta Interpretating Date/Time 04/06/2017 07:33:45
--- NOTE | 2017-04-06 07:36 | EKG ---
Date Performed: 04/05/2017 Time Performed: 09:35:14 PTAGE: 51 years EKG: Sinus rhythm LEFT ANTERIOR FASCICULAR BLOCK POSSIBLE ANTERIOR MYOCARDIAL INFARCTION, AGE UNDETERMINED MODERATE T- WAVE ABNORMALITY, CONSIDER LATERAL ISCHEMIA ABNORMAL ECG PREVIOUS TRACING : 04/05/2017 05.59 DOCTOR: Hermes Gupta Interpretating Date/Time 04/06/2017 07:33:57
[2017-04-06] MEDS ORDERED: ISOS60TA PO (08:14)
--- NOTE | 2017-04-06 08:20 | PD.CARD.PN ---
Subjective Subjective Remarks no complaints no events Objective Medications Current Medications Medications (Trade) Dose Ordered Sig/Marcial Route Start Time Stop Time Status Last Admin (NS Flush) 2 ml BID IV FLUSH 04/05/17 09:00 (NS Flush) 2 ml UNSCH PRN IV FLUSH 04/05/17 08:15 (Proair Hfa Inh) 2 puff Q6H PRN INH 04/05/17 09:00 (Aspirin) 325 mg DAILY PO 04/05/17 09:00 04/05/17 09:44 (Lipitor) 40 mg HS PO 04/05/17 21:00 04/05/17 20:57 (Coreg) 12.5 mg BID PO 04/05/17 09:00 04/05/17 20:57 (Plavix) 75 mg DAILY PO 04/05/17 09:00 04/05/17 09:46 (Colace) 100 mg DAILY PO 04/05/17 09:00 04/05/17 09:44 (Lasix) 40 mg DAILY PO 04/05/17 09:00 Future Hold 04/05/17 09:45 (Imdur) 120 mg BID PO 04/05/17 09:30 04/05/17 20:57 (Prinivil) 20 mg BID PO 04/05/17 09:00 Future Hold 04/05/17 09:46 (Protonix) 40 mg DAILY PO 04/05/17 09:00 04/05/17 09:49 (Paxil) 40 mg DAILY PO 04/05/17 09:00 04/05/17 09:45 (Ranexa) 1,000 mg Q12HR PO 04/05/17 09:00 04/05/17 20:57 Patient Own Medication PT OWN MED:TRADJENTA 5MG TAB... DAILY PO 04/05/17 09:00 Future Hold (Reglan) 5 mg TIDAC PO 04/05/17 12:00 04/05/17 17:04 (NovoLOG SUPPLEMENTAL SCALE) 1 ACHS SLIDING SCALE SQ 04/05/17 12:00 04/05/17 21:00 (Levemir Inj) 15 units Q12HR SQ 04/05/17 09:00 04/05/17 20:58 (D50w (Vial) Inj) 50 ml UNSCH PRN IV PUSH 04/05/17 08:45 (Glucagon Inj) 1 mg UNSCH PRN OTHER 04/05/17 08:45 (Pill Splitter) 1 ea UNSCH PRN OTHER 04/05/17 09:00 Sodium Chloride 1,000 ml @ 80 mls/hr [id number] IV 04/05/17 09:00 04/05/17 23:45 (Xanax) 0.25 mg Q6H PRN PO 04/05/17 09:00 04/05/17 11:29 (Wellbutrin Sr) 150 mg DAILY PO 04/05/17 16:30 04/05/17 17:03 Vital Signs / I&O Vital Signs Date Time Temp Pulse Resp B/P (MAP) Pulse Ox O2 Delivery O2 Flow Rate FiO2 04/06/17 07:51 97.7 67 18 116/57 (76) 89 04/06/17 03:46 65 04/06/17 03:13 98.3 65 16 96/55 (69) 95 04/05/17 23:39 98.0 64 18 101/54 (70) 93 04/05/17 19:56 98.0 70 18 96/47 (63) 92 04/05/17 17:37 97.8 64 21 90/52 (65) 93 Manual Cuff/Auscultation 04/05/17 16:25 84/50 (61) 04/05/17 16:05 97.9 66 18 89/47 (61) 92 04/05/17 15:45 66 04/05/17 13:00 66 04/05/17 11:36 98.0 71 20 115/56 (75) 93 04/05/17 09:55 100 Room Air 04/05/17 09:07 70 16 123/61 (81) 100 Room Air I/O 04/05/17 04/05/17 04/05/17 04/06/17 04/06/17 04/06/17 07:00 15:00 23:00 07:00 15:00 23:00 Intake Total 860 ml 200 ml Balance 860 ml 200 ml Intake Oral 360 ml 200 ml IV Total 500 ml Physical Exam GENERAL: SKIN: Warm and dry. HEAD: Normocephalic. EYES: No scleral icterus. No injection or drainage. NECK: Supple, trachea midline. No JVD or lymphadenopathy. CARDIOVASCULAR: Regular rate and rhythm without murmurs, gallops, or rubs. RESPIRATORY: Breath sounds equal bilaterally. No accessory muscle use. GASTROINTESTINAL: Abdomen soft, non-tender, nondistended. MUSCULOSKELETAL: No cyanosis, or edema. BACK: Nontender without obvious deformity. No CVA tenderness. Laboratory Laboratory Tests Test 04/05/17 09:30 04/05/17 14:10 04/05/17 21:12 Total Creatine Kinase 41 U/L 58 U/L Troponin I 0.37 NG/ML 0.29 NG/ML Lipase 341 U/L Urine Color LIGHT-YELLOW Urine Turbidity CLEAR Urine pH 5.0 Urine Specific [place] 1.009 Urine Protein NEG mg/dL Urine Glucose (UA) TRACE mg/dL Urine Ketones NEG mg/dL Urine Occult Blood NEG Urine Nitrite NEG Urine Bilirubin NEG Urine Urobilinogen LESS THAN 2.0 MG/DL Urine Leukocyte Esterase NEG Urine RBC LESS THAN 1 /hpf Urine WBC 1 /hpf Urine Squamous Epithelial Cells 1 /hpf Urine Amorphous Sediment RARE Microscopic Urinalysis Comment CULT NOT INDICATED Imaging Last Impressions Chest X-Ray 04/05/17 0609 Signed Impressions: Service Date/Time: Wednesday, April 05, 2017 06:27 - CONCLUSION: 1. Cardiomegaly and previous CABG. Seamus Montez MD Assessment and Plan Assessment and Plan CAD - trop trending down. likely from recent hospitalization. cont asa plavix isosorbide hypotension - decrease coreg to 6.25 BID CRI - DC on lasix 20 daily. monitor weight. reduce salt. outpatient BMP in 1 week ok for DC today Arsalan Anderson MD Apr 06, 2017 08:20
--- NOTE | 2017-04-06 08:25 | HHI.PR ---
Subjective Remarks Patient reports feeling much better no longer having chest discomfort reports she felt much better after Xanax yesterday- requesting more to take at home offers no other complaints Objective Vitals Vital Signs Date Time Temp Pulse Resp B/P (MAP) Pulse Ox O2 Delivery O2 Flow Rate FiO2 04/06/17 07:51 97.7 67 18 116/57 (76) 89 04/06/17 03:46 65 04/06/17 03:13 98.3 65 16 96/55 (69) 95 04/05/17 23:39 98.0 64 18 101/54 (70) 93 04/05/17 19:56 98.0 70 18 96/47 (63) 92 04/05/17 17:37 97.8 64 21 90/52 (65) 93 Manual Cuff/Auscultation 04/05/17 16:25 84/50 (61) 04/05/17 16:05 97.9 66 18 89/47 (61) 92 04/05/17 15:45 66 04/05/17 13:00 66 04/05/17 11:36 98.0 71 20 115/56 (75) 93 04/05/17 09:55 100 Room Air 04/05/17 09:07 70 16 123/61 (81) 100 Room Air Result Diagram: 04/05/17 0610 04/05/17 0610 Other Results Laboratory Tests Test 04/05/17 06:10 04/05/17 09:30 04/05/17 14:10 04/05/17 21:12 White Blood Count 20.8 TH/MM3 Red Blood Count 3.85 MIL/MM3 Hemoglobin 11.9 GM/DL Hematocrit 35.3 % Mean Corpuscular Volume 91.7 FL Mean Corpuscular Hemoglobin 31.0 PG Mean Corpuscular Hemoglobin Concent 33.8 % Red Cell Distribution Width 13.9 % Platelet Count 319 TH/MM3 Mean Platelet Volume 7.6 FL Neutrophils (%) (Auto) 64.0 % Lymphocytes (%) (Auto) 24.9 % Monocytes (%) (Auto) 6.8 % Eosinophils (%) (Auto) 3.8 % Basophils (%) (Auto) 0.5 % Neutrophils # (Auto) 13.3 TH/MM3 Lymphocytes # (Auto) 5.2 TH/MM3 Monocytes # (Auto) 1.4 TH/MM3 Eosinophils # (Auto) 0.8 TH/MM3 Basophils # (Auto) 0.1 TH/MM3 CBC Comment AUTO DIFF Differential Total Cells Counted 100 Neutrophils % (Manual) 58 % Band Neutrophils % 5 % Lymphocytes % 21 % Monocytes % 10 % Eosinophils % 5 % Basophils % 1 % Neutrophils # (Manual) 13.1 TH/MM3 Differential Comment FINAL DIFF MANUAL Platelet Estimate NORMAL Platelet Morphology Comment NORMAL Red Cell Morphology Comment NORMAL Prothrombin Time 10.1 SEC Prothromb Time International Ratio 0.9 RATIO Activated Partial Thromboplast Time 24.8 SEC Blood Urea Nitrogen 42 MG/DL Creatinine 2.13 MG/DL Random Glucose 191 MG/DL Calcium Level 9.1 MG/DL Magnesium Level 1.9 MG/DL Sodium Level 135 MEQ/L Potassium Level 3.9 MEQ/L Chloride Level 100 MEQ/L Carbon Dioxide Level 24.7 MEQ/L Total Protein 8.1 GM/DL Albumin 3.3 GM/DL Alkaline Phosphatase 121 U/L Aspartate Amino Transf (AST/SGOT) 12 U/L Alanine Aminotransferase (ALT/SGPT) 21 U/L Total Bilirubin 0.3 MG/DL Anion Gap 10 MEQ/L Estimat Glomerular Filtration Rate 25 ML/MIN Total Creatine Kinase 47 U/L 41 U/L 58 U/L Troponin I 0.37 NG/ML 0.37 NG/ML 0.29 NG/ML Lipase 341 U/L Urine Color LIGHT-YELLOW Urine Turbidity CLEAR Urine pH 5.0 Urine Specific [place] 1.009 Urine Protein NEG mg/dL Urine Glucose (UA) TRACE mg/dL Urine Ketones NEG mg/dL Urine Occult Blood NEG Urine Nitrite NEG Urine Bilirubin NEG Urine Urobilinogen LESS THAN 2.0 MG/DL Urine Leukocyte Esterase NEG Urine RBC LESS THAN 1 /hpf Urine WBC 1 /hpf Urine Squamous Epithelial Cells 1 /hpf Urine Amorphous Sediment RARE Microscopic Urinalysis Comment CULT NOT INDICATED Imaging Last Impressions Chest X-Ray 04/05/17 0609 Signed Impressions: Service Date/Time: Wednesday, April 05, 2017 06:27 - CONCLUSION: 1. Cardiomegaly and previous CABG. Seamus Montez MD Objective Remarks GENERAL: This is an obese, well-developed patient, in no apparent distress. CARDIO: Regular. RESP: CTA bilaterally. No wheezes, rales, or rhonchi. ABD: +BS, soft, non-tender, nondistended. EXT: Extremities without clubbing, cyanosis, or edema. NEURO: Awake and alert. Motor and sensory grossly within normal limits. Normal speech. A/P Problem List: (1) Chest pain ICD Codes: R07.9 - Chest pain, unspecified Status: Chronic Plan: - The pt is a 51 y/o WF with history of CAD with previous CABG and recent stenting, DM, HTN, HLD, COPD, gastroparesis, and CHF echocardiogram 07/2016 revealed EF of 40-45%. - Pt was recently hospitalized from 03/30-04/01/2017 with complaints of chest pain. She had a VQ scan which noted low probability for PE at that time. She was found to have elevated troponin/ NSTEMI and underwent LHC on 03/[address] Anderson which revealed 75-80% lesions in RCA and PDA s/p 2 ALBERTO. - Pt presented back to the ED on 04/05/17 with chest pain, nausea and SOB. Since her discharge on 04/01 she has continued to have some low grade mild chest discomfort but around 3:45AM this morning she was awake and playing on her computer when she developed mid sternal chest pressure which she felt radiated through to her back. She had some increased nausea and SOB with the pain - Pts labs in the ED noted WBC count 20.8, Cr 2.12, BUN 41, GFR 25, Troponin 0.36. - CXR in the ED which noted cardiomegaly and previous CABG. - Pt received Morphine in the ED without much relief. - Of note, pt has been taking a lower dose of Imdur at home for the last month, 60mg po BID. The Imdur was previously increased in 04/2016 to 120mg po BID but she reports that her last prescription refill she noted the dose to be lower at 60mg po BID. - Serial CE and EKGs, her Troponin is lower than when she left the hospital after her NSTEMI so its likely trending down - Cardiology is consulted- plan for DC home and follow up as an outpatient - Resume home meds but resume her previous higher dose Imdur 120mg po BID - IVF - Antiemetics PRN - Check Lipase level as this has been increased recently but she had a gi workup including MRCP which was negative- 341 - Pain control PRN - Supportive care (2) Leukocytosis ICD Codes: D72.829 - Elevated white blood cell count, unspecified Status: Acute Plan: - Etiology unclear, she has been afebrile no specific infectious symptoms noted - Pt did receive Solu-Medrol during recent admission which may be contributing - Check a UA- negative Leukocyte esterase no culture indicated, patient denies dysuria or increased urinary frequency (3) Acute renal insufficiency ICD Codes: N28.9 - Acute renal insufficiency Status: Acute Plan: - Pt reports that she has not been eating well the last few days but has been drinking plenty of fluids. She also notes that she does not feel she has been urinating as much as she should for how much fluids she is taking in - Hold Lasix and Lisinopril - Give IVF - Monitor renal function - recheck BMP in 5 days then follow up with PCP as outpatient (4) CAD (coronary artery disease) ICD Codes: I25.10 - Atherosclerotic heart disease of [place] coronary artery without angina pectoris Status: Chronic Plan: - See above (5) Hypertension ICD Codes: I10 - Hypertension Status: Resolved Plan: - Home meds resumed - Monitor (6) Gastroparesis ICD Codes: K31.84 - Gastroparesis Status: Chronic Plan: - Cont. Reglan 5mg po TIDAC (7) CHF (congestive heart failure) ICD Codes: I50.9 - Heart failure, unspecified Status: Chronic Plan: - Home meds continued - Pt has been considered for AICD in the recent past (8) Diabetes ICD Codes: E11.9 - Type 2 diabetes mellitus without complications Status: Chronic Plan: - High dose NovoLog SSI - Levemir 15units BID, titrate up as necessary (9) S/P CABG (coronary artery bypass graft) ICD Codes: Z95.1 - Status post coronary artery bypass graft Status: Chronic Assessment and Plan DC patient home in stable condition on diabetic heart healthy diet with outpatient follow up with PCP and Cardiology increase Imdur to 120 mg BID hold Lisinopril and decrease Lasix to 20 mg daily due to worsening renal function- repeat BMP in 5 days with results to PCP Left message with Jacquie at Dr. Basilio's office regarding hospitalization and left my cell phone as a return number if Dr. Basilio had any questions Patient examined. Assessment and plan formulated with Cindy Benjamin PA-C. I agree with the above. Problem Qualifiers (1) Chest pain: Qualified Codes: R07.9 - Chest pain, unspecified (2) Leukocytosis: Qualified Codes: D72.829 - Elevated white blood cell count, unspecified (3) CAD (coronary artery disease): Qualified Codes: I25.10 - Atherosclerotic heart disease of [place] coronary artery without angina pectoris (4) CHF (congestive heart failure): (5) Diabetes: Cindy Benjamin Apr 06, 2017 08:25 Juan Valdivia DO Apr 10, 2017 23:05
[2017-04-06] MEDS: SODIUM CHLORIDE 0.9% FLUSH 10 ML FLUSH IV FLUSH SCH (09:00)
[2017-04-06] MEDS ORDERED: CARVEDILOL 6.25 MG TAB PO SCH (09:00)
[2017-04-06] MEDS: ASPIRIN 325 MG TAB PO SCH (09:03)
[2017-04-06] MEDS: ISOSORBIDE MONONITRATE 60 MG TAB PO SCH (09:04)
[2017-04-06] MEDS: buPROPion HCL 150 MG SUSTAINED RELEASE TAB PO SCH (09:04)
[2017-04-06] MEDS: RANOLAZINE 500 MG EXTENDED RELEASE TAB PO SCH (09:04)
[2017-04-06] MEDS: DOCUSATE SODIUM 100 MG CAP PO SCH (09:05)
[2017-04-06] MEDS: CLOPIDOGREL 75 MG TAB PO SCH (09:05)
[2017-04-06] MEDS: METOCLOPRAMIDE HCL 10 MG TAB PO SCH ×2 (09:09→12:15)
[2017-04-06] MEDS: PANTOPRAZOLE SOD 40 MG DELAYED RELEASE TAB PO SCH (09:09)
[2017-04-06] MEDS: PARoxetine HCL 20 MG TAB PO SCH (09:10)
[2017-04-06] MEDS: INSULIN DETEMIR 100 UNITS/ML VIAL SQ SCH (09:12)
[2017-04-06] MEDS: INSULIN ASPART SUPPLEMENTAL SCALE SQ SCH ×2 (09:14→13:14)
[2017-04-06] MEDS ORDERED: FURO1TAB62 PO (09:15)
[2017-04-06] MEDS ORDERED: CARV6.25 PO (09:15)
[2017-04-06] MEDS ORDERED: ALPR.25 PO (09:17)
--- NOTE | 2017-04-06 09:21 | HHI.FF ---
Face to Face Verification Diagnosis: (1) Diastolic heart failure (2) Diabetes (3) CAD (coronary artery disease) (4) CHF (congestive heart failure) (5) Gastroparesis Home Health Nursing Order: Medical education Signs/symptoms of disease process Diabetic education CHF education Medication education-adverse effect Nursing assessment with vital signs I have seen patient Franklin Dwyer on 04/06/17. My clinical findings support the need for the requested home health care services because: Poor cardiac reserve Ltd mobility - disease progression Limited ability to care for self I certify that my clinical findings support that this patient is homebound because: Poor cardiac reserve Poor cardiac reserve Cindy Benjamin Apr 06, 2017 09:21 Juan Valdivia DO Apr 10, 2017 23:05
[2017-04-06] MEDS: ALPRAZolam 0.25 MG TAB PO PRN (12:18)
== END 2017-04-06 17:17 | disposition home or self-care (01) ==
LOC: NEPC 05:50 → NEDA 07:53 → NEPFCDU 10:01
PROVIDERS: ADMIT Hospitalist; ATTEND Hospitalist
DX: R07.89 Other chest pain (principal); I25.10 Atherosclerotic heart disease of native coronary artery without angina pectoris; E78.5 Hyperlipidemia, unspecified; I50.9 Heart failure, unspecified; I13.0 Hypertensive heart and chronic kidney disease with heart failure and stage 1 through stage 4 chronic kidney disease, or unspecified chronic kidney disease; J44.9 Chronic obstructive pulmonary disease, unspecified; K21.9 Gastro-esophageal reflux disease without esophagitis; K31.84 Gastroparesis; E11.43 Type 2 diabetes mellitus with diabetic autonomic (poly)neuropathy; R94.31 Abnormal electrocardiogram [ECG] [EKG]; Z95.1 Presence of aortocoronary bypass graft; Z87.442 Personal history of urinary calculi; Z79.02 Long term (current) use of antithrombotics/antiplatelets
CPT/HCPCS: 71010; 80053; 81001; 82550; 82948; 83690; 83735; 84484; 85007; 85027; 85610; 85730; 93005; 96372; 96374; 96375; 99285; G0378; J1170; J1815; J2270; J2405; J7030; J7040; 80048

== ENCOUNTER 2017-04-25 19:45 | Observation (INO) | payer OTHER ==
[~2017-04-25] VITALS: Ht 160 cm; Wt 107.0 kg
[~2017-04-25 19:45] MED LIST changes: +ALPR.25 PO; +ASPI-183 PO; -ASPI325T PO; -CARV12.52 PO; +CARV6.25 PO; -COLA100C PO; +COLA100C5 PO; -FURO1TAB60 PO; +FURO1TAB62 PO; -LISI-515 PO
[2017-04-25 19:49] VITALS: BP 160/74; PULSE 98; RESP 16; TEMP 98.5; O2SAT 96
[2017-04-25 20:33] LABS: AUTOMATED NEUTROPHIL # 8.2 TH/MM3 (1.8-7.7); BASOPHIL # 0.1 TH/MM3 (0-0.2); BASOPHIL % 0.7 % (0.0-2.0); EOSINOPHIL # 0.5 TH/MM3 (0-0.4); EOSINOPHIL % 3.5 % (0.0-4.0); HEMATOCRIT 34.1 % (35.0-46.0); HEMO FLAGS DIFF FINAL; LYMPHOCYTE # 3.4 TH/MM3 (1.0-4.8); MEAN CORPUSCULAR HEMOGLOBIN 31.5 PG (27.0-34.0); MEAN CORPUSCULAR HGB CONC 34.2 % (32.0-36.0); MONO % 6.6 % (0.0-8.0); NEUT % 63.2 % (16.0-70.0); PLATELET COUNT 303 TH/MM3 (150-450); RED BLOOD COUNT 3.71 MIL/MM3 (4.00-5.30); RED CELL DISTRIBUTION WIDTH 13.8 % (11.6-17.2)
[2017-04-25 20:35] LABS: APTT (PATIENT) 24.4 SEC (24.3-30.1); INTERNATIONAL NORMALIZED RATIO 0.9 RATIO
--- NOTE | 2017-04-25 20:35 | PD ---
HPI Chief Complaint: Cardiac Complaint Time Seen by Provider: 20:19 Travel History International Travel<30 days: No Contact w/Intl Traveler<30days: No Traveled to known affect area: No History of Present Illness HPI This is a 51-year-old female who status post coronary stent 2 on the 18th of last month, presents today with complaints of left sided chest pain with radiation to her left shoulder blade since last night. The patient denies any fevers, chills. She states the pain is intermittent and sharp. She states the pain feels exactly like it did when she had her heart attack resulting in the stents. There is no nausea or diaphoresis. There is no shortness of breath but there is pleuritic discomfort. The patient has a history of diabetes mellitus, hypertension, hyperlipidemia. Patient also has a history of tobaccoism in the past. She's been tobacco free 18 years. There is also a strong family history of coronary artery disease. PFSH Past Medical History Hx Anticoagulant Therapy: Yes (PLAVIX AND ASA) Arthritis: Yes Asthma: Yes Autoimmune Disease: No Blood Disorders: No Anxiety: Yes Depression: Yes Heart Rhythm Problems: Yes Cancer: No Cardiac Catheterization: Yes ( MULTI STENTS 2012) Cardiovascular Problems: Yes (HTN; [place] WITH STENT) High Cholesterol: Yes Chemotherapy: No Chest Pain: Yes Congestive Heart Failure: Yes COPD: Yes Cerebrovascular Accident: No Coronary Artery Disease: Yes Diabetes: Yes Diminished Hearing: No Endocrine: Yes Gastrointestinal Disorders: Yes GERD: Yes (ACID REFLUX) Genitourinary: Yes Headaches: Yes Hiatal Hernia: No Hypertension: Yes Immune Disorder: No Implanted Vascular Access Dvce: No Kidney Stones: Yes Musculoskeletal: Yes (back and neck) Neurologic: Yes (NEUROPATHY LOWER EXTREMITIES/HANDS) Psychiatric: Yes Reproductive: No Respiratory: Yes (COPD) Immunizations Current: Yes Migraines: Yes Myocardial Infarction: Yes Radiation Therapy: No Renal Failure: No Seizures: No Sickle Cell Disease: No Sleep Apnea: No Thyroid Disease: Yes Ulcer: No PNEUMOCCOCAL Vaccine (Year): 2 Menopausal: Yes : 0 Para: 0 Miscarriage: 0 : 0 Tubal Ligation: Yes Past Surgical History Abdominal Surgery: Yes (hernia repair, gallbladder removal) AICD: No Appendectomy: Yes Arteriovenous Shunt: No Body Medical Devices: STERNAL WIRES Cardiac Surgery: Yes (CABG) Cholecystectomy: Yes (10 YEARS AGO) Coronary Artery Bypass Graft: Yes (QUADRUPLE BYPASS) Ear Surgery: No Endocrine Surgery: Yes (Tonsillectomy 1976) Eye Surgery: No Genitourinary Surgery: Yes (Hernia Repair) Gynecologic Surgery: No Insulin Pump: No Joint Replacement: No Neurologic Surgery: No Oral Surgery: No Pacemaker: No Thoracic Surgery: No Tonsillectomy: Yes Other Surgery: Yes (LEFT LUMPECTOMY ) Social History Alcohol Use: No Tobacco Use: No (QUIT 1998) Substance Use: No Allergies-Medications (Allergen,Severity, Reaction): Coded Allergies: diatrizoate meglumine (Unverified Allergy, Severe, Nausea/Vomiting, ) ORAL CONTRAST ONLY gadobenic acid (Unverified Allergy, Severe, Nausea/Vomiting, 04/25/17) ORAL CONTRAST ONLY gadodiamide (Unverified Allergy, Severe, Nausea/Vomiting, 04/25/17) ORAL CONTRAST ONLY gadoteridol (Unverified Allergy, Severe, Nausea/Vomiting, 04/25/17) ORAL CONTRAST ONLY iodixanol (Unverified Allergy, Severe, Nausea/Vomiting, 04/25/17) ORAL CONTRAST ONLY iohexol (Unverified Allergy, Severe, Nausea/Vomiting, 04/25/17) ORAL CONTRAST ONLY penicillin G (Unverified Allergy, Severe, 04/25/17) sulfamethoxazole (Unverified Allergy, Severe, 04/25/17) trimethoprim (Unverified Allergy, Severe, 04/25/17) Reported Meds & Prescriptions Reported Meds & Active Scripts Active Coreg (Carvedilol) 6.25 Mg Tab 6.25 Mg PO BID Lasix (Furosemide) 20 Mg Tab 20 Mg PO DAILY Isosorbide Mononitrate ER (Isosorbide Mononitrate) 60 Mg Tab 120 Mg PO BID Reglan (Metoclopramide HCl) 5 Mg Tab 5 Mg PO TIDAC Ranexa ER 12 HR (Ranolazine) 500 Mg Tab 1,000 Mg PO Q12HR Lipitor (Atorvastatin Calcium) 40 Mg Tab 40 Mg PO HS 30 Days Reported Ativan (Lorazepam) 0.5 Mg Tab 0.5 Mg PO DAILY PRN Lantus Inj (Insulin Glargine) 1,000 Unit/10 Ml Vial 40 Units SQ HS Wellbutrin Xl 24 HR (Bupropion HCl) 150 Mg Tab 150 Mg PO DAILY Tradjenta (Linagliptin) 5 Mg Tab 5 Mg PO DAILY Tanzeum 4-Pack Inj (Albiglutide) 50 Mg Pfpen 50 Mg SQ Q7D Paroxetine (Paroxetine HCl) 40 Mg Tab 40 Mg PO DAILY Nitrostat SL (Nitroglycerin) 0.4 Mg Subl 0.4 Mg SL DIRECTED PRN ONE TABLET UNDER THE TONGUE NEEDED FOR CHEST PAIN, MAY REPEAT EVERY FIVE MINUTES FOR A TOTAL OF 3 DOSES OR CALL 911 IF NO RELIEF Aspirin 325 Mg Tab 325 Mg PO DAILY Novolog Inj (Insulin Aspart) 1,000 Unit/10 Ml Vial 5-25 Units SQ TIDACHS Max dose at bedtime:( )units; sugars less than 70,(0) units; sugars 150-199,(5) units; sugars 200-249,(10) units; sugars 250-299,(15) units; sugars 300-349,(20)units; sugars greater than 349,(25)units Plavix (Clopidogrel Bisulfate) 75 Mg Tab 75 Mg PO DAILY Protonix (Pantoprazole Sodium) 40 Mg Tab 40 Mg PO DAILY Ventolin Hfa 18 GM Inh (Albuterol Sulfate) 90 Mcg/Act Aer 2 Puff INH Q6H PRN Review of Systems Except as stated in HPI: all other systems reviewed are Neg General / Constitutional: No: Fever HENT: No: Headaches, Lightheadedness, Neck Pain Cardiovascular: Positive: Chest Pain or Discomfort (left sided sharp with some pleuritic nature), No: Palpitations, Irregular Rhythm Respiratory: Positive: Pleuritic Pain, No: Cough, Shortness of Breath Gastrointestinal: No: Nausea, Vomiting, Abdominal Pain Genitourinary: No: Frequency, Dysuria Musculoskeletal: Positive: Pain, No: Weakness (posterior subscapular), Edema Neurologic: No: Weakness, Dizziness, Headache, Change in Mentation Psychiatric: No: Anxiety, Depression Physical Exam Narrative GENERAL: Well-developed well-nourished female in no acute respiratory distress. SKIN: Focused skin assessment warm/dry. HEAD: Atraumatic. Normocephalic. EYES: No scleral icterus. No injection or drainage. ENT: No nasal bleeding or discharge. Mucous membranes pink and moist. NECK: Trachea midline. No JVD. CARDIOVASCULAR: Regular rate and rhythm. No murmur appreciated. RESPIRATORY: No accessory muscle use. Clear to auscultation. Breath sounds equal bilaterally. GASTROINTESTINAL: Abdomen soft, obese, non-tender, nondistended. MUSCULOSKELETAL: No obvious deformities. No clubbing. No cyanosis. No edema. NEUROLOGICAL: Awake and alert. No obvious cranial nerve deficits. Motor grossly within normal limits. Normal speech. PSYCHIATRIC: Appropriate mood and affect; insight and judgment normal. Data Data Last Documented VS Vital Signs Date Time Temp Pulse Resp B/P (MAP) Pulse Ox O2 Delivery O2 Flow Rate FiO2 04/25/17 19:49 98.5 98 16 160/74 (102) 96 Room Air Orders Orders Electrocardiogram (04/25/17 20:03) Basic Metabolic Panel (Bmp) (04/25/17 20:03) Ckmb (Isoenzyme) Profile (04/25/17 20:03) Complete Blood Count With Diff (04/25/17 20:03) Magnesium (Mg) (04/25/17 20:03) Prothrombin Time / Inr (Pt) (04/25/17 20:03) Act Partial Throm Time (Ptt) (04/25/17 20:03) Troponin I (04/25/17 20:03) Chest, Pa & Lat (04/25/17 20:03) Morphine Inj (Morphine Inj) (04/25/17 21:45) Ondansetron Inj (Zofran Inj) (04/25/17 21:45) Admit Order (Ed Use Only) (04/25/17 21:53) Activity Bed Rest With Brp (04/25/17 21:54) Vital Signs (Adult) Q4H (04/25/17 21:54) Cardiac Rhythm .As Directed (04/25/17 21:54) Notify Dr: Other .PRN (04/25/17 21:54) Notify DrParker Parameters (04/25/17 21:54) Resp Oxygen Nasal Cannula (04/25/17 ) Diet Npo (04/26/17 Breakfast) Ckmb (Isoenzyme) Profile (04/26/17 00:45) Ckmb (Isoenzyme) Profile (04/26/17 03:45) Troponin I (04/26/17 00:45) Troponin I (04/26/17 03:45) Electrocardiogram (04/26/17 00:45) Electrocardiogram (04/26/17 03:45) ^ Obtain (04/25/17 21:54) Sodium Chloride 0.9% Flush (Ns Flush) (04/25/17 22:00) Sodium Chloride 0.9% Flush (Ns Flush) (04/26/17 09:00) Morphine Inj (Morphine Inj) (04/25/17 22:00) Ondansetron Inj (Zofran Inj) (04/25/17 22:00) Medical Records Assistant / Telemetry [email or web address].[id number] (04/25/17 21:54) Labs Laboratory Tests Test 04/25/17 20:00 White Blood Count 13.0 TH/MM3 Red Blood Count 3.71 MIL/MM3 Hemoglobin 11.7 GM/DL Hematocrit 34.1 % Mean Corpuscular Volume 92.0 FL Mean Corpuscular Hemoglobin 31.5 PG Mean Corpuscular Hemoglobin Concent 34.2 % Red Cell Distribution Width 13.8 % Platelet Count 303 TH/MM3 Mean Platelet Volume 7.5 FL Neutrophils (%) (Auto) 63.2 % Lymphocytes (%) (Auto) 26.0 % Monocytes (%) (Auto) 6.6 % Eosinophils (%) (Auto) 3.5 % Basophils (%) (Auto) 0.7 % Neutrophils # (Auto) 8.2 TH/MM3 Lymphocytes # (Auto) 3.4 TH/MM3 Monocytes # (Auto) 0.9 TH/MM3 Eosinophils # (Auto) 0.5 TH/MM3 Basophils # (Auto) 0.1 TH/MM3 CBC Comment DIFF FINAL Differential Comment Prothrombin Time 10.0 SEC Prothromb Time International Ratio 0.9 RATIO Activated Partial Thromboplast Time 24.4 SEC Blood Urea Nitrogen 29 MG/DL Creatinine 1.31 MG/DL Random Glucose 66 MG/DL Calcium Level 9.3 MG/DL Magnesium Level 2.3 MG/DL Sodium Level 139 MEQ/L Potassium Level 4.3 MEQ/L Chloride Level 107 MEQ/L Carbon Dioxide Level 25.5 MEQ/L Anion Gap 7 MEQ/L Estimat Glomerular Filtration Rate 43 ML/MIN Total Creatine Kinase 49 U/L Troponin I 0.02 NG/ML [facility] Medical Decision Making Medical Screen Exam Complete: Yes Emergency Medical Condition: Yes Differential Diagnosis ACS versus pleurisy versus pulmonary embolus versus musculoskeletal pain Narrative Course 51-year-old female with history of diabetes mellitus, hyperlipidemia, hypertension, coronary artery stents placed on 30 March, presents today with complaints of left sided chest pain. Patient also has pain that radiated in her left infrascapular area. Patient's cardiac enzymes and EKG show no evidence of acute process. The patient still having discomfort. There is somewhat of a pleuritic nature to her pain. Patient has no calf tenderness. She does not smoke. She has no history of cancer. There are no recent long car rides. She is not tachycardic. The patient be placed in the chest pain center and ruled out. Given the recent coronary stent placement, disposition will be per the cardiac team. Diagnosis Primary Impression: Chest pain Additional Impressions: Chronic kidney disease Diabetes mellitus Hypertension Hyperlipidemia Admitting Information Admitting Physician Requests: Observation Ayaan Otto MD Apr 25, 2017 20:35
[2017-04-25] MEDS ORDERED: LORA-392 PO (20:37)
[2017-04-25 20:50] LABS: BICARBONATE 25.5 MEQ/L (21.0-32.0); MAGNESIUM 2.3 MG/DL (1.5-2.5); POTASSIUM 4.3 MEQ/L (3.5-5.1)
--- NOTE | 2017-04-25 21:30 | RADRPT ---
EXAM DATE/TIME: 04/25/2017 20:12 [facility] COMPARISON: CT THORAX W/O CONTRAST, March 03, 2017, 19:45. CHEST PA & LAT, May 03, 2016, 22:17. INDICATIONS : Chest pain. MEDICAL HISTORY : Hypertension. Cardiovascular disease. Myocardial infarction. SURGICAL HISTORY : CABG. Appendectomy. Cholecystectomy. ENCOUNTER: Subsequent ACUITY: 1 day PAIN SCORE: 4/10 LOCATION: Left chest FINDINGS: Clips are seen at the upper aspect of the heart. There is a stent seen over the left lateral heart ma rgin. The heart size is within normal x-ray the lungs are clear. No effusion is seen. Sternal wires a re not present. CONCLUSION: No acute abnormality seen. Quang Gonzalez MD on April 25, 2017 at 21:26 Board Certified Radiologist. This report was verified electronically.
[2017-04-25] MEDS ORDERED: MORPHINE SULFATE 8 MG/ML INJ IV PUSH ONE (21:45)
[2017-04-25] MEDS ORDERED: ONDANSETRON HCL 4 MG/2 ML VIAL IV PUSH ONE (21:45)
[2017-04-25] MEDS ORDERED: ONDANSETRON HCL 4 MG/2 ML VIAL IV PUSH PRN (22:00)
[2017-04-25] MEDS ORDERED: SODIUM CHLORIDE 0.9% FLUSH 10 ML FLUSH IV FLUSH PRN (22:00)
[2017-04-25 23:14] VITALS: BP 134/65; PULSE 69; RESP 18; TEMP 98.1; O2SAT 97
[2017-04-26 00:15] VITALS: PULSE 71
[2017-04-26] MEDS: MORPHINE SULFATE 4 MG/ML INJ IV PUSH PRN ×2 (02:01→09:40)
[2017-04-26 03:42] VITALS: BP 127/59; PULSE 88; RESP 18; TEMP 98.5; O2SAT 95
[2017-04-26 07:20] VITALS: PULSE 75
[2017-04-26] MEDS ORDERED: RESP: ALBUTEROL 2.5 MG/IPRATROPIUM 0.5 MG NEB (PRN) INH (07:45)
[2017-04-26] MEDS ORDERED: ISOSORBIDE MONONITRATE 60 MG TAB PO SCH (07:53)
[2017-04-26] MEDS ORDERED: METOCLOPRAMIDE HCL 10 MG TAB PO SCH (08:00)
[2017-04-26] MEDS ORDERED: PILL SPLITTER OTHER PRN (08:00)
[2017-04-26 08:09] VITALS: BP 129/76; PULSE 74; RESP 20; TEMP 98; O2SAT 98
[2017-04-26] MEDS ORDERED: SODIUM CHLORIDE 0.9% FLUSH 10 ML FLUSH IV FLUSH SCH (09:00)
[2017-04-26] MEDS ORDERED: ASPIRIN 325 MG TAB PO SCH (09:00)
[2017-04-26] MEDS ORDERED: PARoxetine HCL 20 MG TAB PO SCH (09:00)
[2017-04-26] MEDS ORDERED: CLOPIDOGREL 75 MG TAB PO SCH (09:00)
[2017-04-26] MEDS ORDERED: FUROSEMIDE 20 MG TAB PO SCH (09:00)
[2017-04-26] MEDS ORDERED: buPROPion HCL 150 MG SUSTAINED RELEASE TAB PO SCH (09:00)
[2017-04-26] MEDS ORDERED: CARVEDILOL 6.25 MG TAB PO SCH (09:00)
[2017-04-26] MEDS ORDERED: PANTOPRAZOLE SOD 40 MG DELAYED RELEASE TAB PO SCH (09:00)
[2017-04-26] MEDS ORDERED: RANOLAZINE 500 MG EXTENDED RELEASE TAB PO SCH (09:00)
--- NOTE | 2017-04-26 09:20 | HHI.HP ---
[facility] Primary Care Physician Reji Basilio M.D. Chief Complaint Chest pain History of Present Illness This is a 51-year-old female with known CAD status post CABG in 2007 as well as multiple stents since with a complaint of chest discomfort. Patient recently had cardiac catheterization 03/31/[address] oviedo and had a stent to the RCA. Graft of the circumflex had diffuse disease. She was seen a few days later in the hospital and at that time recommended medical management. Patient states she has an appointment with Dr. oviedo today and also states that she was told that she is no longer a candidate for a redo bypass or 4 more stents. She states that since her stent last month she's had a couple other chest discomforts prior to yesterday. There is to other discomforts were relieved with nitroglycerin. Yesterday she developed a discomfort that she describes as a vice-like sensation in the center of her chest radiating towards the left and around into the back. It began while she was just sitting on the couch. Discomfort was a 9 out of 10. She was nauseous denies shortness of breath or diaphoresis. She states the discomfort still there but not as intense. She took 3 nitroglycerin at home without relief. She is concerned. States that it is similar to when she needed the stent last month. Denies recent illnesses. States that she is compliant with her medications. Review of Systems General: Patient denies fevers, chills recent, and recent travel HEENT: Patient denies headache, sore throat, difficulty swallowing. Cardiovascular: Has the chest discomfort as mentioned above. Denies sensation of heart beating rapidly or irregularly. No syncope. Denies diaphoresis. Respiratory: Denies shortness of breath or inspirational chest discomfort. Denies coughing wheezing or hemoptysis. GI: She was nauseous. Patient denies vomiting, diarrhea, abdominal pain, bloody stools. Musculoskeletal: Patient denies joint pain or edema. Denies calf pain or edema. Neurovascular: Patient denies numbness, tingling, weakness in extremities. Denies headache. Endocrine: Denies polyuria and polydipsia. Hematologic: Denies easy bruising. Skin: Denies rash or itching. Past Family Social History Allergies: Coded Allergies: diatrizoate meglumine (Unverified Allergy, Severe, Nausea/Vomiting, ) ORAL CONTRAST ONLY gadobenic acid (Unverified Allergy, Severe, Nausea/Vomiting, 04/25/17) ORAL CONTRAST ONLY gadodiamide (Unverified Allergy, Severe, Nausea/Vomiting, 04/25/17) ORAL CONTRAST ONLY gadoteridol (Unverified Allergy, Severe, Nausea/Vomiting, 04/25/17) ORAL CONTRAST ONLY iodixanol (Unverified Allergy, Severe, Nausea/Vomiting, 04/25/17) ORAL CONTRAST ONLY iohexol (Unverified Allergy, Severe, Nausea/Vomiting, 04/25/17) ORAL CONTRAST ONLY penicillin G (Unverified Allergy, Severe, 04/25/17) sulfamethoxazole (Unverified Allergy, Severe, 04/25/17) trimethoprim (Unverified Allergy, Severe, 04/25/17) Past Medical History CAD with CABG as well as stenting. Diabetes, hyperlipidemia, hypertension, CHF , COPD, gastroparesis, nephrolithiasis, depression. Past Surgical History CABG. Multiple heart catheterizations with stenting. Tonsillectomy, hernia repair, cholecystectomy, appendectomy, sternal wires removed. Reported Medications Reported Meds & Active Scripts Active Coreg (Carvedilol) 6.25 Mg Tab 6.25 Mg PO BID Lasix (Furosemide) 20 Mg Tab 20 Mg PO DAILY Isosorbide Mononitrate ER (Isosorbide Mononitrate) 60 Mg Tab 120 Mg PO BID Reglan (Metoclopramide HCl) 5 Mg Tab 5 Mg PO TIDAC Ranexa ER 12 HR (Ranolazine) 500 Mg Tab 1,000 Mg PO Q12HR Lipitor (Atorvastatin Calcium) 40 Mg Tab 40 Mg PO HS 30 Days Reported Ativan (Lorazepam) 0.5 Mg Tab 0.5 Mg PO DAILY PRN Lantus Inj (Insulin Glargine) 1,000 Unit/10 Ml Vial 40 Units SQ HS Wellbutrin Xl 24 HR (Bupropion HCl) 150 Mg Tab 150 Mg PO DAILY Tradjenta (Linagliptin) 5 Mg Tab 5 Mg PO DAILY Tanzeum 4-Pack Inj (Albiglutide) 50 Mg Pfpen 50 Mg SQ Q7D Paroxetine (Paroxetine HCl) 40 Mg Tab 40 Mg PO DAILY Nitrostat SL (Nitroglycerin) 0.4 Mg Subl 0.4 Mg SL DIRECTED PRN ONE TABLET UNDER THE TONGUE NEEDED FOR CHEST PAIN, MAY REPEAT EVERY FIVE MINUTES FOR A TOTAL OF 3 DOSES OR CALL 911 IF NO RELIEF Aspirin 325 Mg Tab 325 Mg PO DAILY Novolog Inj (Insulin Aspart) 1,000 Unit/10 Ml Vial 5-25 Units SQ TIDACHS Max dose at bedtime:( )units; sugars less than 70,(0) units; sugars 150-199,(5) units; sugars 200-249,(10) units; sugars 250-299,(15) units; sugars 300-349,(20)units; sugars greater than 349,(25)units Plavix (Clopidogrel Bisulfate) 75 Mg Tab 75 Mg PO DAILY Protonix (Pantoprazole Sodium) 40 Mg Tab 40 Mg PO DAILY Ventolin Hfa 18 GM Inh (Albuterol Sulfate) 90 Mcg/Act Aer 2 Puff INH Q6H PRN Active Ordered Medications Current Medications Medications (Trade) Dose Ordered Sig/Marcial Route Start Time Stop Time Status Last Admin (NS Flush) 2 ml UNSCH PRN IV FLUSH 04/25/17 22:00 04/26/17 02:01 (NS Flush) 2 ml BID IV FLUSH 04/26/17 09:00 (Morphine Inj) 2 mg Q4H PRN IV PUSH 04/25/17 22:00 04/26/17 02:01 (Zofran Inj) 4 mg Q6H PRN IV PUSH 04/25/17 22:00 (Lipitor) 40 mg HS PO 04/26/17 21:00 (Wellbutrin Sr) 150 mg DAILY PO 04/26/17 09:00 (Coreg) 6.25 mg BID PO 04/26/17 09:00 (Plavix) 75 mg DAILY PO 04/26/17 09:00 (Lasix) 20 mg DAILY PO 04/26/17 09:00 (Imdur) 120 mg BID@0700,1900 PO 04/26/17 07:53 04/26/17 08:32 (Protonix) 40 mg DAILY PO 04/26/17 09:00 (Paxil) 40 mg DAILY PO 04/26/17 09:00 (Ranexa) 1,000 mg Q12HR PO 04/26/17 09:00 (Reglan) 5 mg TIDAC PO 04/26/17 08:00 04/26/17 08:33 (Aspirin) 325 mg DAILY PO 04/26/17 09:00 (Duoneb Neb) 1 ampule Q4HR NEB PRN INH 04/26/17 07:45 (Pill Splitter) 1 ea UNSCH PRN OTHER 04/26/17 08:00 Family History There is family history of heart disease with both parents. Social History Patient quit smoking 18 years ago but prior that she smoked about 1 pack of cigarettes daily for 20 years. Rarely has alcohol. Denies illicit drugs. Lives with her of 21 years. Physical Exam Vital Signs Vital Signs Date Time Temp Pulse Resp B/P (MAP) Pulse Ox O2 Delivery O2 Flow Rate FiO2 04/26/17 08:09 98.0 74 20 129/76 (93) 98 04/26/17 03:42 98.5 88 18 127/59 (81) 95 04/26/17 00:15 71 04/25/17 23:14 98.1 69 18 134/65 (88) 97 04/25/17 22:38 04/25/17 19:49 98.5 98 16 160/74 (102) 96 Room Air Physical Exam GENERAL: This is a well-nourished, well-developed patient, in no apparent distress. Patient speaks in clear complete sentences. Patient is pleasant. HEENT: Head is atraumatic and normocephalic. Neck is supple without lymphadenopathy and trachea is midline. No JVD or carotid bruits. CARDIOVASCULAR: Regular rate and rhythm without murmurs, gallops, or rubs. RESPIRATORY: Clear to auscultation. Breath sounds equal bilaterally. No wheezes , rales, or rhonchi. Chest wall is tender. No use of accessory muscles. GASTROINTESTINAL: Abdomen is nontender, nondistended. Abdomen soft. No obvious pulsatile mass or bruit. No CVA tenderness. Strong femoral pulses bilaterally. Normal bowel sounds in all quadrants. MUSCULOSKELETAL: Patient is moving upper and lower extremities freely. No calf tenderness or edema, no Homans sign. Strong pulses in upper and lower extremities. NEUROLOGICAL: Patient is alert and oriented. Cranial nerves 2-12 are grossly intact. No focal deficits and speech is clear. SKIN: No rash and turgor is normal. Laboratory Laboratory Tests Test 04/25/17 20:00 04/25/17 23:45 04/26/17 01:46 White Blood Count 13.0 Red Blood Count 3.71 Hemoglobin 11.7 Hematocrit 34.1 Mean Corpuscular Volume 92.0 Mean Corpuscular Hemoglobin 31.5 Mean Corpuscular Hemoglobin Concent 34.2 Red Cell Distribution Width 13.8 Platelet Count 303 Mean Platelet Volume 7.5 Neutrophils (%) (Auto) 63.2 Lymphocytes (%) (Auto) 26.0 Monocytes (%) (Auto) 6.6 Eosinophils (%) (Auto) 3.5 Basophils (%) (Auto) 0.7 Neutrophils # (Auto) 8.2 Lymphocytes # (Auto) 3.4 Monocytes # (Auto) 0.9 Eosinophils # (Auto) 0.5 Basophils # (Auto) 0.1 CBC Comment DIFF FINAL Differential Comment Prothrombin Time 10.0 Prothromb Time International Ratio 0.9 Activated Partial Thromboplast Time 24.4 Blood Urea Nitrogen 29 Creatinine 1.31 Random Glucose 66 Calcium Level 9.3 Magnesium Level 2.3 Sodium Level 139 Potassium Level 4.3 Chloride Level 107 Carbon Dioxide Level 25.5 Anion Gap 7 Estimat Glomerular Filtration Rate 43 Total Creatine Kinase 49 49 36 Troponin I 0.02 0.02 0.02 Result Diagram: 04/25/17199904/25/171999 Imaging Last 48 hours Impressions Chest X-Ray 04/25/172002 Signed Impressions: Service Date/Time: Tuesday, April 25, 2017 20:12 - CONCLUSION: No acute abnormality seen. Quang Gonzalez MD Course EKGs have sinus rhythm with nonspecific T-wave changes. Caprini VTE Risk Assessment Caprini VTE Risk Assessment: No/Low Risk (score <= 1) Caprini Risk Assessment Model Point Value = 1 Point Value = 2 Point Value = 3 Point Value = 5 Age 41-60 Minor surgery BMI > 25 kg/m2 Swollen legs Varicose veins or History of unexplained or recurrent spontaneous Oral contraceptives or hormone replacement Sepsis (< 1 month) Serious lung disease, including pneumonia (< 1 month) Abnormal pulmonary function Acute myocardial infarction Congestive heart failure (< 1 month) History of inflammatory bowel disease Medical patient at bed rest Age 61-74 Arthroscopic surgery Major open surgery (> 45 min) Laparoscopic surgery (> 45 min) Malignancy Confined to bed (> 72 hours) Immobilizing plaster cast Central venous access Age >= 75 History of VTE Family history of VTE Factor V Leiden Prothrombin [id number] Lupus anticoagulant Anticardiolipin antibodies Elevated serum homocysteine Heparin-induced thrombocytopenia Other congenital or acquired thrombophilia Stroke (< 1 month) Elective arthroplasty Hip, pelvis, or leg fracture Acute spinal cord injury (< 1 month) Prophylaxis Regimen Total Risk Factor Score Risk Level Prophylaxis Regimen 0-1 Low Early ambulation 2 Moderate Order ONE of the following: *Sequential Compression Device (SCD) *Heparin 5000 units SQ BID 3-4 Higher Order ONE of the following medications: *Heparin 5000 units SQ TID *Enoxaparin/Lovenox 40 mg SQ daily (WT < 150 kg, CrCl > 30 mL/min) *Enoxaparin/Lovenox 30 mg SQ daily (WT < 150 kg, CrCl > 10-29 mL/min) *Enoxaparin/Lovenox 30 mg SQ BID (WT < 150 kg, CrCl > 30 mL/min) AND/OR *Sequential Compression Device (SCD) 5 or more Highest Order ONE of the following medications: *Heparin 5000 units SQ TID (Preferred with Epidurals) *Enoxaparin/Lovenox 40 mg SQ daily (WT < 150 kg, CrCl > 30 mL/min) *Enoxaparin/Lovenox 30 mg SQ daily (WT < 150 kg, CrCl > 10-29 mL/min) *Enoxaparin/Lovenox 30 mg SQ BID (WT < 150 kg, CrCl > 30 mL/min) AND *Sequential Compression Device (SCD) Assessment and Plan Assessment and Plan * Chest pain: Patient has had serial cardiac enzymes and EKGs for ruling out purposes. She has been seen by Dr. Medina cardiology and the chest pain center. I read Dr. Oviedo's prior consultation which at that time found a need to do stress testing and she had continued to have discomfort that they would start looking into TMR or transportation. I spoke with Dr. oviedo. Did not one stress testing. Request continue medications and he will follow her in his office. Stating he will likely be referred to [facility] or to cardiovascular thoracic surgeon. He has requested that she call his office if she has any issues as he would like to see her in the office in that situation. But certainly return to ED for issues if needed. * Hypertension: Continue current medication. * Hyperlipidemia: Continue current medication. * Diabetes: Continue medications. Follow diabetic diet. * COPD: When necessary DuoNeb's. Medications at home. * Depression: Continue current medication. * Gastroparesis: Continue current medication. She is stable at this time. She is agreeable to this plan. Gustavo Jennings Apr 26, 2017 09:20
[2017-04-26] MEDS ORDERED: GLUCAGON 1 MG/ML VIAL OTHER PRN (09:30)
[2017-04-26] MEDS ORDERED: DEXTROSE 50% IN WATER 50 ML VIAL(D50) IV PUSH PRN (09:30)
--- NOTE | 2017-04-26 10:34 | HHI.DCPOC ---
Discharge Care Plan Diagnosis: (1) Chest pain (2) CAD (coronary artery disease) (3) Hx of CABG (4) H/O heart artery stent (5) Hyperlipidemia (6) Diabetes mellitus (7) HTN (hypertension) (8) COPD (chronic obstructive pulmonary disease) Goals to Promote Your Health * To prevent worsening of your condition and complications * To maintain your health at the optimal level Directions to Meet Your Goals Take your medications as prescribed Follow your dietary instruction Follow activity as directed Keep your appointments as scheduled Take your immunizations and boosters as scheduled If your symptoms worsen call your PCP, if no PCP go to Urgent Care Center or Emergency Room Smoking is Dangerous to Your Health. Avoid second hand smoke Call the 24-hour hour crisis hotline for domestic abuse at Gustavo Jennings Apr 26, 2017 10:34
[2017-04-26] MEDS ORDERED: INSULIN NovoLIN REGULAR SUPPLEMENTAL SCALE SQ SCH (12:00)
--- NOTE | 2017-04-26 17:21 | EKG ---
Date Performed: 04/26/2017 Time Performed: 02:25:36 PTAGE: 51 years EKG: Sinus rhythm LEFT ANTERIOR FASCICULAR BLOCK POSSIBLE ANTERIOR MYOCARDIAL INFARCTION MODERATE T-WAVE ABNORMALITY, CONSIDER LATERAL ISCHEMIA ABNORMAL ECG WARNING: DATA QUALITY MAY AFFECT INTERPRETATION Since PREVIOUS TRACING , no significant change noted PREVIOUS TRACIN04/25/2017 23.09 DOCTOR: Luciana Medina Interpretating Date/Time 04/26/2017 17:19:20
--- NOTE | 2017-04-26 17:22 | EKG ---
Date Performed: 04/25/2017 Time Performed: 19:53:41 PTAGE: 51 years EKG: Sinus rhythm MARKED LEFT AXIS DEVIATION POSSIBLE ANTERIOR MYOCARDIAL INFARCTION MODERATE T-WAVE ABNORMALITY, CONS IDER LATERAL ISCHEMIA ABNORMAL ECG Since PREVIOUS TRACING , no significant change noted PREVIOUS TRACIN04/05/2017 14.49 DOCTOR: Luciana Medina Interpretating Date/Time 04/26/2017 17:20:26
--- NOTE | 2017-04-26 17:22 | EKG ---
Date Performed: 04/25/2017 Time Performed: 23:09:40 PTAGE: 51 years EKG: Sinus rhythm MARKED LEFT AXIS DEVIATION POSSIBLE ANTERIOR MYOCARDIAL INFARCTION MODERATE T-WAVE ABNORMALITY, CONS IDER LATERAL ISCHEMIA ABNORMAL ECG Since PREVIOUS TRACING , no significant change noted PREVIOUS TRACIN04/25/2017 19.53 DOCTOR: Luciana Medina Interpretating Date/Time 04/26/2017 17:20:05
[2017-04-26] MEDS ORDERED: ATORVASTATIN 40 MG TAB PO SCH (21:00)
== END 2017-04-26 13:07 | disposition home or self-care (01) ==
LOC: NEPE 19:45 → NEDA 21:55 → NEPHCDU 22:40
DX: R07.89 Other chest pain (principal); I13.0 Hypertensive heart and chronic kidney disease with heart failure and stage 1 through stage 4 chronic kidney disease, or unspecified chronic kidney disease; I50.9 Heart failure, unspecified; E11.22 Type 2 diabetes mellitus with diabetic chronic kidney disease; N18.9 Chronic kidney disease, unspecified; E78.5 Hyperlipidemia, unspecified; I25.2 Old myocardial infarction; E11.43 Type 2 diabetes mellitus with diabetic autonomic (poly)neuropathy; J44.9 Chronic obstructive pulmonary disease, unspecified; K21.9 Gastro-esophageal reflux disease without esophagitis; I25.10 Atherosclerotic heart disease of native coronary artery without angina pectoris; Z95.5 Presence of coronary angioplasty implant and graft; Z82.49 Family history of ischemic heart disease and other diseases of the circulatory system; Z87.891 Personal history of nicotine dependence; Z95.1 Presence of aortocoronary bypass graft
CPT/HCPCS: 71020; 80048; 82550; 83735; 84484; 85025; 85610; 85730; 93005; 96374; 96375; 96376; 99285; G0378; J2270; J2405

== ENCOUNTER 2017-06-25 05:20 | Inpatient (IN) | payer OTHER ==
[~2017-06-25] VITALS: Ht 160 cm; Wt 107.1 kg
[2017-06-25] VITALS (15 sets, daily range): BP systolic 103–225; BP diastolic 50–118; PULSE 62–82; RESP 18–20; TEMP 96–98.5; O2SAT 93–100
[~2017-06-25 05:20] MED LIST changes: -ALPR.25 PO; -COLA100C5 PO; +LORA-392 PO
--- NOTE | 2017-06-25 05:53 | PD ---
HPI Chief Complaint: Diabetic Time Seen by Provider: 05:49 Travel History International Travel<30 days: No Contact w/Intl Traveler<30days: No Traveled to known affect area: No History of Present Illness HPI 52-year-old female presents to the emergency department by EMS transport from home for evaluation of hypoglycemia with blood sugar of 40 and diaphoresis subsequently after receiving glucagon and orange to use blood sugar has increased to 77 patient complains of 8/10 retrosternal chest pain with shortness of breath. Patient has history of known coronary vessel disease with previous CABG diabetes hypertension and dyslipidemia. Patient states that she did not receive any nitroglycerin en route as her pain began as a fracture to the hospital. Patient states at home she has access to nitroglycerin which a nitroglycerin at this time for her chest pain. Patient has not taken aspirin prior to arrival to the emergency department. PFSH Past Medical History Narrative Medical Arthritis asthma CAD cardiac catheterization with multiple stents dyslipidemia chest pain CHF COPD diabetes CABG anxiety depression migraines cholecystectomy no tobacco use nursing notes reviewed Hx Anticoagulant Therapy: Yes (PLAVIX AND ASA) Arthritis: Yes Asthma: Yes Autoimmune Disease: No Blood Disorders: No Anxiety: Yes Depression: Yes Heart Rhythm Problems: Yes Cancer: No Cardiac Catheterization: Yes ( MULTI STENTS 2012) Cardiovascular Problems: Yes (HTN; OR WITH STENT) High Cholesterol: Yes Chemotherapy: No Chest Pain: Yes Congestive Heart Failure: Yes COPD: Yes Cerebrovascular Accident: No Coronary Artery Disease: Yes Diabetes: Yes Diminished Hearing: No Endocrine: Yes Gastrointestinal Disorders: Yes GERD: Yes (ACID REFLUX) Genitourinary: Yes Headaches: Yes Hiatal Hernia: No Hypertension: Yes Immune Disorder: No Implanted Vascular Access Dvce: No Kidney Stones: Yes Musculoskeletal: Yes (back and neck) Neurologic: Yes (NEUROPATHY LOWER EXTREMITIES/HANDS) Psychiatric: Yes Reproductive: No Respiratory: Yes (COPD) Immunizations Current: Yes Migraines: Yes Myocardial Infarction: Yes Radiation Therapy: No Renal Failure: No Seizures: No Sickle Cell Disease: No Sleep Apnea: No Thyroid Disease: Yes Ulcer: No PNEUMOCCOCAL Vaccine (Year): 2 ?: Not Menopausal: Yes : 0 Para: 0 Miscarriage: 0 : 0 Tubal Ligation: Yes Past Surgical History Abdominal Surgery: Yes (hernia repair, gallbladder removal) AICD: No Appendectomy: Yes Arteriovenous Shunt: No Body Medical Devices: STERNAL WIRES Cardiac Surgery: Yes (CABG) Cholecystectomy: Yes (10 YEARS AGO) Coronary Artery Bypass Graft: Yes (QUADRUPLE BYPASS) Ear Surgery: No Endocrine Surgery: Yes (Tonsillectomy 1976) Eye Surgery: No Genitourinary Surgery: Yes (Hernia Repair) Gynecologic Surgery: No Insulin Pump: No Joint Replacement: No Neurologic Surgery: No Oral Surgery: No Pacemaker: No Thoracic Surgery: No Tonsillectomy: Yes Other Surgery: Yes (LEFT LUMPECTOMY ) Social History Alcohol Use: No Tobacco Use: No (QUIT 1998) Substance Use: No Allergies-Medications (Allergen,Severity, Reaction): Coded Allergies: diatrizoate meglumine (Unverified Allergy, Severe, Nausea/Vomiting, ) ORAL CONTRAST ONLY gadobenic acid (Unverified Allergy, Severe, Nausea/Vomiting, 06/25/17) ORAL CONTRAST ONLY gadodiamide (Unverified Allergy, Severe, Nausea/Vomiting, 06/25/17) ORAL CONTRAST ONLY gadoteridol (Unverified Allergy, Severe, Nausea/Vomiting, 06/25/17) ORAL CONTRAST ONLY iodixanol (Unverified Allergy, Severe, Nausea/Vomiting, 06/25/17) ORAL CONTRAST ONLY iohexol (Unverified Allergy, Severe, Nausea/Vomiting, 06/25/17) ORAL CONTRAST ONLY penicillin G (Unverified Allergy, Severe, 06/25/17) sulfamethoxazole (Unverified Allergy, Severe, 06/25/17) trimethoprim (Unverified Allergy, Severe, 06/25/17) Reported Meds & Prescriptions Reported Meds & Active Scripts Active Coreg (Carvedilol) 6.25 Mg Tab 6.25 Mg PO BID Lasix (Furosemide) 20 Mg Tab 20 Mg PO DAILY Isosorbide Mononitrate ER (Isosorbide Mononitrate) 60 Mg Tab 120 Mg PO BID Reglan (Metoclopramide HCl) 5 Mg Tab 5 Mg PO TIDAC Ranexa ER 12 HR (Ranolazine) 500 Mg Tab 1,000 Mg PO Q12HR Lipitor (Atorvastatin Calcium) 40 Mg Tab 40 Mg PO HS 30 Days Reported Ativan (Lorazepam) 0.5 Mg Tab 0.5 Mg PO DAILY PRN Lantus Inj (Insulin Glargine) 1,000 Unit/10 Ml Vial 40 Units SQ HS Wellbutrin Xl 24 HR (Bupropion HCl) 150 Mg Tab 150 Mg PO DAILY Tradjenta (Linagliptin) 5 Mg Tab 5 Mg PO DAILY Tanzeum 4-Pack Inj (Albiglutide) 50 Mg Pfpen 50 Mg SQ Q7D Paroxetine (Paroxetine HCl) 40 Mg Tab 40 Mg PO DAILY Nitrostat SL (Nitroglycerin) 0.4 Mg Subl 0.4 Mg SL DIRECTED PRN ONE TABLET UNDER THE TONGUE NEEDED FOR CHEST PAIN, MAY REPEAT EVERY FIVE MINUTES FOR A TOTAL OF 3 DOSES OR CALL 911 IF NO RELIEF Aspirin 325 Mg Tab 325 Mg PO DAILY Novolog Inj (Insulin Aspart) 1,000 Unit/10 Ml Vial 5-25 Units SQ TIDACHS Max dose at bedtime:( )units; sugars less than 70,(0) units; sugars 150-199,(5) units; sugars 200-249,(10) units; sugars 250-299,(15) units; sugars 300-349,(20)units; sugars greater than 349,(25)units Plavix (Clopidogrel Bisulfate) 75 Mg Tab 75 Mg PO DAILY Protonix (Pantoprazole Sodium) 40 Mg Tab 40 Mg PO DAILY Ventolin Hfa 18 GM Inh (Albuterol Sulfate) 90 Mcg/Act Aer 2 Puff INH Q6H PRN Review of Systems Except as stated in HPI: all other systems reviewed are Neg Physical Exam Narrative GENERAL: Well-developed well-nourished female in no acute distress no respiratory distress SKIN: Warm and dry. HEAD: Normocephalic. EYES: No scleral icterus. No injection or drainage. NECK: Supple, trachea midline. No JVD or lymphadenopathy. CARDIOVASCULAR: Regular rate and rhythm without murmurs, gallops, or rubs. RESPIRATORY: Breath sounds equal bilaterally. No accessory muscle use. GASTROINTESTINAL: Abdomen soft, non-tender, nondistended. MUSCULOSKELETAL: No cyanosis, or edema. BACK: Nontender without obvious deformity. No CVA tenderness. Data Data Last Documented VS Vital Signs Date Time Temp Pulse Resp B/P (MAP) Pulse Ox O2 Delivery O2 Flow Rate FiO2 06/25/17 07:36 67 18 141/69 (93) 100 Room Air 06/25/17 05:24 96.0 Orders Orders Electrocardiogram (06/25/17 05:49) Basic Metabolic Panel (Bmp) (06/25/17 05:49) Ckmb (Isoenzyme) Profile (06/25/17 05:49) Complete Blood Count With Diff (06/25/17 05:49) Magnesium (Mg) (06/25/17 05:49) Prothrombin Time / Inr (Pt) (06/25/17 05:49) Act Partial Throm Time (Ptt) (06/25/17 05:49) Troponin I (06/25/17 05:49) Chest, Single Ap (06/25/17 05:49) Ecg Monitoring (06/25/17 05:49) Bilateral Bp Monitoring (06/25/17 05:49) Iv Access Insert/Monitor (06/25/17 05:49) Oximetry (06/25/17 05:49) Oxygen Administration (06/25/17 05:49) Aspirin Chew (Aspirin Chew) (06/25/17 06:00) Sodium Chloride 0.9% Flush (Ns Flush) (06/25/17 06:00) Nitroglycerin Sl (Nitrostat Sl) (06/25/17 06:00) Diet 1999 Ada Cons Carb (06/25/17 Breakfast) Admit Order (Ed Use Only) (06/25/17 ) Foreclosure Field Inspector / Telemetry [email or web address] (06/25/17 07:50) Activity Oob With Assistance (06/25/17 07:50) Notify Dr: Other (06/25/17 07:50) Labs Laboratory Tests Test 06/25/17 06:14 White Blood Count 15.6 TH/MM3 Red Blood Count 4.52 MIL/MM3 Hemoglobin 14.1 GM/DL Hematocrit 41.3 % Mean Corpuscular Volume 91.4 FL Mean Corpuscular Hemoglobin 31.1 PG Mean Corpuscular Hemoglobin Concent 34.0 % Red Cell Distribution Width 14.0 % Platelet Count 279 TH/MM3 Mean Platelet Volume 7.5 FL Neutrophils (%) (Auto) 78.4 % Lymphocytes (%) (Auto) 12.6 % Monocytes (%) (Auto) 5.9 % Eosinophils (%) (Auto) 2.6 % Basophils (%) (Auto) 0.5 % Neutrophils # (Auto) 12.3 TH/MM3 Lymphocytes # (Auto) 2.0 TH/MM3 Monocytes # (Auto) 0.9 TH/MM3 Eosinophils # (Auto) 0.4 TH/MM3 Basophils # (Auto) 0.1 TH/MM3 CBC Comment DIFF FINAL Differential Comment Prothrombin Time 9.6 SEC Prothromb Time International Ratio 0.9 RATIO Activated Partial Thromboplast Time 25.0 SEC Blood Urea Nitrogen 15 MG/DL Creatinine 1.20 MG/DL Random Glucose 113 MG/DL Calcium Level 8.6 MG/DL Magnesium Level 2.0 MG/DL Sodium Level 138 MEQ/L Potassium Level 4.0 MEQ/L Chloride Level 103 MEQ/L Carbon Dioxide Level 27.2 MEQ/L Anion Gap 8 MEQ/L Estimat Glomerular Filtration Rate 47 ML/MIN Total Creatine Kinase 89 U/L Troponin I 0.06 NG/ML MDM Medical Decision Making Medical Screen Exam Complete: Yes Emergency Medical Condition: Yes Medical Record Reviewed: Yes Interpretation(s) EKG normal sinus rhythm rate 70 after tear fascicular block age indeterminate QS anteroseptally no acute ST elevation or injury pattern Vital Signs Date Time Temp Pulse Resp B/P (MAP) Pulse Ox O2 Delivery O2 Flow Rate FiO2 06/25/17 06:15 99 Room Air 06/25/17 06:15 18 99 Room Air 06/25/17 05:24 96.0 82 18 225/118 (153) 93 Vital Signs Date Time Temp Pulse Resp B/P (MAP) Pulse Ox O2 Delivery O2 Flow Rate FiO2 06/25/17 06:15 99 Room Air 06/25/17 06:15 18 99 Room Air 06/25/17 05:24 96.0 82 18 225/118 (153) 93 trop: 0.06, mildly elevated Last Impressions Chest X-Ray 06/25/17 0549 Signed Impressions: Service Date/Time: Sunday, June 25, 2017 05:54 - CONCLUSION: No acute disease. No significant change has occurred. 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 Patient clinically improved trop 0.06, aware of plan for admission and agrees call placed to [facility] service Physician Communication Physician Communication discussed with [facility] MD Dr Valdivia--inpt Diagnosis Primary Impression: Chest pain Additional Impression: Hypoglycemia due to type 2 diabetes mellitus Admitting Information Admitting Physician Requests: Admit Virginia Terrazas MD Jun 25, 2017 05:53
[2017-06-25] MEDS ORDERED: ASPIRIN 81 MG CHEW TAB PO ONE (06:00)
[2017-06-25] MEDS ORDERED: SODIUM CHLORIDE 0.9% FLUSH 10 ML FLUSH IVF PRN (06:00)
--- NOTE | 2017-06-25 06:04 | RADRPT ---
EXAM DATE/TIME: 06/25/2017 05:54 [place] COMPARISON: CHEST SINGLE AP, April 05, 2017, 6:27. INDICATIONS : Chest pain and weakness MEDICAL HISTORY : Hypertension. Cardiovascular disease. Myocardial infarction. SURGICAL HISTORY : CABG. Appendectomy. Cholecystectomy. ENCOUNTER: Initial ACUITY: 1 day PAIN SCORE: 7/10 LOCATION: Bilateral chest FINDINGS: A single view of the chest demonstrates the lungs to be symmetrically aerated without evidence of mas s, infiltrate or effusion. The heart size is enlarged but stable. There is evidence of previous card iothoracic surgery.. Osseous structures are intact. CONCLUSION: No acute disease. No significant change has occurred. Logan Louis MD on June 25, 2017 at 6:02 Board Certified Radiologist. This report was verified electronically.
[2017-06-25] MEDS: NITROGLYCERIN 0.4 MG SL 25 TABS/BTL SL SCH ×3 (06:25→07:03)
[2017-06-25 06:37] LABS: AUTOMATED NEUTROPHIL # 12.3 TH/MM3 (1.8-7.7); BASOPHIL # 0.1 TH/MM3 (0-0.2); BASOPHIL % 0.5 % (0.0-2.0); EOSINOPHIL # 0.4 TH/MM3 (0-0.4); EOSINOPHIL % 2.6 % (0.0-4.0); HEMATOCRIT 41.3 % (35.0-46.0); HEMOGLOBIN 14.1 GM/DL (11.6-15.3); LYMPH % 12.6 % (9.0-44.0); MEAN CELL VOLUME 91.4 FL (80.0-100.0); MEAN CORPUSCULAR HEMOGLOBIN 31.1 PG (27.0-34.0); MEAN PLATELET VOLUME 7.5 FL (7.0-11.0); MONO % 5.9 % (0.0-8.0); MONOCYTE # 0.9 TH/MM3 (0-0.9); NEUT % 78.4 % (16.0-70.0); PLATELET COUNT 279 TH/MM3 (150-450); RED BLOOD COUNT 4.52 MIL/MM3 (4.00-5.30); WHITE BLOOD COUNT 15.6 TH/MM3 (4.0-11.0)
[2017-06-25 06:51] LABS: PROTHROMBIN TIME - PATIENT 9.6 SEC (9.8-11.6)
[2017-06-25 06:53] LABS: INTERNATIONAL NORMALIZED RATIO 0.9 RATIO
[2017-06-25 07:20] LABS: BICARBONATE 27.2 MEQ/L (21.0-32.0); CALCIUM 8.6 MG/DL (8.5-10.1); CREATININE 1.2 MG/DL (0.50-1.00); TROPONIN I 0.06 NG/ML (0.02-0.05)
[2017-06-25] MEDS ORDERED: NITROGLYCERIN 2% OINT 1 GM PACKET TOPICAL ONE (08:00)
[2017-06-25] MEDS ORDERED: SODIUM CHLORIDE 0.9% FLUSH 10 ML FLUSH IV FLUSH PRN (08:30)
[2017-06-25] MEDS: SODIUM CHLORIDE 0.9% FLUSH 10 ML FLUSH IV FLUSH SCH ×2 (08:54→20:48)
[2017-06-25] MEDS ORDERED: MORPHINE SULFATE 2 MG/ML INJ IM PRN (09:00)
[2017-06-25] MEDS ORDERED: buPROPion HCL 150 MG EXTENDED RELEASE TAB PO SCH (09:00)
[2017-06-25] MEDS ORDERED: LORazepam 0.5 MG TAB PO PRN (09:00)
[2017-06-25] MEDS ORDERED: ASPIRIN 325 MG TAB PO SCH (09:00)
[2017-06-25] MEDS ORDERED: PATIENT OWN MEDICATION (Linagliptin (Tradjenta) 5 MG) PO SCH (09:45)
--- NOTE | 2017-06-25 09:55 | HHI.HP ---
HPI Service [facility] Hospitalists Primary Care Physician Reji Basilio M.D. Admission Diagnosis chest pain; hypoglycemia w/ DM Chief Complaint: Chest pain Travel History International Travel<30 Days: No Contact w/Intl Traveler <30 Da: No Traveled to Known Affected Are: No History of Present Illness Mrs. Dwyer is a 52 y/o WF with history of CAD with previous CABG, DM, HTN, HLD , COPD, gastroparesis, and CHF echocardiogram 07/2016 revealed EF of 40-45%. pt was previously hospitalized from 03/30-04/01/2017 with complaints of chest pain. She was found to have elevated troponin/NSTEMI and underwent LHC on 03/[address] Anderson which revealed with 75-80% lesions in RCA and PDA s/p 2 ALBERTO. Pt [place] [facility] with complaints f chest pain and hypoglycemia. She states that she woke up during the night profusely sweating and her blood sugar was low at 40. She called [facility] and after receiving glucagon and orange juice her blood sugar increased to 77. Pt was brought to the ED and reports that en route she developed retrosternal chest pain with shortness of breath. She was given SL Nitro and Nitro patch without much improvement. She denies any vomiting, abdominal pain or diarrhea. Pts labs in the ED noted WBC count 15.6, Cr 1.20, BUN 15, GFR 47, Troponin 0.06. She had a CXR in the ED which noted no significant change. She has gastroparesis and baseline nausea but the nausea was worse with the chest pain this morning. Review of Systems Constitutional: COMPLAINS OF: Diaphoretic episodes, DENIES: Fever, Chills Eyes: DENIES: Vision loss Ears, nose, mouth, throat: DENIES: Hearing loss Respiratory: DENIES: Cough, Sputum production, Shortness of breath Cardiovascular: COMPLAINS OF: Chest pain, Lower Extremity Edema, DENIES: Palpitations Gastrointestinal: COMPLAINS OF: Nausea, DENIES: Abdominal pain, Constipation, Diarrhea, Vomiting Genitourinary: DENIES: Hematuria Musculoskeletal: DENIES: Back pain Integumentary: DENIES: Rash Neurologic: DENIES: Headache Psychiatric: DENIES: Confusion Past Family Social History Past Medical History Coronary artery disease status post CABG and cardiac stents, last stents placed on 03/31 Anxiety Depression Hyperlipidemia Congestive heart failure COPD Diabetes mellitus, type 2, Hgb A1C 9.2% (07/2016) Diabetic neuropathy GERD Chronic headaches Hypertension History of kidney stones Gastroparesis 2D echo (07/17/2016) - Estimated EF 40-45% - LA mildly dilated - Mild mitral regurg - Trace tricuspid regurg Past Surgical History [facility] (03/31/2017) with 75-80% lesions in RCA and PDA s/p 2 ALBERTO Hernia repair Appendectomy Cholecystectomy Sternal debridement CABG in [address] [facility] [address] Arsalan Anderson 05/30/14 - Severe 3 vessel [place] coronary artery disease - one of the two coronary artery bypass grafts are patent. There is late stent thrombosis of the PHILLIPS distal stent - Normal left ventricular filling pressures - Plan at time of heart catheterization: Given the small caliber sized vessel , cardiology elected to medically manage the remainder of patient's small vessel coronary disease Reported Medications -Coreg 6.25 Mg PO BID -Lasix 20 Mg PO DAILY -Isosorbide Mononitrate ER 120 Mg PO BID -Reglan 5 Mg PO TIDAC -Ranexa ER 12 HR 1,000 Mg PO Q12HR -Lipitor 40 Mg PO HS 30 Days -Ativan 0.5 Mg PO DAILY PRN -Lantus Inj 40 Units SQ HS -Wellbutrin Xl 24 HR 150 Mg PO DAILY -Tradjenta 5 Mg PO DAILY -Tanzeum 4-Pack Inj 50 Mg SQ Q7D -Paroxetine 40 Mg PO DAILY -Nitrostat SL (Nitroglycerin) 0.4 Mg Subl 0.4 Mg SL DIRECTED PRN ONE TABLET UNDER THE TONGUE NEEDED FOR CHEST PAIN, MAY REPEAT EVERY FIVE MINUTES FOR A TOTAL OF 3 DOSES OR CALL 911 IF NO RELIEF -Aspirin 325 Mg PO DAILY -Novolog Inj 5-25 Units SQ TIDACHS Max dose at bedtime:( )units; sugars less than 70,(0) units; sugars 150-199,(5) units; sugars 200-249,(10) units; sugars 250-299,(15) units; sugars 300-349,(20)units; sugars greater than 349,(25)units -Plavix 75 Mg PO DAILY -Protonix 40 Mg PO DAILY -Ventolin Hfa 18 GM Inh 90 Mcg/Act Aer 2 Puff INH Q6H PRN Allergies: Coded Allergies: diatrizoate meglumine (Unverified Allergy, Severe, Nausea/Vomiting, 1/13/ 18) ORAL CONTRAST ONLY gadobenic acid (Unverified Allergy, Severe, Nausea/Vomiting, 06/25/17) ORAL CONTRAST ONLY gadodiamide (Unverified Allergy, Severe, Nausea/Vomiting, 06/25/17) ORAL CONTRAST ONLY gadoteridol (Unverified Allergy, Severe, Nausea/Vomiting, 06/25/17) ORAL CONTRAST ONLY iodixanol (Unverified Allergy, Severe, Nausea/Vomiting, 06/25/17) ORAL CONTRAST ONLY iohexol (Unverified Allergy, Severe, Nausea/Vomiting, 06/25/17) ORAL CONTRAST ONLY penicillin G (Unverified Allergy, Severe, 06/25/17) sulfamethoxazole (Unverified Allergy, Severe, 06/25/17) trimethoprim (Unverified Allergy, Severe, 06/25/17) Family History Maternal: Heart disease, Hx of CVA, Hx of PE/DVT Paternal: at age 50 from an [place] Sister also with heart disease Social History Lives with: in [place] Hx of tobacco use, 1ppd 20+ quit 17 yrs ago Occasional alcohol once per month Denies any illicit drug use Pt is not working currently and working to get disability Physical Exam Vital Signs Vital Signs Date Time Temp Pulse Resp B/P (MAP) Pulse Ox O2 Delivery O2 Flow Rate FiO2 06/25/17 07:36 67 18 141/69 (93) 100 Room Air 06/25/17 07:07 68 18 151/72 (98) 100 Room Air 06/25/17 06:30 68 18 133/88 (103) 100 Room Air 06/25/17 06:15 99 Room Air 06/25/17 06:15 18 99 Room Air 06/25/17 05:24 96.0 82 18 225/118 (153) 93 Physical Exam GENERAL: This is a well-nourished, well-developed patient, in no apparent distress. HEENT: Atraumatic. Normocephalic. No temporal or scalp tenderness.No scleral icterus. Airway patent. NECK: Trachea midline, supple, nontender. CARDIO: Regular. RESP: CTA bilaterally. No wheezes, rales, or rhonchi. ABD: +BS, soft, non-tender, nondistended. EXT: Extremities without clubbing, cyanosis, or edema. NEURO: Awake and alert. Motor and sensory grossly within normal limits. Normal speech. Laboratory Laboratory Tests Test 06/25/17 06:14 White Blood Count 15.6 Red Blood Count 4.52 Hemoglobin 14.1 Hematocrit 41.3 Mean Corpuscular Volume 91.4 Mean Corpuscular Hemoglobin 31.1 Mean Corpuscular Hemoglobin Concent 34.0 Red Cell Distribution Width 14.0 Platelet Count 279 Mean Platelet Volume 7.5 Neutrophils (%) (Auto) 78.4 Lymphocytes (%) (Auto) 12.6 Monocytes (%) (Auto) 5.9 Eosinophils (%) (Auto) 2.6 Basophils (%) (Auto) 0.5 Neutrophils # (Auto) 12.3 Lymphocytes # (Auto) 2.0 Monocytes # (Auto) 0.9 Eosinophils # (Auto) 0.4 Basophils # (Auto) 0.1 CBC Comment DIFF FINAL Differential Comment Prothrombin Time 9.6 Prothromb Time International Ratio 0.9 Activated Partial Thromboplast Time 25.0 Blood Urea Nitrogen 15 Creatinine 1.20 Random Glucose 113 Calcium Level 8.6 Magnesium Level 2.0 Sodium Level 138 Potassium Level 4.0 Chloride Level 103 Carbon Dioxide Level 27.2 Anion Gap 8 Estimat Glomerular Filtration Rate 47 Total Creatine Kinase 89 Troponin I 0.06 Result Diagram: 06/25/1714 06/25/1714 Imaging Last Impressions Chest X-Ray 06/25/17 0549 Signed Impressions: Service Date/Time: Sunday, June 25, 2017 05:54 - CONCLUSION: No acute disease. No significant change has occurred. MD Vitor Lerner VTE Risk Assessment Caprini VTE Risk Assessment: Mod/High Risk (score >= 2) Caprini Risk Assessment Model Point Value = 1 Point Value = 2 Point Value = 3 Point Value = 5 Age 41-60 Minor surgery BMI > 25 kg/m2 Swollen legs Varicose veins or History of unexplained or recurrent spontaneous Oral contraceptives or hormone replacement Sepsis (< 1 month) Serious lung disease, including pneumonia (< 1 month) Abnormal pulmonary function Acute myocardial infarction Congestive heart failure (< 1 month) History of inflammatory bowel disease Medical patient at bed rest Age 61-74 Arthroscopic surgery Major open surgery (> 45 min) Laparoscopic surgery (> 45 min) Malignancy Confined to bed (> 72 hours) Immobilizing plaster cast Central venous access Age >= 75 History of VTE Family history of VTE Factor V Leiden Prothrombin [id number] Lupus anticoagulant Anticardiolipin antibodies Elevated serum homocysteine Heparin-induced thrombocytopenia Other congenital or acquired thrombophilia Stroke (< 1 month) Elective arthroplasty Hip, pelvis, or leg fracture Acute spinal cord injury (< 1 month) Prophylaxis Regimen Total Risk Factor Score Risk Level Prophylaxis Regimen 0-1 Low Early ambulation 2 Moderate Order ONE of the following: *Sequential Compression Device (SCD) *Heparin 5000 units SQ BID 3-4 Higher Order ONE of the following medications: *Heparin 5000 units SQ TID *Enoxaparin/Lovenox 40 mg SQ daily (WT < 150 kg, CrCl > 30 mL/min) *Enoxaparin/Lovenox 30 mg SQ daily (WT < 150 kg, CrCl > 10-29 mL/min) *Enoxaparin/Lovenox 30 mg SQ BID (WT < 150 kg, CrCl > 30 mL/min) AND/OR *Sequential Compression Device (SCD) 5 or more Highest Order ONE of the following medications: *Heparin 5000 units SQ TID (Preferred with Epidurals) *Enoxaparin/Lovenox 40 mg SQ daily (WT < 150 kg, CrCl > 30 mL/min) *Enoxaparin/Lovenox 30 mg SQ daily (WT < 150 kg, CrCl > 10-29 mL/min) *Enoxaparin/Lovenox 30 mg SQ BID (WT < 150 kg, CrCl > 30 mL/min) AND *Sequential Compression Device (SCD) Assessment and Plan Problem List: (1) Chest pain ICD Codes: R07.9 - Chest pain Status: Acute Plan: - The pt is a 52 y/o WF with history of CAD with previous CABG and recent stenting, DM, HTN, HLD, COPD, gastroparesis, and CHF echocardiogram 07/2016 revealed EF of 40-45%. - Pt last underwent LHC on 03/[address] Anderson which revealed 75-80% lesions in RCA and PDA s/p 2 ALBERTO. - Pt presented back to the ED on 06/25/17 with hypoglycemia, chest pain, nausea and SOB. - Pts labs in the ED noted WBC count 15.6, Cr 1.20, BUN 15, GFR 47, Troponin 0.06. - CXR in the ED which noted no acute changs. - Pt received Nitro and ASA in the ED without much relief. - Serial CE and EKGs - Pt follows with Dr. Anderson for Cardiology - Resume home meds - Antiemetics PRN - Pain control PRN - Supportive care (2) DM type 2 (diabetes mellitus, type 2) ICD Codes: E11.9 - Type 2 diabetes mellitus Status: Chronic Plan: - Pt was hypoglycemic this morning with BS of 40 - THis improved to 113 at the time of arrival to the ED after receiving orange juice and glucagon. - There is no obvious reason for the drop in her blood glucose during the night other than she may have eaten less than normal yesterday evening. - Pt normally takes Tradjenta 5 Mg PO DAILY, Tanzeum 4-Pack Inj 50 Mg SQ Q7D, and NovoLog SSI at home - Cont. Tradjenta and Low dose NovoLog SSI - Monitor closely (3) Elevated troponin ICD Codes: R77.8 - Elevated troponin level Status: Acute Plan: - See above - Trend troponin (4) GERD (gastroesophageal reflux disease) ICD Codes: K21.9 - Gastro-esophageal reflux disease without esophagitis Status: Chronic Plan: - PPI (5) CAD (coronary artery disease) ICD Codes: I25.10 - Atherosclerosis of coronary artery Status: Chronic Plan: - See above (6) HTN (hypertension) ICD Codes: I10 - Essential (primary) hypertension Status: Chronic Plan: - Home meds continued (7) COPD (chronic obstructive pulmonary disease) ICD Codes: J44.9 - Chronic obstructive pulmonary disease, unspecified Status: Chronic Plan: - Duonebs PRN (8) Diastolic heart failure ICD Codes: I50.30 - Diastolic heart failure Status: Chronic Plan: - Home meds continued (9) Gastroparesis ICD Codes: K31.84 - Gastroparesis Status: Chronic Plan: - Cont. Reglan 5mg po TIDAC Assessment and Plan Patient examined. Assessment and plan formulated with Nuha Mojica PA-C. I agree with the above. Pt initially required medical attention for hypoglycemia. then pt developed c/o chest pain. h/o cad, will obtain serial cardiac enzymes. Physician Certification 2 Midnight Certification Type: Admission for Inpatient Services Order for Inpatient Services The services are ordered in accordance with Medicare regulations or non- Medicare payer requirements, as applicable. In the case of services not specified as inpatient-only, they are appropriately provided as inpatient services in accordance with the 2-midnight benchmark. Estimated LOS (days): 2 2 days is the estimated time the patient will need to remain in the hospital, assuming treatment plan goals are met and no additional complications. Post-Hospital Plan: Home Nuha Mojica Jun 25, 2017 09:55 Juan Valdivia DO Jun 28, 2017 00:06
[2017-06-25] MEDS: CARVEDILOL 6.25 MG TAB PO SCH ×2 (10:03→20:48)
[2017-06-25] MEDS: FUROSEMIDE 20 MG TAB PO SCH (10:03)
[2017-06-25] MEDS: PANTOPRAZOLE SOD 40 MG DELAYED RELEASE TAB PO SCH (10:03)
[2017-06-25] MEDS: CLOPIDOGREL 75 MG TAB PO SCH (10:03)
[2017-06-25] MEDS: ISOSORBIDE MONONITRATE 60 MG TAB PO SCH ×2 (10:04→20:48)
[2017-06-25] MEDS: PARoxetine HCL 20 MG TAB PO SCH (10:04)
[2017-06-25] MEDS: RANOLAZINE 500 MG EXTENDED RELEASE TAB PO SCH ×2 (10:23→20:48)
[2017-06-25] MEDS: METOCLOPRAMIDE HCL 10 MG TAB PO SCH ×2 (12:54→17:42)
[2017-06-25] MEDS: INSULIN ASPART SUPPLEMENTAL SCALE SQ SCH ×3 (12:55→21:00)
[2017-06-25 13:47] LABS: TROPONIN I 0.29 NG/ML (0.02-0.05)
[2017-06-25] MEDS: MORPHINE SULFATE 4 MG/ML INJ IV PUSH PRN ×2 (13:59→20:49)
--- NOTE | 2017-06-25 15:06 | EKG ---
Date Performed: 06/25/2017 Time Performed: 06:15:52 PTAGE: 52 years EKG: Sinus rhythm POSSIBLE LEFT ATRIAL ENLARGEMENT LEFT ANTERIOR FASCICULAR BLOCK POSSIBLE ANTERIOR MYOCARDIAL INFARCT ION MODERATE T-WAVE ABNORMALITY, CONSIDER LATERAL ISCHEMIA ABNORMAL ECG PREVIOUS TRACING : 04/26/2017 02.25 Since previous tracing, no significant change noted DOCTOR: Daron Alas Interpretating Date/Time 06/25/2017 15:05:03
[2017-06-25] MEDS ORDERED: ENALAPRILAT 1.25 MG/ML VIAL IV PRN (15:15)
[2017-06-25] MEDS ORDERED: cloNIDine HCL 0.2 MG TAB PO PRN (15:15)
[2017-06-25] MEDS ORDERED: ATORVASTATIN 40 MG TAB PO SCH (21:00)
[2017-06-25 21:01] LABS: TROPONIN I 0.27 NG/ML (0.02-0.05)
[2017-06-26] VITALS (11 sets, daily range): BP systolic 122–154; BP diastolic 67–86; PULSE 62–74; RESP 18–20; TEMP 98.2–98.5; O2SAT 96–97
[2017-06-26] MEDS: MORPHINE SULFATE 4 MG/ML INJ IV PUSH PRN ×2 (03:37→12:31)
[2017-06-26 05:26] LABS: AUTOMATED NEUTROPHIL # 7.5 TH/MM3 (1.8-7.7); BASOPHIL # 0.1 TH/MM3 (0-0.2); BASOPHIL % 0.5 % (0.0-2.0); EOSINOPHIL # 0.5 TH/MM3 (0-0.4); EOSINOPHIL % 3.8 % (0.0-4.0); HEMATOCRIT 34.1 % (35.0-46.0); HEMOGLOBIN 11.4 GM/DL (11.6-15.3); LYMPH % 27.3 % (9.0-44.0); LYMPHOCYTE # 3.3 TH/MM3 (1.0-4.8); MEAN CELL VOLUME 91.8 FL (80.0-100.0); MEAN CORPUSCULAR HEMOGLOBIN 30.6 PG (27.0-34.0); MEAN CORPUSCULAR HGB CONC 33.3 % (32.0-36.0); MEAN PLATELET VOLUME 7.3 FL (7.0-11.0); MONOCYTE # 0.7 TH/MM3 (0-0.9); NEUT % 62.4 % (16.0-70.0); PLATELET COUNT 217 TH/MM3 (150-450); RED BLOOD COUNT 3.72 MIL/MM3 (4.00-5.30); RED CELL DISTRIBUTION WIDTH 14.4 % (11.6-17.2)
[2017-06-26 05:30] LABS: CALCIUM 8.3 MG/DL (8.5-10.1); CREATININE 1.47 MG/DL (0.50-1.00); MAGNESIUM 2.1 MG/DL (1.5-2.5)
[2017-06-26] MEDS: INSULIN ASPART SUPPLEMENTAL SCALE SQ SCH ×2 (08:00→12:00)
--- NOTE | 2017-06-26 08:23 | PD.CONS ---
HPI Service cardiology Consult Requested By Reason for Consult chest pain Primary Care Physician Reji Basilio M.D. History of Present Illness This is a 52 yo F with history of CAD, CABG x 2, COPD, cardiomyopathy, diabetes , HTN and HLD who presented with hypoglycemia and chest pain. Patient states she developed left-sided chest pain radiating to axilla while in EMS transport to the ED. She continues to feel chest discomfort, non-exertional, somewhat improved since admission. Chest pain is reminiscent of prior [place]. She underwent cardiac catheterization Mar 2017 with PCI ALBERTO RCA and PDA, 1/2 grafts patent and diffuse small vessel disease. She has been compliant with Plavix and Ranexa. troponins show chronic elevation. EKG does not demonstrate concerning ST changes. last echo 2015 EF 40-45%. Denies SOB, edema or orthopnea. (Марина Denton) Review of Systems Consitutional: DENIES: Fatigue, Fever, Chills, Weight gain, Weight loss Respiratory: DENIES: Cough, Snoring, Shortness of breath, Sputum production Cardiovascular: DENIES: Palpitations, Syncope, Tachycardia Gastrointestinal: DENIES: Nausea, Vomiting, Change in bowel habits, Reflux, Bloody stools, Melena (Марина Denton) Past Family Social History Allergies: Coded Allergies: diatrizoate meglumine (Unverified Allergy, Severe, Nausea/Vomiting, ) ORAL CONTRAST ONLY gadobenic acid (Unverified Allergy, Severe, Nausea/Vomiting, 06/25/17) ORAL CONTRAST ONLY gadodiamide (Unverified Allergy, Severe, Nausea/Vomiting, 06/25/17) ORAL CONTRAST ONLY gadoteridol (Unverified Allergy, Severe, Nausea/Vomiting, 06/25/17) ORAL CONTRAST ONLY iodixanol (Unverified Allergy, Severe, Nausea/Vomiting, 06/25/17) ORAL CONTRAST ONLY iohexol (Unverified Allergy, Severe, Nausea/Vomiting, 06/25/17) ORAL CONTRAST ONLY penicillin G (Unverified Allergy, Severe, 06/25/17) sulfamethoxazole (Unverified Allergy, Severe, 06/25/17) trimethoprim (Unverified Allergy, Severe, 06/25/17) Past Medical History Coronary artery disease status post CABG and cardiac stents, last stents placed on 03/31/2017 Anxiety Depression Hyperlipidemia Congestive heart failure COPD Diabetes mellitus, type 2, Hgb A1C 9.2% (07/2016) Diabetic neuropathy GERD Chronic headaches Hypertension History of kidney stones Gastroparesis Past Surgical History LHC (03/31/2017) with 75-80% lesions in RCA and PDA s/p 2 ALBERTO Hernia repair Appendectomy Cholecystectomy Sternal debridement CABG in 2007 Reported Medications Reported Meds & Active Scripts Active Coreg (Carvedilol) 6.25 Mg Tab 6.25 Mg PO BID Lasix (Furosemide) 20 Mg Tab 20 Mg PO DAILY Isosorbide Mononitrate ER (Isosorbide Mononitrate) 60 Mg Tab 120 Mg PO BID Reglan (Metoclopramide HCl) 5 Mg Tab 5 Mg PO TIDAC Ranexa ER 12 HR (Ranolazine) 500 Mg Tab 1,000 Mg PO Q12HR Lipitor (Atorvastatin Calcium) 40 Mg Tab 40 Mg PO HS 30 Days Reported Ativan (Lorazepam) 0.5 Mg Tab 0.5 Mg PO DAILY PRN Lantus Inj (Insulin Glargine) 1,000 Unit/10 Ml Vial 40 Units SQ HS Wellbutrin Xl 24 HR (Bupropion HCl) 150 Mg Tab 150 Mg PO DAILY Tradjenta (Linagliptin) 5 Mg Tab 5 Mg PO DAILY Tanzeum 4-Pack Inj (Albiglutide) 50 Mg Pfpen 50 Mg SQ Q7D Paroxetine (Paroxetine HCl) 40 Mg Tab 40 Mg PO DAILY Nitrostat SL (Nitroglycerin) 0.4 Mg Subl 0.4 Mg SL DIRECTED PRN ONE TABLET UNDER THE TONGUE NEEDED FOR CHEST PAIN, MAY REPEAT EVERY FIVE MINUTES FOR A TOTAL OF 3 DOSES OR CALL 911 IF NO RELIEF Aspirin 325 Mg Tab 325 Mg PO DAILY Novolog Inj (Insulin Aspart) 1,000 Unit/10 Ml Vial 5-25 Units SQ TIDACHS Max dose at bedtime:( )units; sugars less than 70,(0) units; sugars 150-199,(5) units; sugars 200-249,(10) units; sugars 250-299,(15) units; sugars 300-349,(20)units; sugars greater than 349,(25)units Plavix (Clopidogrel Bisulfate) 75 Mg Tab 75 Mg PO DAILY Protonix (Pantoprazole Sodium) 40 Mg Tab 40 Mg PO DAILY Ventolin Hfa 18 GM Inh (Albuterol Sulfate) 90 Mcg/Act Aer 2 Puff INH Q6H PRN Active Ordered Medications Current Medications Medications (Trade) Dose Ordered Sig/Marcial Route Start Time Stop Time Status Last Admin (NS Flush) 2 ml BID IV FLUSH 06/25/17 09:00 06/25/17 20:48 (NS Flush) 2 ml UNSCH PRN IV FLUSH 06/25/17 08:30 (Lipitor) 40 mg HS PO 06/25/17 21:00 06/25/17 20:48 (Wellbutrin Xl 24 Hr) 150 mg DAILY PO 06/25/17 09:00 06/25/17 10:23 (Coreg) 6.25 mg BID PO 06/25/17 11:00 06/25/17 20:48 (Plavix) 75 mg DAILY PO 06/25/17 11:00 06/25/17 10:03 (Lasix) 20 mg DAILY PO 06/25/17 11:00 06/25/17 10:03 (Imdur) 120 mg BID PO 06/25/17 11:00 06/25/17 20:48 (Ativan) 0.5 mg DAILY PRN PO 06/25/17 09:00 (Protonix) 40 mg DAILY PO 06/25/17 09:00 06/25/17 10:03 (Paxil) 40 mg DAILY PO 06/25/17 11:00 06/25/17 10:04 (Ranexa) 1,000 mg Q12HR PO 06/25/17 11:00 06/25/17 20:48 Patient Own Medication PT OWN MED: (Linagliptin (Tradjenta)... DAILY PO 06/25/17 09:45 Future Hold (Reglan) 5 mg TIDAC PO 06/25/17 12:00 06/25/17 17:42 (NovoLOG SUPPLEMENTAL SCALE) 1 ACHS SLIDING SCALE SQ 06/25/17 12:00 06/25/17 21:00 (Aspirin) 325 mg DAILY PO 06/26/17 09:00 (Morphine Inj) 4 mg Q6H PRN IV PUSH 06/25/17 13:00 06/26/17 03:37 (Catapres) 0.2 mg Q6H PRN PO 06/25/17 15:15 06/25/17 15:40 (Vasotec Inj) 1.25 mg Q6H PRN IV 06/25/17 15:15 Family History Maternal: Heart disease, Hx of CVA, Hx of PE/DVT Paternal: at age 50 from an [place] Sister also with heart disease Social History Lives with: in [place] Hx of tobacco use, 1ppd 20+ quit 17 yrs ago Occasional alcohol once per month Denies any illicit drug use Pt is not working currently and working to get disability (Марина Denton) Physical Exam Vital Signs Vital Signs Date Time Temp Pulse Resp B/P (MAP) Pulse Ox O2 Delivery O2 Flow Rate FiO2 06/26/17 06:02 63 06/26/17 05:03 66 06/26/17 04:00 64 06/26/17 03:52 18 06/26/17 03:00 98.2 69 18 127/71 (89) 96 06/26/17 03:00 64 06/26/17 02:05 67 06/26/17 01:00 63 06/26/17 00:00 62 06/25/17 23:00 62 06/25/17 23:00 98.5 64 18 103/59 (74) 96 06/25/17 22:00 62 06/25/17 21:00 62 06/25/17 20:00 64 06/25/17 19:00 66 06/25/17 19:00 98.2 63 20 109/50 (69) 94 06/25/17 17:32 65 06/25/17 16:00 70 06/25/17 15:12 97.9 70 18 164/90 (114) 95 06/25/17 15:00 70 06/25/17 13:45 97.8 74 18 153/98 (116) 98 06/25/17 13:45 (93) Physical Exam GENERAL: SKIN: Warm and dry. HEAD: Atraumatic. Normocephalic. EYES: Pupils equal and round. ENT: No nasal bleeding or discharge. NECK: Trachea midline. No JVD. CARDIOVASCULAR: Regular rate and rhythm. no murmurs RESPIRATORY: No accessory muscle use. Clear to auscultation. Breath sounds equal bilaterally. GASTROINTESTINAL: Abdomen soft, non-tender, nondistended. MUSCULOSKELETAL: Extremities without clubbing, cyanosis, or edema. No obvious deformities. NEUROLOGICAL: Awake and alert. No obvious cranial nerve deficits. Normal speech. PSYCHIATRIC: Appropriate mood and affect; insight and judgment normal. Laboratory Laboratory Tests Test 06/25/17 12:36 06/25/17 19:36 06/26/17 04:26 Total Creatine Kinase 69 80 Troponin I 0.29 0.27 White Blood Count 12.0 Red Blood Count 3.72 Hemoglobin 11.4 Hematocrit 34.1 Mean Corpuscular Volume 91.8 Mean Corpuscular Hemoglobin 30.6 Mean Corpuscular Hemoglobin Concent 33.3 Red Cell Distribution Width 14.4 Platelet Count 217 Mean Platelet Volume 7.3 Neutrophils (%) (Auto) 62.4 Lymphocytes (%) (Auto) 27.3 Monocytes (%) (Auto) 6.0 Eosinophils (%) (Auto) 3.8 Basophils (%) (Auto) 0.5 Neutrophils # (Auto) 7.5 Lymphocytes # (Auto) 3.3 Monocytes # (Auto) 0.7 Eosinophils # (Auto) 0.5 Basophils # (Auto) 0.1 CBC Comment DIFF FINAL Differential Comment Blood Urea Nitrogen 23 Creatinine 1.47 Random Glucose 126 Calcium Level 8.3 Magnesium Level 2.1 Sodium Level 139 Potassium Level 3.7 Chloride Level 104 Carbon Dioxide Level 30.0 Anion Gap 5 Estimat Glomerular Filtration Rate 37 (Марина Denton) Result Diagram: 06/26/176 06/26/17 0426 Imaging Last 48 hours Impressions Chest X-Ray 06/25/17 0549 Signed Impressions: Service Date/Time: Sunday, June 25, 2017 05:54 - CONCLUSION: No acute disease. No significant change has occurred. Logan Louis MD (Марина Denton) Assessment and Plan Problem List: (1) Chest pain ICD Codes: R07.9 - Chest pain Status: Acute (2) CAD (coronary artery disease) ICD Codes: I25.10 - Atherosclerosis of coronary artery Status: Chronic Assessment and Plan This is a 52 yo F with history of CAD, CABG x 2, COPD, cardiomyopathy, diabetes , HTN and HLD who presented with hypoglycemia and chest pain. Patient states she developed left-sided chest pain radiating to axilla while in EMS transport to the ED. 2015 EF 30-35% CAD- s/p CABG x 2, 03/2017 PCI ALBERTO RCA and PDA showing 1/2 grafts patent and diffuse small vessel disease chest pain- atypical. troponin elevation, chronic. she remains symptomatic currently. no concerning ST changes. compliant with antiplatelet therapy and Ranexa 2D echo consider ischemic workup, keep npo (Марина Denton) Assessment and Plan known small vessel disease complaint with plavix and asa continue isosorbide 120 BID and ranexa 1000 BID intermediate trop no further CP plan for medical therapy no plan for lexiscan or [facility] now (Arsalan Anderson MD) Марина Denton Jun 26, 2017 08:23 Arsalan Anderson MD Jun 26, 2017 09:59
--- NOTE | 2017-06-26 08:44 | HHI.PR ---
Subjective Remarks Pt reports that the chest pain has minimized overngiht and this morning She denies any SOB, palpitations, dizziness, or diaphoresis. BP has been stable Blood glucose has been stable. Objective Vitals Vital Signs Date Time Temp Pulse Resp B/P (MAP) Pulse Ox O2 Delivery O2 Flow Rate FiO2 06/26/17 06:02 63 06/26/17 05:03 66 06/26/17 04:00 64 06/26/17 03:52 18 06/26/17 03:00 98.2 69 18 127/71 (89) 96 06/26/17 03:00 64 06/26/17 02:05 67 06/26/17 01:00 63 06/26/17 00:00 62 06/25/17 23:00 62 06/25/17 23:00 98.5 64 18 103/59 (74) 96 06/25/17 22:00 62 06/25/17 21:00 62 06/25/17 20:00 64 06/25/17 19:00 66 06/25/17 19:00 98.2 63 20 109/50 (69) 94 06/25/17 17:32 65 06/25/17 16:00 70 06/25/17 15:12 97.9 70 18 164/90 (114) 95 06/25/17 15:00 70 06/25/17 13:45 97.8 74 18 153/98 (116) 98 06/25/17 13:45 (93) Result Diagram: 06/26/17 0426 06/26/17 0426 Other Results Laboratory Tests Test 06/25/17 06:14 06/25/17 12:36 06/25/17 19:36 06/26/17 04:26 White Blood Count 15.6 TH/MM3 12.0 TH/MM3 Red Blood Count 4.52 MIL/MM3 3.72 MIL/MM3 Hemoglobin 14.1 GM/DL 11.4 GM/DL Hematocrit 41.3 % 34.1 % Mean Corpuscular Volume 91.4 FL 91.8 FL Mean Corpuscular Hemoglobin 31.1 PG 30.6 PG Mean Corpuscular Hemoglobin Concent 34.0 % 33.3 % Red Cell Distribution Width 14.0 % 14.4 % Platelet Count 279 TH/MM3 217 TH/MM3 Mean Platelet Volume 7.5 FL 7.3 FL Neutrophils (%) (Auto) 78.4 % 62.4 % Lymphocytes (%) (Auto) 12.6 % 27.3 % Monocytes (%) (Auto) 5.9 % 6.0 % Eosinophils (%) (Auto) 2.6 % 3.8 % Basophils (%) (Auto) 0.5 % 0.5 % Neutrophils # (Auto) 12.3 TH/MM3 7.5 TH/MM3 Lymphocytes # (Auto) 2.0 TH/MM3 3.3 TH/MM3 Monocytes # (Auto) 0.9 TH/MM3 0.7 TH/MM3 Eosinophils # (Auto) 0.4 TH/MM3 0.5 TH/MM3 Basophils # (Auto) 0.1 TH/MM3 0.1 TH/MM3 CBC Comment DIFF FINAL DIFF FINAL Differential Comment Prothrombin Time 9.6 SEC Prothromb Time International Ratio 0.9 RATIO Activated Partial Thromboplast Time 25.0 SEC Blood Urea Nitrogen 15 MG/DL 23 MG/DL Creatinine 1.20 MG/DL 1.47 MG/DL Random Glucose 113 MG/DL 126 MG/DL Calcium Level 8.6 MG/DL 8.3 MG/DL Magnesium Level 2.0 MG/DL 2.1 MG/DL Sodium Level 138 MEQ/L 139 MEQ/L Potassium Level 4.0 MEQ/L 3.7 MEQ/L Chloride Level 103 MEQ/L 104 MEQ/L Carbon Dioxide Level 27.2 MEQ/L 30.0 MEQ/L Anion Gap 8 MEQ/L 5 MEQ/L Estimat Glomerular Filtration Rate 47 ML/MIN 37 ML/MIN Total Creatine Kinase 89 U/L 69 U/L 80 U/L Troponin I 0.06 NG/ML 0.29 NG/ML 0.27 NG/ML Imaging Last Impressions Chest X-Ray 06/25/17 0549 Signed Impressions: Service Date/Time: Sunday, June 25, 2017 05:54 - CONCLUSION: No acute disease. No significant change has occurred. Logan Louis MD Objective Remarks General: NAD, AAox3 Chest: CTA Cardiac: Regular Abd: +BS, soft ND/NT Ext: No edema A/P Problem List: (1) Chest pain ICD Codes: R07.9 - Chest pain Status: Acute Plan: - The pt is a 52 y/o WF with history of CAD with previous CABG and recent stenting, DM, HTN, HLD, COPD, gastroparesis, and CHF echocardiogram 07/2016 revealed EF of 40-45%. - Pt last underwent LHC on 03/31/[address] Anderson which revealed 75-80% lesions in RCA and PDA s/p 2 ALBERTO. - Pt presented back to the ED on 06/25/17 with hypoglycemia, chest pain, nausea and SOB. - Pts labs in the ED noted WBC count 15.6, Cr 1.20, BUN 15, GFR 47, Troponin 0.06. - CXR in the ED which noted no acute changs. - Pt received Nitro and ASA in the ED without much relief. - Serial CE 0.06 --> 0.29 --> 0.27 - EKGs with no acute changes - Cardiology was consulted - Pt is NPO currently, Cardiology to decide about further ischemic workup - 2D echo is ordered - Cont. home meds - Antiemetics PRN - Pain control PRN - Supportive care ADDENDUM: - Cardiology does not feel that the Lexiscan or LHC is necessary at this time and recommending continued medical therapy. - Pt cleared for discharge from Cardiology standpoint - She will continue her previous cardiac meds - Pt will need to followup with Dr. Anderson in 2 weeks. (2) DM type 2 (diabetes mellitus, type 2) ICD Codes: E11.9 - Type 2 diabetes mellitus Status: Chronic Plan: - Pt was hypoglycemic the morning of admission with BS of 40 - This improved to 113 at the time of arrival to the ED after receiving orange juice and glucagon. - There is no obvious reason for the drop in her blood glucose during the night other than she may have eaten less than normal the evening prior to admission. - Pt normally takes Tradjenta 5 Mg PO DAILY, Tanzeum 4-Pack Inj 50 Mg SQ Q7D, Lantus 40 units HS and NovoLog SSI at home - Cont. Low dose NovoLog SSI - BS have been stable since admission. - We will hold the Tanzeum, NovoLog and Lantus at discharge - Pt will continue her Tradjenta - Her previous home meds may need to be resumed once pt resumes her normal eating regimen but during this admission BS have been stable on Low dose SSI - She will need to followup with her PCP, Dr. Basilio, in 1 week to review her medications and what her BS has been trending. (3) Elevated troponin ICD Codes: R77.8 - Elevated troponin level Status: Acute Plan: - See above - Trend troponin (4) GERD (gastroesophageal reflux disease) ICD Codes: K21.9 - Gastro-esophageal reflux disease without esophagitis Status: Chronic Plan: - PPI (5) CAD (coronary artery disease) ICD Codes: I25.10 - Atherosclerosis of coronary artery Status: Chronic Plan: - See above (6) HTN (hypertension) ICD Codes: I10 - Essential (primary) hypertension Status: Chronic Plan: - Home meds continued (7) COPD (chronic obstructive pulmonary disease) ICD Codes: J44.9 - Chronic obstructive pulmonary disease, unspecified Status: Chronic Plan: - Duonebs PRN (8) Diastolic heart failure ICD Codes: I50.30 - Diastolic heart failure Status: Chronic Plan: - Home meds continued (9) Gastroparesis ICD Codes: K31.84 - Gastroparesis Status: Chronic Plan: - Cont. Reglan 5mg po TIDAC Assessment and Plan Patient examined. Assessment and plan formulated with Nuha WEIC. I agree with the above. Upon discharge pt's DM medications changed to only tradjenta Pt to f/u with PCP in 1 week. troponin pattern flat appreciate input from Cardiology Pt to f/u with Dr. Anderson in the clinic in 2 weeks. Nuha Mojica Jun 26, 2017 08:43 Juan Valdivia DO Jun 28, 2017 00:09
[2017-06-26] MEDS ORDERED: ASPIRIN 325 MG TAB PO SCH (09:00)
[2017-06-26] MEDS: CLOPIDOGREL 75 MG TAB PO SCH (11:10)
[2017-06-26] MEDS: ISOSORBIDE MONONITRATE 60 MG TAB PO SCH (11:11)
[2017-06-26] MEDS: METOCLOPRAMIDE HCL 10 MG TAB PO SCH ×3 (11:11→17:00)
[2017-06-26] MEDS: CARVEDILOL 6.25 MG TAB PO SCH (11:11)
[2017-06-26] MEDS: PANTOPRAZOLE SOD 40 MG DELAYED RELEASE TAB PO SCH (11:11)
[2017-06-26] MEDS: PARoxetine HCL 20 MG TAB PO SCH (11:11)
[2017-06-26] MEDS: FUROSEMIDE 20 MG TAB PO SCH (11:12)
[2017-06-26] MEDS: RANOLAZINE 500 MG EXTENDED RELEASE TAB PO SCH (12:01)
--- NOTE | 2017-06-26 12:13 | ECHRPT ---
Indication: CHEST PAIN CONCLUSIONS The left ventricular systolic function is normal with an estimated ejection fraction in the range of 60-65%. Normal left ventricular size. Wall thickness is normal. No regional wall motion abnormalities are present. Trace mitral valve regurgitation. BP: / HR: Rhythm: Sinus MEASUREMENTS (Male / Female) Normal Values Technical Quality:Good 2D ECHO LV Diastolic Diameter PLAX 4.8 cm 4.2 - 5.9 / 3.9 - 5.3 cm LV Systolic Diameter PLAX 3.4 cm IVS Diastolic Thickness 1.3 cm 0.6 - 1.0 / 0.6 - 0.9 cm LVPW Diastolic Thickness 1.3 cm 0.6 - 1.0 / 0.6 - 0.9 cm LV Relative Wall Thickness 0.5 RV Internal Dim ED PLAX 2.3 cm LVOT Diameter 1.8 cm LA Systolic Diameter LX 3.7 cm 3.0 - 4.0 / 2.7 - 3.8 cm M-MODE Aortic Root Diameter MM 2.6 cm LA Systolic Diameter MM 3.6 cm LA Ao Ratio MM 1.4 AV Cusp Separation MM 1.8 cm DOPPLER AV Peak Velocity 176.0 cm/s AV Peak Gradient 12.4 mmHg LVOT Peak Velocity 102.0 cm/s LVOT Peak Gradient 4.2 mmHg AV Area Cont Eq pk 1.5 cm MV Area PHT 2.5 cm Mitral E Point Velocity 107.0 cm/s Mitral A Point Velocity 97.7 cm/s Mitral E to A Ratio 1.1 LV E' Lateral Velocity 7.5 cm/s Mitral E to LV E' Lateral Ratio 14.2 LV E' Septal Velocity 4.8 cm/s Mitral E to LV E' Septal Ratio 22.4 PV Peak Velocity 84.2 cm/s PV Peak Gradient 2.8 mmHg FINDINGS LEFT VENTRICLE The left ventricular systolic function is normal with an estimated ejection fraction in the range of 60-65%. Normal left ventricular size. Wall thickness is normal. No regional wall motion abnormalities are present. RIGHT VENTRICLE Normal right ventricular size and systolic function. LEFT ATRIUM The left atrial size is normal. RIGHT ATRIUM The right atrial size is normal. ATRIAL SEPTUM Normal atrial septal thickness without atrial level shunting by limited color doppler interrogation. AORTA The aortic root and proximal ascending aorta are normal in size on limited imaging. MITRAL VALVE Structurally normal mitral valve. Trace mitral valve regurgitation. AORTIC VALVE Trileaflet aortic valve. No aortic valve stenosis or regurgitation. TRICUSPID VALVE Structurally normal tricuspid valve. No tricuspid valve stenosis or regurgitation. PULMONARY VALVE The pulmonary valve is not well visualized. VESSELS The inferior vena cava is normal in size. PERICARDIUM No pericardial effusion. Arsalan Anderson MD, FACC (Electronically Signed) Final Date:26 June 2017 12:12
[2017-06-26] MEDS ORDERED: ACETAMINOPHEN/HYDROcodone 325 MG/5 MG TAB PO PRN (15:30)
[2017-06-26] MEDS: SODIUM CHLORIDE 0.9% FLUSH 10 ML FLUSH IV FLUSH SCH (17:01)
--- NOTE | 2017-06-26 17:37 | EKG ---
Date Performed: 06/25/2017 Time Performed: 12:56:09 PTAGE: 52 years EKG: Sinus rhythm LEFT ANTERIOR FASCICULAR BLOCK POSSIBLE ANTERIOR MYOCARDIAL INFARCTION MODERATE T-WAVE ABNORMALITY, CONSIDER LATERAL ISCHEMIA ABNORMAL ECG INTERPRETATION BASED ON A DEFAULT AGE OF 40 YEARS PREVIOUS TRACING : 06/25/2017 06.15 Since previous tracing, no significant change noted DOCTOR: Daron Alas Interpretating Date/Time 06/26/2017 17:35:29
--- NOTE | 2017-06-26 17:59 | HHI.DCPOC ---
Discharge Care Plan Diagnosis: (1) Hypoglycemia due to type 2 diabetes mellitus (2) Chest pain (3) Essential hypertension (4) Diabetes mellitus (5) Diastolic heart failure (6) Gastroparesis (7) Diabetes (8) CAD (coronary artery disease) Goals to Promote Your Health - Followup with Dr. Basilio in 1 week to review your blood sugar readings and discuss medication changes, call for an appt - Followup with Dr. Anderson in 2 weeks, call for an appt. - Do not resume the Tanzeum, NovoLog or Lantus at discharge. Only continue the Tradjenta 5mg daily. The other medications may need to be resumed if blood sugars start to rise. Directions to Meet Your Goals Take your medications as prescribed Follow your dietary instruction Follow activity as directed Keep your appointments as scheduled Take your immunizations and boosters as scheduled If your symptoms worsen call your PCP, if no PCP go to Urgent Care Center or Emergency Room Smoking is Dangerous to Your Health. Avoid second hand smoke Call the 24-hour hour crisis hotline for domestic abuse at Nuha Mojica Jun 26, 2017 17:59 Juan Valdivia DO Jun 28, 2017 00:04
[2017-06-27] MEDS ORDERED: buPROPion HCL 150 MG SUSTAINED RELEASE TAB PO SCH (09:00)
== END 2017-06-26 17:45 | disposition home or self-care (01) | DRG 638 ==
LOC: NEPC 05:20 → NEDA 07:52 → NEDH 12:12 → HCIS 13:32
PROVIDERS: ADMIT Hospitalist; ATTEND Hospitalist
DX: E11.649 Type 2 diabetes mellitus with hypoglycemia without coma (principal); I50.30 Unspecified diastolic (congestive) heart failure; I11.0 Hypertensive heart disease with heart failure; I42.9 Cardiomyopathy, unspecified; K31.84 Gastroparesis; E11.40 Type 2 diabetes mellitus with diabetic neuropathy, unspecified; E78.5 Hyperlipidemia, unspecified; J44.9 Chronic obstructive pulmonary disease, unspecified; I25.10 Atherosclerotic heart disease of native coronary artery without angina pectoris; I25.2 Old myocardial infarction; K21.9 Gastro-esophageal reflux disease without esophagitis; E11.43 Type 2 diabetes mellitus with diabetic autonomic (poly)neuropathy; E11.51 Type 2 diabetes mellitus with diabetic peripheral angiopathy without gangrene; R07.89 Other chest pain; M19.90 Unspecified osteoarthritis, unspecified site; F41.8 Other specified anxiety disorders; Z79.4 Long term (current) use of insulin; Z87.891 Personal history of nicotine dependence; Z88.0 Allergy status to penicillin; Z88.2 Allergy status to sulfonamides; Z91.041 Radiographic dye allergy status; Z95.1 Presence of aortocoronary bypass graft; Z95.5 Presence of coronary angioplasty implant and graft
CPT/HCPCS: 71045; 80048; 82550; 82948; 83735; 84484; 85025; 85610; 85730; 93005; 93306; J1815; J2270

== ENCOUNTER 2017-07-11 18:15 | Emergency (ER) | payer OTHER ==
[~2017-07-11] VITALS: Ht 160 cm; Wt 106.8 kg
[~2017-07-11 18:15] MED LIST changes: -ALBI1INJ2 SQ; -LANTUS2P SQ; -NOVOLOGP2 SQ
[2017-07-11 18:18] VITALS: BP 174/83; PULSE 78; RESP 22; TEMP 98.2; O2SAT 98
[2017-07-11 20:13] LABS: AUTOMATED NEUTROPHIL # 10.3 TH/MM3 (1.8-7.7); BASOPHIL # 0.1 TH/MM3 (0-0.2); EOSINOPHIL # 0.2 TH/MM3 (0-0.4); EOSINOPHIL % 1.7 % (0.0-4.0); HEMATOCRIT 43.6 % (35.0-46.0); HEMOGLOBIN 15.1 GM/DL (11.6-15.3); LYMPH % 19.1 % (9.0-44.0); LYMPHOCYTE # 2.7 TH/MM3 (1.0-4.8); MEAN CELL VOLUME 88.9 FL (80.0-100.0); MEAN CORPUSCULAR HEMOGLOBIN 30.8 PG (27.0-34.0); MEAN CORPUSCULAR HGB CONC 34.7 % (32.0-36.0); MEAN PLATELET VOLUME 7.6 FL (7.0-11.0); MONO % 5.3 % (0.0-8.0); MONOCYTE # 0.8 TH/MM3 (0-0.9); NEUT % 72.9 % (16.0-70.0); PLATELET COUNT 279 TH/MM3 (150-450); RED CELL DISTRIBUTION WIDTH 14.4 % (11.6-17.2); WHITE BLOOD COUNT 14.2 TH/MM3 (4.0-11.0)
[2017-07-11 20:19] LABS: BACTERIA, URINE RARE /hpf; BILIRUBIN, URINE NEG (NEG); BLOOD, URINE NEG (NEG); GLUCOSE,URINE 1000 mg/dL (NEG); KETONE, URINE NEG (NEG); MUCUS URINE FEW /lpf (OCC); NITRITE,URINE NEG (NEG); PH, URINE 5.5 (5.0-8.5); SQUAMOUS EPITHELIAL CELL URINE 2 /hpf (0-5); URINE COLOR YELLOW (YELLW/STRAW); URINE LEUKOCYTE ESTERASE NEG (NEG)
[2017-07-11 20:32] LABS: ALBUMIN 3.8 GM/DL (3.4-5.0); AST (GOT) 10 U/L (15-37); BICARBONATE 31.5 MEQ/L (21.0-32.0); BLOOD UREA NITROGEN 18 MG/DL (7-18); CALCIUM 9.5 MG/DL (8.5-10.1); CHLORIDE 100 MEQ/L (98-107); CREATININE 1.32 MG/DL (0.50-1.00); GLOMERULAR FILTRATION RATE 42 ML/MIN (>89); GLUCOSE,RANDOM 230 MG/DL (74-106); LIPASE 167 U/L (73-393); SODIUM (NA) 136 MEQ/L (136-145)
[2017-07-11 20:33] LABS: ALT (GPT) 18 U/L (10-53)
[2017-07-11 20:35] LABS: ALKALINE PHOSPHATASE 160 U/L (45-117); TOTAL BILIRUBIN ADULT 0.4 MG/DL (0.2-1.0); TOTAL PROTEIN 8.8 GM/DL (6.4-8.2)
--- NOTE | 2017-07-11 21:19 | PD ---
HPI Chief Complaint: Cold / Flu Symptoms Time Seen by Provider: 21:07 Travel History International Travel<30 days: No Contact w/Intl Traveler<30days: No Traveled to known affect area: No History of Present Illness HPI The patient is a 52 year old female who presents to the [facility] emergency department with a history of bilateral flanks that began yesterday. It is radiating into the abdomen today. The pain is an aching sensation with intermittent sharp pains. It was worse on the right yesterday, however it is equally bad on both sides today. She has had nausea without vomiting. She denies having any diarrhea. Her last BM this am. She denies having any blood in the stool. She has some pain with urinating that worsened today and also began yesterday. She has had urinary frequency and urgency. She reports having a prior history of kidney stones. Incidentally on review of systems she also reports having cough and congestion for the last few day. She reports that the cough is dry in character. She has had some dyspnea on exertion. She denies having any fevers. She has had intermittent swelling of the lower extremities. She has a history of CHF. She is on Lasix 40 mg once a day. She has an appointment scheduled with a kidney specialist tomorrow. She has renal insufficiency. She denies having any chest pain. On review of systems otherwise , the patient denies having any neck pain, or neurologic symptoms. [facility] Past Medical History Narrative Medical The patient's past medical history is significant for coronary artery disease status post coronary artery bypass grafting in 2007 of 4 vessels with recurrent coronary artery disease and stent placement 2 in March 2017, history of congestive heart failure with an ejection fraction of 40-45%, history of anxiety , depression, hyperlipidemia, history of COPD, diabetes mellitus, diabetic neuropathy, acid reflux, chronic headaches, hypertension, history of kidney stones, gastroparesis. Hx Anticoagulant Therapy: Yes (Plavix) Arthritis: Yes Asthma: Yes Autoimmune Disease: No Blood Disorders: No Anxiety: Yes Depression: Yes Heart Rhythm Problems: Yes Cancer: No Cardiac Catheterization: Yes ( MULTI STENTS 2012) Cardiovascular Problems: Yes (CAD, HTN, CHF) High Cholesterol: Yes Chemotherapy: No Chest Pain: Yes Congestive Heart Failure: Yes COPD: Yes Cerebrovascular Accident: No Coronary Artery Disease: Yes Diabetes: Yes Patient Takes Glucophage: No Diminished Hearing: No Endocrine: Yes Gastrointestinal Disorders: Yes GERD: Yes (ACID REFLUX) Genitourinary: Yes Headaches: Yes Hepatitis: No Hiatal Hernia: No Hypertension: Yes Immune Disorder: No Implanted Vascular Access Dvce: No Kidney Stones: Yes Musculoskeletal: Yes (back and neck) Neurologic: No Psychiatric: Yes Reproductive: No Respiratory: Yes (COPD) Immunizations Current: Yes Migraines: Yes Myocardial Infarction: Yes Radiation Therapy: No Renal Failure: No Seizures: No Sickle Cell Disease: No Sleep Apnea: No Thyroid Disease: Yes Ulcer: No PNEUMOCCOCAL Vaccine (Year): 2 ?: Not Menopausal: Yes : 0 Para: 0 Miscarriage: 0 : 0 Tubal Ligation: Yes Past Surgical History Narrative Surgical The patient's past surgical history is significant for appendectomy, cholecystectomy, cardiac catheterization with stent placement 2, hernia repair , coronary artery bypass grafting of 4 vessels in 2007, sternal debridement. Abdominal Surgery: Yes (Appendectomy) AICD: No Appendectomy: Yes Arteriovenous Shunt: No Body Medical Devices: STERNAL WIRES Cardiac Surgery: Yes (CABG 08) Cholecystectomy: Yes (10 YEARS AGO) Coronary Artery Bypass Graft: Yes (QUADRUPLE BYPASS) Ear Surgery: No Endocrine Surgery: No Eye Surgery: No Genitourinary Surgery: No Gynecologic Surgery: No Insulin Pump: No Joint Replacement: No Neurologic Surgery: No Oral Surgery: No Pacemaker: No Thoracic Surgery: No Tonsillectomy: Yes Other Surgery: Yes (LEFT LUMPECTOMY ) Family History Family Myocardial Infarction: Yes Social History Alcohol Use: Yes (OCCASSIONALLY) Tobacco Use: No (QUIT 1998) Substance Use: No Allergies-Medications (Allergen,Severity, Reaction): Coded Allergies: diatrizoate meglumine (Unverified Allergy, Severe, Nausea/Vomiting, ) ORAL CONTRAST ONLY gadobenic acid (Unverified Allergy, Severe, Nausea/Vomiting, 06/25/17) ORAL CONTRAST ONLY gadodiamide (Unverified Allergy, Severe, Nausea/Vomiting, 06/25/17) ORAL CONTRAST ONLY gadoteridol (Unverified Allergy, Severe, Nausea/Vomiting, 06/25/17) ORAL CONTRAST ONLY iodixanol (Unverified Allergy, Severe, Nausea/Vomiting, 06/25/17) ORAL CONTRAST ONLY iohexol (Unverified Allergy, Severe, Nausea/Vomiting, 06/25/17) ORAL CONTRAST ONLY penicillin G (Unverified Allergy, Severe, 06/25/17) sulfamethoxazole (Unverified Allergy, Severe, 06/25/17) trimethoprim (Unverified Allergy, Severe, 06/25/17) Reported Meds & Prescriptions Reported Meds & Active Scripts Active Coreg (Carvedilol) 6.25 Mg Tab 6.25 Mg PO BID Lasix (Furosemide) 20 Mg Tab 20 Mg PO DAILY Isosorbide Mononitrate ER (Isosorbide Mononitrate) 60 Mg Tab 120 Mg PO BID Reglan (Metoclopramide HCl) 5 Mg Tab 5 Mg PO TIDAC Ranexa ER 12 HR (Ranolazine) 500 Mg Tab 1,000 Mg PO Q12HR Lipitor (Atorvastatin Calcium) 40 Mg Tab 40 Mg PO HS 30 Days Reported Ativan (Lorazepam) 0.5 Mg Tab 0.5 Mg PO DAILY PRN Wellbutrin Xl 24 HR (Bupropion HCl) 150 Mg Tab 150 Mg PO DAILY Tradjenta (Linagliptin) 5 Mg Tab 5 Mg PO DAILY Paroxetine (Paroxetine HCl) 40 Mg Tab 40 Mg PO DAILY Nitrostat SL (Nitroglycerin) 0.4 Mg Subl 0.4 Mg SL DIRECTED PRN ONE TABLET UNDER THE TONGUE NEEDED FOR CHEST PAIN, MAY REPEAT EVERY FIVE MINUTES FOR A TOTAL OF 3 DOSES OR CALL 911 IF NO RELIEF Aspirin 325 Mg Tab 325 Mg PO DAILY Plavix (Clopidogrel Bisulfate) 75 Mg Tab 75 Mg PO DAILY Protonix (Pantoprazole Sodium) 40 Mg Tab 40 Mg PO DAILY Ventolin Hfa 18 GM Inh (Albuterol Sulfate) 90 Mcg/Act Aer 2 Puff INH Q6H PRN Review of Systems Except as stated in HPI: all other systems reviewed are Neg General / Constitutional: No: Fever Eyes: No: Visual changes HENT: Positive: Congestion, No: Headaches Cardiovascular: Positive: Dyspnea on exertion, Edema, No: Chest Pain or Discomfort Respiratory: Positive: Cough, Shortness of Breath Gastrointestinal: Positive: Nausea, Abdominal Pain, No: Vomiting, Diarrhea, Changes in Bowel Habits, Indigestion, Loss of Appetite Genitourinary: Positive: Urgency, Frequency, Dysuria, Flank Pain (bilateral) Musculoskeletal: No: Pain Skin: No Rash Neurologic: No: Weakness, Focal Abnormalities, Change in Mentation, Slurred Speech, Sensory Disturbance Psychiatric: No: Depression Endocrine: No: Polydipsia Hematologic/Lymphatic: No: Easy Bruising Physical Exam Narrative General: The patient is a well-developed well-nourished female in no acute distress. Head and Neck exam: Head is normocephalic atraumatic. Eyes: EOMI, pupils are equal round and reactive to light. Nose: Midline septum with pink mucous membranes Mouth: Dentition unremarkable. Moist mucus membranes. Posterior oropharynx is not erythematous. No tonsillar hypertrophy. Uvula midline. Airway patent. Neck: No palpable lymphadenopathy. No nuchal rigidity. No thyromegaly. Cardiovascular: Regular rate and rhythm without murmurs, gallops, or rubs. Lungs: Clear to auscultation bilaterally. No wheezes, rhonchi, or rales. Abdomen: Soft, without tenderness to palpation in all 4 quadrants of the abdomen. No guarding, rebound, or rigidity. Normal bowel sounds are audible. No tenderness on palpation of McBurney's point. Negative Ritter's sign. Extremities: No clubbing or cyanosis. The patient has trace pedal edema bilateral lower extremities. 2+ pulses in all 4 extremities. No calf tenderness on palpation. Back: No spinous process tenderness to palpation. The patient has bilateral CVA tenderness on palpation. Neurologic Exam: Grossly nonfocal. Skin Exam: No rash noted. Intact skin that is warm and dry. Data Data Last Documented VS Vital Signs Date Time Temp Pulse Resp B/P (MAP) Pulse Ox O2 Delivery O2 Flow Rate FiO2 07/11/17 22:33 16 96 Room Air 07/11/17 22:32 72 160/78 (105) 07/11/17 18:18 98.2 Orders Orders Comprehensive Metabolic Panel (07/11/17 18:43) Complete Blood Count With Diff (07/11/17 18:43) Lipase (07/11/17 18:43) Prothrombin Time / Inr (Pt) (07/11/17 18:43) Act Partial Throm Time (Ptt) (07/11/17 18:43) Urinalysis - C+S If Indicated (07/11/17 18:43) Chest, Single Ap (07/11/17 21:13) Ct Abd/Pel W/O Iv Contrast (07/11/17 21:13) Acetamin-Hydrocod 325-5 Mg ([place] 5-325 (07/11/17 21:45) Labs Laboratory Tests Test 07/11/17 19:45 07/11/17 19:55 Urine Color YELLOW Urine Turbidity CLEAR Urine pH 5.5 Urine Specific Equality 1.026 Urine Protein 30 mg/dL Urine Glucose (UA) 1000 mg/dL Urine Ketones NEG mg/dL Urine Occult Blood NEG Urine Nitrite NEG Urine Bilirubin NEG Urine Urobilinogen LESS THAN 2.0 MG/DL Urine Leukocyte Esterase NEG Urine RBC 2 /hpf Urine WBC 1 /hpf Urine Squamous Epithelial Cells 2 /hpf Urine Bacteria RARE /hpf Urine Mucus FEW /lpf Microscopic Urinalysis Comment CULT NOT INDICATED White Blood Count 14.2 TH/MM3 Red Blood Count 4.90 MIL/MM3 Hemoglobin 15.1 GM/DL Hematocrit 43.6 % Mean Corpuscular Volume 88.9 FL Mean Corpuscular Hemoglobin 30.8 PG Mean Corpuscular Hemoglobin Concent 34.7 % Red Cell Distribution Width 14.4 % Platelet Count 279 TH/MM3 Mean Platelet Volume 7.6 FL Neutrophils (%) (Auto) 72.9 % Lymphocytes (%) (Auto) 19.1 % Monocytes (%) (Auto) 5.3 % Eosinophils (%) (Auto) 1.7 % Basophils (%) (Auto) 1.0 % Neutrophils # (Auto) 10.3 TH/MM3 Lymphocytes # (Auto) 2.7 TH/MM3 Monocytes # (Auto) 0.8 TH/MM3 Eosinophils # (Auto) 0.2 TH/MM3 Basophils # (Auto) 0.1 TH/MM3 CBC Comment DIFF FINAL Differential Comment Blood Urea Nitrogen 18 MG/DL Creatinine 1.32 MG/DL Random Glucose 230 MG/DL Total Protein 8.8 GM/DL Albumin 3.8 GM/DL Calcium Level 9.5 MG/DL Alkaline Phosphatase 160 U/L Aspartate Amino Transf (AST/SGOT) 10 U/L Alanine Aminotransferase (ALT/SGPT) 18 U/L Total Bilirubin 0.4 MG/DL Sodium Level 136 MEQ/L Potassium Level 3.6 MEQ/L Chloride Level 100 MEQ/L Carbon Dioxide Level 31.5 MEQ/L Anion Gap 5 MEQ/L Estimat Glomerular Filtration Rate 42 ML/MIN Lipase 167 U/L [facility] Medical Decision Making Medical Screen Exam Complete: Yes Emergency Medical Condition: Yes Medical Record Reviewed: Yes Differential Diagnosis Acute on chronic renal failure, versus kidney stone, versus pyelonephritis versus musculoskeletal strain Narrative Course During the course of the patients emergency department visit, the patients history, examination, and differential diagnosis were reviewed with the patient. The patient was placed on a lip reading teacher with oximetry and frequent blood pressure monitoring. The patient had IV access obtained and blood work sent for analysis. The patient had an EKG done on arrival. The patient was initially provided hydrocodone 10 mg by mouth 1. The patients laboratory studies were reviewed and remarkable for a white count of 14.2, hemoglobin 15.1, platelets 279 with neutrophils 72.9. CMP is remarkable for creatinine 1.32, glucose 230, AST 10, alkaline phosphatase 160, lipase 167. Urinalysis showed 30 protein, thousand glucose, 2 squamous epithelial cells, rare bacteria, culture not indicated. Radiology studies were reviewed and remarkable for a chest x-ray that shows stable cardiomegaly, no focal infiltrate or pulmonary vascular congestion. CT scan of the abdomen and pelvis shows degenerative changes and scoliosis of the lumbar spine, 2 tiny nonobstructing left renal calculi with the larger measuring 4 mm, uncomplicated colonic diverticulosis, prominent adrenal glands consistent with possible adrenal hyperplasia. The patient's results were discussed with her. She reports having an appointment with a road crew member for tomorrow. The patient was given a prescription for pain medication and instructed regarding the importance of following up with her scheduled appointment. The patient is resting comfortably and feels better, is alert and in no distress. The patients results and examination findings were discussed with the patient. The repeat examination is unremarkable and benign. The history, exam, diagnostic testing, and current condition do not suggest any significant pathology to warrant further testing, continued ED treatment, admission, or surgical evaluation at this point. The vital signs have been stable. The patient does not have uncontrollable pain, intractable vomiting, or other significant symptoms. The patient's condition is stable and appropriate for discharge. The patient will pursue further outpatient evaluation with a primary care physician or other designated or consulting physician as indicated in the discharge instructions. The patient expressed understanding and was agreeable with this plan. Diagnosis Primary Impression: Bilateral flank pain Additional Impression: Chronic renal insufficiency Qualified Codes: N18.9 - Chronic kidney disease, unspecified Referrals: Unit Assembler 1 day Patient Instructions: Flank Pain (ED), General Instructions Med/Other Pt SpecificInfo: Prescription(s) given Scripts Hydrocodone-Acetaminophen (Hydrocodone-Acetaminophen) 5-325 mg Tab 1 TAB PO Q6H Y for PAIN, #7 TAB 0 Refills Prov: Marj Alas MD 07/11/17 Disposition: 01 DISCHARGE HOME Condition: Stable Marj Alas MD Jul 11, 2017 21:19
[2017-07-11] MEDS ORDERED: ACETAMINOPHEN/HYDROcodone 325 MG/5 MG TAB PO ONE (21:45)
--- NOTE | 2017-07-11 21:53 | RADRPT ---
EXAM DATE/TIME: 07/11/2017 21:24 [facility] COMPARISON: CHEST SINGLE AP, June 25, 2017, 5:54. INDICATIONS : Cough. MEDICAL HISTORY : Hypertension. Cardiovascular disease. Myocardial infarction. SURGICAL HISTORY : CABG. ENCOUNTER: Initial ACUITY: 1 day PAIN SCORE: 0/10 LOCATION: Bilateral chest FINDINGS: The heart is enlarged. The pulmonary vasculature is normal. The lungs are clear. Multiple surgical cl ips are again noted and stable. CONCLUSION: Stable cardiomegaly. No focal infiltrate or pulmonary vascular congestion. Albert Cabello MD on July 11, 2017 at 21:49 Board Certified Radiologist. This report was verified electronically.
--- NOTE | 2017-07-11 22:10 | RADRPT ---
EXAM DATE/TIME: 07/11/2017 21:31 [facility] COMPARISON: CT ABDOMEN & PELVIS W/O CONTRAST, March 21, 2017, 8:21. INDICATIONS : Bilateral flank pain. ORAL CONTRAST: No oral contrast ingested. RADIATION DOSE: 30.56 CTDIvol (mGy) ; Patient body habitus MEDICAL HISTORY : Cardiovascular disease. Hypertension. Renal calculi.COPD Diabetes SURGICAL HISTORY : CABG Appendectomy.Cholecystectomy.Tubal ENCOUNTER: Initial ACUITY: 1 day PAIN SCALE: 9/10 LOCATION: Bilateral flank TECHNIQUE: Volumetric scanning of the abdomen and pelvis was performed. Using automated exposure control and ad justment of the mA and/or kV according to patient size, radiation dose was kept as low as reasonably achievable to obtain optimal diagnostic quality images. DICOM format image data is available electro nically for review and comparison. FINDINGS: LOWER LUNGS: The visualized lower lungs are clear. LIVER: Homogeneous density without lesion. There is no dilation of the biliary tree. Status post cholecyst ectomy. No calcified gallstones. SPLEEN: Normal size without lesion. PANCREAS: Within normal limits. KIDNEYS: Normal in size and shape. 2 tiny nonobstructing calcified left renal calculi are noted with the larg er measuring 4 mm. There is no mass or hydronephrosis. ADRENAL GLANDS: Medial glands are prominent bilaterally suggestive of possible hyperplasia. VASCULAR: There is no aortic aneurysm. BOWEL/MESENTERY: Uncomplicated colonic diverticulosis is noted. ABDOMINAL WALL: Within normal limits. RETROPERITONEUM: There is no lymphadenopathy. BLADDER: No wall thickening or mass. REPRODUCTIVE: Within normal limits. INGUINAL: There is no lymphadenopathy or hernia. MUSCULOSKELETAL: Degenerative changes and scoliosis of the lumbar spine are noted. CONCLUSION: 1. 2 tiny nonobstructing calcified left renal calculi with the larger measuring 4 mm. 2. Uncomplicated colonic diverticulosis. 3. Prominent adrenal glands consistent with possible adrenal hyperplasia. 4. Degenerative changes and scoliosis of the lumbar spine. Albert Cbaello MD on July 11, 2017 at 22:04 Board Certified Radiologist. This report was verified electronically.
[2017-07-11 22:32] VITALS: BP 160/78; PULSE 72; RESP 16; O2SAT 97
[2017-07-11] MEDS ORDERED: HYDR-3516 PO (23:30)
== END 2017-07-11 23:49 | disposition home or self-care (01) ==
LOC: NEPE 18:15
DX: R10.9 Unspecified abdominal pain (principal); I13.0 Hypertensive heart and chronic kidney disease with heart failure and stage 1 through stage 4 chronic kidney disease, or unspecified chronic kidney disease; I50.9 Heart failure, unspecified; N18.9 Chronic kidney disease, unspecified; E11.22 Type 2 diabetes mellitus with diabetic chronic kidney disease; I25.10 Atherosclerotic heart disease of native coronary artery without angina pectoris; E78.00 Pure hypercholesterolemia, unspecified; F32.9 Major depressive disorder, single episode, unspecified; J44.9 Chronic obstructive pulmonary disease, unspecified; I25.2 Old myocardial infarction; K57.30 Diverticulosis of large intestine without perforation or abscess without bleeding; N20.0 Calculus of kidney; Z95.1 Presence of aortocoronary bypass graft; Z95.5 Presence of coronary angioplasty implant and graft
CPT/HCPCS: 71045; 74176; 80053; 81001; 83690; 85025; 85610; 85730; 99285

== ENCOUNTER 2017-08-22 15:22 | Observation (INO) | payer OTHER ==
[~2017-08-22] VITALS: Ht 160 cm; Wt 106.8 kg
[~2017-08-22 15:22] MED LIST changes: +HYDR-3516 PO
[2017-08-22 15:40] VITALS: BP 145/68; PULSE 84; RESP 20; TEMP 98; O2SAT 97
--- NOTE | 2017-08-22 16:14 | RADRPT ---
EXAM DATE/TIME: 08/22/2017 15:57 [facility] COMPARISON: CHEST SINGLE AP, July 11, 2017, 21:24. INDICATIONS : Chest pain began 4 hours ago, short of breath and vertigo MEDICAL HISTORY : Myocardial infarction. Hypertension SURGICAL HISTORY : CABG. Coronary artery stent. sternal wires removed due to infection ENCOUNTER: Initial ACUITY: 1 day PAIN SCORE: 6/10 LOCATION: Bilateral chest FINDINGS: The heart is mildly enlarged. The lungs are clear. There are surgical clips overlying the anterior me diastinum. The bony structures are grossly intact. CONCLUSION: Mild cardiomegaly. Stable compared to prior exam. Milan Zhu MD on August 22, 2017 at 16:11 Board Certified Radiologist. This report was verified electronically.
[2017-08-22 17:18] VITALS: BP 138/62; PULSE 73; RESP 17; TEMP 98; O2SAT 97
[2017-08-22 17:23] LABS: AUTOMATED NEUTROPHIL # 8.2 TH/MM3 (1.8-7.7); BASOPHIL % 0.3 % (0.0-2.0); EOSINOPHIL # 0.4 TH/MM3 (0-0.4); EOSINOPHIL % 3.1 % (0.0-4.0); HEMATOCRIT 42.1 % (35.0-46.0); HEMOGLOBIN 15.1 GM/DL (11.6-15.3); LYMPH % 23.7 % (9.0-44.0); MEAN CELL VOLUME 88.6 FL (80.0-100.0); MEAN CORPUSCULAR HEMOGLOBIN 31.7 PG (27.0-34.0); MEAN CORPUSCULAR HGB CONC 35.8 % (32.0-36.0); MEAN PLATELET VOLUME 7.8 FL (7.0-11.0); MONO % 6.9 % (0.0-8.0); MONOCYTE # 0.9 TH/MM3 (0-0.9); PLATELET COUNT 257 TH/MM3 (150-450); RED BLOOD COUNT 4.76 MIL/MM3 (4.00-5.30); RED CELL DISTRIBUTION WIDTH 14.5 % (11.6-17.2); WHITE BLOOD COUNT 12.5 TH/MM3 (4.0-11.0)
[2017-08-22 17:44] LABS: BLOOD UREA NITROGEN 14 MG/DL (7-18); CALCIUM 8.8 MG/DL (8.5-10.1); CHLORIDE 101 MEQ/L (98-107); CREATININE 1.31 MG/DL (0.50-1.00); GLOMERULAR FILTRATION RATE 43 ML/MIN (>89); GLUCOSE,RANDOM 380 MG/DL (74-106); SODIUM (NA) 136 MEQ/L (136-145)
[2017-08-22 17:47] LABS: TROPONIN I LESS THAN 0.02 NG/ML (0.02-0.05)
[2017-08-22 17:48] LABS: PROTHROMBIN TIME - PATIENT 9.8 SEC (9.8-11.6)
--- NOTE | 2017-08-22 18:03 | PD ---
HPI Chief Complaint: Chest Pain Time Seen by Provider: 17:07 Travel History International Travel<30 days: No Contact w/Intl Traveler<30days: No Traveled to known affect area: No History of Present Illness HPI 52-year-old female complains of retrosternal chest pain starting at rest about 5 hours prior to ER evaluation. She took 3 nitros which did not help much. She has a history of coronary artery disease with known small vessel disease. She has been compliant with Plavix and aspirin. She denies fever or cough. No pleuritic chest pain. No radiation. Positive diabetes and hypertension hyperlipidemia and family history coronary artery disease. PFSH Past Medical History Hx Anticoagulant Therapy: Yes (Plavix) Arthritis: Yes Asthma: Yes Autoimmune Disease: No Blood Disorders: No Anxiety: Yes Depression: Yes Heart Rhythm Problems: Yes Cancer: No Cardiac Catheterization: Yes ( MULTI STENTS 2012) Cardiovascular Problems: Yes (CAD, HTN, CHF) High Cholesterol: Yes Chemotherapy: No Chest Pain: Yes Congestive Heart Failure: Yes COPD: Yes Cerebrovascular Accident: No Coronary Artery Disease: Yes Diabetes: Yes Patient Takes Glucophage: No Diminished Hearing: No Endocrine: Yes Gastrointestinal Disorders: Yes GERD: Yes (ACID REFLUX) Glaucoma: No Genitourinary: Yes Headaches: Yes Hepatitis: No Hiatal Hernia: No Hypertension: Yes Immune Disorder: No Implanted Vascular Access Dvce: No Kidney Stones: Yes Musculoskeletal: Yes (back and neck) Neurologic: No Psychiatric: Yes Reproductive: No Respiratory: Yes (COPD) Immunizations Current: Yes Migraines: Yes Myocardial Infarction: Yes Radiation Therapy: No Renal Failure: No Seizures: No Sickle Cell Disease: No Sleep Apnea: No Thyroid Disease: Yes Ulcer: No Tetanus Vaccination: < 5 Years Influenza Vaccination: Yes PNEUMOCCOCAL Vaccine (Year): 2 ?: Not Menopausal: Yes : 0 Para: 0 Miscarriage: 0 : 0 Tubal Ligation: Yes Past Surgical History Abdominal Surgery: Yes (Appendectomy) AICD: No Appendectomy: Yes Arteriovenous Shunt: No Body Medical Devices: STERNAL WIRES Cardiac Surgery: Yes (CABG 08) Cholecystectomy: Yes (10 YEARS AGO) Coronary Artery Bypass Graft: Yes (QUADRUPLE BYPASS) Ear Surgery: No Endocrine Surgery: No Eye Surgery: No Genitourinary Surgery: No Gynecologic Surgery: No Insulin Pump: No Joint Replacement: No Neurologic Surgery: No Oral Surgery: No Pacemaker: No Thoracic Surgery: No Tonsillectomy: Yes Other Surgery: Yes (LEFT LUMPECTOMY ) Family History Family Myocardial Infarction: Yes Social History Alcohol Use: Yes (rare) Tobacco Use: No (QUIT 1998) Substance Use: No Allergies-Medications (Allergen,Severity, Reaction): Coded Allergies: penicillin G (Verified Allergy, Severe, hives, 08/22/17) sulfamethoxazole (Verified Allergy, Severe, rash, 08/22/17) trimethoprim (Verified Allergy, Severe, rash, 08/22/17) diatrizoate meglumine (Verified Adverse Reaction, Severe, Nausea/Vomiting , 08/22/17) ORAL CONTRAST ONLY gadobenic acid (Verified Adverse Reaction, Severe, Nausea/Vomiting, ) ORAL CONTRAST ONLY gadodiamide (Verified Adverse Reaction, Severe, Nausea/Vomiting, 08/22/17) ORAL CONTRAST ONLY gadoteridol (Verified Adverse Reaction, Severe, Nausea/Vomiting, 08/22/17) ORAL CONTRAST ONLY iodixanol (Verified Adverse Reaction, Severe, Nausea/Vomiting, 08/22/17) ORAL CONTRAST ONLY iohexol (Verified Adverse Reaction, Severe, Nausea/Vomiting, 08/22/17) ORAL CONTRAST ONLY Reported Meds & Prescriptions Reported Meds & Active Scripts Active Coreg (Carvedilol) 6.25 Mg Tab 6.25 Mg PO BID Lasix (Furosemide) 20 Mg Tab 20 Mg PO DAILY Isosorbide Mononitrate ER (Isosorbide Mononitrate) 60 Mg Tab 120 Mg PO BID Ranexa ER 12 HR (Ranolazine) 500 Mg Tab 1,000 Mg PO Q12HR Lipitor (Atorvastatin Calcium) 40 Mg Tab 40 Mg PO HS 30 Days Reported Ativan (Lorazepam) 0.5 Mg Tab 0.5 Mg PO DAILY PRN Wellbutrin Xl 24 HR (Bupropion HCl) 150 Mg Tab 150 Mg PO DAILY Tradjenta (Linagliptin) 5 Mg Tab 5 Mg PO DAILY Paroxetine (Paroxetine HCl) 40 Mg Tab 40 Mg PO DAILY Nitrostat SL (Nitroglycerin) 0.4 Mg Subl 0.4 Mg SL DIRECTED PRN ONE TABLET UNDER THE TONGUE NEEDED FOR CHEST PAIN, MAY REPEAT EVERY FIVE MINUTES FOR A TOTAL OF 3 DOSES OR CALL 911 IF NO RELIEF Aspirin 325 Mg Tab 325 Mg PO DAILY Plavix (Clopidogrel Bisulfate) 75 Mg Tab 75 Mg PO DAILY Protonix (Pantoprazole Sodium) 40 Mg Tab 40 Mg PO DAILY Ventolin Hfa 18 GM Inh (Albuterol Sulfate) 90 Mcg/Act Aer 2 Puff INH Q6H PRN Review of Systems Except as stated in HPI: all other systems reviewed are Neg General / Constitutional: No: Fever Physical Exam Narrative GENERAL: 52-year-old female pleasant well-nourished well-developed no acute distress Vital Signs Date Time Temp Pulse Resp B/P (MAP) Pulse Ox O2 Delivery O2 Flow Rate FiO2 08/22/17 17:18 98.0 73 17 138/62 (87) 97 Room Air 08/22/17 17:00 76 17 98 Room Air 08/22/17 15:40 98.0 84 20 145/68 (93) 97 SKIN: Warm and dry. HEAD: Atraumatic. Normocephalic. EYES: Pupils equal and round. No scleral icterus. No injection or drainage. ENT: No nasal bleeding or discharge. Mucous membranes pink and moist. NECK: Trachea midline. No JVD. CARDIOVASCULAR: Regular rate and rhythm. RESPIRATORY: No accessory muscle use. Clear to auscultation. Breath sounds equal bilaterally. GASTROINTESTINAL: Abdomen soft, non-tender, nondistended. Hepatic and splenic margins not palpable. MUSCULOSKELETAL: Extremities without clubbing, cyanosis, or edema. No obvious deformities. NEUROLOGICAL: Awake and alert. No obvious cranial nerve deficits. Motor grossly within normal limits. Five out of 5 muscle strength in the arms and legs. Normal speech. PSYCHIATRIC: Appropriate mood and affect; insight and judgment normal. Data Data Last Documented VS Vital Signs Date Time Temp Pulse Resp B/P (MAP) Pulse Ox O2 Delivery O2 Flow Rate FiO2 08/22/17 17:18 98.0 73 17 138/62 (87) 97 Room Air Orders Orders Electrocardiogram (08/22/17 15:41) Basic Metabolic Panel (Bmp) (08/22/17 15:41) Ckmb (Isoenzyme) Profile (08/22/17 15:41) Complete Blood Count With Diff (08/22/17 15:41) Magnesium (Mg) (08/22/17 15:41) Prothrombin Time / Inr (Pt) (08/22/17 15:41) Act Partial Throm Time (Ptt) (08/22/17 15:41) Troponin I (08/22/17 15:41) Chest, Pa & Lat (08/22/17 15:41) Activity Bed Rest With Brp (08/22/17 18:18) Vital Signs (Adult) Q4H (08/22/17 18:18) Cardiac Rhythm .As Directed (08/22/17 18:18) Notify Dr: Other .PRN (08/22/17 18:18) Notify Dr. Parameters (08/22/17 18:18) Resp Oxygen Nasal Cannula (08/22/17 ) Ckmb (Isoenzyme) Profile (08/22/17 18:18) Ckmb (Isoenzyme) Profile (08/22/17:18) Troponin I (08/22/17:18) Troponin I (08/22/17:18) Electrocardiogram (08/22/17:18) Electrocardiogram (08/22/17:18) ^ Obtain (08/22/17 18:18) Sodium Chloride 0.9% Flush (Ns Flush) (08/22/17 18:30) Sodium Chloride 0.9% Flush (Ns Flush) (08/22/17 21:00) Acetamin-Hydrocod 325-7.5 Mg ([place] 7.5 (08/22/17 18:30) Morphine Inj (Morphine Inj) (08/22/17 18:30) Ondansetron Inj (Zofran Inj) (08/22/17 18:30) Aspirin Chew (Aspirin Chew) (08/22/17 18:30) Temazepam (Restoril) (08/22/17 18:30) Alprazolam (Xanax) (08/22/17 18:30) [employer] / Telemetry TEODORO.Q8H (08/22/17 18:18) Admit Order (Ed Use Only) (08/22/17 18:18) Labs Laboratory Tests Test 08/22/17 16:30 White Blood Count 12.5 TH/MM3 Red Blood Count 4.76 MIL/MM3 Hemoglobin 15.1 GM/DL Hematocrit 42.1 % Mean Corpuscular Volume 88.6 FL Mean Corpuscular Hemoglobin 31.7 PG Mean Corpuscular Hemoglobin Concent 35.8 % Red Cell Distribution Width 14.5 % Platelet Count 257 TH/MM3 Mean Platelet Volume 7.8 FL Neutrophils (%) (Auto) 66.0 % Lymphocytes (%) (Auto) 23.7 % Monocytes (%) (Auto) 6.9 % Eosinophils (%) (Auto) 3.1 % Basophils (%) (Auto) 0.3 % Neutrophils # (Auto) 8.2 TH/MM3 Lymphocytes # (Auto) 3.0 TH/MM3 Monocytes # (Auto) 0.9 TH/MM3 Eosinophils # (Auto) 0.4 TH/MM3 Basophils # (Auto) 0.0 TH/MM3 CBC Comment DIFF FINAL Differential Comment Prothrombin Time 9.8 SEC Prothromb Time International Ratio 1.0 RATIO Activated Partial Thromboplast Time 21.4 SEC Blood Urea Nitrogen 14 MG/DL Creatinine 1.31 MG/DL Random Glucose 380 MG/DL Calcium Level 8.8 MG/DL Magnesium Level 2.0 MG/DL Sodium Level 136 MEQ/L Potassium Level 3.3 MEQ/L Chloride Level 101 MEQ/L Carbon Dioxide Level 26.0 MEQ/L Anion Gap 9 MEQ/L Estimat Glomerular Filtration Rate 43 ML/MIN Total Creatine Kinase 44 U/L Troponin I LESS THAN 0.02 NG/ML MDM Medical Decision Making Medical Screen Exam Complete: Yes Emergency Medical Condition: Yes Medical Record Reviewed: Yes Differential Diagnosis NSTEMI, unstable angina, coronary vasospasm, PE, PTX, aortic dissection, pericarditis, myocarditis, endocarditis, PNA, esophageal disease, aneurysm, musculoskeletal etiologies, anxiety, cocaine/sympathomimetic abuse Narrative Course EKG shows a sinus rhythm no acute ischemic injury pattern CBC & BMP Diagram 08/22/17 16:30 Calcium Level 8.8, Magnesium Level 2.0 Troponin is undetectable Patient has known coronary disease. She reports some persistent pain at 6:30 PM and will therefore be kept here for chest pain center protocol. Last Impressions Chest X-Ray 08/22/17 1541 Signed Impressions: Service Date/Time: Tuesday, August 22, 2017 15:57 - CONCLUSION: Mild cardiomegaly. Stable compared to prior exam. Milan Zhu MD Diagnosis Primary Impression: Chest pain Qualified Codes: R07.9 - Chest pain, unspecified Admitting Information Admitting Physician Requests: Observation Milan Starks MD Aug 22, 2017 18:03
[2017-08-22 18:25] VITALS: BP 106/74; PULSE 75; RESP 18; O2SAT 96
[2017-08-22] MEDS ORDERED: ONDANSETRON HCL 4 MG/2 ML VIAL IV PUSH PRN (18:30)
[2017-08-22] MEDS ORDERED: ALPRAZolam 0.25 MG TAB PO PRN (18:30)
[2017-08-22] MEDS ORDERED: TEMAZEPAM 15 MG CAP PO PRN (18:30)
[2017-08-22] MEDS ORDERED: SODIUM CHLORIDE 0.9% FLUSH 10 ML FLUSH IV FLUSH PRN (18:30)
[2017-08-22] MEDS ORDERED: ASPIRIN 81 MG CHEW TAB PO ONE (18:30)
[2017-08-22] MEDS: MORPHINE SULFATE 4 MG/ML INJ IV PUSH PRN ×2 (18:33→23:18)
[2017-08-22 18:40] VITALS: BP 112/74
[2017-08-22 20:00] VITALS: O2SAT 94
[2017-08-22 20:05] VITALS: BP 104/58; PULSE 75; RESP 16; TEMP 98.2; O2SAT 97
[2017-08-22 20:37] LABS: TROPONIN I LESS THAN 0.02 NG/ML (0.02-0.05)
[2017-08-22] MEDS: SODIUM CHLORIDE 0.9% FLUSH 10 ML FLUSH IV FLUSH SCH (21:00)
[2017-08-22 23:02] LABS: TROPONIN I LESS THAN 0.02 NG/ML (0.02-0.05)
[2017-08-23 00:02] VITALS: PULSE 85
[2017-08-23 00:06] VITALS: BP 11/56; PULSE 84; RESP 16; TEMP 97.9; O2SAT 93
[2017-08-23 03:57] VITALS: BP 129/68; PULSE 75; RESP 16; TEMP 97.9; O2SAT 93
[2017-08-23 04:07] VITALS: PULSE 76
[2017-08-23] MEDS: ACETAMINOPHEN/HYDROcodone 325 MG/7.5 MG TAB PO PRN ×2 (04:13→08:54)
[2017-08-23] MEDS ORDERED: GLUCAGON 1 MG/ML VIAL OTHER PRN (07:30)
[2017-08-23] MEDS ORDERED: DEXTROSE 50% IN WATER 50 ML VIAL(D50) IV PUSH PRN (07:30)
[2017-08-23] MEDS ORDERED: POTASSIUM CHLORIDE 20 MEQ CONTROLLED RELEASE TAB PO ONE (07:45)
[2017-08-23] MEDS: SODIUM CHLORIDE 0.9% FLUSH 10 ML FLUSH IV FLUSH SCH (07:53)
[2017-08-23 08:00] VITALS: BP 122/79; PULSE 75; RESP 16; TEMP 98; O2SAT 93
[2017-08-23] MEDS: INSULIN ASPART SUPPLEMENTAL SCALE SQ SCH ×2 (08:00→12:00)
--- NOTE | 2017-08-23 08:25 | PD.CONS ---
[facility] Service cardiology Consult Requested By Reason for Consult chest pain Primary Care Physician Reji Basilio M.D. History of Present Illness This is a 52 yo WF with CAD, CABG x 2, 2017 PCI ALBERTO to RCA and PDA, diabetes, COPD and HTN who presents with chest pain x 1 day. She describes feeling sudden onset substernal chest pain and mild nausea yesterday at home while resting, "8 /10" pain which was not alleviated by nitro x 2. She states when chest pain occurs nitro along with rest will resolve symptom but this time it did not. She' s also been feeling generalized fatigue for 2 weeks. No SOB or palpitations. ECG does not demonstrate concerning ST segment or T wave changes, troponins remain in the normal range. She continues to feel symptomatic but chest pain now reduced to "5/10". Review of Systems Consitutional: COMPLAINS OF: Fatigue, DENIES: Fever, Chills, Weight gain, Weight loss Respiratory: DENIES: Cough, Snoring, Shortness of breath, Wheezing, Sputum production Cardiovascular: DENIES: Palpitations, Syncope, Tachycardia Gastrointestinal: COMPLAINS OF: Nausea, DENIES: Vomiting, Change in bowel habits, Reflux, Bloody stools, Melena Past Family Social History Allergies: Coded Allergies: penicillin G (Verified Allergy, Severe, hives, 08/22/17) sulfamethoxazole (Verified Allergy, Severe, rash, 08/22/17) trimethoprim (Verified Allergy, Severe, rash, 08/22/17) diatrizoate meglumine (Verified Adverse Reaction, Severe, Nausea/Vomiting , 08/22/17) ORAL CONTRAST ONLY gadobenic acid (Verified Adverse Reaction, Severe, Nausea/Vomiting, ) ORAL CONTRAST ONLY gadodiamide (Verified Adverse Reaction, Severe, Nausea/Vomiting, 08/22/17) ORAL CONTRAST ONLY gadoteridol (Verified Adverse Reaction, Severe, Nausea/Vomiting, 08/22/17) ORAL CONTRAST ONLY iodixanol (Verified Adverse Reaction, Severe, Nausea/Vomiting, 08/22/17) ORAL CONTRAST ONLY iohexol (Verified Adverse Reaction, Severe, Nausea/Vomiting, 08/22/17) ORAL CONTRAST ONLY Past Medical History CAD, CABG, COPD, CM, HTN, DM, HLD Past Surgical History CABG, PCI 2016 Reported Medications Reported Meds & Active Scripts Active Coreg (Carvedilol) 6.25 Mg Tab 6.25 Mg PO BID Lasix (Furosemide) 20 Mg Tab 20 Mg PO DAILY Isosorbide Mononitrate ER (Isosorbide Mononitrate) 60 Mg Tab 120 Mg PO BID Ranexa ER 12 HR (Ranolazine) 500 Mg Tab 1,000 Mg PO Q12HR Lipitor (Atorvastatin Calcium) 40 Mg Tab 40 Mg PO HS 30 Days Reported Ativan (Lorazepam) 0.5 Mg Tab 0.5 Mg PO DAILY PRN Wellbutrin Xl 24 HR (Bupropion HCl) 150 Mg Tab 150 Mg PO DAILY Tradjenta (Linagliptin) 5 Mg Tab 5 Mg PO DAILY Paroxetine (Paroxetine HCl) 40 Mg Tab 40 Mg PO DAILY Nitrostat SL (Nitroglycerin) 0.4 Mg Subl 0.4 Mg SL DIRECTED PRN ONE TABLET UNDER THE TONGUE NEEDED FOR CHEST PAIN, MAY REPEAT EVERY FIVE MINUTES FOR A TOTAL OF 3 DOSES OR CALL 911 IF NO RELIEF Aspirin 325 Mg Tab 325 Mg PO DAILY Plavix (Clopidogrel Bisulfate) 75 Mg Tab 75 Mg PO DAILY Protonix (Pantoprazole Sodium) 40 Mg Tab 40 Mg PO DAILY Ventolin Hfa 18 GM Inh (Albuterol Sulfate) 90 Mcg/Act Aer 2 Puff INH Q6H PRN Active Ordered Medications Current Medications Medications (Trade) Dose Ordered Sig/Marcial Route Start Time Stop Time Status Last Admin (NS Flush) 2 ml UNSCH PRN IV FLUSH 08/22/17 18:30 (NS Flush) 2 ml BID IV FLUSH 08/22/17 21:00 08/23/17 07:53 ([place] 7.5-325 Mg) 1 tab Q4H PRN PO 08/22/17 18:30 08/23/17 04:13 (Morphine Inj) 2 mg Q4H PRN IV PUSH 08/22/17 18:30 08/22/17 23:18 (Zofran Inj) 4 mg Q6H PRN IV PUSH 08/22/17 18:30 08/22/17 18:33 (Restoril) 15 mg HS PRN PO 08/22/17 18:30 (Xanax) 0.25 mg Q8H PRN PO 08/22/17 18:30 (D50w (Vial) Inj) 50 ml UNSCH PRN IV PUSH 08/23/17 07:30 (Glucagon Inj) 1 mg UNSCH PRN OTHER 08/23/17 07:30 (NovoLOG SUPPLEMENTAL SCALE) 1 ACHS SLIDING SCALE SQ 08/23/17 08:00 (Aspirin) 325 mg DAILY PO 08/23/17 09:00 UNV (Lipitor) 40 mg HS PO 08/23/17 21:00 UNV (Wellbutrin Xl 24 Hr) 150 mg DAILY PO 08/23/17 09:00 UNV (Coreg) 6.25 mg BID PO 08/23/17 09:00 UNV (Plavix) 75 mg DAILY PO 08/23/17 09:00 UNV (Lasix) 20 mg DAILY PO 08/23/17 09:00 UNV (Imdur) 120 mg BID PO 08/23/17 09:00 UNV (Protonix) 40 mg DAILY PO 08/23/17 09:00 UNV (Paxil) 40 mg DAILY PO 08/23/17 09:00 UNV (Ranexa) 1,000 mg Q12HR PO 08/23/17 09:00 UNV Non-Formulary Medication 5 mg DAILY PO 08/23/17 09:00 UNV Family History non-contributory Social History denies etoh, tobacco or illicit drug use Physical Exam Vital Signs Vital Signs Date Time Temp Pulse Resp B/P (MAP) Pulse Ox O2 Delivery O2 Flow Rate FiO2 08/23/17 08:00 98.0 75 16 122/79 (93) 93 08/23/17 04:07 76 08/23/17 03:57 97.9 75 16 129/68 (88) 93 08/23/17 00:06 97.9 84 16 11/56 (41) 93 08/23/17 00:02 85 08/22/17 20:05 98.2 75 16 104/58 (73) 97 08/22/17 20:00 94 08/22/17 18:42 18 08/22/17 18:40 76 18 112/74 (87) 97 08/22/17 18:25 75 18 106/74 (85) 96 Room Air 08/22/17 17:18 98.0 73 17 138/62 (87) 97 Room Air 08/22/17 17:00 76 17 98 Room Air 08/22/17 15:40 98.0 84 20 145/68 (93) 97 Physical Exam GENERAL: SKIN: Warm and dry. HEAD: Atraumatic. Normocephalic. EYES: Pupils equal and round. No scleral icterus. No injection or drainage. ENT: No nasal bleeding or discharge. . NECK: Trachea midline. No JVD. CARDIOVASCULAR: Regular rate and rhythm. no murmurs RESPIRATORY: No accessory muscle use. Clear to auscultation. Breath sounds equal bilaterally. GASTROINTESTINAL: Abdomen soft, non-tender, nondistended. Hepatic and splenic margins not palpable. MUSCULOSKELETAL: Extremities without clubbing, cyanosis, or edema. No obvious deformities. NEUROLOGICAL: Awake and alert. No obvious cranial nerve deficits.. Normal speech. PSYCHIATRIC: Appropriate mood and affect; insight and judgment normal. Laboratory Laboratory Tests Test 08/22/17 16:30 08/22/17 19:52 08/22/17 21:35 White Blood Count 12.5 Red Blood Count 4.76 Hemoglobin 15.1 Hematocrit 42.1 Mean Corpuscular Volume 88.6 Mean Corpuscular Hemoglobin 31.7 Mean Corpuscular Hemoglobin Concent 35.8 Red Cell Distribution Width 14.5 Platelet Count 257 Mean Platelet Volume 7.8 Neutrophils (%) (Auto) 66.0 Lymphocytes (%) (Auto) 23.7 Monocytes (%) (Auto) 6.9 Eosinophils (%) (Auto) 3.1 Basophils (%) (Auto) 0.3 Neutrophils # (Auto) 8.2 Lymphocytes # (Auto) 3.0 Monocytes # (Auto) 0.9 Eosinophils # (Auto) 0.4 Basophils # (Auto) 0.0 CBC Comment DIFF FINAL Differential Comment Prothrombin Time 9.8 Prothromb Time International Ratio 1.0 Activated Partial Thromboplast Time 21.4 Blood Urea Nitrogen 14 Creatinine 1.31 Random Glucose 380 Calcium Level 8.8 Magnesium Level 2.0 Sodium Level 136 Potassium Level 3.3 Chloride Level 101 Carbon Dioxide Level 26.0 Anion Gap 9 Estimat Glomerular Filtration Rate 43 Total Creatine Kinase 44 48 40 Troponin I LESS THAN 0.02 LESS THAN 0.02 LESS THAN 0.02 Result Diagram: 08/22/17 1630 08/22/17 1630 Imaging Last 24 hours Impressions Chest X-Ray 08/22/17 1541 Signed Impressions: Service Date/Time: Tuesday, August 22, 2017 15:57 - CONCLUSION: Mild cardiomegaly. Stable compared to prior exam. Milan Zhu MD Assessment and Plan Problem List: (1) Chest pain ICD Codes: R07.9 - Chest pain Status: Acute (2) H/O heart artery stent ICD Codes: Z95.5 - Presence of coronary angioplasty implant and graft (3) Hx of CABG ICD Codes: Z95.1 - Presence of aortocoronary bypass graft Assessment and Plan 52 yo WF with CAD, CABG x 2, 2017 PCI ALBERTO to RCA and PDA, diabetes, COPD and HTN who presents with chest pain x 1 day. She describes feeling sudden onset substernal chest pain and mild nausea yesterday at home while resting, "8/10" pain which was not alleviated by nitro x 2. She states when chest pain occurs nitro along with rest will resolve symptom but this time it did not. She's also been feeling generalized fatigue for 2 weeks. Has been compliant with Ranexa and plavix. No SOB or palpitations. ECG does not demonstrate concerning ST segment or T wave changes, troponins remain in the normal range. She continues to feel symptomatic but chest pain now reduced to "5/10". unstable angina- last PCI 03/2017 ALBERTO to RCA and PDA, 1/2 grafts patent with diffuse small vessel disease echo 06/2017 EF 60-65% will plan for left heart catheterization today keep brittanio Марина Denton Aug 23, 2017 08:25
[2017-08-23] MEDS ORDERED: HEPARIN 25,000 UNITS-D5W 250 ML - PREMIX IV PRN (09:00)
[2017-08-23] MEDS ORDERED: CARVEDILOL 6.25 MG TAB PO SCH (09:00)
[2017-08-23] MEDS ORDERED: SODIUM CHLOR 0.9% 1000 ML INJ 1,000 ML IV SCH (09:00)
[2017-08-23] MEDS ORDERED: ASPIRIN 325 MG TAB PO SCH (09:00)
[2017-08-23] MEDS ORDERED: RESP: ALBUTEROL 2.5 MG/IPRATROPIUM 0.5 MG NEB (PRN) INH (09:00)
[2017-08-23] MEDS ORDERED: HEPARIN SODIUM - IV 10,000 UNITS/10 ML VIAL IV ONE (09:00)
[2017-08-23] MEDS ORDERED: PANTOPRAZOLE SOD 40 MG DELAYED RELEASE TAB PO SCH (09:00)
[2017-08-23] MEDS ORDERED: FUROSEMIDE 20 MG TAB PO SCH (09:00)
[2017-08-23] MEDS ORDERED: NITROGLYCERIN 2% OINT 1 GM PACKET TOPICAL SCH (09:00)
[2017-08-23] MEDS ORDERED: ISOSORBIDE MONONITRATE 60 MG CR TAB (IMDUR) PO SCH (09:00)
[2017-08-23] MEDS ORDERED: HEPARIN SODIUM - IV 10,000 UNITS/10 ML VIAL IV PUSH PRN ×2 (09:00)
[2017-08-23] MEDS ORDERED: PARoxetine HCL 20 MG TAB PO SCH (09:00)
[2017-08-23] MEDS ORDERED: RANOLAZINE 500 MG EXTENDED RELEASE TAB PO SCH (09:00)
[2017-08-23] MEDS ORDERED: CLOPIDOGREL 75 MG TAB PO SCH (10:00)
[2017-08-23] MEDS ORDERED: buPROPion HCL 150 MG EXTENDED RELEASE TAB PO SCH (10:00)
[2017-08-23] MEDS ORDERED: LINAGLIPTIN 5 MG PO SCH (10:00)
[2017-08-23] MEDS ORDERED: MIDAZOLAM HCL 2 MG/2 ML VIAL ONE ×2 (10:14→10:54)
[2017-08-23] MEDS ORDERED: HEPARIN-NS/PF FLUSH BAG 2,000 ML IV FLUSH ONE (10:14)
[2017-08-23] MEDS ORDERED: HEPARIN SODIUM - IV 10,000 UNITS/10 ML VIAL ONE (10:15)
[2017-08-23] MEDS ORDERED: HYDROCORTISONE SOD SUCCINATE 100 MG VIAL ONE (10:19)
[2017-08-23] MEDS ORDERED: ONDANSETRON HCL 4 MG/2 ML VIAL ONE (10:23)
[2017-08-23] MEDS ORDERED: LIDOCAINE HCL 1% 50 ML VIAL INFIL PRN (11:00)
[2017-08-23] MEDS ORDERED: MISC INFORMATION XX ONE (11:00)
[2017-08-23] MEDS ORDERED: SODIUM CHLOR 0.9% 250 ML INJ 250 ML IV PRN (11:00)
[2017-08-23] MEDS ORDERED: ATROPINE SULFATE 1 MG/ML VIAL IV PUSH PRN (11:00)
--- NOTE | 2017-08-23 11:07 | CATHPROC ---
TRAKLOK HIS Report Study Information Study Number Admission Scheduled Start Study Start [id number] Aug 22 2017 6:20PM 08/23/2017 Aug 23 2017 10:13AM [place] Service Cardiac Catheterization Admit Source Facility Department Emergency department [facility] - Program Production Specialist Physician and Clinical Staff Initial Arsalan Mendoza Database Marketing Manager Jorge Vaughan,ROBINSON Database Marketing Manager Daniel Kohli,RN Recorder Aubree Pineda ,RT(R) Scrub Jenny Doran,MECHANICAL ENGINEERING MANAGER TECH2 Procedures Performed Procedure Location (Site) Vessel Name Coronary Angiograms LCA Left Coronary Coronary Angiograms RCA Right Coronary Coronary Angiograms Gft. Stump 1 SVG Graft Coronary Angiograms PHILLIPS PHILLIPS L Heart Cath Equipment Time Foundation Maker Description Size Mfg Part Number Used/Scraped TRANSDUCER, TRUWAVE [id number] 10:17 ADORNO DUPREE * Used W/STOCKCOCK *[id number] 538-460 *[id number] [id number] *[id number] [id number] *[id number] 10:17 [employer] INDUSTRIES PACK, CCL CUSTOM * Used *[id number] 10:17 [employer] PACER PEN, SKIN DUAL W/ RULER * Used *[id number] 10:18 Lopoly MEDICAL SHEATH, FR4.5 PRELUDE 11CM FR 4.5 Used [id number] 10:17 [employer]opoly MEDICAL WIRE, 3MMJ .035 180CM 180CM Used *[id number] 10:43 [employer]opoly MEDICAL WIRE, EXCHANGE 260CM 3MMJ 260CM Used *[id number] 10:17 NAMIC MANIFOLD, 4 PORT * Used *[id number] 10:17 [employer]COMED OMNIPAQUE, 350 MG, 150ML 150ML [id number] Used [id number] 10:17 [facility] [place] BLANKET,WARM AIR CCL * Used *[id number] History: Current Medications Medication Dosage/Unit Route Frequency Last Date/Time Taken ASA PLAVIX Insulin NTG SL REGLAN CARVEDILOL Albuterol LISINOPRIL LASIX History: Allergies Allergy Reaction iohexol Nausea/Vomiting diatrizoate meglumine Nausea/Vomiting sulfamethoxazole trimethoprim gadoteridol Nausea/Vomiting gadodiamide Nausea/Vomiting penicillin G iodixanol Nausea/Vomiting gadobenic acid Nausea/Vomiting History: Risk Factors Family History of Hypertension Dyslipidemia Previous DE Previous Heart Failure Premature CAD Yes Yes Yes No No Prior Valve Prior PCI Prior PCIDate Prior CABG Prior CABGDate Surgery No Yes 06/13/2016 Yes 06/13/2007 Cerebrovascular Peripheral Artery Chronic Lung On Dialysis Diabetes Diabetes Therapy Disease Disease Disease No No No Yes Yes Oral History: CV Disease Selection Items Known CAD History: Stress Tests Stress or Imaging Studies Performed No History: Other Disease Selection Items CAD COPD HTN History: Other Current Smoker Method Quit Packs a Day Years Used Pack Years No Cigarettes 19 Years Ago 1 20 20 Labs Hgb (g/dl) Hct (%) WBC (l/cumm) Platelets (thousands) 11.60-17.00 35.00-51.00 4.00-11.00 150.00-450.00 15.1 42.1 12.5 257 Glucose (mg/dl) BUN (mg/dl) Creatinine (mg/dl) BUN:Creatinine (1:x) 74.00-106.00 7.00-18.00 0.50-1.30 10.00-20.00 380 14 1.3 10.8 Na (meq/l) K (meq/l) 136.00-145.00 3.50-5.10 136 3.3 INR (PTT:PT) 0.90-1.10 1 CPK-MB (ng/ML) 0.50-3.60 Not Drawn Medication Medication Total Dose (Bolus/Oral) Medication Total Dosage/Unit 1% XYLOCAINE 20 mL FENTANYL 75 mcg VERSED 3 mg Medications (Bolus/Oral) Medication Time Given Dosage/Unit Administered By Reason VERSED 08/23/2017 10:37:16 AM 1 mg Seun, Daniel 1 mg VERSED given in lab by Daniel Kohli RN in Left Antecubital via Peripheral IV. Ordered by Arsalan Anderson. FENTANYL 08/23/2017 10:38:25 AM 25 mcg Seun, Daniel 25 mcg FENTANYL given in lab by Daniel Kohli RN in Left Antecubital via Peripheral IV. Ordered by Arsalan Mitchell. VERSED 08/23/2017 10:41:41 AM 1 mg Seun, Daniel 1 mg VERSED given in lab by Daniel Kohli RN in Left Antecubital via Peripheral IV. Ordered by Arsalan Anderson. 1% XYLOCAINE 08/23/2017 10:42:20 AM 20 mL Arsalan Anderson 20 mL 1% XYLOCAINE given in lab by Arsalan Anderson in Right Groin via Subcutaneous. Ordered by Arsalan Anderson. FENTANYL 08/23/2017 10:42:45 AM 25 mcg Daniel Kohli 25 mcg FENTANYL given in lab by Daniel Kohli RN in Left Antecubital via Peripheral IV. Ordered by Arsalan Mitchell. VERSED 08/23/2017 10:54:44 AM 1 mg Jorge Vaughan 1 mg VERSED given in lab by Jorge Vaughan RN in Left Antecubital via Peripheral IV. Ordered by Arsalan Boucher. FENTANYL 08/23/2017 10:55:50 AM 25 mcg Jorge Vaughan 25 mcg FENTANYL given in lab by Jorge Vaughan RN in Left Antecubital via Peripheral IV. Ordered by Arsalan Anderson. Medication (Drip) Medication Time Given Dosage/Unit Concentration/Unit Diluent (ml) Solution IV Solutions 08/23/2017 10:13:04 AM 50 mL (IV) NaCl .9 IV Solutions given in lab by Daniel Kohli RN in Left Antecubital via Peripheral IV. Pump/Drip Flow u sing NaCl .9. Ordered by Arsalan Anderson. Initial Case Assessment Cardiovascular HR NIBP Chest Pain 78 215/119 0 Edema Present Skin color Skin None Normal Warm Dry Circulatory - Right Pulses Dorsalis Pedis Femoral 1 2 Scale (0,1,2,3,4,d) Circulatory - Left Pulses Dorsalis Pedis Femoral 1 2 Scale (0,1,2,3,4,d) Circulatory - Lower Extremities Color Lower Right Color Lower Left Normal Normal Neurological State Oriented to time-place- Alert Moves all extremities person Respiration - General Respiration Rate SpO2 (%) (B/min) 16 94 Final Case Assessment Cardiovascular HR NIBP Chest Pain 74 179/94 0 Edema Present Skin color Skin None Normal Warm Dry Circulatory - Right Pulses Dorsalis Pedis Femoral 1 2 Scale (0,1,2,3,4,d) Circulatory - Left Pulses Dorsalis Pedis Femoral 1 2 Scale (0,1,2,3,4,d) Neurological State Oriented to time-place- Alert Moves all extremities person Respiration - General Respiration Rate SpO2 (%) (B/min) 16 98 Chronological Log Time Study Chronological Log 10:12:46 Patient arrived via Bed. 10:12:47 Patient Name, D.O.B, / Armband Verified By R.N. 10:12:47 Consent signed by the physician and the patient and verified by the Program Production Specialist staff. 10:12:50 Verbal Stimulation=2 Physical Stimulation=2 Airway=2 Respiration=2 TOTAL=8. (0=absent, 1=li mited, 2=present) 10:12:52 Presedation assessment performed by Program Production Specialist RN. 10:12:58 Patient has been NPO for Less than 6Hrs. 10:13:00 Skin Breakdown- none per patient 10:13:01 Patient Warmer Placed on the Table. 10:13:03 Cody Prominences Protected 10:13:04 A # 20 IV was noted in the Antecubital (left). Grade = 0 IV Solutions given in lab by Daniel Kohli, RN in Left Antecubital via Peripheral IV. Pump/Drip Flow using NaCl .9. 10:13:04 Ordered by Arsalan Anderson. 10:13:05 History and physical on the chart or being dictated. Assessment: Initial Case, HR=78 BPM, ARYT=086/119 mmhg, Chest Pain=0, Edema=None, Color=Normal, Skin = Warm, Dry Right Pulses: Davin Ped=1, Femoral=2 Left Pulses: Davin Ped=1, Femoral=2 10:13:06 Lower Right Extremities: Color=Normal Lower Left Extremities: Color=Normal Neurological: State=Alert, Ox3, LEONARDO Respiration: Resp=16 B/min, SpO2=94 % Vitals capture started with the following parameters, Patient=Adult, Interval=5 min, Initial Pr bbzoaf=604 mmHg, 10:14:53 Deflation Rate=5 mmHg, Cuff placed on Right Arm 10:16:48 HR=77 bpm, RTQI=847/119 mmhg, SpO2=95.0 %, Resp=31 B/min, Pain=0, Chau=8, Paul=2 10:21:00 HR=78 bpm, YABD=423/121 mmhg, SpO2=95.0 %, Resp=17 B/min, Pain=0, Chau=8, Paul=2 10:21:14 Bilateral groins prepped with 2% chlorhexidine, and draped after a 3 minute waiting time. 10:24:34 Reference ECG taken 10:25:59 HR=79 bpm, ZXUF=987/121 mmhg, SpO2=95.0 %, Resp=17 B/min, Pain=0, Chau=8, Paul=2 10:26:31 Pressure channel 1 zeroed. 10:27:01 MD paged 10:31:00 HR=76 bpm, RJUG=306/129 mmhg, SpO2=98.0 %, Resp=16 B/min, Pain=0, Chau=8, Paul=2 10:35:08 MD arrived. 10:35:53 HR=76 bpm, TQCI=089/123 mmhg, SpO2=99.0 %, Resp=18 B/min, Pain=0, Chau=8, Paul=2 10:37:16 1 mg VERSED given in lab by Daniel Kohli RN in Left Antecubital via Peripheral IV. Ordered by Arsalan Anderson. 10:38:25 25 mcg FENTANYL given in lab by Daniel Kohli RN in Left Antecubital via Peripheral IV. Ord ered by Arsalan Anderson. 10:40:52 HR=73 bpm, SRZJ=019/109 mmhg, SpO2=98.0 %, Resp=19 B/min, Pain=0, Chau=10, Paul=2 Time Out. Correct patient, correct procedure, correct physician, power injector not loaded with contrast with surgical 10:41:21 team present. Time Out Concurred by MD and individual staff in procedure. 10:41:33 Case Start 10:41:41 1 mg VERSED given in lab by Daniel Kohli RN in Left Antecubital via Peripheral IV. Ordered by Arsalan Anderson. 10:42:20 20 mL 1% XYLOCAINE given in lab by Arsalan Anderson in Right Groin via Subcutaneous. Ordered by Arsalan Anderson. 10:42:45 25 mcg FENTANYL given in lab by Daniel Kohli RN in Left Antecubital via Peripheral IV. Ord ered by Arsalan Anderson. 10:44:27 Access site was Right Femoral Artery. 10:45:30 A SHEATH, FR4.5 PRELUDE 11CM FR 4.5 was advanced into the Fem Art (right) using the Percuta neous technique. 10:45:51 HR=76 bpm, FXLB=834/118 mmhg, SpO2=99.0 %, Resp=18 B/min, Pain=0, Chau=8, Paul=2 A JR 4.0 INFINITI CATHETER FR 4 was advanced over a wire. OMNIPAQUE, 350 MG, 150ML 150ML was us ed for 10:45:57 injections. 10:48:01 The RCA was injected and visualized at various angles. OMNIPAQUE, 350 MG, 150ML 150ML used . 10:50:52 HR=76 bpm, TOHS=614/102 mmhg, SpO2=99.0 %, Resp=21 B/min, Pain=0, Chau=8, Paul=2 10:51:26 The Gft. Stump 1 was injected and visualized at various angles. OMNIPAQUE, 350 MG, 150ML 15 0ML used. 10:52:39 Catheter was removed 10:53:03 A IM INFINITI CATHETER FR 4 was advanced over a wire. OMNIPAQUE, 350 MG, 150ML 150ML was us ed for injections. 10:54:44 1 mg VERSED given in lab by Jorge Vaughan RN in Left Antecubital via Peripheral IV. Order ed by Arsalan Anderson. 10:55:14 The PHILLIPS was injected and visualized at various angles. OMNIPAQUE, 350 MG, 150ML 150ML used . After removing the current catheter a JL 4.0 INFINITI CATHETER FR 4 was advanced over a WIRE, 3 MMJ .035 180CM 10:55:42 180CM. 10:55:50 25 mcg FENTANYL given in lab by Jorge Vaughan RN in Left Antecubital via Peripheral IV. O rdered by Arsalan Anderson. 10:55:51 HR=74 bpm, TGCK=943/94 mmhg, SpO2=99.0 %, Resp=14 B/min, Pain=0, Chau=8, Paul=2 10:57:04 The LCA was injected and visualized at various angles. OMNIPAQUE, 350 MG, 150ML 150ML used . 10:58:10 Catheter was removed 10:58:12 Case End Assessment: Final Case, HR=74 BPM, DMWL=004/94 mmhg, Chest Pain=0, Edema=None, Color=Normal, S kin = Warm, Dry Right Pulses: Davin Ped=1, Femoral=2 10:58:28 Left Pulses: Davin Ped=1, Femoral=2 Neurological: State=Alert, Ox3, LEONARDO Respiration: Resp=16 B/min, SpO2=98 % 10:58:30 Catheter(s) removed without difficulty 10:58:38 Sterile dressing applied to site 10:58:38 No case complications noted. 10:58:41 Cine recording checked. 10:58:43 Bedside Report will be given. 10:58:51 A Left Heart Cath was performed. 10:59:45 Sheath(s) left in place, will be removed in Holding Area 11:00:09 Patient moved to stretcher 11:00:48 HR=74 bpm, YJSE=407/102 mmhg, SpO2=98.0 %, Resp=15 B/min, Pain=0, Chau=8, Paul=2 11:05:26 Vitals capture stopped. End Study - Contrast Media Used In Study Contrast Total Opened (mL) Total Used (mL) Total Wasted (mL) Omnipaque 50 50 0 End Study - Maximum Contrast Load Max Contrast Load (mL) 410.8 End Study - Radiation Exposure Fluoro Time (minutes) 4.6 End Study - Patient Disposition Complications Transferred To Interventional Outcome No Telemetry Bed No attempt made
--- NOTE | 2017-08-23 11:13 | HHI.HP ---
[facility] Primary Care Physician Reji Basilio M.D. Chief Complaint Chest pain History of Present Illness This is a 52-year-old female with history of CAD status post CABG and stenting the presents to ED to be evaluated for chest discomfort. States she has on average 45 chest discomforts per week. Usually subungual nitroglycerin will resolve the symptoms however yesterday's was not resolved. She states that around noon yesterday while lying in bed she developed a sharp/heaviness in the center of her chest. Is constantly there for 5 or 6 hours. She states that eventually resolved in the ED after getting IV pain medication. She was mildly short of breath and nauseous. She also felt diaphoretic. Patient follows Dr. Oviedo of cardiology. States she has an appointment with Dr. Oviedo on . Her last heart catheterization was March 2017 which time she had PCI ALBERTO RCA &PDA, 1 out of 2 grafts patent, and diffuse small vessel disease. Most recent plan has been to optimize medical management. She states her discomfort recurred somewhere in the middle night and is still there at this time. Rates as a 5 out of 10. She is not short of breath, nauseous, diaphoretic with her symptoms at this time. She states that her discomforts are similar discomfort that was present prior to having stents placed in March 2017. Voices compliance with her medications. Review of Systems General: Patient denies fevers, chills, and recent travel. HEENT: Patient denies headache, sore throat, difficulty swallowing. Cardiovascular: Has the chest discomfort as mentioned above. Denies sensation of heart beating rapidly or irregularly. No syncope. She was diaphoretic. Respiratory: Mild shortness of breath. Denies inspirational chest discomfort. Denies coughing wheezing or hemoptysis. GI: Mild nausea. Patient denies vomiting, diarrhea, abdominal pain, bloody stools. Musculoskeletal: Patient denies joint pain or edema. Denies calf pain or edema. Neurovascular: Patient denies numbness, tingling, weakness in extremities. Denies headache. Endocrine: Denies polyuria and polydipsia. Hematologic: Denies easy bruising. Skin: Denies rash or itching. Past Family Social History Allergies: Coded Allergies: penicillin G (Verified Allergy, Severe, hives, 08/22/17) sulfamethoxazole (Verified Allergy, Severe, rash, 08/22/17) trimethoprim (Verified Allergy, Severe, rash, 08/22/17) diatrizoate meglumine (Verified Adverse Reaction, Severe, Nausea/Vomiting , 08/22/17) ORAL CONTRAST ONLY gadobenic acid (Verified Adverse Reaction, Severe, Nausea/Vomiting, ) ORAL CONTRAST ONLY gadodiamide (Verified Adverse Reaction, Severe, Nausea/Vomiting, 08/22/17) ORAL CONTRAST ONLY gadoteridol (Verified Adverse Reaction, Severe, Nausea/Vomiting, 08/22/17) ORAL CONTRAST ONLY iodixanol (Verified Adverse Reaction, Severe, Nausea/Vomiting, 08/22/17) ORAL CONTRAST ONLY iohexol (Verified Adverse Reaction, Severe, Nausea/Vomiting, 08/22/17) ORAL CONTRAST ONLY Past Medical History CAD with CABG in 2007, stenting 2016. Hypertension, hyperlipidemia, diabetes, COPD. Past Surgical History CABG 2007. Cardiac cath with stenting March 2017. Reported Medications Reported Meds & Active Scripts Active Coreg (Carvedilol) 6.25 Mg Tab 6.25 Mg PO BID Lasix (Furosemide) 20 Mg Tab 20 Mg PO DAILY Isosorbide Mononitrate ER (Isosorbide Mononitrate) 60 Mg Tab 120 Mg PO BID Ranexa ER 12 HR (Ranolazine) 500 Mg Tab 1,000 Mg PO Q12HR Lipitor (Atorvastatin Calcium) 40 Mg Tab 40 Mg PO HS 30 Days Reported Ativan (Lorazepam) 0.5 Mg Tab 0.5 Mg PO DAILY PRN Wellbutrin Xl 24 HR (Bupropion HCl) 150 Mg Tab 150 Mg PO DAILY Tradjenta (Linagliptin) 5 Mg Tab 5 Mg PO DAILY Paroxetine (Paroxetine HCl) 40 Mg Tab 40 Mg PO DAILY Nitrostat SL (Nitroglycerin) 0.4 Mg Subl 0.4 Mg SL DIRECTED PRN ONE TABLET UNDER THE TONGUE NEEDED FOR CHEST PAIN, MAY REPEAT EVERY FIVE MINUTES FOR A TOTAL OF 3 DOSES OR CALL 911 IF NO RELIEF Aspirin 325 Mg Tab 325 Mg PO DAILY Plavix (Clopidogrel Bisulfate) 75 Mg Tab 75 Mg PO DAILY Protonix (Pantoprazole Sodium) 40 Mg Tab 40 Mg PO DAILY Ventolin Hfa 18 GM Inh (Albuterol Sulfate) 90 Mcg/Act Aer 2 Puff INH Q6H PRN Active Ordered Medications Current Medications Medications (Trade) Dose Ordered Sig/Marcial Route Start Time Stop Time Status Last Admin (NS Flush) 2 ml UNSCH PRN IV FLUSH 08/22/17 18:30 (NS Flush) 2 ml BID IV FLUSH 08/22/17 21:00 08/23/17 07:53 (Rimrock 7.5-325 Mg) 1 tab Q4H PRN PO 08/22/17 18:30 08/23/17 08:54 (Morphine Inj) 2 mg Q4H PRN IV PUSH 08/22/17 18:30 08/22/17 23:18 (Zofran Inj) 4 mg Q6H PRN IV PUSH 08/22/17 18:30 08/22/17 18:33 (Restoril) 15 mg HS PRN PO 08/22/17 18:30 (Xanax) 0.25 mg Q8H PRN PO 08/22/17 18:30 (D50w (Vial) Inj) 50 ml UNSCH PRN IV PUSH 08/23/17 07:30 (Glucagon Inj) 1 mg UNSCH PRN OTHER 08/23/17 07:30 (NovoLOG SUPPLEMENTAL SCALE) 1 ACHS SLIDING SCALE SQ 08/23/17 08:00 (Aspirin) 325 mg DAILY PO 08/23/17 09:00 08/23/17 10:05 (Lipitor) 40 mg HS PO 08/23/17 21:00 (Wellbutrin Xl 24 Hr) 150 mg DAILY PO 08/23/17 10:00 (Coreg) 6.25 mg BID PO 08/23/17 09:00 08/23/17 10:05 (Plavix) 75 mg DAILY PO 08/23/17 10:00 08/23/17 10:07 (Lasix) 20 mg DAILY PO 08/23/17 09:00 08/23/17 10:05 (Imdur) 120 mg BID PO 08/23/17 09:00 08/23/17 10:05 (Protonix) 40 mg DAILY PO 08/23/17 09:00 08/23/17 10:05 (Paxil) 40 mg DAILY PO 08/23/17 09:00 08/23/17 10:05 (Ranexa) 1,000 mg Q12HR PO 08/23/17 09:00 08/23/17 10:05 Patient Own Medication PT OWN MED: LINAGLIP... DAILY PO 08/23/17 10:00 Future Hold (Duoneb Neb) 1 ampule Q4HR NEB PRN INH 08/23/17 09:00 Sodium Chloride 1,000 ml @ 90 mls/hr Q11H7M IV 08/23/17 09:00 08/23/17 20:06 (Nitroglycerin 2% Oint) 0.5 inch Q8HR TOPICAL 08/23/17 09:00 Heparin Sodium/ Dextrose 250 ml @ 10 mls/hr TITRATE PRN IV 08/23/17 09:00 (Heparin Inj) 5,000 units UNSCH PRN IV PUSH 08/23/17 09:00 (Heparin Inj) 2,500 units UNSCH PRN IV PUSH 08/23/17 09:00 Miscellaneous Information 1 ONCE ONCE XX 08/23/17 11:00 08/23/17 11:01 UNV (Atropine Inj) 0.5 mg UNSCH PRN IV PUSH 08/23/17 11:00 UNV Sodium Chloride 250 ml @ 500 mls/hr ONCE PRN IV 08/23/17 11:00 08/24/17 10:59 UNV (Xylocaine 1% Inj (50 ml)) 10 ml UNSCH PRN INFIL 08/23/17 11:00 08/24/17 10:59 UNV (Bacitracin Oint Packet) 0.9 gm ONCE ONCE TOP 08/23/17 11:00 08/23/17 11:01 UNV Family History There is family history of CAD. Social History Quit smoking 18 years ago. Denies alcohol or illicit drugs. Lives with her of 21 years. Physical Exam Vital Signs Vital Signs Date Time Temp Pulse Resp B/P (MAP) Pulse Ox O2 Delivery O2 Flow Rate FiO2 08/23/17 08:00 98.0 75 16 122/79 (93) 93 08/23/17 04:07 76 08/23/17 03:57 97.9 75 16 129/68 (88) 93 08/23/17 00:06 97.9 84 16 11/56 (41) 93 08/23/17 00:02 85 08/22/17 20:05 98.2 75 16 104/58 (73) 97 08/22/17 20:00 94 08/22/17 18:42 18 08/22/17 18:40 76 18 112/74 (87) 97 08/22/17 18:25 75 18 106/74 (85) 96 Room Air 08/22/17 17:18 98.0 73 17 138/62 (87) 97 Room Air 08/22/17 17:00 76 17 98 Room Air 08/22/17 15:40 98.0 84 20 145/68 (93) 97 Physical Exam GENERAL: This is a well-nourished, well-developed patient, in no apparent distress. Patient speaks in clear complete sentences. Patient is pleasant. HEENT: Head is atraumatic and normocephalic. Neck is supple without lymphadenopathy and trachea is midline. No JVD or carotid bruits. CARDIOVASCULAR: Regular rate and rhythm without murmurs, gallops, or rubs. RESPIRATORY: Clear to auscultation. Breath sounds equal bilaterally. No wheezes , rales, or rhonchi. Chest wall is nontender. No use of accessory muscles. GASTROINTESTINAL: Abdomen is nontender, nondistended. Abdomen soft. No obvious pulsatile mass or bruit. No CVA tenderness. Strong femoral pulses bilaterally. Normal bowel sounds in all quadrants. MUSCULOSKELETAL: Patient is moving upper and lower extremities freely. No calf tenderness or edema, no Homans sign. Strong pulses in upper and lower extremities. NEUROLOGICAL: Patient is alert and oriented. Cranial nerves 2-12 are grossly intact. No focal deficits and speech is clear. SKIN: No rash and turgor is normal. Laboratory Laboratory Tests Test 08/22/17 16:30 08/22/17 19:52 08/22/17 21:35 White Blood Count 12.5 Red Blood Count 4.76 Hemoglobin 15.1 Hematocrit 42.1 Mean Corpuscular Volume 88.6 Mean Corpuscular Hemoglobin 31.7 Mean Corpuscular Hemoglobin Concent 35.8 Red Cell Distribution Width 14.5 Platelet Count 257 Mean Platelet Volume 7.8 Neutrophils (%) (Auto) 66.0 Lymphocytes (%) (Auto) 23.7 Monocytes (%) (Auto) 6.9 Eosinophils (%) (Auto) 3.1 Basophils (%) (Auto) 0.3 Neutrophils # (Auto) 8.2 Lymphocytes # (Auto) 3.0 Monocytes # (Auto) 0.9 Eosinophils # (Auto) 0.4 Basophils # (Auto) 0.0 CBC Comment DIFF FINAL Differential Comment Prothrombin Time 9.8 Prothromb Time International Ratio 1.0 Activated Partial Thromboplast Time 21.4 Blood Urea Nitrogen 14 Creatinine 1.31 Random Glucose 380 Calcium Level 8.8 Magnesium Level 2.0 Sodium Level 136 Potassium Level 3.3 Chloride Level 101 Carbon Dioxide Level 26.0 Anion Gap 9 Estimat Glomerular Filtration Rate 43 Total Creatine Kinase 44 48 40 Troponin I LESS THAN 0.02 LESS THAN 0.02 LESS THAN 0.02 Result Diagram: 08/22/17 1630 08/22/17 1630 Imaging Last 48 hours Impressions Chest X-Ray 08/22/17 1541 Signed Impressions: Service Date/Time: Tuesday, August 22, 2017 15:57 - CONCLUSION: Mild cardiomegaly. Stable compared to prior exam. Milan Zhu MD Course EKGs are sinus rhythm without significant ST segment depression or elevation. Nonspecific T-wave changes. Caprini VTE Risk Assessment Caprini VTE Risk Assessment: No/Low Risk (score <= 1) Caprini Risk Assessment Model Point Value = 1 Point Value = 2 Point Value = 3 Point Value = 5 Age 41-60 Minor surgery BMI > 25 kg/m2 Swollen legs Varicose veins or History of unexplained or recurrent spontaneous Oral contraceptives or hormone replacement Sepsis (< 1 month) Serious lung disease, including pneumonia (< 1 month) Abnormal pulmonary function Acute myocardial infarction Congestive heart failure (< 1 month) History of inflammatory bowel disease Medical patient at bed rest Age 61-74 Arthroscopic surgery Major open surgery (> 45 min) Laparoscopic surgery (> 45 min) Malignancy Confined to bed (> 72 hours) Immobilizing plaster cast Central venous access Age >= 75 History of VTE Family history of VTE Factor V Leiden Prothrombin [id number] Lupus anticoagulant Anticardiolipin antibodies Elevated serum homocysteine Heparin-induced thrombocytopenia Other congenital or acquired thrombophilia Stroke (< 1 month) Elective arthroplasty Hip, pelvis, or leg fracture Acute spinal cord injury (< 1 month) Prophylaxis Regimen Total Risk Factor Score Risk Level Prophylaxis Regimen 0-1 Low Early ambulation 2 Moderate Order ONE of the following: *Sequential Compression Device (SCD) *Heparin 5000 units SQ BID 3-4 Higher Order ONE of the following medications: *Heparin 5000 units SQ TID *Enoxaparin/Lovenox 40 mg SQ daily (WT < 150 kg, CrCl > 30 mL/min) *Enoxaparin/Lovenox 30 mg SQ daily (WT < 150 kg, CrCl > 10-29 mL/min) *Enoxaparin/Lovenox 30 mg SQ BID (WT < 150 kg, CrCl > 30 mL/min) AND/OR *Sequential Compression Device (SCD) 5 or more Highest Order ONE of the following medications: *Heparin 5000 units SQ TID (Preferred with Epidurals) *Enoxaparin/Lovenox 40 mg SQ daily (WT < 150 kg, CrCl > 30 mL/min) *Enoxaparin/Lovenox 30 mg SQ daily (WT < 150 kg, CrCl > 10-29 mL/min) *Enoxaparin/Lovenox 30 mg SQ BID (WT < 150 kg, CrCl > 30 mL/min) AND *Sequential Compression Device (SCD) Assessment and Plan Assessment and Plan * Chest pain: Patient has had serial cardiac enzymes and EKGs were ruling out purposes. She was seen by Dr. Medina of cardiology in the chest pain center. I discussed this patient with her electrical troubleshooter, Dr. oviedo. He will take the patient to the Vascular Ultrasound Technologist later today. Further plan pending that evaluation. Patient has been admitted to Dr. Valdivia. * CAD: This will be reassessed with cardiac catheterization today. Resume medications. * Diabetes: Resume medication. Sliding scale insulin coverage. * Hypertension: Continue current medication. * Hyperlipidemia: Continue current medication. * Chronic renal insufficiency: Continue follow-up with her physician. * COPD: Have as needed duo nebs. Patient is stable at this time. She is agreeable to this plan. Gustavo Jennings Aug 23, 2017 11:13
[2017-08-23] MEDS ORDERED: hydrALAZINE HCL 20 MG/ML VIAL ONE (11:14)
--- NOTE | 2017-08-23 11:21 | MA ---
cc: Arsalan Anderson MD 08/23/2017 INDICATION: Unstable angina. PROCEDURE PERFORMED: 1. Fluoroscopy with interpretation. 2. Coronary angiography. 3. Coronary bypass angiography. METHOD: The risks, benefits and alternatives were discussed with the patient. The patient understood and consented to the procedure. The patient was brought into the catheterization lab, placed on the catheterization table. The right groin was prepped and draped in sterile fashion. The right groin was anesthetized with 2% lidocaine. The right common femoral artery was cannulated and a 4-[place] 11-cm sheath was placed without difficulty. CORONARY ANGIOGRAPHY: 1. The left main coronary artery has mild luminal irregularities. 2. The left anterior descending coronary artery has 80% proximal ostial stenosis but pretty much only leads to a septal dip brazier and then is occluded in the proximal to mid-segment. 3. The left circumflex gives rise to two very small obtuse marginal branches. The first one has 75-80%, rather diffuse stenosis. The remainder of the circumflex has mild luminal irregularities but not very large caliber size. 4. The right coronary artery is a dominant vessel, gives rise to a posterior descending branch. There are stents present in the PDA branch which are patent. Minor luminal irregularities, about 30-40% in the proximal to mid-segment. The posterolateral branch is subtotally occluded. CORONARY BYPASS GRAFT ANGIOGRAPHY: 1. The left internal mammary to the left anterior descending is patent but the left anterior descending coronary artery is pretty much subtotally occluded at the level of the distal coronary anastomosis. It is very small caliber distally. 2. Saphenous vein graft to the first obtuse marginal branch is now occluded. CONCLUSIONS: 1. Severe multivessel coronary artery disease. 2. Essentially both bypass grafts are occluded. PLAN: The patient does not have adequate surgical targets for attempted surgical revascularization. There is no percutaneous approach. The patient is basically living off small obtuse marginal branches and a dominant right coronary. Her ejection fraction surprisingly is well preserved on last echocardiogram. At this point her options are limited. It would be a consideration for transmyocardial laser revascularization or cardiac transplantation or segmental counterpulsation. We will consult with Dr. Harley Stephenson for his opinion, whether a transmyocardial laser revascularization would be a consideration or option. If not, I would probably send her over to the [facility], see if she is a candidate for potential transplant. She haw now had severe presentations in the emergency department and her medications are optimally managed. MD JENNIFER Steinberg/SB , 11:08 AM , 11:20 AM
[2017-08-23] MEDS ORDERED: BACITRACIN OINT 0.9 GM PKT TOP ONE (12:00)
[2017-08-23] MEDS ORDERED: hydrALAZINE HCL 20 MG/ML VIAL IV PUSH PRN (12:30)
--- NOTE | 2017-08-23 13:33 | HHI.PR ---
Subjective Remarks No new complaints. Pt denies chest pain or palpitations. Objective Vitals Vital Signs Date Time Temp Pulse Resp B/P (MAP) Pulse Ox O2 Delivery O2 Flow Rate FiO2 08/23/17 12:04 94 Room Air 08/23/17 08:00 98.0 75 16 122/79 (93) 93 08/23/17 04:07 76 08/23/17 03:57 97.9 75 16 129/68 (88) 93 08/23/17 00:06 97.9 84 16 11/56 (41) 93 08/23/17 00:02 85 08/22/17 20:05 98.2 75 16 104/58 (73) 97 08/22/17 20:00 94 08/22/17 18:42 18 08/22/17 18:40 76 18 112/74 (87) 97 08/22/17 18:25 75 18 106/74 (85) 96 Room Air 08/22/17 17:18 98.0 73 17 138/62 (87) 97 Room Air 08/22/17 17:00 76 17 98 Room Air 08/22/17 15:40 98.0 84 20 145/68 (93) 97 Result Diagram: 08/22/17 1630 08/22/17 1630 Imaging Last Impressions Chest X-Ray 08/22/17 1541 Signed Impressions: Service Date/Time: Tuesday, August 22, 2017 15:57 - CONCLUSION: Mild cardiomegaly. Stable compared to prior exam. Milan Zhu MD Objective Remarks GENERAL: This is a well-nourished, well-developed patient, in no apparent distress. CARDIOVASCULAR: Regular rate and rhythm without murmurs, gallops, or rubs. RESPIRATORY: Clear to auscultation. Breath sounds equal bilaterally. No wheezes , rales, or rhonchi. GASTROINTESTINAL: Abdomen soft, non-tender, nondistended. Normal active bowel sounds MUSCULOSKELETAL: Extremities without clubbing, cyanosis, or edema. NEURO: Alert & Oriented x4 to person, place, time, situation. Moves all ext x4 A/P Problem List: (1) CAD (coronary artery disease) ICD Codes: I25.10 - Atherosclerotic heart disease of [place] coronary artery without angina pectoris Status: Chronic Plan: - s/p CABG - Pt underwent LHC (08/23/17) with Dr. Arsalan Anderson - severe multivessel disease - bypass grafts occluded - continue current medical mgmt - Dr. Anderson is referring pt to [facility] for further evaluation - possible consideration for transmyocardial laser revascularization or cardiac transplant. (2) DM type 2 (diabetes mellitus, type 2) ICD Codes: E11.9 - Type 2 diabetes mellitus Status: Chronic Plan: - continued current outpt treatment plan (3) Hypertension ICD Codes: I10 - Hypertension Status: Chronic Plan: - continued outpt treatment plan Problem Qualifiers (1) CAD (coronary artery disease): Qualified Codes: I25.118 - Atherosclerotic heart disease of [place] coronary artery with other forms of angina pectoris (2) DM type 2 (diabetes mellitus, type 2): Qualified Codes: E11.8 - Type 2 diabetes mellitus with unspecified complications (3) Hypertension: Qualified Codes: I10 - Essential (primary) hypertension Juan Valdivia DO Aug 23, 2017 13:33
[2017-08-23] MEDS ORDERED: IOHEXOL 350 MG/ML 50 ML BTL (for Cath Lab) OTHER ONE (16:15)
--- NOTE | 2017-08-23 20:10 | EKG ---
Date Performed: 08/22/2017 Time Performed: 16:23:29 PTAGE: 52 years EKG: Sinus rhythm LEFT ANTERIOR FASCICULAR BLOCK POSSIBLE ANTERIOR MYOCARDIAL INFARCTION ABNORMAL ECG Since PREVIOUS TRACING , no significant change noted PREVIOUS TRACIN06/25/2017 12.56 DOCTOR: Luciana Medina Interpretating Date/Time 08/23/2017 20:09:03
--- NOTE | 2017-08-23 20:10 | EKG ---
Date Performed: 08/22/2017 Time Performed: 20:15:44 PTAGE: 52 years EKG: Sinus rhythm MARKED LEFT AXIS DEVIATION POSSIBLE ANTERIOR MYOCARDIAL INFARCTION MODERATE T-WAVE ABNORMALITY, CONS IDER LATERAL ISCHEMIA ABNORMAL ECG Since PREVIOUS TRACING , no significant change noted PREVIOUS TRACIN08/22/2017 16.23 DOCTOR: Luciana Medina Interpretating Date/Time 08/23/2017 20:09:37
--- NOTE | 2017-08-23 20:11 | EKG ---
Date Performed: 08/22/2017 Time Performed: 21:37:23 PTAGE: 52 years EKG: Sinus rhythm POSSIBLE LEFT ATRIAL ENLARGEMENT LEFT ANTERIOR FASCICULAR BLOCK POSSIBLE ANTERIOR MYOCARDIAL INFARCT ION MODERATE T-WAVE ABNORMALITY, CONSIDER LATERAL ISCHEMIA ABNORMAL ECG Since PREVIOUS TRACING , no significant change noted PREVIOUS TRACIN08/22/2017 20.15 DOCTOR: Luciana Medina Interpretating Date/Time 08/23/2017 20:09:52
[2017-08-23] MEDS ORDERED: ATORVASTATIN 40 MG TAB PO SCH (21:00)
== END 2017-08-23 16:16 | disposition home or self-care (01) ==
LOC: NEPE 15:22 → NEDH 18:20 → NEDA 19:01 → NEPFCDU 20:12 → HCIS 08-23 09:22
PROVIDERS: ADMIT Hospitalist; ATTEND Hospitalist
DX: R07.89 Other chest pain (principal); R06.02 Shortness of breath; R42 Dizziness and giddiness; I44.4 Left anterior fascicular block; R11.0 Nausea; R53.83 Other fatigue; I25.110 Atherosclerotic heart disease of native coronary artery with unstable angina pectoris; I13.0 Hypertensive heart and chronic kidney disease with heart failure and stage 1 through stage 4 chronic kidney disease, or unspecified chronic kidney disease; I50.9 Heart failure, unspecified; E11.22 Type 2 diabetes mellitus with diabetic chronic kidney disease; N18.9 Chronic kidney disease, unspecified; E78.00 Pure hypercholesterolemia, unspecified; J44.9 Chronic obstructive pulmonary disease, unspecified; I25.2 Old myocardial infarction; K21.9 Gastro-esophageal reflux disease without esophagitis; E07.9 Disorder of thyroid, unspecified; F41.9 Anxiety disorder, unspecified; F32.9 Major depressive disorder, single episode, unspecified; Z95.5 Presence of coronary angioplasty implant and graft; Z95.1 Presence of aortocoronary bypass graft; Z79.899 Other long term (current) drug therapy; Z79.82 Long term (current) use of aspirin
CPT/HCPCS: 71046; 80048; 82550; 82948; 83735; 84484; 85025; 85610; 85730; 93005; 93454; 96372; 96374; 96375; 96376; 99152; 99153; 99285; C1769; C1893; G0378; J0360; J1644; J1720; J1815; J2250; J2270; J2405; J3010; Q9967

== ENCOUNTER 2018-01-12 17:58 | Observation (INO) ==
[2018-01-12 18:52] LABS: Baso # (Auto) 0.1 th/mm3 (0.0-0.2); Baso % (Auto) 0.5 % (0.0-2.0); Eos # (Auto) 0.7 th/mm3 (0.0-0.4); Eos % (Auto) 4.8 % (0.0-4.0); Hematocrit 44.9 % (35.0-46.0); Hemoglobin 15.3 gm/dL (11.6-15.3); Lymph # (Auto) 2.4 th/mm3 (1.0-4.8); Lymph % (Auto) 17.2 % (9.0-44.0); Mean Corpuscular HGB Conc 34.2 % (32.0-36.0); Mean Corpuscular Hemoglobin 30.4 pg (27.0-34.0); Mean Platelet Volume 7.2 fL (7.0-11.0); Mono # (Auto) 0.6 th/mm3 (0.0-0.9); Mono % (Auto) 4.5 % (0.0-8.0); Neut # (Auto) 10.1 th/mm3 (1.8-7.7); Platelet Count 275 th/mm3 (150-450); Red Blood Count 5.04 mil/mm3 (4.00-5.30); Red Cell Distribution Width 13.9 % (11.6-17.2); White Blood Count 13.8 th/mm3 (4.0-11.0)
[2018-01-12] MEDS ORDERED: Morphine Inj 4 MG/ML Vial IV.PUSH ONE ×2 (18:53→19:37)
--- NOTE | 2018-01-12 18:56 | XR ---
EXAM DATE: 01/12/2018 6:28 PM EDT AGE/SEX: 52 years / Female INDICATIONS: Chest pain CLINICAL DATA: This is the patient's initial encounter. Patient reports that signs and symptoms have been present for 1 day and indicates a pain score of 3/10. MEDICAL/SURGICAL HISTORY: . Myocardial infarction. Hypertension . CABG. Coronary artery phill nt. Sternal wires removed due to infection COMPARISON: [facility] [place], CHEST PA & LAT, 08/22/2017. . FINDINGS: A single AP view of the chest demonstrates the lungs to be symmetrically aerated without evidence of mass, infiltrate or effusion. The cardiomediastinal contours are prominent. Osseous structures are i ntact. CONCLUSION: Cardiomegaly. No focal infiltrate. Electronically signed by: Addy Gutierrez MD 01/12/2018 6:55 PM EDT
--- NOTE | 2018-01-12 19:00 | ED ---
HPI General Chief Complaint: Chest Pain Stated Complaint: Chest Pain Time Seen by Provider: 01/12/18 18:14 History of Present Illness HPI narrative: This is a 52-year-old female with history of hypertension, diabetes mellitus, hyperlipidemia, coronary artery disease, presents today with complaints of chest pain since this morning. Patient reports it on and off. She reports it as a 5 out of 6 to a 7 on the 10's scale. She reports it as tightness and sharp with radiation to her back. She has had previous MIs 9 she reports. She is also had bypass surgery. She states that she took nitroglycerin at home which helped alleviate her pain however it comes back. There is shortness of breath and some diaphoresis. There is also nausea. The patient states that she does have gastroparesis and is not sure if the nausea is from that or not. MD complaint: chest pain Complete Quality Measures for STEMI Alert Patients STEMI Alert: No Onset (ago): hour(s) Duration: intermittent Onset: during rest and during exertion Severity scale (1-10): 7 Quality: tightness and sharp Pain radiation: back Relieving factors: nitroglycerin Exacerbating factors: exertion Associated symptoms: nausea Treatments prior to arrival chest pain: aspirin and nitroglycerin Related Data Allergies Allergy/AdvReac Type Severity Reaction Status Date / Time penicillin G Allergy Severe hives Verified 08/22/17 17:05 sulfamethoxazole Allergy Severe rash Verified 08/22/17 17:05 trimethoprim Allergy Severe rash Verified 08/22/17 17:05 diatrizoate meglumine AdvReac Severe Nausea/Vomi Verified 08/22/17 17:05 ting gadobenic acid AdvReac Severe Nausea/Vomi Verified 08/22/17 17:05 ting gadodiamide AdvReac Severe Nausea/Vomi Verified 08/22/17 17:05 ting gadoteridol AdvReac Severe Nausea/Vomi Verified 08/22/17 17:05 ting iodixanol AdvReac Severe Nausea/Vomi Verified 08/22/17 17:05 ting iohexol AdvReac Severe Nausea/Vomi Verified 08/22/17 17:05 ting Review of Systems Except as stated in HPI: all other systems reviewed are negative Constitutional Denies chills and Denies fever(s) Eyes Reports system reviewed and no additional complaints, except as docu ENT Reports system reviewed and no additional complaints, except as docu Cardiovascular Reports chest pain, Reports diaphoresis and Reports dyspnea Respiratory Denies chest congestion, Denies cough and Reports dyspnea Gastrointestinal Reports nausea and Denies vomiting Genitourinary Reports system reviewed and no additional complaints, except [facility] Musculoskeletal Reports back pain and Denies muscle weakness Neurologic Reports headache(s) (From the nitro), Denies numbness and Denies weakness Psychiatric Reports system reviewed and no additional complaints, except as docu [facility] Medical History Medical History Anxiety (Acute) CAD (coronary artery disease) (Acute) CHF (congestive heart failure) (Acute) COPD (chronic obstructive pulmonary disease) (Acute) Chronic headaches (Acute) Depression (Acute) Diabetes (Acute) Diabetic neuropathy (Acute) GERD (gastroesophageal reflux disease) (Acute) Gastroparesis (Acute) HLD (hyperlipidemia) (Acute) HTN (hypertension) (Acute) Kidney stones (Acute) NSTEMI (non-ST elevated myocardial infarction) (Acute) Surgical History Surgical History History of appendectomy (Acute) History of cholecystectomy (Acute) History of hernia repair (Acute) Hx of CABG (Acute) Stented coronary artery (Acute) Social History Social History Substance History: No History of Abuse Second Hand Smoke Exposure: No Smoking Status: Former smoker How Often Do You Have a Drink Containing Alcohol: Never Recent Travel in [email or web address] within the Last 8 Weeks: No Recent Out of Country Travel within the Last 8 Weeks: No Exam Narrative Exam Narrative: GENERAL: Well-developed well-nourished female in no acute respiratory distress. SKIN: Focused skin assessment warm/dry. HEAD: Atraumatic. Normocephalic. EYES: No scleral icterus. No injection or drainage. ENT: No nasal bleeding or discharge. Mucous membranes pink and moist. NECK: Trachea midline. Supple. CARDIOVASCULAR: Regular rate and rhythm. No murmur appreciated. RESPIRATORY: No accessory muscle use. Clear to auscultation. Breath sounds equal bilaterally. GASTROINTESTINAL: Abdomen soft, non-tender, nondistended. Hepatic and splenic margins not palpable. MUSCULOSKELETAL: No obvious deformities. No clubbing. No cyanosis. Trace edema. NEUROLOGICAL: Awake and alert. No obvious cranial nerve deficits. Motor grossly within normal limits. Normal speech. Course Reevaluation(s) Reevaluation #1: Accepted in transfer of care from Dr. 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 Time: 19:49 Reevaluation #2: discussed with DR Fair --admit to Dr Valdivia Initial Documented Vital Signs Temperature 97.8 F 01/12/18 18:36 Pulse Rate 98 H 01/12/18 18:36 Respiratory Rate 18 01/12/18 18:36 Blood Pressure 179/68 H 01/12/18 18:36 Pulse Oximetry 98 01/12/18 18:36 Last Documented Vital Signs Temperature 97.8 F 01/12/18 18:59 Pulse Rate 86 01/12/18 18:59 Respiratory Rate 18 01/12/18 18:59 Blood Pressure 179/68 H 01/12/18 18:36 Pulse Oximetry 98 01/12/18 18:59 Sign Out Sign Out Data: Patient Sign Out occurred on 01/12/18 at 19:25. Patient's care was discussed, and care was transferred from Ayaan Otto MD to Virginia Terrazas MD. Sign Out Comment: 52-year-old female history of coronary disease, hypertension, hyperlipidemia, diabetes mellitus, presents today with plaints of chest pain. Patient's EKG shows no evidence of acute ST elevation. She does have flipped T waves in the lateral leads. Labs are pending at this time. Patient signed out to Dr. Terrazas at change of shift. Disposition will be per her. I anticipate the patient will be admitted at the very least for observation and rule out protocol. Last updated by Ayaan Otto MD at 01/12/18 19:15 Medical Decision Making Differential Diagnosis Differential Diagnosis: ACS versus musculoskeletal pain versus gastroparesis Medical Records Medical records reviewed: Yes I reviewed the patient's medical records. Cardiac catheterization by Dr. Anderson 08/23/17 severe multivessel coronary artery disease both bypass grafts occluded not adequate surgical targets for symptom surgical revascularization no percutaneous approach living off a small obtuse marginal branches dominant right coronary EF preserved options limited consideration for transmyocardial laser revascularization or cardiac transplantation or segmental counterpulsation or referral to [facility]. Lab Data Lab results reviewed: Yes I reviewed the patient's lab results. Result diagrams: 01/12/18 18:28 01/12/18 18:28 Lab Results 01/12/18 01/12/18 01/12/18 Range/Units 18:28 18:28 18:28 WBC 13.8 H (4.0-11.0) th/mm3 RBC 5.04 (4.00-5.30) mil/mm3 Hgb 15.3 (11.6-15.3) gm/dL Hct 44.9 (35.0-46.0) % MCV 89.0 (80.0-100.0) fL MCH 30.4 (27.0-34.0) pg MCHC 34.2 (32.0-36.0) % RDW 13.9 (11.6-17.2) % Plt Count 275 (150-450) th/mm3 MPV 7.2 (7.0-11.0) fL Neut % (Auto) 73.0 H (16.0-70.0) % Lymph % (Auto) 17.2 (9.0-44.0) % [place] % (Auto) 4.5 (0.0-8.0) % Eos % (Auto) 4.8 H (0.0-4.0) % Baso % (Auto) 0.5 (0.0-2.0) % Neut # (Auto) 10.1 H (1.8-7.7) th/mm3 Lymph # (Auto) 2.4 (1.0-4.8) th/mm3 [place] # (Auto) 0.6 (0.0-0.9) th/mm3 Eos # (Auto) 0.7 H (0.0-0.4) th/mm3 Baso # (Auto) 0.1 (0.0-0.2) th/mm3 WBC Differential . Differential Comment Auto diff final PT 9.8 (9.8-11.6) sec INR 1.0 Ratio APTT 24.5 (24.3-30.1) sec Sodium 137 (136-145) meq/L Potassium 4.2 (3.5-5.1) meq/L Chloride 102 (98-107) meq/L Carbon Dioxide 25.2 (21.0-32.0) meq/L Anion Gap 10 (5-15) meq/L BUN 14 (7-18) mg/dL Creatinine 1.10 H (0.50-1.00) mg/dL Estimated GFR 52 L (>89) mL/min Random Glucose 312 H (74-106) mg/dL Calcium 9.3 (8.5-10.1) mg/dL Total Bilirubin 0.4 (0.2-1.0) mg/dL AST 9 L (15-37) U/L ALT 14 (10-53) U/L Alkaline Phosphatase 166 H (45-117) U/L Total Creatine Kinase 34 (26-192) U/L Troponin I Less than 0.02 L (0.02-0.05) ng/mL Total Protein 7.4 (6.4-8.2) g/dL Albumin 2.9 L (3.4-5.0) g/dL Imaging Data Radiologist's impression: Chest X-Ray 01/12/18 18:15 CONCLUSION: Cardiomegaly. No focal infiltrate. ECG Data Interpretation: EKG sinus rhythm rate [address] elevation left anterior fascicular block anteroseptal QS age-indeterminate and inferior QS age- indeterminate noted to have inverted T waves laterally concerning for lateral ischemia. Discharge Plan Discharge Disposition Patient Disposition: 30 Still Patient Discharge Condition Condition: Stable Discharge Details Diagnosis: Chest pain due to CAD Physicians Team ED Provider: Virginia Terrazas Primary Care Provider: Reji Basilio Discharge Instructions Patient Printed Instructions: Chest Pain (ED) Status ED Status: With Doctor
[2018-01-12 19:06] LABS: Activated Partial Thrombo Time 24.5 sec (24.3-30.1); Prothrombin Time 9.8 sec (9.8-11.6)
[2018-01-12 19:11] LABS: Alanine Aminotransferase 14 U/L (10-53); Albumin 2.9 g/dL (3.4-5.0); Anion Gap 10 meq/L (5-15); Aspartate Aminotransferase 9 U/L (15-37); Blood Urea Nitrogen 14 mg/dL (7-18); Calcium 9.3 mg/dL (8.5-10.1); Carbon Dioxide 25.2 meq/L (21.0-32.0); Chloride 102 meq/L (98-107); Glomerular Filtration Rate 52 mL/min (>89); Glucose,Random 312 mg/dL (74-106); Potassium 4.2 meq/L (3.5-5.1); Sodium 137 meq/L (136-145)
[2018-01-12 19:15] LABS: Alkaline Phosphatase 166 U/L (45-117); Total Protein 7.4 g/dL (6.4-8.2)
[2018-01-12 19:17] LABS: Creatine Kinase 34 U/L (26-192)
--- NOTE | 2018-01-12 21:38 | P.HP ---
History of Present Illness Service: [facility] adult medicine Primary Care Physician: Reji Basilio MD Chief Complaint: Chest pain, right upper quadrant pain History of Present Illness: This is a 52 yo WF with CAD, CABG x , 2016 PCI ALBERTO to RCA and PDA, diabetes, COPD and HTN who presents with chest pain ongoing for 4 days intermittently. She reports that she has had chest pain most days over the last year and review of hospital records reveals that she has been admitted no less than 54 recurrent chest pain which is likely truly anginal given her severe coronary artery disease and re-stenosis of bypass grafts. She follows regularly with Dr. Anderson who was contacted by the ER physician. He has been trying to manage her medically and perform heart catheterization on her in August of this year which demonstrated severe multivessel disease with bypass graft occlusion but preserved ejection fraction. She typically has 45-50 episodes of chest pain per week. She reports that nitro typically relieves this after 1-2 doses however the chest pain she has had recently has been somewhat increasing particularly over the last 24 hours. She did have one episode of vomiting today when she attempted to take her second nitro. Given that she was not getting her typical relief and symptoms were somewhat worsening she presented to the ER. First set of cardiac enzymes are negative and EKG reveals no significant acute changes per ER physician report however I do not have the EKG immediately available for review in the electronic system. No increased SOB or palpitations. She continues to feel symptomatic but chest pain now reduced to "5-6/10" whereas it had been 8 or 9 before. She has been given topical nitrates as well as sublingual nitrate and IV morphine. Home medications Alprazolam 0.25 mg 1 every 6 hours as needed for anxiety An oral ellipse 62.5/25 one puff daily Aspirin 325 mg daily Atorvastatin 80 mg daily Bupropion sustained release 150 mg daily Clopidogrel 75 mg daily Furosemide 20 mg twice daily Isosorbide mononitrate ER extended release 120 mg twice daily Lantus 40 units subcu at bedtime Lisinopril 20 mg daily Metoclopramide 5 mg 3 times daily Metoprolol 50 mg twice daily Nitrostat 0.4 mg sublingual every 5 minutes as needed chest pain NovoLog sliding scale Protonix 40 mg daily Paroxetine 40 mg daily Ranexa 1000 mg twice daily Tradjenta 5 mg daily Ventolin 2 puffs 4 times a day as needed for wheezing Victoza 1.8 mg daily subcu vit D 50,000 units per week - Diagnosis (1) Chest pain due to CAD (2) Anxiety (3) COPD (chronic obstructive pulmonary disease) (4) Diabetic neuropathy (5) HTN (hypertension) Inpatient Certification: I certify that the inpatient services were ordered in accordance with Medicare regulations governing the order. This includes certification that hospital inpatient services are reasonable and necessary and in the case of services not specified as inpatient-only under 42 CFR 419.22(n), that they are appropriately provided as inpatient services in accordance to with the 2-midnight benchmark under 43 CFR 412.3(e) [facility] - History History Provided By: Patient, Medical Record - Medical History Medical History: Medical History (Last Updated 01/12/18 @ 19:08 by Melvi Coronado) Anxiety CAD (coronary artery disease) CHF (congestive heart failure) COPD (chronic obstructive pulmonary disease) Chronic headaches Depression Diabetes Diabetic neuropathy GERD (gastroesophageal reflux disease) Gastroparesis HLD (hyperlipidemia) HTN (hypertension) Kidney stones NSTEMI (non-ST elevated myocardial infarction) - Surgical History Surgical History: Surgical History (Last Updated 01/12/18 @ 21:25 by Micheal Fair MD, PhD) History of appendectomy History of cholecystectomy History of hernia repair Hx of CABG Stented coronary artery - Family History Family History: Family History (Last Updated 01/12/18 @ 21:25 by Micheal Fair MD, PhD) Father Family history of acute myocardial infarction - Tobacco History Second Hand Smoke Exposure: No Tobacco Use In Past 30 Days: No Smoking Status: Former smoker (Smoked 1 pack per day for approximately 12 years but stopped 20 years ago) years: 12 Number of Pack Years (if former smoker): 12 - Alcohol History How Often Do You Have a Drink Containing Alcohol: Never - Substance Use History Substance History: No History of Abuse - Travel History Recent Travel in the [place] Within the Last 8 Weeks: No Recent Travel Out of the Country Within the Last 8 Weeks: No - Immunization History Tetanus Immunization: >5 Years Hx Influenza Vaccine This Season: Yes Medications and Allergies Active Medications: Active Medications Sodium Chloride (Ns Flush) 2 ml IV.FLUSH UNSCH PRN PRN Reason: FLUSH AFTER USING IV ACCESS Allergies Allergy/AdvReac Type Severity Reaction Status Date / Time penicillin G Allergy Severe hives Verified 08/22/17 17:05 sulfamethoxazole Allergy Severe rash Verified 08/22/17 17:05 trimethoprim Allergy Severe rash Verified 08/22/17 17:05 diatrizoate meglumine AdvReac Severe Nausea/Vomi Verified 08/22/17 17:05 ting gadobenic acid AdvReac Severe Nausea/Vomi Verified 08/22/17 17:05 ting gadodiamide AdvReac Severe Nausea/Vomi Verified 08/22/17 17:05 ting gadoteridol AdvReac Severe Nausea/Vomi Verified 08/22/17 17:05 ting iodixanol AdvReac Severe Nausea/Vomi Verified 08/22/17 17:05 ting iohexol AdvReac Severe Nausea/Vomi Verified 08/22/17 17:05 ting Exam Vital signs: Vital Signs 01/12/18 18:36 01/12/18 18:59 Temperature 97.8 F 97.8 F Pulse Rate 98 H 84 Respiratory Rate 18 18 Blood Pressure 179/68 H Pulse Oximetry 98 98 Intake & Output 01/12/18 01/12/18 01/13/18 06:59 18:59 06:59 Weight 113.398 kg Narrative: GENERAL: Obese, no acute distress, pleasant and cooperative. SKIN: Warm and dry. HEAD: Atraumatic. Normocephalic. EYES: Pupils equal and round. No scleral icterus. No injection or drainage. ENT: No nasal bleeding or discharge. Mucous membranes pink and moist. NECK: Trachea midline. No JVD. CARDIOVASCULAR: Regular rate and rhythm. No significant murmurs. RESPIRATORY: No accessory muscle use. Clear to auscultation. Breath sounds equal bilaterally. GASTROINTESTINAL: Abdomen soft, nondistended. Tenderness palpation in right upper quadrant. Bowel sounds normal. Hepatic and splenic margins not palpable. MUSCULOSKELETAL: Extremities without clubbing, cyanosis, or edema. No obvious deformities. NEUROLOGICAL: Awake and alert. No obvious cranial nerve deficits. Motor grossly within normal limits. Five out of 5 muscle strength in the arms and legs. Normal speech. PSYCHIATRIC: Appropriate mood and affect; insight and judgment normal. Results - Labs CBC & Chem 7: 01/12/18 18:28 01/12/18 18:28 Labs: Laboratory Results - last 24 hr 01/12/18 01/12/18 01/12/18 18:28 18:28 18:28 WBC 13.8 H RBC 5.04 Hgb 15.3 Hct 44.9 MCV 89.0 MCH 30.4 MCHC 34.2 RDW 13.9 Plt Count 275 MPV 7.2 Neut % (Auto) 73.0 H Lymph % (Auto) 17.2 [place] % (Auto) 4.5 Eos % (Auto) 4.8 H Baso % (Auto) 0.5 Neut # (Auto) 10.1 H Lymph # (Auto) 2.4 [place] # (Auto) 0.6 Eos # (Auto) 0.7 H Baso # (Auto) 0.1 WBC Differential . Differential Comment Auto diff final PT 9.8 INR 1.0 APTT 24.5 Sodium 137 Potassium 4.2 Chloride 102 Carbon Dioxide 25.2 Anion Gap 10 BUN 14 Creatinine 1.10 H Estimated GFR 52 L Random Glucose 312 H Calcium 9.3 Total Bilirubin 0.4 AST 9 L ALT 14 Alkaline Phosphatase 166 H Total Creatine Kinase 34 Troponin I Less than 0.02 L Total Protein 7.4 Albumin 2.9 L - Imaging Impressions Chest X-Ray 01/12/18 18:15 CONCLUSION: Cardiomegaly. No focal infiltrate. Caprini VTE Risk Assessment Caprini VTE Risk Assessment: Moderate/High Risk (score >= 2) Caprini Risk Assessment Model: Point Value = 1 Point Value = 2 Point Value = 3 Point Value = 5 Age 41-60 Minor surgery BMI > 25 kg/m2 Swollen legs Varicose veins or History of unexplained or recurrent spontaneous Oral contraceptives or hormone replacement Sepsis (< 1 month) Serious lung disease, including pneumonia (< 1 month) Abnormal pulmonary function Acute myocardial infarction Congestive heart failure (< 1 month) History of inflammatory bowel disease Medical patient at bed rest Age 61-74 Arthroscopic surgery Major open surgery (> 45 min) Laparoscopic surgery (> 45 min) Malignancy Confined to bed (> 72 hours) Immobilizing plaster cast Central venous access Age >= 75 History of VTE Family history of VTE Factor V Leiden Prothrombin [id number] Lupus anticoagulant Anticardiolipin antibodies Elevated serum homocysteine Heparin-induced thrombocytopenia Other congenital or acquired thrombophilia Stroke (< 1 month) Elective arthroplasty Hip, pelvis, or leg fracture Acute spinal cord injury (< 1 month) Prophylaxis Regimen: Total Risk Factor Score Risk Level Prophylaxis Regimen 0-1 Low Early ambulation 2 Moderate Order ONE of the following: *Sequential Compression Device (SCD) *Heparin 5000 units SQ BID 3-4 Higher Order ONE of the following medications: *Heparin 5000 units SQ TID *Enoxaparin/Lovenox 40 mg SQ daily (WT < 150 kg, CrCl > 30 mL/min) *Enoxaparin/Lovenox 30 mg SQ daily (WT < 150 kg, CrCl > 10-29 mL/min) *Enoxaparin/Lovenox 30 mg SQ BID (WT < 150 kg, CrCl > 30 mL/min) AND/OR *Sequential Compression Device (SCD) 5 or more Highest Order ONE of the following medications: *Heparin 5000 units SQ TID (Preferred with Epidurals) *Enoxaparin/Lovenox 40 mg SQ daily (WT < 150 kg, CrCl > 30 mL/min) *Enoxaparin/Lovenox 30 mg SQ daily (WT < 150 kg, CrCl > 10-29 mL/min) *Enoxaparin/Lovenox 30 mg SQ BID (WT < 150 kg, CrCl > 30 mL/min) AND *Sequential Compression Device (SCD) Assessment and Plan - Assessment (1) Chest pain due to CAD Code(s): R07.9 - Chest pain, unspecified; I25.10 - Atherosclerotic heart disease of [place] coronary artery without angina pectoris Status: Chronic Plan: Recurrent issue. Management per Dr. Anderson who requested patient be admitted to medicine service. Per his previous note she may be tertiary care center bound. (2) Anxiety Code(s): F41.9 - Anxiety disorder, unspecified Status: Acute Plan: Alprazolam and at home meds. (3) COPD (chronic obstructive pulmonary disease) Code(s): J44.9 - Chronic obstructive pulmonary disease, unspecified Status: Acute Plan: DuoNeb as needed. (4) Diabetic neuropathy Code(s): E11.40 - Type 2 diabetes mellitus with diabetic neuropathy, unspecified Status: Acute Plan: Will use sliding scale insulin and low-dose basal insulin (5) HTN (hypertension) Code(s): I10 - Essential (primary) hypertension Status: Acute Plan: Continue medications. - Plan Code Status: full Discussed Condition With: pt and her (4) Diabetic neuropathy Qualifiers: Diabetes mellitus type: type 2 (5) HTN (hypertension) Qualifiers: Hypertension type: essential hypertension Qualified Code(s): I10 - Essential (primary) hypertension
[2018-01-12] MEDS ORDERED: Dextrose 50% in Water 50 ML Vial IV.PUSH PRN (21:42)
[2018-01-12] MEDS ORDERED: ALPRAZolam 0.25 MG Tablet PO PRN (21:45)
[2018-01-12] MEDS ORDERED: Insulin Detemir Inj 1,000 UNIT/10 ML Vial SQ SCH (21:45)
[2018-01-12] MEDS ORDERED: Enoxaparin Inj 40 MG/0.4 ML Syringe SQ ONE (21:50)
[2018-01-12] MEDS: Metoprolol Tartrate 50 MG Tablet PO SCH (22:12)
[2018-01-12] MEDS: Ranolazine 500 MG 12HR ER Tablet PO SCH (23:07)
[2018-01-13 01:29] LABS: Creatine Kinase 35 U/L (26-192)
--- NOTE | 2018-01-13 07:42 | P.CONCA ---
<Steve Murray - Last Filed: 01/13/18 08:36> History of Present Illness Primary Care Provider: Reji Basilio MD Family Provider: Reji Basilio MD Chief Complaint: Chest pain, right upper quadrant pain History of Present Illness: 52-year-old female with a past medical history of CAD, CABG x 2, 2017 PCI ALBERTO to RCA and PDA, diabetes, COPD and HTN. The patient presented for chest pain and vomiting. The patient had a cardiac catheterization in August which showed severe [place] CAD with essentially both bypass grafts occluded. At that time as she was maxed out on antianginal therapy, is been recommended that she be evaluated for possible TMLR or even cardiac transplant, although she has not been evaluated for these as of yet. The patient gets chest pains radiating to her back most days, and pain can last from a few minutes to a few hours. Pain is sometimes relieved by nitroglycerin. She reports medication compliance and she no longer smokes. She reports the chest pains have been a little more severe recently, but she mostly came for evaluation because she has been vomiting more. She states she vomited on Tuesday, Tuesday, of this week and has some lower abdominal cramping on Tuesday. She reports mild chronic shortness of breath. Troponin 0 0.022. EKGs with poor R-wave progression, and diffuse Q waves throughout anterior and inferior leads, unchanged from previous EKGs in August. [facility] - History History Provided By: Patient, Medical Record - Medical History Medical History: Medical History (Last Updated 01/12/18 @ 21:29 by Micheal Fair MD, PhD) Anxiety (Chronic) Diabetic neuropathy (Chronic) COPD (chronic obstructive pulmonary disease) (Chronic) HTN (hypertension) (Chronic) CAD (coronary artery disease) CHF (congestive heart failure) Chronic headaches Depression Diabetes GERD (gastroesophageal reflux disease) Gastroparesis HLD (hyperlipidemia) Kidney stones NSTEMI (non-ST elevated myocardial infarction) - Surgical History Surgical History: Surgical History (Last Updated 01/12/18 @ 21:25 by Micheal Fair MD, PhD) History of appendectomy History of cholecystectomy History of hernia repair Hx of CABG Stented coronary artery - Family History Family History: Family History (Last Updated 01/12/18 @ 21:25 by Micheal Fair MD, PhD) Father Family history of acute myocardial infarction - Tobacco History Second Hand Smoke Exposure: No Tobacco Use In Past 30 Days: No Smoking Status: Former smoker (Smoked 1 pack per day for approximately 12 years but stopped 20 years ago) Tobacco Type: Cigarettes years: 12 Number of Pack Years (if former smoker): 12 - Alcohol History How Often Do You Have a Drink Containing Alcohol: Never - Substance Use History Substance History: No History of Abuse - Travel History Recent Travel in the [place] Within the Last 8 Weeks: No Recent Travel Out of the Country Within the Last 8 Weeks: No - Immunization History Tetanus Immunization: >5 Years Hx Influenza Vaccine This Season: Yes Medications and Allergies Allergies Allergy/AdvReac Type Severity Reaction Status Date / Time penicillin G Allergy Severe hives Verified 08/22/17 17:05 sulfamethoxazole Allergy Severe rash Verified 08/22/17 17:05 trimethoprim Allergy Severe rash Verified 08/22/17 17:05 diatrizoate meglumine AdvReac Severe Nausea/Vomi Verified 08/22/17 17:05 ting gadobenic acid AdvReac Severe Nausea/Vomi Verified 08/22/17 17:05 ting gadodiamide AdvReac Severe Nausea/Vomi Verified 08/22/17 17:05 ting gadoteridol AdvReac Severe Nausea/Vomi Verified 08/22/17 17:05 ting iodixanol AdvReac Severe Nausea/Vomi Verified 08/22/17 17:05 ting iohexol AdvReac Severe Nausea/Vomi Verified 08/22/17 17:05 ting Home Medications Medication Instructions Recorded Confirmed Type aspirin [Aspirin Low Dose] 81 mg PO DAILY 01/12/18 01/12/18 History atorvastatin [Lipitor] 80 mg PO DAILY 01/12/18 01/12/18 History bupropion HCl 150 mg PO QAM 01/12/18 01/12/18 History clopidogrel 75 mg PO DAILY 01/12/18 01/12/18 History folic acid 1 mg PO DAILY 01/12/18 01/12/18 History furosemide 20 mg PO DAILY 01/12/18 01/12/18 History isosorbide mononitrate 120 mg PO BID 01/12/18 01/12/18 History linagliptin [Tradjenta] 5 mg PO DAILY 01/12/18 01/12/18 History lisinopril 20 mg PO BID 01/12/18 01/12/18 History lorazepam 0.25 mg PO QID PRN 01/12/18 01/13/18 History metoclopramide HCl [Reglan] 5 mg PO TID 01/12/18 01/12/18 History metoprolol tartrate 50 mg PO BID 01/12/18 01/12/18 History paroxetine HCl 40 mg PO DAILY 01/12/18 01/12/18 History ranolazine [Ranexa] 1,000 mg BID 01/12/18 01/12/18 History umeclidinium-vilanterol [Anoro 1 inh INHALATION Q24H 01/12/18 01/12/18 History Ellipta] Active Medications: Active Medications Albuterol (Duoneb Neb (Prn)) 1 ampul NEB Q6HR NEB PRN PRN Reason: WHEEZING Alprazolam (Xanax) 0.25 mg PO Q6H PRN PRN Reason: ANXIETY Last Admin: 01/12/18 22:13 Dose: 0.25 mg Aspirin (Aspirin) 325 mg PO DAILY [facility] Atorvastatin Calcium (Lipitor) 80 mg PO DAILY [facility] Bupropion HCl (Wellbutrin Sr) 150 mg PO DAILY [facility] Dextrose (D50w Vial) 50 ml IV.PUSH UNSCH PRN PRN Reason: PER HYPOGLYCEMIA PROTOCOL Furosemide (Lasix) 20 mg PO DAILY [facility] Glucagon (Glucagon Inj) 1 mg OTHER PRN PRN PRN Reason: for Hypoglycemia Protocol Insulin Aspart (Novolog Insulin Correctional Sugar Inj) 0 unit SQ ACHS [facility]; Protocol Insulin Detemir (Levemir Inj) 15 unit SQ HS [facility] Last Admin: 01/12/18 22:13 Dose: 15 unit Lisinopril (Prinivil) 20 mg PO DAILY [facility] Metoprolol Tartrate (Lopressor) 50 mg PO BID [facility] Last Admin: 01/12/18 22:12 Dose: 50 mg Nitroglycerin (Nitro-Bid 2% Oint) 1 inch TOPICAL Q6HR [facility] Last Admin: 01/13/18 05:07 Dose: 1 inch Nitroglycerin (Nitrostat Sl) 0.4 mg SL Q5M PRN PRN Reason: CHEST PAIN Pantoprazole Sodium (Protonix) 40 mg PO DAILY [facility] Paroxetine HCl (Paxil) 40 mg PO DAILY [facility] Ranolazine (Ranexa) 1,000 mg PO BID [facility] Last Admin: 01/12/18 23:07 Dose: 1,000 mg Sodium Chloride (Ns Flush) 2 ml IV.FLUSH UNSCH PRN PRN Reason: FLUSH AFTER USING IV ACCESS Exam Vital signs: Vital Signs 01/12/18 18:36 01/12/18 18:59 01/12/18 20:00 Temperature 97.8 F 97.8 F Pulse Rate 98 H 84 Respiratory Rate 18 18 Blood Pressure 179/68 H Pulse Oximetry 98 98 96 01/12/18 21:22 01/12/18 21:45 01/13/18 00:00 Temperature 97.9 F 97.6 F Pulse Rate 93 H 99 H 82 Respiratory Rate 14 18 18 Blood Pressure 198/94 H 178/92 H 182/96 H Pulse Oximetry 97 97 95 01/13/18 04:00 Temperature 97.7 F Pulse Rate 80 Respiratory Rate 18 Blood Pressure 119/61 Pulse Oximetry 94 L Intake & Output 01/12/18 01/13/18 01/13/18 18:59 06:59 18:59 Intake Total 120 / 120 Balance 120 / 120 Weight 250 lb 230 lb 6.129 oz Intake: Oral 120 / 120 Other: # Voids 2 Weight On Admission 228 lb 2.855 oz Results 01/12/18 18:28 01/12/18 18:28 Cardiac Enzymes 01/12/18 01/13/18 Range/Units 18:28 00:25 AST 9 L (15-37) U/L Troponin I Less than 0.02 L Less than 0.02 L (0.02-0.05) ng/mL Coagulation 01/12/18 Range/Units 18:28 PT 9.8 (9.8-11.6) sec APTT 24.5 (24.3-30.1) sec CBC 01/12/18 Range/Units 18:28 WBC 13.8 H (4.0-11.0) th/mm3 RBC 5.04 (4.00-5.30) mil/mm3 Hgb 15.3 (11.6-15.3) gm/dL Hct 44.9 (35.0-46.0) % Plt Count 275 (150-450) th/mm3 Neut # (Auto) 10.1 H (1.8-7.7) th/mm3 Lymph # (Auto) 2.4 (1.0-4.8) th/mm3 Coles # (Auto) 0.6 (0.0-0.9) th/mm3 Eos # (Auto) 0.7 H (0.0-0.4) th/mm3 Baso # (Auto) 0.1 (0.0-0.2) th/mm3 Comprehensive Metabolic Panel 01/12/18 Range/Units 18:28 Sodium 137 (136-145) meq/L Potassium 4.2 (3.5-5.1) meq/L Chloride 102 (98-107) meq/L Carbon Dioxide 25.2 (21.0-32.0) meq/L BUN 14 (7-18) mg/dL Creatinine 1.10 H (0.50-1.00) mg/dL Calcium 9.3 (8.5-10.1) mg/dL AST 9 L (15-37) U/L ALT 14 (10-53) U/L Alkaline Phosphatase 166 H (45-117) U/L Total Protein 7.4 (6.4-8.2) g/dL Albumin 2.9 L (3.4-5.0) g/dL Intake and Output 01/12/18 01/13/18 01/13/18 22:59 06:59 14:59 Intake Total 120 / 120 Balance 120 / 120 Intake: Oral 120 / 120 Other: # Voids 2 Weight 228 lb 2.855 oz 230 lb 6.129 oz Weight On Admission 228 lb 2.855 oz Assessment and Plan - Plan 52-year-old female with a past medical history of CAD, CABG x 2, 2017 PCI ALBERTO to RCA and PDA, diabetes, COPD and HTN. The patient presented for chest pain and vomiting. CAD with chronic stable angina: No evidence of ACS by cardiac enzymes or EKGs. Patient remains with chronic, stable anginal symptoms on maximal antianginal therapy and previous cath with no options for revascularization. Continue medical management at this time and current cardiac regimen. We will need to facilitate referral to tertiary care center as outpatient for further evaluation of options include TMLR and heart transplantation. Nausea, vomiting, abdominal pain: Patient will be cleared from cardiology perspective to proceed with GI workup if needed, will defer to primary team. Discussed Condition With: Patient, Dr. Anderson <Arsalan Anderson - Last Filed: 01/13/18 12:06> History of Present Illness Primary Care Provider: Reji Basilio MD Family Provider: Reji Basilio MD [facility] - Medical History Medical History: Medical History (Last Updated 01/12/18 @ 21:29 by Micheal Fair MD, PhD) Anxiety (Chronic) Diabetic neuropathy (Chronic) COPD (chronic obstructive pulmonary disease) (Chronic) HTN (hypertension) (Chronic) CAD (coronary artery disease) CHF (congestive heart failure) Chronic headaches Depression Diabetes GERD (gastroesophageal reflux disease) Gastroparesis HLD (hyperlipidemia) Kidney stones NSTEMI (non-ST elevated myocardial infarction) - Surgical History Surgical History: Surgical History (Last Updated 01/12/18 @ 21:25 by Micheal Fair MD, PhD) History of appendectomy History of cholecystectomy History of hernia repair Hx of CABG Stented coronary artery - Family History Family History: Family History (Last Updated 01/12/18 @ 21:25 by Micheal Fair MD, PhD) Father Family history of acute myocardial infarction Medications and Allergies Active Medications: Active Medications Albuterol (Duoneb Neb (Prn)) 1 ampul NEB Q6HR NEB PRN PRN Reason: WHEEZING Alprazolam (Xanax) 0.25 mg PO Q6H PRN PRN Reason: ANXIETY Last Admin: 01/12/18 22:13 Dose: 0.25 mg Aspirin (Aspirin) 325 mg PO DAILY [facility] Atorvastatin Calcium (Lipitor) 80 mg PO DAILY [facility] Last Admin: 01/13/18 08:57 Dose: 80 mg Bupropion HCl (Wellbutrin Sr) 150 mg PO DAILY [facility] Last Admin: 01/13/18 08:57 Dose: 150 mg Dextrose (D50w Vial) 50 ml IV.PUSH UNSCH PRN PRN Reason: PER HYPOGLYCEMIA PROTOCOL Furosemide (Lasix) 20 mg PO DAILY [facility] Last Admin: 01/13/18 08:58 Dose: 20 mg Glucagon (Glucagon Inj) 1 mg OTHER PRN PRN PRN Reason: for Hypoglycemia Protocol Insulin Aspart (Novolog Insulin Correctional Sugar Inj) 0 unit SQ [facility]; Protocol Last Admin: 01/13/18 08:56 Dose: 10 unit Insulin Detemir (Levemir Inj) 15 unit SQ HS [facility] Last Admin: 01/12/18 22:13 Dose: 15 unit Lisinopril (Prinivil) 20 mg PO DAILY [facility] Last Admin: 01/13/18 08:58 Dose: 20 mg Metoclopramide HCl (Reglan) 5 mg PO TID [facility] Metoprolol Tartrate (Lopressor) 50 mg PO BID [facility] Last Admin: 01/13/18 08:58 Dose: 50 mg Miscellaneous (Pill Splitter) 1 each OTHER UNSCH PRN PRN Reason: SEE LABEL COMMENTS Nitroglycerin (Nitro-Bid 2% Oint) 1 inch TOPICAL Q6HR [facility] Last Admin: 01/13/18 05:07 Dose: 1 inch Nitroglycerin (Nitrostat Sl) 0.4 mg SL Q5M PRN PRN Reason: CHEST PAIN Ondansetron HCl (Zofran Inj) 4 mg IV.PUSH Q6H PRN PRN Reason: NAUSEA OR VOMITING Pantoprazole Sodium (Protonix) 40 mg PO DAILY [facility] Last Admin: 01/13/18 08:58 Dose: 40 mg Paroxetine HCl (Paxil) 40 mg PO DAILY [facility] Last Admin: 01/13/18 08:57 Dose: 40 mg Ranolazine (Ranexa) 1,000 mg PO BID [facility] Last Admin: 01/13/18 08:57 Dose: 1,000 mg Sodium Chloride (Ns Flush) 2 ml IV.FLUSH UNSCH PRN PRN Reason: FLUSH AFTER USING IV ACCESS Exam Vital signs: Vital Signs 01/12/18 18:36 01/12/18 18:59 01/12/18 20:00 Temperature 97.8 F 97.8 F Pulse Rate 98 H 84 Respiratory Rate 18 18 Blood Pressure 179/68 H Pulse Oximetry 98 98 96 01/12/18 21:22 01/12/18 21:45 01/13/18 00:00 Temperature 97.9 F 97.6 F Pulse Rate 93 H 99 H 82 Respiratory Rate 14 18 18 Blood Pressure 198/94 H 178/92 H 182/96 H Pulse Oximetry 97 97 95 01/13/18 04:00 01/13/18 08:00 01/13/18 10:46 Temperature 97.7 F 97.9 F Pulse Rate 80 73 Respiratory Rate 18 22 Blood Pressure 119/61 154/82 H Pulse Oximetry 94 L 94 L 95 Intake & Output 01/12/18 01/13/18 01/13/18 18:59 06:59 18:59 Intake Total 120 / 120 Balance 120 / 120 Weight 113.398 kg 104.5 kg Intake: Oral 120 / 120 Other: # Voids 2 Date of Last Bowel Movement 01/12/18 Weight On Admission 103.5 kg Results 01/12/18 18:28 01/12/18 18:28 Cardiac Enzymes 01/12/18 01/13/18 01/13/18 Range/Units 18:28 00:25 08:23 AST 9 L (15-37) U/L Troponin I Less than 0.02 L Less than 0.02 L 0.02 (0.02-0.05) ng/mL Coagulation 01/12/18 Range/Units 18:28 PT 9.8 (9.8-11.6) sec APTT 24.5 (24.3-30.1) sec CBC 01/12/18 Range/Units 18:28 WBC 13.8 H (4.0-11.0) th/mm3 RBC 5.04 (4.00-5.30) mil/mm3 Hgb 15.3 (11.6-15.3) gm/dL Hct 44.9 (35.0-46.0) % Plt Count 275 (150-450) th/mm3 Neut # (Auto) 10.1 H (1.8-7.7) th/mm3 Lymph # (Auto) 2.4 (1.0-4.8) th/mm3 Coles # (Auto) 0.6 (0.0-0.9) th/mm3 Eos # (Auto) 0.7 H (0.0-0.4) th/mm3 Baso # (Auto) 0.1 (0.0-0.2) th/mm3 Comprehensive Metabolic Panel 01/12/18 Range/Units 18:28 Sodium 137 (136-145) meq/L Potassium 4.2 (3.5-5.1) meq/L Chloride 102 (98-107) meq/L Carbon Dioxide 25.2 (21.0-32.0) meq/L BUN 14 (7-18) mg/dL Creatinine 1.10 H (0.50-1.00) mg/dL Calcium 9.3 (8.5-10.1) mg/dL AST 9 L (15-37) U/L ALT 14 (10-53) U/L Alkaline Phosphatase 166 H (45-117) U/L Total Protein 7.4 (6.4-8.2) g/dL Albumin 2.9 L (3.4-5.0) g/dL Intake and Output 01/12/18 01/13/18 01/13/18 22:59 06:59 14:59 Intake Total 120 / 120 Balance 120 / 120 Intake: Oral 120 / 120 Other: # Voids 2 Date of Last Bowel Movement 01/12/18 Weight 103.5 kg 104.5 kg Weight On Admission 103.5 kg Assessment and Plan - Attending Attestation severe CAD stable angina atypical symptoms, GI related no change in medical therapy no SPECT. no C clear for any GI procedures will sign off call with further questions
--- NOTE | 2018-01-13 08:19 | US ---
EXAM DATE: 01/13/2018 8:14 AM EDT AGE/SEX: 52 years / Female INDICATIONS: Right upper quadrant pain. CLINICAL DATA: This is the patient's initial encounter. Patient reports that signs and symptoms have been present for 1 day and indicates a pain score of 2/10. MEDICAL/SURGICAL HISTORY: Diabetes. Gastroparesis. Hypertension. CAD. COPD. Hyperlipidemia. Kidney stones. GERD. Hernia. Appendectomy. Cholecystectomy. CABG. Hernia repair. Stented coronary artery. COMPARISON: [facility] – [place], CT ABDOMEN & PELVIS W/O CONTRAST, 07/11/2017. . MEASUREMENTS: Liver:__ 16.1 cm. Common Bile Duct:__ 4mm. Right Kidney:__ 11.5 x 6.3 x 6.2 cm. FINDINGS: Liver: Increased echotexture without focal lesion or ductal dilation. Portal Vein: Hepatopedal flow seen in portal vein. Common Duct: No intraluminal mass or stone visualized. Gallbladder: Surgically absent. Pancreas: The visualized portions are within normal limits Right Kidney: Normal echotexture and cortical thickness. No mass or hydronephrosis. Other: None. CONCLUSION: 1. No sonographic evidence for cholelithiasis or acute cholecystitis. 2. Echogenic liver consistent with hepatic steatosis or medical liver disease. Electronically signed by: Gutierrez Sweeney MD 01/13/2018 8:18 AM EDT
--- NOTE | 2018-01-13 08:41 | ECG ---
Date Performed: 01/12/2018 Time Performed: 18:09:03 PTAGE: 52 years EKG: Sinus rhythm WITH OCCASIONAL VENTRICULAR PREMATURE COMPLEXES LEFT ANTERIOR FASCICULAR BLOCK ANTERIOR MYOCARDIAL I NFARCTION T-WAVE ABNORMALITY, CONSIDER LATERAL ISCHEMIA ABNORMAL ECG NO PREVIOUS TRACING DOCTOR: Martin Nuñez Interpretating Date/Time 01/13/2018 08:41:18
[2018-01-13] MEDS: Insulin NovoLOG Aspart Correctional Sugar Inj SQ SCH ×2 (08:56→13:23)
[2018-01-13] MEDS: Ranolazine 500 MG 12HR ER Tablet PO SCH (08:57)
[2018-01-13] MEDS: Metoprolol Tartrate 50 MG Tablet PO SCH (08:58)
[2018-01-13] MEDS ORDERED: Lisinopril 20 MG Tablet PO SCH (09:00)
[2018-01-13] MEDS ORDERED: buPROPion 150 MG 12 HR Tablet PO SCH (09:00)
[2018-01-13] MEDS ORDERED: Furosemide 20 MG Tablet PO SCH (09:00)
--- NOTE | 2018-01-13 09:18 | ECG ---
Date Performed: 01/13/2018 Time Performed: 08:36:42 PTAGE: 52 years EKG: Sinus rhythm LEFT ANTERIOR FASCICULAR BLOCK POSSIBLE ANTERIOR MYOCARDIAL INFARCTION , OF INDETERMINATE AGE T-WAVE ABNORMALITY, CONSIDER LATERAL ISCHEMIA ABNORMAL ECG PREVIOUS TRACING : 01/12/2018 18.09 No significant change from previous tracing noted. DOCTOR: Martin Nuñez Interpretating Date/Time 01/13/2018 09:18:13
[2018-01-13 09:21] LABS: Troponin I 0.02 ng/mL (0.02-0.05)
--- NOTE | 2018-01-13 11:08 | P.PNIM ---
Subjective Interval history: Follow up: Chest pain, anxiety, nausea and vomiting Physical Exam Vital signs: Vital Signs 01/12/18 18:36 01/12/18 18:59 01/12/18 20:00 Temperature 97.8 F 97.8 F Pulse Rate 98 H 84 Respiratory Rate 18 18 Blood Pressure 179/68 H Pulse Oximetry 98 98 96 01/12/18 21:22 01/12/18 21:45 01/13/18 00:00 Temperature 97.9 F 97.6 F Pulse Rate 93 H 99 H 82 Respiratory Rate 14 18 18 Blood Pressure 198/94 H 178/92 H 182/96 H Pulse Oximetry 97 97 95 01/13/18 04:00 01/13/18 08:00 01/13/18 10:46 Temperature 97.7 F 97.9 F Pulse Rate 80 75 Respiratory Rate 18 22 Blood Pressure 119/61 154/82 H Pulse Oximetry 94 L 94 L 95 Intake & Output 01/12/18 01/13/18 01/13/18 18:59 06:59 18:59 Intake Total 120 / 120 Balance 120 / 120 Weight 113.398 kg 104.5 kg Intake: Oral 120 / 120 Other: # Voids 2 Weight On Admission 103.5 kg Narrative: GENERAL: Obese, no acute distress SKIN: Warm and dry. CARDIOVASCULAR: Regular rate and rhythm. RESPIRATORY: No accessory muscle use. Clear to auscultation. Breath sounds equal bilaterally. GASTROINTESTINAL: Abdomen soft, nondistended. Tenderness palpation in right upper quadrant. Bowel sounds normal. MUSCULOSKELETAL: Extremities without clubbing, cyanosis, or edema. No obvious deformities. NEUROLOGICAL: Awake and alert. No obvious cranial nerve deficits. Motor grossly within normal limits. Five out of 5 muscle strength in the arms and legs. Normal speech. PSYCHIATRIC: Appropriate mood and affect; insight and judgment normal. Results - Labs CBC & Chem 7: 01/13/18 11:40 01/13/18 11:40 Laboratory Results - last 24 hr 01/12/18 01/12/18 01/12/18 18:28 18:28 18:28 WBC 13.8 H RBC 5.04 Hgb 15.3 Hct 44.9 MCV 89.0 MCH 30.4 MCHC 34.2 RDW 13.9 Plt Count 275 MPV 7.2 Neut % (Auto) 73.0 H Lymph % (Auto) 17.2 [place] % (Auto) 4.5 Eos % (Auto) 4.8 H Baso % (Auto) 0.5 Neut # (Auto) 10.1 H Lymph # (Auto) 2.4 [place] # (Auto) 0.6 Eos # (Auto) 0.7 H Baso # (Auto) 0.1 WBC Differential . Differential Comment Auto diff final PT 9.8 INR 1.0 APTT 24.5 Sodium 137 Potassium 4.2 Chloride 102 Carbon Dioxide 25.2 Anion Gap 10 BUN 14 Creatinine 1.10 H Estimated GFR 52 L POC Glucose Random Glucose 312 H Calcium 9.3 Total Bilirubin 0.4 AST 9 L ALT 14 Alkaline Phosphatase 166 H Total Creatine Kinase 34 Troponin I Less than 0.02 L Total Protein 7.4 Albumin 2.9 L 01/13/18 01/13/18 01/13/18 00:25 07:32 08:23 WBC RBC Hgb Hct MCV MCH MCHC RDW Plt Count MPV Neut % (Auto) Lymph % (Auto) [place] % (Auto) Eos % (Auto) Baso % (Auto) Neut # (Auto) Lymph # (Auto) [place] # (Auto) Eos # (Auto) Baso # (Auto) WBC Differential Differential Comment PT INR APTT Sodium Potassium Chloride Carbon Dioxide Anion Gap BUN Creatinine Estimated GFR POC Glucose 306 H Random Glucose Calcium Total Bilirubin AST ALT Alkaline Phosphatase Total Creatine Kinase 35 32 Troponin I Less than 0.02 L 0.02 Total Protein Albumin - Imaging Impressions Chest X-Ray 01/12/18 18:15 CONCLUSION: Cardiomegaly. No focal infiltrate. Liver Ultrasound 01/13/18 00:00 CONCLUSION: 1. No sonographic evidence for cholelithiasis or acute cholecystitis. 2. Echogenic liver consistent with hepatic steatosis or medical liver disease. Assessment and Plan - Plan Chest pain with CAD hx Recurrent issue. Patient follows with Dr. Anderson outpatient cardiology also following Per cardiology: No evidence of ACS by cardiac enzymes or EKGs. Patient remains with chronic, stable anginal symptoms on maximal antianginal therapy and previous cath with no options for revascularization. Continue medical management at this time and current cardiac regimen. We will need to facilitate referral to tertiary care center as outpatient for further evaluation of options include TMLR and heart transplantation. N/V patient has history of gastroparesis continue patient's home Reglan 5 mg PO TID Zofran as needed for N/V Continue supportive care Anxiety continue Alprazolam and at home meds. COPD (chronic obstructive pulmonary disease) DuoNeb as needed. Diabetes Mellitus Diabetic neuropathy Patient takes Lantus 40 units SQ QHS, she was started on levemir 15 Units SQ HS , glucose this AM 306 Will increase Levemir to 30 units SQ QHS Will use sliding scale insulin and low-dose basal insulin HTN (hypertension) Lisinopril 20 mg PO daily Continue medications. DVT prophylaxis SCDs - Attending Attestation Patient examined. Assessment and plan formulated with Cindy Benjamin PA-C. I agree with the above.
[2018-01-13 12:35] LABS: Baso # (Auto) 0.1 th/mm3 (0.0-0.2); Baso % (Auto) 0.7 % (0.0-2.0); Eos # (Auto) 0.7 th/mm3 (0.0-0.4); Eos % (Auto) 6.3 % (0.0-4.0); Hematocrit 40.1 % (35.0-46.0); Hemoglobin 13.5 gm/dL (11.6-15.3); Lymph # (Auto) 2.5 th/mm3 (1.0-4.8); Lymph % (Auto) 22.7 % (9.0-44.0); Mean Corpuscular HGB Conc 33.7 % (32.0-36.0); Mean Corpuscular Hemoglobin 29.8 pg (27.0-34.0); Mean Corpuscular Volume 88.4 fL (80.0-100.0); Mono # (Auto) 0.8 th/mm3 (0.0-0.9); Neut % (Auto) 63.3 % (16.0-70.0); Platelet Count 249 th/mm3 (150-450); Red Blood Count 4.54 mil/mm3 (4.00-5.30); Red Cell Distribution Width 14.1 % (11.6-17.2)
[2018-01-13 12:59] LABS: Calcium 8.8 mg/dL (8.5-10.1); Carbon Dioxide 28.6 meq/L (21.0-32.0)
[2018-01-13] MEDS ORDERED: Metoclopramide 10 MG Tablet PO SCH (13:00)
--- NOTE | 2018-01-13 13:30 | P.DS ---
<Cindy Benjamin - Last Filed: 01/13/18 13:27> Date of admission: 01/12/18 21:41 Primary care physician: Reji Basilio MD Attending physician on discharge: Juan Valdivia Anticipated date of discharge: 01/13/18 Brief History from admission: This is a 52 yo WF with CAD, CABG x 2, 2017 PCI ALBERTO to RCA and PDA, diabetes, COPD and HTN who presents with chest pain ongoing for 4 days intermittently. She reports that she has had chest pain most days over the last year and review of hospital records reveals that she has been admitted no less than 54 recurrent chest pain which is likely truly anginal given her severe coronary artery disease and re-stenosis of bypass grafts. She follows regularly with Dr. Anderson who was contacted by the ER physician. He has been trying to manage her medically and perform heart catheterization on her in August of this year which demonstrated severe multivessel disease with bypass graft occlusion but preserved ejection fraction. She typically has 45-50 episodes of chest pain per week. She reports that nitro typically relieves this after 1-2 doses however the chest pain she has had recently has been somewhat increasing particularly over the last 24 hours. She did have one episode of vomiting today when she attempted to take her second nitro. Given that she was not getting her typical relief and symptoms were somewhat worsening she presented to the ER. First set of cardiac enzymes are negative and EKG reveals no significant acute changes per ER physician report however I do not have the EKG immediately available for review in the electronic system. No increased SOB or palpitations. She continues to feel symptomatic but chest pain now reduced to "5-6/10" whereas it had been 8 or 9 before. She has been given topical nitrates as well as sublingual nitrate and IV morphine. Home medications Alprazolam 0.25 mg 1 every 6 hours as needed for anxiety An oral ellipse 62.5/25 one puff daily Aspirin 325 mg daily Atorvastatin 80 mg daily Bupropion sustained release 150 mg daily Clopidogrel 75 mg daily Furosemide 20 mg twice daily Isosorbide mononitrate ER extended release 120 mg twice daily Lantus 40 units subcu at bedtime Lisinopril 20 mg daily Metoclopramide 5 mg 3 times daily Metoprolol 50 mg twice daily Nitrostat 0.4 mg sublingual every 5 minutes as needed chest pain NovoLog sliding scale Protonix 40 mg daily Paroxetine 40 mg daily Ranexa 1000 mg twice daily Tradjenta 5 mg daily Ventolin 2 puffs 4 times a day as needed for wheezing Victoza 1.8 mg daily subcu vit D 50,000 units per week DS: Diagnosis - Discharge Diagnosis (1) Gastroparesis Status: Acute (2) Anxiety Status: Chronic DS: Medications - Discharge Medications Prescriptions: erythromycin [Sherman-Tab] 250 mg PO Q8HR 30 Days tab DS: Summary Hospital Course: Chest pain with CAD hx Recurrent issue. Patient follows with Dr. Anderson outpatient cardiology also following Per cardiology: No evidence of ACS by cardiac enzymes or EKGs. Patient remains with chronic, stable anginal symptoms on maximal antianginal therapy and previous cath with no options for revascularization. Continue medical management at this time and current cardiac regimen. We will need to facilitate referral to tertiary care center as outpatient for further evaluation of options include TMLR and heart transplantation. Cardiology signed off N/V patient has history of gastroparesis DC patient's home Reglan 5 mg PO TID Start Erythromyacin 250 mg PO TID Consult to GI, Discussed the case with GI Patient to try EES and follow up with GI in 2 weeks Anxiety continue Alprazolam and at home meds. COPD (chronic obstructive pulmonary disease) DuoNeb as needed. Diabetes Mellitus Diabetic neuropathy Patient takes Lantus 40 units SQ QHS, she was started on levemir 15 Units SQ HS Will use sliding scale insulin and low-dose basal insulin HTN (hypertension) Lisinopril 20 mg PO daily Continue medications. DVT prophylaxis SCDs - Time Spent with Patient Total time spent providing and/or coordinating discharge services: Greater than 30 minutes - Quality: VTE Deep Vein Thrombosis/Pulmonary Embolism Present on Admission: No Exam Vital signs: Vital Signs 01/12/18 18:36 01/12/18 18:59 01/12/18 20:00 Temperature 97.8 F 97.8 F Pulse Rate 98 H 84 Respiratory Rate 18 18 Blood Pressure 179/68 H Pulse Oximetry 98 98 96 01/12/18 21:22 01/12/18 21:45 01/13/18 00:00 Temperature 97.9 F 97.6 F Pulse Rate 93 H 99 H 82 Respiratory Rate 14 18 18 Blood Pressure 198/94 H 178/92 H 182/96 H Pulse Oximetry 97 97 95 01/13/18 04:00 01/13/18 08:00 08/03/18 10:46 Temperature 97.7 F 97.9 F Pulse Rate 80 73 Respiratory Rate 18 22 Blood Pressure 119/61 154/82 H Pulse Oximetry 94 L 94 L 95 Intake & Output 01/12/18 01/13/18 01/13/18 18:59 06:59 18:59 Intake Total 120 / 120 Balance 120 / 120 Weight 113.398 kg 104.5 kg Intake: Oral 120 / 120 Other: # Voids 2 Date of Last Bowel Movement 01/12/18 Weight On Admission 103.5 kg Narrative: GENERAL: Obese, no acute distress SKIN: Warm and dry. CARDIOVASCULAR: Regular rate and rhythm. RESPIRATORY: No accessory muscle use. Clear to auscultation. Breath sounds equal bilaterally. GASTROINTESTINAL: Abdomen soft, nondistended. Tenderness palpation in right upper quadrant. Bowel sounds normal. MUSCULOSKELETAL: Extremities without clubbing, cyanosis, or edema. No obvious deformities. NEUROLOGICAL: Awake and alert. No obvious cranial nerve deficits. Motor grossly within normal limits. Five out of 5 muscle strength in the arms and legs. Normal speech. PSYCHIATRIC: Appropriate mood and affect; insight and judgment normal. Results Procedures completed during hospitalization: None Labs on day of discharge: Labs from last 24 hours 01/13/18 01/13/18 01/13/18 11:40 11:40 11:11 WBC 11.0 RBC 4.54 Hgb 13.5 Hct 40.1 MCV 88.4 MCH 29.8 MCHC 33.7 RDW 14.1 Plt Count 249 MPV 7.0 Neut % (Auto) 63.3 Lymph % (Auto) 22.7 Pike % (Auto) 7.0 Eos % (Auto) 6.3 H Baso % (Auto) 0.7 Neut # (Auto) 7.0 Lymph # (Auto) 2.5 Pike # (Auto) 0.8 Eos # (Auto) 0.7 H Baso # (Auto) 0.1 WBC Differential . Differential Comment Auto diff final PT INR APTT Sodium 137 Potassium 4.0 Chloride 101 Carbon Dioxide 28.6 Anion Gap 7 BUN 15 Creatinine 1.04 H Estimated GFR 56 L POC Glucose 262 H Random Glucose 242 H Calcium 8.8 Total Bilirubin AST ALT Alkaline Phosphatase Total Creatine Kinase Troponin I Total Protein Albumin 01/13/18 01/13/18 01/13/18 08:23 07:32 00:25 WBC RBC Hgb Hct MCV MCH MCHC RDW Plt Count MPV Neut % (Auto) Lymph % (Auto) Pike % (Auto) Eos % (Auto) Baso % (Auto) Neut # (Auto) Lymph # (Auto) Pike # (Auto) Eos # (Auto) Baso # (Auto) WBC Differential Differential Comment PT INR APTT Sodium Potassium Chloride Carbon Dioxide Anion Gap BUN Creatinine Estimated GFR POC Glucose 306 H Random Glucose Calcium Total Bilirubin AST ALT Alkaline Phosphatase Total Creatine Kinase 32 35 Troponin I 0.02 Less than 0.02 L Total Protein Albumin 01/12/18 01/12/18 01/12/18 18:28 18:28 18:28 WBC 13.8 H RBC 5.04 Hgb 15.3 Hct 44.9 MCV 89.0 MCH 30.4 MCHC 34.2 RDW 13.9 Plt Count 275 MPV 7.2 Neut % (Auto) 73.0 H Lymph % (Auto) 17.2 Pike % (Auto) 4.5 Eos % (Auto) 4.8 H Baso % (Auto) 0.5 Neut # (Auto) 10.1 H Lymph # (Auto) 2.4 Pike # (Auto) 0.6 Eos # (Auto) 0.7 H Baso # (Auto) 0.1 WBC Differential . Differential Comment Auto diff final PT 9.8 INR 1.0 APTT 24.5 Sodium 137 Potassium 4.2 Chloride 102 Carbon Dioxide 25.2 Anion Gap 10 BUN 14 Creatinine 1.10 H Estimated GFR 52 L POC Glucose Random Glucose 312 H Calcium 9.3 Total Bilirubin 0.4 AST 9 L ALT 14 Alkaline Phosphatase 166 H Total Creatine Kinase 34 Troponin I Less than 0.02 L Total Protein 7.4 Albumin 2.9 L - Impressions ITS Impressions Chest X-Ray 01/12/18 18:15 CONCLUSION: Cardiomegaly. No focal infiltrate. Liver Ultrasound 01/13/18 00:00 CONCLUSION: 1. No sonographic evidence for cholelithiasis or acute cholecystitis. 2. Echogenic liver consistent with hepatic steatosis or medical liver disease. <Juan Valdivia - Last Filed: 01/31/18 10:08> Date of admission: 01/12/18 21:41 Primary care physician: Reji Basilio MD DS: Summary Hospital Course: Patient examined. Assessment and plan formulated with Cindy Stackpole PA-C. I agree with the above. - Time Spent with Patient Total time spent providing and/or coordinating discharge services: Results - Impressions ITS Impressions Chest X-Ray 01/12/18 18:15 CONCLUSION: Cardiomegaly. No focal infiltrate. Liver Ultrasound 01/13/18 00:00 CONCLUSION: 1. No sonographic evidence for cholelithiasis or acute cholecystitis. 2. Echogenic liver consistent with hepatic steatosis or medical liver disease. Discharge Plan - Discharge Order Discharge Orders: Discharge Order (Routine); Ordered 01/13/18 Ordered By: Cindy Benjamin - Physicians Team Primary Care Provider: Reji Basilio Attending Provider: Juan Valdivia Other Providers: Arsalan Anderson MD ; Narda Rojas MD
--- NOTE | 2018-01-13 14:14 | P.CONGI ---
History of Present Illness Consult date: 01/13/18 Consult reason: Gastroparesis Chief complaint: Chest Pain r/o ACS; h/o CAD; DM w/ Hyperglycemia History of Present Illness: This is a 52-year-old morbidly obese short female who was admitted to the hospital on 01/12/2018 with chest pain. Patient has had a cardiac workup during this hospital admission. Patient also notes symptoms of nausea off and on for the past 6 months and vomiting this past week and in the ER. She also notes symptoms of bloating and unable to tolerate her 2 meals a day that she is eating. She states that she was diagnosed approximately 6 months ago or last with gastroparesis and does not feel her symptoms are currently controlled. Gastroenterology has been called to consult and assist. Patient initially was placed on Reglan according to the record. Current labs show hemoglobin 13.5 PT/ INR 1, alkaline phosphatase 166 and normal bilirubin and LFTs. Patient is a known diabetic with coronary vascular disease ultrasound this admission shows hepatic steatosis with possible medical liver disease patient has no cholelithiasis or acute cholecystitis noted. Patient states bowel movements daily or every other day but does note stools to be hard and complains of some constipation. Patient states EGD approximately 6 months ago here at [place] but no previous colonoscopy. Patient is eating her food without any acute nausea vomiting or abdominal pain at this time. Discussed aggravating factors and foods which patient is unaware of at this time and alleviating factors with patient eating short frequent feedings chew in her food well and eating 4-6 times a day instead of 2 large meals a day no family history of colon cancer. <Linette Tse - Last Filed: 01/13/18 14:23> Review of Systems All other systems reviewed negative except as stated in HPI <Linette Tse - Last Filed: 01/13/18 14:23> PMFSH - History History Provided By: Patient, Medical Record - Medical History Medical History: Medical History (Last Updated 01/12/18 @ 21:29 by Micheal Fair MD, PhD) Anxiety (Chronic) Diabetic neuropathy (Chronic) COPD (chronic obstructive pulmonary disease) (Chronic) HTN (hypertension) (Chronic) CAD (coronary artery disease) CHF (congestive heart failure) Chronic headaches Depression Diabetes GERD (gastroesophageal reflux disease) Gastroparesis HLD (hyperlipidemia) Kidney stones NSTEMI (non-ST elevated myocardial infarction) - Surgical History Surgical History: Surgical History (Last Updated 01/12/18 @ 21:25 by Micehal Fair MD, PhD) History of appendectomy History of cholecystectomy History of hernia repair Hx of CABG Stented coronary artery - Family History Family History: Family History (Last Updated 01/12/18 @ 21:25 by Micheal Fair MD, PhD) Father Family history of acute myocardial infarction - Tobacco History Second Hand Smoke Exposure: No Tobacco Use In Past 30 Days: No Smoking Status: Former smoker (Smoked 1 pack per day for approximately 12 years but stopped 20 years ago) Tobacco Type: Cigarettes years: 12 Number of Pack Years (if former smoker): 12 - Alcohol History How Often Do You Have a Drink Containing Alcohol: Never - Substance Use History Substance History: No History of Abuse - Travel History Recent Travel in the [place] Within the Last 8 Weeks: No Recent Travel Out of the Country Within the Last 8 Weeks: No - Immunization History Tetanus Immunization: >5 Years Hx Influenza Vaccine This Season: Yes <Linette Tse - Last Filed: 01/13/18 14:23> - Medical History Medical History: Medical History (Last Updated 01/12/18 @ 21:29 by Micheal Fair MD, PhD) Anxiety (Chronic) Diabetic neuropathy (Chronic) COPD (chronic obstructive pulmonary disease) (Chronic) HTN (hypertension) (Chronic) CAD (coronary artery disease) CHF (congestive heart failure) Chronic headaches Depression Diabetes GERD (gastroesophageal reflux disease) Gastroparesis HLD (hyperlipidemia) Kidney stones NSTEMI (non-ST elevated myocardial infarction) - Surgical History Surgical History: Surgical History (Last Updated 01/12/18 @ 21:25 by Micheal Fair MD, PhD) History of appendectomy History of cholecystectomy History of hernia repair Hx of CABG Stented coronary artery - Family History Family History: Family History (Last Updated 01/12/18 @ 21:25 by Micheal Fair MD, PhD) Father Family history of acute myocardial infarction <Narda Rojas - Last Filed: 01/13/18 16:55> Medications and Allergies Active Medications: Active Medications Albuterol (Duoneb Neb (Prn)) 1 ampul NEB Q6HR NEB PRN PRN Reason: WHEEZING Alprazolam (Xanax) 0.25 mg PO Q6H PRN PRN Reason: ANXIETY Last Admin: 01/12/18 22:13 Dose: 0.25 mg Aspirin (Aspirin) 325 mg PO DAILY [facility] Atorvastatin Calcium (Lipitor) 80 mg PO DAILY [facility] Last Admin: 01/13/18 08:57 Dose: 80 mg Bupropion HCl (Wellbutrin Sr) 150 mg PO DAILY [facility] Last Admin: 01/13/18 08:57 Dose: 150 mg Dextrose (D50w Vial) 50 ml IV.PUSH UNSCH PRN PRN Reason: PER HYPOGLYCEMIA PROTOCOL Erythromycin (Sherman-Tab) 250 mg PO Q8HR [facility] Last Admin: 01/13/18 13:54 Dose: 250 mg Furosemide (Lasix) 20 mg PO DAILY [facility] Last Admin: 01/13/18 08:58 Dose: 20 mg Glucagon (Glucagon Inj) 1 mg OTHER PRN PRN PRN Reason: for Hypoglycemia Protocol Insulin Aspart (Novolog Insulin Correctional Sugar Inj) 0 unit SQ [facility]; Protocol Last Admin: 01/13/18 13:23 Dose: 10 unit Insulin Detemir (Levemir Inj) 15 unit SQ HS [facility] Last Admin: 01/12/18 22:13 Dose: 15 unit Lisinopril (Prinivil) 20 mg PO DAILY [facility] Last Admin: 01/13/18 08:58 Dose: 20 mg Metoprolol Tartrate (Lopressor) 50 mg PO BID [facility] Last Admin: 01/13/18 08:58 Dose: 50 mg Miscellaneous (Pill Splitter) 1 each OTHER UNSCH PRN PRN Reason: SEE LABEL COMMENTS Nitroglycerin (Nitro-Bid 2% Oint) 1 inch TOPICAL Q6HR [facility] Last Admin: 01/13/18 12:25 Dose: 1 inch Nitroglycerin (Nitrostat Sl) 0.4 mg SL Q5M PRN PRN Reason: CHEST PAIN Pantoprazole Sodium (Protonix) 40 mg PO DAILY [facility] Last Admin: 01/13/18 08:58 Dose: 40 mg Paroxetine HCl (Paxil) 40 mg PO DAILY [facility] Last Admin: 01/13/18 08:57 Dose: 40 mg Ranolazine (Ranexa) 1,000 mg PO BID [facility] Last Admin: 01/13/18 08:57 Dose: 1,000 mg Sodium Chloride (Ns Flush) 2 ml IV.FLUSH UNSCH PRN PRN Reason: FLUSH AFTER USING IV ACCESS <Linette Tse - Last Filed: 01/13/18 14:23> <Narda Rojas - Last Filed: 01/13/18 16:55> Allergies Allergy/AdvReac Type Severity Reaction Status Date / Time penicillin G Allergy Severe hives Verified 08/22/17 17:05 sulfamethoxazole Allergy Severe rash Verified 08/22/17 17:05 trimethoprim Allergy Severe rash Verified 08/22/17 17:05 diatrizoate meglumine AdvReac Severe Nausea/Vomi Verified 08/22/17 17:05 ting gadobenic acid AdvReac Severe Nausea/Vomi Verified 08/22/17 17:05 ting gadodiamide AdvReac Severe Nausea/Vomi Verified 08/22/17 17:05 ting gadoteridol AdvReac Severe Nausea/Vomi Verified 08/22/17 17:05 ting iodixanol AdvReac Severe Nausea/Vomi Verified 08/22/17 17:05 ting iohexol AdvReac Severe Nausea/Vomi Verified 08/22/17 17:05 ting Home Medications Medication Instructions Recorded Confirmed Type aspirin [Aspirin Low Dose] 81 mg PO DAILY 01/12/18 01/12/18 History atorvastatin [Lipitor] 80 mg PO DAILY 01/12/18 01/12/18 History bupropion HCl 150 mg PO QAM 01/12/18 01/12/18 History clopidogrel 75 mg PO DAILY 01/12/18 01/12/18 History folic acid 1 mg PO DAILY 01/12/18 01/12/18 History furosemide 20 mg PO DAILY 01/12/18 01/12/18 History isosorbide mononitrate 120 mg PO BID 01/12/18 01/12/18 History linagliptin [Tradjenta] 5 mg PO DAILY 01/12/18 01/12/18 History lisinopril 20 mg PO BID 01/12/18 01/12/18 History lorazepam 0.25 mg PO QID PRN 01/12/18 01/13/18 History metoclopramide HCl [Reglan] 5 mg PO TID 01/12/18 01/12/18 History metoprolol tartrate 50 mg PO BID 01/12/18 01/12/18 History paroxetine HCl 40 mg PO DAILY 01/12/18 01/12/18 History ranolazine [Ranexa] 1,000 mg BID 01/12/18 01/12/18 History umeclidinium-vilanterol [Anoro 1 inh INHALATION Q24H 01/12/18 01/12/18 History Ellipta] Exam Vital signs: Vital Signs 01/12/18 18:36 01/12/18 18:59 01/12/18 20:00 Temperature 97.8 F 97.8 F Pulse Rate 98 H 84 Respiratory Rate 18 18 Blood Pressure 179/68 H Pulse Oximetry 98 98 96 01/12/18 21:22 01/12/18 21:45 01/13/18 00:00 Temperature 97.9 F 97.6 F Pulse Rate 93 H 99 H 82 Respiratory Rate 14 18 18 Blood Pressure 198/94 H 178/92 H 182/96 H Pulse Oximetry 97 97 95 01/13/18 04:00 01/13/18 08:00 01/13/18 10:46 Temperature 97.7 F 97.9 F Pulse Rate 80 73 Respiratory Rate 18 22 Blood Pressure 119/61 154/82 H Pulse Oximetry 94 L 94 L 95 01/13/18 12:00 Temperature 97.2 F L Pulse Rate 73 Respiratory Rate 20 Blood Pressure 171/93 H Pulse Oximetry 96 Intake & Output 01/12/18 01/13/18 01/13/18 18:59 06:59 18:59 Intake Total 120 / 120 Balance 120 / 120 Weight 113.398 kg 104.5 kg Intake: Oral 120 / 120 Other: # Voids 2 Date of Last Bowel Movement 01/12/18 Weight On Admission 103.5 kg - Constitutional no acute distress, morbidly obese - Routine HEENT Exam Head: Present: normocephalic (In short), atraumatic Eye: Present: EOMI ENT: Present: mucous membranes moist - Routine Neck Exam Present: supple - Routine Respiratory Exam Present: decreased breath sounds (Low volumes possibly secondary to her body habitus) - Routine Cardiovascular Exam Present: RRR - Routine Abdominal Exam Present: soft (Round no abdominal pain or tenderness to light palpation) - Routine Skin Exam Present: intact, dry - Routine Neurological Exam Present: alert (Answers questions appropriately but poor historian) <Linette Tse - Last Filed: 01/13/18 14:23> Vital signs: Vital Signs 01/12/18 18:36 01/12/18 18:59 01/12/18 20:00 Temperature 97.8 F 97.8 F Pulse Rate 98 H 84 Respiratory Rate 18 18 Blood Pressure 179/68 H Pulse Oximetry 98 98 96 01/12/18 21:22 01/12/18 21:45 01/13/18 00:00 Temperature 97.9 F 97.6 F Pulse Rate 93 H 99 H 82 Respiratory Rate 14 18 18 Blood Pressure 198/94 H 178/92 H 182/96 H Pulse Oximetry 97 97 95 01/13/18 04:00 01/13/18 08:00 01/13/18 10:46 Temperature 97.7 F 97.9 F Pulse Rate 80 73 Respiratory Rate 18 22 Blood Pressure 119/61 154/82 H Pulse Oximetry 94 L 94 L 95 01/13/18 12:00 Temperature 97.2 F L Pulse Rate 73 Respiratory Rate 20 Blood Pressure 171/93 H Pulse Oximetry 96 Intake & Output 01/12/18 01/13/18 01/13/18 18:59 06:59 18:59 Intake Total 120 / 120 Balance 120 / 120 Weight 113.398 kg 104.5 kg Intake: Oral 120 / 120 Other: # Voids 2 Date of Last Bowel Movement 01/12/18 Weight On Admission 103.5 kg <Narda Rojas - Last Filed: 01/13/18 16:55> Results - Labs CBC & Chem 7: 01/13/18 11:40 01/13/18 11:40 Labs: Laboratory Results - last 24 hr 01/12/18 01/12/18 01/12/18 18:28 18:28 18:28 WBC 13.8 H RBC 5.04 Hgb 15.3 Hct 44.9 MCV 89.0 MCH 30.4 MCHC 34.2 RDW 13.9 Plt Count 275 MPV 7.2 Neut % (Auto) 73.0 H Lymph % (Auto) 17.2 [place] % (Auto) 4.5 Eos % (Auto) 4.8 H Baso % (Auto) 0.5 Neut # (Auto) 10.1 H Lymph # (Auto) 2.4 [place] # (Auto) 0.6 Eos # (Auto) 0.7 H Baso # (Auto) 0.1 WBC Differential . Differential Comment Auto diff final PT 9.8 INR 1.0 APTT 24.5 Sodium 137 Potassium 4.2 Chloride 102 Carbon Dioxide 25.2 Anion Gap 10 BUN 14 Creatinine 1.10 H Estimated GFR 52 L POC Glucose Random Glucose 312 H Calcium 9.3 Total Bilirubin 0.4 AST 9 L ALT 14 Alkaline Phosphatase 166 H Total Creatine Kinase 34 Troponin I Less than 0.02 L Total Protein 7.4 Albumin 2.9 L 01/13/18 01/13/18 01/13/18 00:25 07:32 08:23 WBC RBC Hgb Hct MCV MCH MCHC RDW Plt Count MPV Neut % (Auto) Lymph % (Auto) [place] % (Auto) Eos % (Auto) Baso % (Auto) Neut # (Auto) Lymph # (Auto) [place] # (Auto) Eos # (Auto) Baso # (Auto) WBC Differential Differential Comment PT INR APTT Sodium Potassium Chloride Carbon Dioxide Anion Gap BUN Creatinine Estimated GFR POC Glucose 306 H Random Glucose Calcium Total Bilirubin AST ALT Alkaline Phosphatase Total Creatine Kinase 35 32 Troponin I Less than 0.02 L 0.02 Total Protein Albumin 01/13/18 01/13/18 01/13/18 11:11 11:40 11:40 WBC 11.0 RBC 4.54 Hgb 13.5 Hct 40.1 MCV 88.4 MCH 29.8 MCHC 33.7 RDW 14.1 Plt Count 249 MPV 7.0 Neut % (Auto) 63.3 Lymph % (Auto) 22.7 [place] % (Auto) 7.0 Eos % (Auto) 6.3 H Baso % (Auto) 0.7 Neut # (Auto) 7.0 Lymph # (Auto) 2.5 [place] # (Auto) 0.8 Eos # (Auto) 0.7 H Baso # (Auto) 0.1 WBC Differential . Differential Comment Auto diff final PT INR APTT Sodium 137 Potassium 4.0 Chloride 101 Carbon Dioxide 28.6 Anion Gap 7 BUN 15 Creatinine 1.04 H Estimated GFR 56 L POC Glucose 262 H Random Glucose 242 H Calcium 8.8 Total Bilirubin AST ALT Alkaline Phosphatase Total Creatine Kinase Troponin I Total Protein Albumin - Imaging Impressions Chest X-Ray 01/12/18 18:15 CONCLUSION: Cardiomegaly. No focal infiltrate. Liver Ultrasound 01/13/18 00:00 CONCLUSION: 1. No sonographic evidence for cholelithiasis or acute cholecystitis. 2. Echogenic liver consistent with hepatic steatosis or medical liver disease. <Linette Tse - Last Filed: 01/13/18 14:23> - Labs CBC & Chem 7: 01/13/18 11:40 01/13/18 11:40 Labs: Laboratory Results - last 24 hr 01/12/18 01/12/18 01/12/18 18:28 18:28 18:28 WBC 13.8 H RBC 5.04 Hgb 15.3 Hct 44.9 MCV 89.0 MCH 30.4 MCHC 34.2 RDW 13.9 Plt Count 275 MPV 7.2 Neut % (Auto) 73.0 H Lymph % (Auto) 17.2 [place] % (Auto) 4.5 Eos % (Auto) 4.8 H Baso % (Auto) 0.5 Neut # (Auto) 10.1 H Lymph # (Auto) 2.4 [place] # (Auto) 0.6 Eos # (Auto) 0.7 H Baso # (Auto) 0.1 WBC Differential . Differential Comment Auto diff final PT 9.8 INR 1.0 APTT 24.5 Sodium 137 Potassium 4.2 Chloride 102 Carbon Dioxide 25.2 Anion Gap 10 BUN 14 Creatinine 1.10 H Estimated GFR 52 L POC Glucose Random Glucose 312 H Calcium 9.3 Total Bilirubin 0.4 AST 9 L ALT 14 Alkaline Phosphatase 166 H Total Creatine Kinase 34 Troponin I Less than 0.02 L Total Protein 7.4 Albumin 2.9 L 01/13/18 01/13/18 01/13/18 00:25 07:32 08:23 WBC RBC Hgb Hct MCV MCH MCHC RDW Plt Count MPV Neut % (Auto) Lymph % (Auto) [place] % (Auto) Eos % (Auto) Baso % (Auto) Neut # (Auto) Lymph # (Auto) [place] # (Auto) Eos # (Auto) Baso # (Auto) WBC Differential Differential Comment PT INR APTT Sodium Potassium Chloride Carbon Dioxide Anion Gap BUN Creatinine Estimated GFR POC Glucose 306 H Random Glucose Calcium Total Bilirubin AST ALT Alkaline Phosphatase Total Creatine Kinase 35 32 Troponin I Less than 0.02 L 0.02 Total Protein Albumin 01/13/18 01/13/18 01/13/18 11:11 11:40 11:40 WBC 11.0 RBC 4.54 Hgb 13.5 Hct 40.1 MCV 88.4 MCH 29.8 MCHC 33.7 RDW 14.1 Plt Count 249 MPV 7.0 Neut % (Auto) 63.3 Lymph % (Auto) 22.7 [place] % (Auto) 7.0 Eos % (Auto) 6.3 H Baso % (Auto) 0.7 Neut # (Auto) 7.0 Lymph # (Auto) 2.5 [place] # (Auto) 0.8 Eos # (Auto) 0.7 H Baso # (Auto) 0.1 WBC Differential . Differential Comment Auto diff final PT INR APTT Sodium Potassium Chloride Carbon Dioxide Anion Gap BUN Creatinine Estimated GFR POC Glucose 262 H Random Glucose Calcium Total Bilirubin AST ALT Alkaline Phosphatase Total Creatine Kinase 32 Troponin I Less than 0.02 L Total Protein Albumin 01/13/18 11:40 WBC RBC Hgb Hct MCV MCH MCHC RDW Plt Count MPV Neut % (Auto) Lymph % (Auto) [place] % (Auto) Eos % (Auto) Baso % (Auto) Neut # (Auto) Lymph # (Auto) [place] # (Auto) Eos # (Auto) Baso # (Auto) WBC Differential Differential Comment PT INR APTT Sodium 137 Potassium 4.0 Chloride 101 Carbon Dioxide 28.6 Anion Gap 7 BUN 15 Creatinine 1.04 H Estimated GFR 56 L POC Glucose Random Glucose 242 H Calcium 8.8 Total Bilirubin AST ALT Alkaline Phosphatase Total Creatine Kinase Troponin I Total Protein Albumin - Imaging Impressions Chest X-Ray 01/12/18 18:15 CONCLUSION: Cardiomegaly. No focal infiltrate. Liver Ultrasound 01/13/18 00:00 CONCLUSION: 1. No sonographic evidence for cholelithiasis or acute cholecystitis. 2. Echogenic liver consistent with hepatic steatosis or medical liver disease. <Narda Rojas - Last Filed: 01/13/18 16:55> Assessment and Plan - Plan Gastroparesis, initially treated with some Reglan patient still complains of nausea with recent vomiting this past week as well as in the emergency room. Patient states she eats to regular size meals a day but continues to have bloating most of her day sometimes worsened after eating. Unaware of any foods or aggravating factors at this time" requested patient keep a diary so we could discuss further things to assist with her chronic gastroparesis. History of cardiovascular disease seen and worked up this admission per cardiology okay for any further testing for now. Plan Patient was evaluated when her lunch came and she was eating solid food without any nausea vomiting or abdominal pain. It is felt that she is stable from her attending physician to be discharged today and seen on an outpatient basis. Gastroenterology evaluated before discharge and set up appointments as an outpatient to further evaluate her gastroparesis patient has already had gastric emptying study in the past approximately 6 months ago diagnostic. Patient's been placed on erythromycin on discharge and will follow up in the GI office Requested patient eat 4-6 small meals a day chew her food very slowly and eat slowly hydrate as necessary Diary for aggravating and relieving factors Further recommendations to follow This patient was seen per myself and Dr. Rojas, note was written on his behalf <Linette Tse - Last Filed: 01/13/18 14:23> - Plan Seen and examined with OUTPATIENT ADMITTING CLERK, planned dc home today. Switched from reglan to erythromicin. Monitor for side effects. GI fu in 1 week post dc. thank you <Narda Rojas - Last Filed: 01/13/18 16:55>
[2018-01-13 14:39] LABS: Creatine Kinase 32 U/L (26-192)
[2018-01-13] MEDS ORDERED: Aspirin 325 MG Tablet PO SCH (21:39)
[2018-01-17 17:55] VITALS: O2SAT 96
[2018-01-17 18:00] VITALS: PULSE 73
[2018-01-17 18:09] VITALS: BP 171/93; RESP 20; TEMP 97.2
== END 2018-01-13 16:06 | disposition home or self-care (01) ==
LOC: N04 17:58 → NEPC 17:58 → NEDA 20:02 → INTOOBSV 21:41 → N04 21:50 → NEDA 21:57
PROVIDERS: ADMIT Hospitalist; ATTEND Hospitalist
DX: K59.00 Constipation, unspecified; I50.9 Heart failure, unspecified; I11.0 Hypertensive heart disease with heart failure; K31.84 Gastroparesis; K76.0 Fatty (change of) liver, not elsewhere classified; Z79.4 Long term (current) use of insulin; N20.0 Calculus of kidney; E78.5 Hyperlipidemia, unspecified; I25.2 Old myocardial infarction; I25.10 Atherosclerotic heart disease of native coronary artery without angina pectoris; Z88.0 Allergy status to penicillin; Z88.2 Allergy status to sulfonamides; K21.9 Gastro-esophageal reflux disease without esophagitis; Z87.891 Personal history of nicotine dependence; F32.9 Major depressive disorder, single episode, unspecified; Z95.5 Presence of coronary angioplasty implant and graft; Z79.899 Other long term (current) drug therapy; Z79.82 Long term (current) use of aspirin; R07.89 Other chest pain; E66.01 Morbid (severe) obesity due to excess calories; F41.9 Anxiety disorder, unspecified; J44.9 Chronic obstructive pulmonary disease, unspecified; Z90.49 Acquired absence of other specified parts of digestive tract; Z79.02 Long term (current) use of antithrombotics/antiplatelets; E11.43 Type 2 diabetes mellitus with diabetic autonomic (poly)neuropathy; Z82.49 Family history of ischemic heart disease and other diseases of the circulatory system